=== PATIENT | female | born 1965 | race Caucasian/White ===

== ENCOUNTER 2020-04-28 13:28 | Emergency (ER) | payer OTHER, SELFPAY ==
--- NOTE | 2020-04-28 | CT_ITS ---
EXAMINATION: CT ANGIOGRAM HEAD CT ANGIOGRAM NECK CLINICAL INFORMATION: Left-sided weakness. COMPARISON: Brain MRI from 02/01/2020. CTA head and neck from 02/01/2020. TECHNIQUE: Initial noncontrast cable splicer apprentice imaging of the head and neck was performed. Noncontrast head CT was also performed. Test bolus sequences followed by intravenous administration 70 mL of Omnipaque 350. Helical imaging was performed in the axial plane from the aortic arch to the skull vertex. Delayed postcontrast imaging of the head was also performed. The data was processed at the creative technologist's workstation for generation of MIP sequences. Angled MIPs and volume rendered reformatted images were also generated at an offline 3D workstation. Stenoses are assessed in accordance with NASCET criteria unless otherwise indicated. DLP: 2434 mGy-cm This CT examination was performed using dose optimization techniques as appropriate, variously including the following: *Automated exposure control. *Adjustment of mA and/or kV according to patient size (this includes techniques or standardized protocols for targeted exams where dose is matched to indication/reason for exam; i.e. extremities or head). *Use of iterative reconstruction technique. FINDINGS: CT Head: There is no evidence of acute intracranial hemorrhage or edematous territorial infarction. Confluent hypoattenuation in the periventricular and deep white matter. Salvador-white matter differentiation is preserved. Proportional prominence of the ventricles and sulcal spaces. No evidence for obstructive hydrocephalus. No abnormal mass effect or midline shift. No extra-axial fluid collections. No pathologic intra-axial enhancement or regional oligemia. No acute soft tissue or osseous abnormalities. The patient is edentulous. Moderate mucosal thickening of the left maxillary sinus with small amount of layering fluid. The remaining paranasal sinuses are largely clear. The mastoid air cells and middle ear cavities are clear. CT Neck: The thyroid gland and remaining cervical soft tissues are within normal limits. Mild reversal the normal cervical lordosis centered on C5-C6. Moderate degenerative spondyloarthropathy of the cervical spine. There is advanced degenerative disc disease at C5-C6 with moderate disc-osteophyte complex. Mild to moderate multilevel degenerative facet and uncovertebral joint arthropathy, most notably causing moderate osseous encroachment on the C5-C6 neural foramina. CT Upper Chest: The visualized lung apices and upper mediastinum are within normal limits. Neck CTA: Exam is moderately motion degraded. Aortic Arch: Normal contour and caliber. Classic 3 vessel branching pattern of the aortic arch. Great Vessel Origins: No significant stenosis of the branch origins. Right Common Carotid Artery: Normal opacification without focal stenosis or occlusion. Cervical Right Internal Carotid Artery: Minimal calcific atherosclerotic disease of the carotid bulb. Otherwise, normal opacification without focal stenosis or occlusion. Left Common Carotid Artery: Normal opacification without focal stenosis or occlusion. Cervical Left Internal Carotid Artery: Normal opacification without focal stenosis or occlusion. Cervical Right Vertebral Artery: Co-dominant. Normal opacification without focal stenosis or occlusion. Cervical Left Vertebral Artery: Co-dominant. Normal opacification without focal stenosis or occlusion. Brain CTA: Exam is moderately motion degraded. Intracranial Internal Carotid Arteries: Calcific atherosclerotic disease of the intracranial internal carotid arteries without occlusion or flow-limiting stenosis. Normal contrast opacification of the petrous, cavernous, paraophthalmic, and supraclinoid segments of the internal carotid arteries without focal stenosis. Right Anterior Cerebral Artery: Normal A1 segment. Normal opacification of the distal segments of the ZEESHAN. Left Anterior Cerebral Artery: Normal A1 segment. Normal opacification of the distal segments of the ZEESHAN. Anterior Communicating Artery: Normal. Right Middle Cerebral Artery: Normal opacification of the M1 segment of the MCA without focal stenosis or occlusion. Normal arborization of the distal segments. Left Middle Cerebral Artery: Normal opacification of the M1 segment of the MCA without focal stenosis or occlusion. Normal arborization of the distal segments. Right Vertebral Artery: Normal opacification of the V4 segment. Normal opacification of the proximal segments of the posterior inferior cerebellar artery. Left Vertebral Artery: Normal opacification of the V4 segment. Normal opacification of the proximal segments of the posterior inferior cerebellar artery. Basilar Artery: Normal opacification without focal stenosis or occlusion. Normal appearance of the proximal superior cerebellar arteries. Right Posterior Cerebral Artery: Normal P1 segment. Normal opacification of the posterior communicating artery. Normal opacification of the distal segments of the AUTOMOBILE DEALER. Left Posterior Cerebral Artery: The P1 segment is diminutive. origin of the AUTOMOBILE DEALER with robust opacification of the posterior communicating artery. Normal opacification of the distal segments of the AUTOMOBILE DEALER. Normal opacification of the superior sagittal, straight, transverse, and sigmoid sinuses. IMPRESSION: Exam is limited by moderate motion degradation. Within this limitation, there is no evidence of proximal arterial occlusion or flow-limiting stenosis. No evidence of acute intracranial hemorrhage or edematous territorial infarction. Extensive underlying white matter changes, most commonly seen in the setting of microangiopathy. However, other inflammatory or demyelinating processes could have a similar appearance in the appropriate clinical setting. Mild generalized cerebral volume loss.
[2020-04-28 13:38] VITALS: BP 123/57; PULSE 80; RESP 16; TEMP 36.6; O2SAT 96; BMI 32.2
--- NOTE | 2020-04-28 13:52 | ED.NEUROSD ---
HPI - Neuro Symptoms/Deficit General Chief Complaint: Fall Stated Complaint: INCREASED WEAKNESS HX TIA Time Seen by Provider: 04/28/20 13:52 Source: patient and EMS Mode of arrival: EMS Limitations: other (vague historian) History of Present Illness HPI Narrative: 54 yo female with hx of CVA states residual L sided weakness, noted upon waking today at 4am her L side was much weaker but she had to go to methadone clinic, she felt her legs give out due to continued weakness x 7 days and she fell, no LOC reported, her story changed with interview among RN and myself, denies injury Onset (ago): day(s) (7) Location: left arm History of same: Yes Severity: moderate Quality: weak Relieving factors: none Exacerbating factors: none Context: gradual onset On Anticoagulants: No Associated symptoms: weakness (diffuse) Related Data Allergies Allergy/AdvReac Type Severity Reaction Status Date / Time trazodone [TRAZODONE] Allergy Intermediate VERY Unverified 04/09/20 16:16 ANXIOUS, RESTLESSNESS codeine [CODEINE] Allergy Unknown SWELLING Unverified 04/09/20 16:16 hornet venom [HORNETS] Allergy Unknown RASH Unverified 04/09/20 16:16 From SEROQUEL Allergy Intermediate ANXIETY Uncoded 04/09/20 16:16 AND RESTLESSNESS From BENADRYL Allergy Unknown RESTLESS Uncoded 04/09/20 16:16 Review of Systems Review of Systems: Constitutional : No Weight loss, No Fever, No Chills ENT/Mouth : No sore throat, No Rhinorrhea, abrasion to R Eyes: No Eye Pain, No Swelling Cardiovascular : no Chest Pain, no SOB, no Dyspnea on Exertion, No Orthopnea, No Edema, No Palpitations Respiratory : No Cough, No Sputum Gastrointestinal : no Nausea, No Vomiting, No Diarrhea, No abdominal Pain, No Hematochezia, No Melena Genitourinary : No Dysuria, No Urinary Frequency Musculoskeletal : No joint pain, No Myalgias, No Joint Swelling Skin : No Skin Lesions, No rash Neuro : +weakness, No Numbness, No Dizziness, No Headache Psych : No Anxiety/Panic, No Depression Heme/Lymph: No Bruising, No Lymphadenopathy Endocrine : No Polyuria, No Polydipsia All other systems reviewed and are negative [facility] Past Medical History Medical History (Updated 04/28/20 @ 16:33 by Enedina Seals DO) CVA (cerebral vascular accident) Diabetes Hyperlipidemia Seizure Social History Social History (Updated 04/28/20 @ 13:58 by Enedina Seals DO) Alcohol intake: current Smoking Status: Current every day smoker Substance Use Type Other:: on methadone Advance Directives: No Advance Directives Information Provided: Yes Physical Exam Vital Signs and I&O and Narrative: Vital Signs and I&O: Vital Signs Temp 97.8 F 04/28/20 13:38 Pulse 80 04/28/20 13:38 Resp 16 04/28/20 13:38 BP 123/57 L 04/28/20 13:38 Pulse Ox 96 04/28/20 13:38 Intake & Output 04/27/20 04/28/20 04/28/20 18:59 06:59 18:59 Intake Total 1000 / 1000 Balance 1000 / 1000 Weight 93.44 kg Intake: Intake, IV Amoun t 1000 / 1000 0.9 % Sodium C hloride 1,000 ml 1000 / 1000 @ 999 mls/hr I VCONT .Q1H1M [facility] Rx#:[id number] Body Mass Index 32.2 Appearance: Somnolent Oriented X3. No acute distress. Eyes: Pupils equal, round and reactive to light. ENT: Pharynx normal. Contusion small and abrasions R cheek Neck: Normal inspection. Neck supple. CVS: Normal heart rate and rhythm. Pulses normal. Respiratory: No respiratory distress. Breath sounds normal. Abdomen: Soft and nontender. Skin: Skin warm and dry. Normal skin color. Normal skin turgor. Extremities: No lower extremity edema. No trauma Neuro: Oriented X 3. L sided UE and LE 4/5 No sensory deficit. Course Course Course Narrative: reviewed notes from Neurology in past stating presents with slurred speech and L sided weakness with negative MRI and CTA ? conversion disorder or nonepileptic seizures signed out to Dr. Beckham pending workup MDM - Neuro Symptoms/Deficit MDM Narrative Medical decision making narrative: patient c/o weakness for 7 days, today states she felt like her legs gave out, she is a very vague historian and her story in inconsistent she now states that her L sided weakness is baseline but she noted it is much worse since 4am - states she didn't come in due to needing to go to methadone clinic, she has no infectious or GIB symptoms, will need infectious/metabolic/toxic workup including CT scan of brain and CTA, not a candidate for tPa given onset of LLE worsening at 4am so she would be out of tPa window, dispo per results and findings Lab Data Result diagrams: 04/28/20 15:13 04/28/20 15:13 Labs: Lab Results 04/28/20 04/28/20 04/28/20 Range/Units 14:45 14:45 14:45 WBC (4.8-10.8) X10*3/uL RBC (4.20-5.50) X10*6/uL Hgb (12.0-16.0) g/dl Hct (37-47) % MCV (80-98) fL MCH (27.0-33.0) pg MCHC (31.0-35.0) g/dl RDW (11.0-16.0) % Plt Count (160-400) X10*3/uL MPV (9.4-12.3) fL Immature Gran % (Auto) (0.0-0.4) % Neut % (Auto) (45-73) % Lymph % (Auto) (20-40) % Hardeman % (Auto) (2-11) % Eos % (Auto) (0-4) % Baso % (Auto) (0-2) % Neut # (Auto) (2.0-8.3) X10*3/uL Lymph # (Auto) (1.2-4.9) X10*3/uL Hardeman # (Auto) (0.1-1.2) X10*3/uL Eos # (Auto) (0.0-0.4) X10*3/uL Baso # (Auto) (0.0-0.2) X10*3/uL Abs Immat Gran (auto) (0.00-0.03) X10*3/uL Absolute Nucleated RBC (0.0-0.012) X10*3/uL Nucleated RBC % (auto) (0.0-0.2) /100WBC APTT 29.8 (24.1-38.0) SEC VBG pH (7.32-7.43) VBG pCO2 mmhg VBG Oxygen Liters/Min VBG pO2 mmhg VBG HCO3 mmol/L VBG O2 Saturation % VBG Base Excess mmol/L Sodium (135-145) mmol/L Potassium (3.3-5.1) mmol/l Chloride (96-108) mmol/L Carbon Dioxide (22-29) mmol/L Anion Gap (12-20) BUN (9-16) mg/dL Creatinine (0.5-1.4) mg/dL Estim Creat Clear Calc Estimated GFR Random Glucose (60-115) mg/dL Lactic Acid 1.7 (0.5-2.0) mmol/L Calcium (8.4-10.2) mg/dL Magnesium (1.6-2.6) mg/dL Total Bilirubin (0.0-1.0) mg/dL Direct Bilirubin (0.0-0.5) mg/dL AST (5-31) U/L ALT (0-31) U/L Alkaline Phosphatase (39-117) U/L Ammonia 48 (13-55) umol/L Total Creatine Kinase (26-140) U/L Total Protein (6.5-8.0) g/dL Albumin (3.5-5.0) g/dL Lipase (8-78) U/L Ethyl Alcohol mg/dL 04/28/20 04/28/20 04/28/20 Range/Units 14:45 14:45 15:13 WBC 13.5 H (4.8-10.8) X10*3/uL RBC 4.43 (4.20-5.50) X10*6/uL Hgb 11.3 L (12.0-16.0) g/dl Hct 37.3 (37-47) % MCV 84.2 (80-98) fL MCH 25.5 L (27.0-33.0) pg MCHC 30.3 L (31.0-35.0) g/dl RDW 16.4 H (11.0-16.0) % Plt Count 224 (160-400) X10*3/uL MPV 10.0 (9.4-12.3) fL Immature Gran % (Auto) 0.4 (0.0-0.4) % Neut % (Auto) 63.8 (45-73) % Lymph % (Auto) 26.0 (20-40) % Hardeman % (Auto) 7.0 (2-11) % Eos % (Auto) 2.5 (0-4) % Baso % (Auto) 0.3 (0-2) % Neut # (Auto) 8.6 H (2.0-8.3) X10*3/uL Lymph # (Auto) 3.5 (1.2-4.9) X10*3/uL Hardeman # (Auto) 0.9 (0.1-1.2) X10*3/uL Eos # (Auto) 0.3 (0.0-0.4) X10*3/uL Baso # (Auto) 0.0 (0.0-0.2) X10*3/uL Abs Immat Gran (auto) 0.05 H (0.00-0.03) X10*3/uL Absolute Nucleated RBC 0.000 (0.0-0.012) X10*3/uL Nucleated RBC % (auto) 0.0 (0.0-0.2) /100WBC APTT (24.1-38.0) SEC VBG pH 7.34 (7.32-7.43) VBG pCO2 55 mmhg VBG Oxygen Liters/Min TNP VBG pO2 55 mmhg VBG HCO3 29 mmol/L VBG O2 Saturation 87.6 % VBG Base Excess 1.7 mmol/L Sodium (135-145) mmol/L Potassium (3.3-5.1) mmol/l Chloride (96-108) mmol/L Carbon Dioxide (22-29) mmol/L Anion Gap (12-20) BUN (9-16) mg/dL Creatinine (0.5-1.4) mg/dL Estim Creat Clear Calc Estimated GFR Random Glucose (60-115) mg/dL Lactic Acid (0.5-2.0) mmol/L Calcium (8.4-10.2) mg/dL Magnesium (1.6-2.6) mg/dL Total Bilirubin (0.0-1.0) mg/dL Direct Bilirubin (0.0-0.5) mg/dL AST (5-31) U/L ALT (0-31) U/L Alkaline Phosphatase (39-117) U/L Ammonia (13-55) umol/L Total Creatine Kinase (26-140) U/L Total Protein (6.5-8.0) g/dL Albumin (3.5-5.0) g/dL Lipase (8-78) U/L Ethyl Alcohol < 10 mg/dL 04/28/20 Range/Units 15:13 WBC (4.8-10.8) X10*3/uL RBC (4.20-5.50) X10*6/uL Hgb (12.0-16.0) g/dl Hct (37-47) % MCV (80-98) fL MCH (27.0-33.0) pg MCHC (31.0-35.0) g/dl RDW (11.0-16.0) % Plt Count (160-400) X10*3/uL MPV (9.4-12.3) fL Immature Gran % (Auto) (0.0-0.4) % Neut % (Auto) (45-73) % Lymph % (Auto) (20-40) % Hardeman % (Auto) (2-11) % Eos % (Auto) (0-4) % Baso % (Auto) (0-2) % Neut # (Auto) (2.0-8.3) X10*3/uL Lymph # (Auto) (1.2-4.9) X10*3/uL Hardeman # (Auto) (0.1-1.2) X10*3/uL Eos # (Auto) (0.0-0.4) X10*3/uL Baso # (Auto) (0.0-0.2) X10*3/uL Abs Immat Gran (auto) (0.00-0.03) X10*3/uL Absolute Nucleated RBC (0.0-0.012) X10*3/uL Nucleated RBC % (auto) (0.0-0.2) /100WBC APTT (24.1-38.0) SEC VBG pH (7.32-7.43) VBG pCO2 mmhg VBG Oxygen Liters/Min VBG pO2 mmhg VBG HCO3 mmol/L VBG O2 Saturation % VBG Base Excess mmol/L Sodium 141 (135-145) mmol/L Potassium 4.0 (3.3-5.1) mmol/l Chloride 104 (96-108) mmol/L Carbon Dioxide 28 (22-29) mmol/L Anion Gap 13 (12-20) BUN 7 L (9-16) mg/dL Creatinine 0.81 (0.5-1.4) mg/dL Estim Creat Clear Calc 93.2 Estimated GFR > 60 Random Glucose 101 (60-115) mg/dL Lactic Acid (0.5-2.0) mmol/L Calcium 9.0 (8.4-10.2) mg/dL Magnesium 2.1 (1.6-2.6) mg/dL Total Bilirubin 0.2 (0.0-1.0) mg/dL Direct Bilirubin < 0.2 (0.0-0.5) mg/dL AST 19 (5-31) U/L ALT 44 H (0-31) U/L Alkaline Phosphatase 126 H (39-117) U/L Ammonia (13-55) umol/L Total Creatine Kinase 130 (26-140) U/L Total Protein 6.7 (6.5-8.0) g/dL Albumin 4.0 (3.5-5.0) g/dL Lipase 10 (8-78) U/L Ethyl Alcohol mg/dL ECG Data ECG interpretation date: 04/28/20 ECG interpretation time: 14:06 Interpretation: Rate: 73 Rhythm: normal sinus rhythm [place]: normal Normal P waves. Normal SHENG. Normal QRS complex. ST T wave : normal qTC: normal prior studies: no acute ischemia The study has been interpreted contemporaneously by me. . Discharge Plan Discharge Clinical Impression: Weakness
--- NOTE | 2020-04-28 13:53 | ECG_ITS ---
Test Reason : FALL Blood Pressure : / mmHG Vent. Rate : 073 BPM Atrial Rate : 073 BPM P-R Int : 160 ms QRS Dur : 082 ms QT Int : 410 ms P-R-T Axes : 028 060 037 degrees QTc Int : 451 ms Normal sinus rhythm Normal ECG When compared with ECG of 01-FEB-2020 10:58, No significant change was found Referred By: Enedina Seals Electronically Signed By:GORDON MARIE
--- NOTE | 2020-04-28 13:54 | XR_ITS ---
EXAMINATION: XR CHEST CLINICAL INFORMATION: Weakness COMPARISON: 02/02/2020 TECHNIQUE: Frontal view of the chest was obtained. FINDINGS: No significant abnormality is noted involving the heart, lungs, mediastinum, bony thorax or soft tissues. IMPRESSION: Unremarkable examination.
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
[2020-04-28] MEDS: 0.9 % Sodium Chloride 1,000 ML 999 ML IVCONT (15:14)
[2020-04-28 15:20] LABS: MANUAL DIFF FLAG NO
[2020-04-28 15:21] LABS: Basophils Percent Auto 0.3 % (0-2); Eosinophils Absolute Auto 0.3 X10*3/uL (0.0-0.4); Eosinophils Percent Auto 2.5 % (0-4); Hematocrit 37.3 % (37-47); Hemoglobin 11.3 g/dl (12.0-16.0); Imm Gran Abs Auto 0.05 X10*3/uL (0.00-0.03); Imm Gran Pct Auto 0.4 % (0.0-0.4); Lymphocytes Absolute Auto 3.5 X10*3/uL (1.2-4.9); Mean Corpuscular HGB Conc 30.3 g/dl (31.0-35.0); Mean Corpuscular Hemoglobin 25.5 pg (27.0-33.0); Mean Corpuscular Volume 84.2 fL (80-98); Monocytes Absolute Auto 0.9 X10*3/uL (0.1-1.2); Neutrophils Absolute Auto 8.6 X10*3/uL (2.0-8.3); Neutrophils Percent Auto 63.8 % (45-73); Platelet Count 224 X10*3/uL (160-400); Red Blood Count 4.43 X10*6/uL (4.20-5.50); Red Cell Distribution Width 16.4 % (11.0-16.0); White Blood Count 13.5 X10*3/uL (4.8-10.8)
[2020-04-28 15:21] LABS: PCO2 VBG 55 mmhg; PO2 VBG 55 mmhg; pH VBG 7.34 (7.32-7.43)
[2020-04-28 15:22] LABS: Base Excess VBG 1.7 mmol/L; HCO3 VBG 29 mmol/L
[2020-04-28 15:25] LABS: Oxygen Saturation VBG 87.6 %; Partial Thromboplastin Time 29.8 SEC (24.1-38.0)
[2020-04-28 15:30] LABS: Ammonia 48 umol/L (13-55)
[2020-04-28 15:33] LABS: Lactic Acid 1.7 mmol/L (0.5-2.0)
[2020-04-28 15:35] LABS: Ethanol < 10 mg/dL
[2020-04-28 15:51] LABS: Alanine Aminotransferase 44 U/L (0-31); Alkaline Phosphatase 126 U/L (39-117); Anion Gap 13 (12-20); Aspartate Amino Transferase 19 U/L (5-31); Bilirubin Direct < 0.2 mg/dL (0.0-0.5); Bilirubin Total 0.2 mg/dL (0.0-1.0); Blood Urea Nitrogen 7 mg/dL (9-16); Carbon Dioxide 28 mmol/L (22-29); Chloride 104 mmol/L (96-108); Creatinine Clr Calc Pharmacy 93.2; Estimated Glomerular Filt Rate > 60; Glucose Random 101 mg/dL (60-115); Lipase 10 U/L (8-78); Magnesium 2.1 mg/dL (1.6-2.6); Sodium 141 mmol/L (135-145); Total Protein 6.7 g/dL (6.5-8.0)
[2020-04-28] MEDS: iohexoL 350 MG/ML 100 ML INFUS..BTL IV (16:41)
[2020-04-28 17:00] VITALS: BP 114/56; PULSE 80; RESP 14; O2SAT 96
--- NOTE | 2020-04-28 17:01 | PC.NURSE ---
PT R SIDE LYING IN BED SLEEPING, RR EVEN UNLABORED, SKIN WPD, NAD.
--- NOTE | 2020-04-28 18:11 | PC.NURSE ---
PT SLEEPING IN BED, RR EVEN UNLABORED, SKIN WPD, NAD. PT EASILY AROUSABLE TO VOICE, OFFERS NO NEW COMPLAINTS, NEUROS REMAIN GROSSLY INTACT. PROVIDER AT BEDSIDE FOR RE-EVAL, PT AWARE/AGREEABLE TO PENDING D/C.
== END 2020-04-28 18:24 | disposition home or self-care (01) ==
PROVIDERS: Emergency Medicine; Emergency Provider Internal Medicine
DX: R53.1 Weakness (principal); M79.602 Pain in left arm; E11.9 Type 2 diabetes mellitus without complications; F17.200 Nicotine dependence, unspecified, uncomplicated; Z79.899 Other long term (current) drug therapy; Z86.73 Personal history of transient ischemic attack (TIA), and cerebral infarction without residual deficits; Z71.6 Tobacco abuse counseling
CPT/HCPCS: 36415; 70496; 70498; 71045; 80048; 80076; 80320; 82140; 82550; 82803; 83605; 83690; 83735; 85025; 85730; 87040; 87071; 87147; 93005; 93010; 96360; 99284

== ENCOUNTER 2020-05-03 09:35 | Emergency (ER) | payer OTHER, SELFPAY ==
--- NOTE | 2020-05-03 09:31 | ECG_ITS ---
Test Reason : CP Blood Pressure : / mmHG Vent. Rate : 074 BPM Atrial Rate : 074 BPM P-R Int : 146 ms QRS Dur : 082 ms QT Int : 408 ms P-R-T Axes : 042 064 035 degrees QTc Int : 452 ms Normal sinus rhythm with sinus arrhythmia Normal ECG When compared with ECG of 28-APR-2020 14:02, No significant change was found Referred By: Eduin Garvey Electronically Signed By:JUSTIN KNUTSON MD
[2020-05-03 09:42] VITALS: BP 125/82; BP 133/84; PULSE 74; PULSE 78; RESP 16; TEMP 36.9; O2SAT 95; O2SAT 99; BMI 28.1
--- NOTE | 2020-05-03 09:47 | XR_ITS ---
EXAMINATION: XR CHEST CLINICAL INFORMATION: Chest pain COMPARISON: 04/28/2020 TECHNIQUE: 2 views of the chest were obtained. FINDINGS: Lungs are well-inflated and clear. Trachea is midline in position. No interstitial disease, consolidation or mass. No pleural effusion or pneumothorax. Cardiac silhouette and pulmonary vessels are normal in size. The mediastinum and wolfgang have normal contour. The visualized bones, and upper abdomen, are unremarkable. IMPRESSION: No vascular congestion or pulmonary edema. No acute cardiopulmonary abnormality.
[2020-05-03 09:55] VITALS: PULSE 70
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
[2020-05-03 10:17] LABS: MANUAL DIFF FLAG NO
[2020-05-03 10:19] LABS: Basophils Percent Auto 0.3 % (0-2); Eosinophils Absolute Auto 0.2 X10*3/uL (0.0-0.4); Eosinophils Percent Auto 1.5 % (0-4); Hematocrit 39.2 % (37-47); Hemoglobin 12.1 g/dl (12.0-16.0); Imm Gran Abs Auto 0.04 X10*3/uL (0.00-0.03); Imm Gran Pct Auto 0.4 % (0.0-0.4); Lymphocytes Absolute Auto 2.4 X10*3/uL (1.2-4.9); Lymphocytes Percent Auto 22.6 % (20-40); Mean Corpuscular HGB Conc 30.9 g/dl (31.0-35.0); Mean Corpuscular Hemoglobin 25.5 pg (27.0-33.0); Mean Corpuscular Volume 82.7 fL (80-98); Mean Platelet Volume 9.8 fL (9.4-12.3); Monocytes Absolute Auto 0.5 X10*3/uL (0.1-1.2); Monocytes Percent Auto 5.1 % (2-11); Neutrophils Absolute Auto 7.5 X10*3/uL (2.0-8.3); Neutrophils Percent Auto 70.1 % (45-73); Platelet Count 248 X10*3/uL (160-400); Red Blood Count 4.74 X10*6/uL (4.20-5.50); Red Cell Distribution Width 16.4 % (11.0-16.0); White Blood Count 10.7 X10*3/uL (4.8-10.8)
[2020-05-03 10:27] LABS: INTERNATIONAL NORM RATIO 1.1 (0.9-1.1); Prothrombin Time 12.6 SEC (10.8-13.0)
[2020-05-03 10:29] LABS: Partial Thromboplastin Time 36.9 SEC (24.1-38.0)
--- NOTE | 2020-05-03 10:30 | PC.NURSE ---
PT ALERT AND ORIENTED X4. SKIN WPD. RESPIRATIONS EVEN AND NON LABORED. REPORTS ONLY A LITTLE BIT OF CHEST PAIN AT THIS TIME. SUBSTERNAL, NON-RADIATING, NON-REPRODUCIBLE. NSR ON MONITOR. VSS. IV ACCESS IN PLACE. IV ACCESS IN PLACE. LABS SENT.
[2020-05-03 10:44] LABS: Troponin-I High Sensitivity < 3.5 ng/L (<3.5-17.0)
[2020-05-03 10:53] LABS: Alanine Aminotransferase 33 U/L (0-31); Albumin Level 4.3 g/dL (3.5-5.0); Alkaline Phosphatase 122 U/L (39-117); Anion Gap 12 (12-20); Aspartate Amino Transferase 19 U/L (5-31); Bilirubin Total 0.3 mg/dL (0.0-1.0); Blood Urea Nitrogen 9 mg/dL (9-16); Calcium 9.1 mg/dL (8.4-10.2); Carbon Dioxide 29 mmol/L (22-29); Chloride 103 mmol/L (96-108); Creatinine Clr Calc Pharmacy 79.4; Estimated Glomerular Filt Rate > 60; Glucose Random 100 mg/dL (60-115); Potassium 4.6 mmol/l (3.3-5.1); Sodium 139 mmol/L (135-145); Total Protein 7.2 g/dL (6.5-8.0)
[2020-05-03] MEDS: ondansetron HCL 4 MG/2 ML VIAL IVPUSH (11:26)
[2020-05-03 11:27] VITALS: BP 125/78; PULSE 65; RESP 16; O2SAT 95
[2020-05-03 13:41] VITALS: BP 138/67; PULSE 81; RESP 14; TEMP 36.7; O2SAT 97
--- NOTE | 2020-05-03 14:13 | PC.NURSE ---
PT SLEEPING ON STRETCHER IN POSITION OF COMFORT. SKIN WPD. RESPIRATIONS EVEN AND NON LABORED. NSR ON MONITOR. VSS. AWAITING SECOND TROPONIN DRAW.
[2020-05-03 15:21] VITALS: BP 111/88; PULSE 68; RESP 16; TEMP 36.7; O2SAT 95
[2020-05-03 15:23] LABS: Troponin-I High Sensitivity < 3.5 ng/L (<3.5-17.0)
--- NOTE | 2020-05-03 15:41 | PC.NURSE ---
PATIENT'S 2ND TROPONIN BACK AND PATIENT WILL BE DISCHARGED HOME PER MONITORING ANALYST.
== END 2020-05-03 15:58 | disposition home or self-care (01) ==
PROVIDERS: Physician Assistant; Emergency Provider Emergency Medicine
DX: R07.89 Other chest pain (principal); F41.9 Anxiety disorder, unspecified; E11.9 Type 2 diabetes mellitus without complications; Z86.73 Personal history of transient ischemic attack (TIA), and cerebral infarction without residual deficits; F17.200 Nicotine dependence, unspecified, uncomplicated
CPT/HCPCS: 36415; 71046; 80053; 84484; 85025; 85610; 85730; 93005; 96374; 99284; 99285; J2405

== ENCOUNTER 2020-07-03 22:54 | Emergency (ER) | payer OTHER, SELFPAY ==
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
[2020-07-03 23:05] VITALS: BP 142/68; PULSE 88; RESP 16; TEMP 36.6; O2SAT 95; BMI 29.9
== END 2020-07-03 23:38 | disposition home or self-care (01) ==
LOC: HO.ED 23:16
PROVIDERS: Emergency Provider Internal Medicine
DX: G44.309 Post-traumatic headache, unspecified, not intractable (principal); S09.90XA Unspecified injury of head, initial encounter; Y04.8XXA Assault by other bodily force, initial encounter; Y93.9 Activity, unspecified; Y92.009 Unspecified place in unspecified non-institutional (private) residence as the place of occurrence of the external cause; Y99.9 Unspecified external cause status
CPT/HCPCS: 99283; 99284

== ENCOUNTER 2020-07-11 09:53 | Outpatient (REF) | payer OTHER, SELFPAY | END 2020-07-11 09:54 | disposition home or self-care (01) | LOC: HO.LAB 09:53 | PROVIDERS: Visit Provider Internal Medicine | DX: Z20.828 Contact with and (suspected) exposure to other viral communicable diseases (principal) | CPT/HCPCS: C9803; U0003 ==

== ENCOUNTER 2020-08-26 09:00 | Outpatient (REF) | payer OTHER, SELFPAY | END 2020-08-26 09:01 | disposition home or self-care (01) | LOC: HO.LAB 09:00 | PROVIDERS: Visit Provider Internal Medicine | DX: Z20.822 Contact with and (suspected) exposure to COVID-19 (principal) | CPT/HCPCS: 36415; C9803; U0003; U0005 ==

== ENCOUNTER 2020-09-15 12:53 | Emergency (ER) | payer OTHER, SELFPAY ==
--- NOTE | ~2020-09-15 | CT_ITS ---
EXAMINATION: CHEST X-RAY CLINICAL INFORMATION: CVA COMPARISON: Previous chest x-ray April 2020 TECHNIQUE: AP portable chest FINDINGS: The cardiac and mediastinal contours are stable. There is minimal linear scarring or subsegmental atelectasis in the left upper lobe. The lungs are otherwise clear. There is no pleural effusion or pneumothorax. There is curvature of the lower thoracic and upper lumbar spine to the right. CT/CT head for stroke IMPRESSION: No evidence for acute disease in the chest. EXAMINATION: Head CT without contrast CLINICAL INFORMATION: Left arm and leg weakness for 2 hours. Rule out stroke. COMPARISON: Previous head CT most recent January 2020 and brain MRI April 2020 TECHNIQUE: Axial images through the head without contrast. Sagittal and coronal reconstructions on the technologist workstation were performed. Patient dose 6 7 6 mg/cm. This CT examination was performed using dose optimization techniques as appropriate, variously including the following: *Automated exposure control *Adjustment of mA and/or kV according to patient size (this includes techniques or standardized protocols for targeted exams where dose is matched to indication/reason for exam; i.e. extremities or head) *Use of iterative reconstruction technique FINDINGS: There is no evidence of an extra-axial collection. There is no evidence of intra-axial or extra-axial hemorrhage. The ventricles and extra-axial CSF spaces are appropriate. There is extensive decreased attenuation in the periventricular white matter. This is similar to previous exam. No mass, mass effect or infarct is seen. Review at bone windows is normal. Visualized paranasal sinuses, mastoid air cells and middle ears are clear. IMPRESSION: No acute findings. Extensive periventricular white matter disease similar to previous exams. Findings were communicated to Dr. Seals by telephone on 09/15/2020 at 1:30 PM.
--- NOTE | ~2020-09-15 | CT_ITS ---
EXAMINATION: CTA OF THE HEAD AND NECK CLINICAL INFORMATION: Left arm and leg weakness for 2 hours. COMPARISON: CT angiogram dated 04/28/2020. TECHNIQUE: Test bolus sequences followed by intravenous administration 75 mL of Omnipaque 350. Helical imaging was performed in the axial plane from the mediastinum to the skull vertex. Delayed postcontrast imaging of the head was also performed. The data was processed at the echocardiography radiology technologist's workstation for generation of MIP sequences. Three-dimensional volume rendered reformatted images were also generated at an offline 3-D workstation. Stenoses are assessed in accordance with NASCET criteria unless otherwise indicated. This CT examination was performed using dose optimization techniques as appropriate, variously including the following: *Automated exposure control *Adjustment of mA and/or kV according to patient size (this includes techniques or standardized protocols for targeted exams where dose is matched to indication/reason for exam; i.e. extremities or head) *Use of iterative reconstruction technique DLP: 1452 mGy-cm. FINDINGS: CTA neck: The imaged aortic arch and origins of the great vessels are normal. The common carotid arteries are widely patent. The carotid bifurcations are normal. The cervical internal carotid arteries are normal. The vertebral arteries opacify normally and are of normal caliber. There is a small 0.7 cm nodule versus cyst in the right thyroid lobe. Moderate spondylosis again evident at the C5-C6 level. Multilevel disc-osteophyte complexes in the lower cervical spine with a central disc protrusion mildly impressing upon the ventral cord at the C4-C5 level. Mild subsegmental atelectatic changes in the imaged lungs. CTA head: The intradural vertebral arteries and basilar artery are normal. The posterior cerebral arteries are widely patent. The internal carotid arteries are of normal caliber. The ZEESHAN and MCA vascular complexes bilaterally are normal. The venous sinuses opacify normally. Extensive fairly symmetric low-density changes again visible in the frontoparietal white matter of both cerebral hemispheres. No abnormal parenchymal or leptomeningeal enhancement is evident. CT/CT angio head neck stroke IMPRESSION: Normal CT angiogram of the head and neck. Findings reported to Dr. Seals at 1:38 PM on 09/15/2020.
--- NOTE | 2020-09-15 13:00 | ECG_ITS ---
Test Reason : R/O STROKE Blood Pressure : / mmHG Vent. Rate : 073 BPM Atrial Rate : 073 BPM P-R Int : 158 ms QRS Dur : 082 ms QT Int : 424 ms P-R-T Axes : 044 060 027 degrees QTc Int : 467 ms Normal sinus rhythm Normal ECG When compared with ECG of 03-MAY-2020 09:31, No significant change was found Referred By: Leonor Barney Electronically Signed By:ANDERSON MAYORGA MD
[2020-09-15 13:02] VITALS: RESP 18; BMI 32.4
--- NOTE | 2020-09-15 13:02 | ED.WEAKNESS ---
HPI - Weakness General Chief complaint: Weakness Stated complaint: ?stroke Time Seen by Provider: 09/15/20 12:59 Source: patient Mode of arrival: wheelchair History of Present Illness HPI Narrative: 55-year-old female with a past medical history of anxiety, CVA w/L sided weakness, diabetes, hyperlipidemia, PDA, seizures, on ASA, presenting to the ED complaining of left arm and left leg weakness beginning about 2 hours [employer]. Admits to currently being treated for UTI. Denies recent fall/trauma or injury, fever, chills, chest pain/shortness of breath. Patient very vague historian, getting worked up/agitated with multiple questions MD Complaint: focal weakness Related Data Home Medications Medication Instructions Recorded Confirmed albuterol sulfate 2 puff PO QID PRN 09/15/20 09/15/20 aspirin 1 tab PO DAILY 09/15/20 09/15/20 atorvastatin 1 tab PO DAILY 09/15/20 09/15/20 clonazepam 1 tab PO BEDTIME PRN 09/15/20 09/15/20 clonidine HCl 1 tab PO BEDTIME PRN 09/15/20 09/15/20 hydroxyzine pamoate 1 - 2 cap PO BEDTIME PRN 09/15/20 09/15/20 lamotrigine 1 tab PO BEDTIME 09/15/20 09/15/20 lamotrigine 1 tab PO QAM 09/15/20 09/15/20 levetiracetam 1 tab PO BID 09/15/20 09/15/20 omeprazole 1 cap PO DAILY 09/15/20 09/15/20 sertraline 2 tab PO QAM 09/15/20 09/15/20 Allergies Allergy/AdvReac Type Severity Reaction Status Date / Time trazodone [TRAZODONE] Allergy Intermediate VERY Verified 05/03/20 09:40 ANXIOUS, RESTLESSNESS codeine [CODEINE] Allergy Unknown SWELLING Verified 05/03/20 09:39 hornet venom [HORNETS] Allergy Unknown RASH Verified 05/03/20 09:39 From SEROQUEL Allergy Intermediate ANXIETY Uncoded 05/03/20 09:41 AND RESTLESSNESS From BENADRYL AdvReac Intermediate RESTLESS Uncoded 05/03/20 09:41 Review of Systems Review of Systems: Constitutional: No No Fever, No Chills, No Night Sweats, No Fatigue, No Malaise Cardiovascular: No Chest Pain, No SOB Respiratory: No Cough, No Dyspnea Gastrointestinal: No Nausea, No Vomiting, No Diarrhea, No Constipation, No Abdominal pain Genitourinary: No Dysuria, No Urinary Frequency, No Hematuria Musculoskeletal: No joint pain, No Myalgias, No Joint Swelling Skin: No Skin Lesions, No rash Neuro: + Weakness, No Numbness, No Paresthesias, No Loss of Consciousness, No Dizziness, No Headache Yes all other systems are reviewed and are negative [facility] Past Medical History Attestation statement: The following information was validated with the patient. Medical History Anxiety CVA (cerebral vascular accident) Diabetes Hyperlipidemia Left knee injury Patent ductus arteriosus Seizure Surgical History H/O left knee surgery Hx of tonsillectomy Social History Social History Alcohol intake: former Smoking Status: Current every day smoker Substance Use Type: Heroin Advance Directives: No Advance Directives Information Provided: No Physical Exam Vital Signs: Vital Signs: Last Vital Signs Resp 18 09/15/20 13:02 Body Mass Index 32.4 Const: General: cooperative, healthy appearing and no acute distress Orientation/consciousness: patient oriented x3 Limitations: no limitations HENMT: Head: Yes normal to inspection Ears: hearing grossly normal bilaterally General nose exam: Normal external nose present Face and sinus: Yes normal facial exam Eyes: General: appearance normal, both eyes and all related structures Pupils: Equal, round and reactive pupils present EOM: EOMs intact bilaterally Neck: Neck: Yes normal visual inspection Resp: Effort & Inspection: normal respiratory effort and not labored Cardio: Rate: regular rate GI: Inspection: Yes normal to inspection Palpation (GI): Soft to palpation and nontender Skin: General skin exam: turgor normal Rashes: no rashes Wounds: no wounds Neuro: Other: LUE 5/5 strength, LLE 4/5 strength. No sensory deficits General: patient oriented x3, tone normal, moves all extremities and CN's II-XI intact bilaterally Cranial nerves: Yes Equal, round and reactive pupils present Gait exam (Neuro): Normal gait present Extrem: General: Yes normal to inspection NIH Stroke Scale Internal: Initial- Upon Arrival Level of Consciousness: Alert Level of Consciousness Questions: Answers both questions correctly Level of Consciousness Commands: Performs both tasks correctly Best Gaze: Normal Visual: No visual loss Facial Palsy: Normal Motor Arm (Right): No drift Motor Arm (Left): No drift Motor Leg (Right): No drift Motor Leg (Left): No drift Limb Ataxia: Absent Sensory: Normal Best Language: No aphasia Dysarthia: Normal Extinction and Inattention: No abnormality Score: 0 Course Course Course Narrative: -labs unremarkable XR chest 1V IMPRESSION: No evidence for acute disease in the chest. Head CT without contrast IMPRESSION: No acute findings. Extensive periventricular white matter disease similar to previous exams. CT angio head neck stroke IMPRESSION: Normal CT angiogram of the head and neck. -UA negative. Results discussed with patient including worrisome signs and symptoms and strict return precautions. She is to follow up with her primary care doctor. She verbalized understanding feel safe for discharge home MDM - Weakness MDM Narrative Medical decision making narrative: 55-year-old female with a past medical history of anxiety, CVA w/L sided weakness, diabetes, hyperlipidemia, PDA, seizures, on ASA, presenting to the ED complaining of left arm and left leg weakness beginning about 2 hours [employer]. On exam VSS, NAD, physical exam as above. Upon chart review patient with multiple similar presentations and negative workup, ultimately diagnosed with conversion disorder. Concern for CVA vs conversion disorder. R/o infectious/metabolic etiology Patient is not a tPA candidate due to low stroke scale, & suspicion for psychosomatic etiology Plan: EKG, labs, stat head CT/CTA head and neck, billing and insurance coordinator involved Differential Diagnosis Differential diagnosis: Likely UTI Medical Records Attestation: I reviewed the patient's medical records. Lab Data Attestation: I reviewed the patient's lab results. Result diagrams: 09/15/20 13:42 09/15/20 13:42 Labs: Lab Results 09/15/20 09/15/20 09/15/20 Range/Units 13:02 13:05 13:42 WBC 7.5 (4.8-10.8) X10*3/uL RBC 4.24 (4.20-5.50) X10*6/uL Hgb 11.2 L (12.0-16.0) g/dl Hct 35.8 L (37-47) % MCV 84.4 (80-98) fL MCH 26.4 L (27.0-33.0) pg MCHC 31.3 (31.0-35.0) g/dl RDW 15.4 (11.0-16.0) % Plt Count 232 (160-400) X10*3/uL MPV 9.6 (9.4-12.3) fL Immature Gran % (Auto) 0.3 (0.0-0.4) % Neut % (Auto) 63.9 (45-73) % Lymph % (Auto) 29.1 (20-40) % Stafford % (Auto) 5.2 (2-11) % Eos % (Auto) 1.2 (0-4) % Baso % (Auto) 0.3 (0-2) % Lymph # (Auto) 2.2 (1.2-4.9) X10*3/uL Stafford # (Auto) 0.4 (0.1-1.2) X10*3/uL Eos # (Auto) 0.1 (0.0-0.4) X10*3/uL Baso # (Auto) 0.0 (0.0-0.2) X10*3/uL Abs Immat Gran (auto) 0.02 (0.00-0.03) X10*3/uL Absolute Neuts (auto) 4.8 (2.0-8.3) X10*3/uL Absolute Nucleated RBC 0.000 (0.0-0.012) X10*3/uL Nucleated RBC % (auto) 0.0 (0.0-0.2) /100WBC PT (10.8-13.0) SEC Whole Blood PT 13.6 H (11.1-13.5) sec INR (0.9-1.1) Whole Blood INR 1.1 (0.9-1.1) APTT (24.1-38.0) SEC Sodium (135-145) mmol/L Potassium (3.3-5.1) mmol/L Chloride (96-108) mmol/L Carbon Dioxide (22-29) mmol/L Anion Gap (12-20) BUN (9-16) mg/dL Creatinine (0.5-1.4) mg/dL Estim Creat Clear Calc Estimated GFR POC Glucose 118 H (60-115) mg/dL Random Glucose (60-115) mg/dL Calcium (8.4-10.2) mg/dL Magnesium (1.6-2.6) mg/dL Total Bilirubin (0.0-1.0) mg/dL Direct Bilirubin (0.0-0.5) mg/dL AST (5-31) U/L ALT (0-31) U/L Alkaline Phosphatase (39-117) U/L Troponin I High Sens (<3.5-17.0) ng/L Total Protein (6.5-8.0) g/dL Albumin (3.5-5.0) g/dL Urine Color Urine Appearance Urine pH (5.0-8.0) Ur Specific [place] (1.005-1.025) Urine Protein (NEG-TRACE) MG/DL Urine Glucose (UA) (NEG) MG/DL Urine Ketones (NEG) MG/DL Urine Blood (NEG) Urine Nitrite (NEG) Ur Leukocyte Esterase (NEG) Urine Opiates Screen (Not Detect) Ur Barbiturates Screen (Not Detect) Ur Phencyclidine Scrn (Not Detect) Ur Amphetamines Screen (Not Detect) Urine Cocaine Screen (Not Detect) U Marijuana (THC) Screen (Not Detect) 09/15/20 09/15/20 09/15/20 Range/Units 13:42 13:42 13:42 WBC (4.8-10.8) X10*3/uL RBC (4.20-5.50) X10*6/uL Hgb (12.0-16.0) g/dl Hct (37-47) % MCV (80-98) fL MCH (27.0-33.0) pg MCHC (31.0-35.0) g/dl RDW (11.0-16.0) % Plt Count (160-400) X10*3/uL MPV (9.4-12.3) fL Immature Gran % (Auto) (0.0-0.4) % Neut % (Auto) (45-73) % Lymph % (Auto) (20-40) % Stafford % (Auto) (2-11) % Eos % (Auto) (0-4) % Baso % (Auto) (0-2) % Lymph # (Auto) (1.2-4.9) X10*3/uL Stafford # (Auto) (0.1-1.2) X10*3/uL Eos # (Auto) (0.0-0.4) X10*3/uL Baso # (Auto) (0.0-0.2) X10*3/uL Abs Immat Gran (auto) (0.00-0.03) X10*3/uL Absolute Neuts (auto) (2.0-8.3) X10*3/uL Absolute Nucleated RBC (0.0-0.012) X10*3/uL Nucleated RBC % (auto) (0.0-0.2) /100WBC PT 13.7 H (10.8-13.0) SEC Whole Blood PT (11.1-13.5) sec INR 1.2 H (0.9-1.1) Whole Blood INR (0.9-1.1) APTT 41.4 H (24.1-38.0) SEC Sodium 139 (135-145) mmol/L Potassium 3.8 (3.3-5.1) mmol/L Chloride 106 (96-108) mmol/L Carbon Dioxide 26 (22-29) mmol/L Anion Gap 11 L (12-20) BUN 11 (9-16) mg/dL Creatinine 0.85 (0.5-1.4) mg/dL Estim Creat Clear Calc 76.2 Estimated GFR > 60 POC Glucose (60-115) mg/dL Random Glucose 102 (60-115) mg/dL Calcium 8.6 (8.4-10.2) mg/dL Magnesium 2.0 (1.6-2.6) mg/dL Total Bilirubin 0.4 (0.0-1.0) mg/dL Direct Bilirubin 0.2 (0.0-0.5) mg/dL AST 20 (5-31) U/L ALT 26 (0-31) U/L Alkaline Phosphatase 96 D (39-117) U/L Troponin I High Sens < 3.5 (<3.5-17.0) ng/L Total Protein 6.4 L (6.5-8.0) g/dL Albumin 3.9 (3.5-5.0) g/dL Urine Color Urine Appearance Urine pH (5.0-8.0) Ur Specific [place] (1.005-1.025) Urine Protein (NEG-TRACE) MG/DL Urine Glucose (UA) (NEG) MG/DL Urine Ketones (NEG) MG/DL Urine Blood (NEG) Urine Nitrite (NEG) Ur Leukocyte Esterase (NEG) Urine Opiates Screen (Not Detect) Ur Barbiturates Screen (Not Detect) Ur Phencyclidine Scrn (Not Detect) Ur Amphetamines Screen (Not Detect) Urine Cocaine Screen (Not Detect) U Marijuana (THC) Screen (Not Detect) 09/15/20 09/15/20 Range/Units 15:30 15:30 WBC (4.8-10.8) X10*3/uL RBC (4.20-5.50) X10*6/uL Hgb (12.0-16.0) g/dl Hct (37-47) % MCV (80-98) fL MCH (27.0-33.0) pg MCHC (31.0-35.0) g/dl RDW (11.0-16.0) % Plt Count (160-400) X10*3/uL MPV (9.4-12.3) fL Immature Gran % (Auto) (0.0-0.4) % Neut % (Auto) (45-73) % Lymph % (Auto) (20-40) % Stafford % (Auto) (2-11) % Eos % (Auto) (0-4) % Baso % (Auto) (0-2) % Lymph # (Auto) (1.2-4.9) X10*3/uL Stafford # (Auto) (0.1-1.2) X10*3/uL Eos # (Auto) (0.0-0.4) X10*3/uL Baso # (Auto) (0.0-0.2) X10*3/uL Abs Immat Gran (auto) (0.00-0.03) X10*3/uL Absolute Neuts (auto) (2.0-8.3) X10*3/uL Absolute Nucleated RBC (0.0-0.012) X10*3/uL Nucleated RBC % (auto) (0.0-0.2) /100WBC PT (10.8-13.0) SEC Whole Blood PT (11.1-13.5) sec INR (0.9-1.1) Whole Blood INR (0.9-1.1) APTT (24.1-38.0) SEC Sodium (135-145) mmol/L Potassium (3.3-5.1) mmol/L Chloride (96-108) mmol/L Carbon Dioxide (22-29) mmol/L Anion Gap (12-20) BUN (9-16) mg/dL Creatinine (0.5-1.4) mg/dL Estim Creat Clear Calc Estimated GFR POC Glucose (60-115) mg/dL Random Glucose (60-115) mg/dL Calcium (8.4-10.2) mg/dL Magnesium (1.6-2.6) mg/dL Total Bilirubin (0.0-1.0) mg/dL Direct Bilirubin (0.0-0.5) mg/dL AST (5-31) U/L ALT (0-31) U/L Alkaline Phosphatase (39-117) U/L Troponin I High Sens (<3.5-17.0) ng/L Total Protein (6.5-8.0) g/dL Albumin (3.5-5.0) g/dL Urine Color YELLOW Urine Appearance CLEAR Urine pH 7.0 (5.0-8.0) Ur Specific [place] <= 1.005 (1.005-1.025) Urine Protein NEG (NEG-TRACE) MG/DL Urine Glucose (UA) NEG (NEG) MG/DL Urine Ketones NEG (NEG) MG/DL Urine Blood NEG (NEG) Urine Nitrite NEG (NEG) Ur Leukocyte Esterase NEG (NEG) Urine Opiates Screen Not Detected (Not Detect) Ur Barbiturates Screen Not Detected (Not Detect) Ur Phencyclidine Scrn Not Detected (Not Detect) Ur Amphetamines Screen Not Detected (Not Detect) Urine Cocaine Screen Not Detected (Not Detect) U Marijuana (THC) Screen Not Detected (Not Detect) Discharge Plan Discharge Clinical Impression: Weakness, Psycho organic syndrome Patient Disposition: Home, Self-Care Instructions: Weakness (ED) Additional Instructions: Your blood work and imaging studies were unremarkable today in the emergency department You need to have close follow-up with her primary care doctor as well as Neurology If her symptoms persist or worsen, you have fever, chills, pain, numbness, tingling, or worsening new weakness return to the ED Prescriptions: No Action atorvastatin 80 mg tablet 1 tab PO DAILY RF: 0 clonidine HCl 0.1 mg tablet 1 tab PO BEDTIME PRN (Reason: Anxiety) RF: 0 clonazepam 0.5 mg tablet 1 tab PO BEDTIME PRN (Reason: Anxiety) RF: 0 sertraline 100 mg tablet 2 tab PO QAM RF: 0 hydroxyzine pamoate 50 mg capsule 1 - 2 cap PO BEDTIME PRN (Reason: Sleep) RF: 0 omeprazole 40 mg capsule,delayed release(DR/EC) 1 cap PO DAILY RF: 0 aspirin 81 mg tablet,delayed release (DR/EC) 1 tab PO DAILY RF: 0 lamotrigine 25 mg tablet 1 tab PO BEDTIME RF: 0 levetiracetam 750 mg tablet 1 tab PO BID RF: 0 albuterol sulfate 90 mcg/actuation HFA aerosol inhaler 2 puff PO QID PRN (Reason: wheezing) RF: 0 lamotrigine 100 mg tablet 1 tab PO QAM RF: 0 Referrals: Physician,Unknown [Primary Care Provider] - 2 days Carson Ramirez MD [Physician] - 1 week
[2020-09-15 13:12] LABS: Glucose, Whole Blood 118 mg/dL (60-115)
[2020-09-15 13:12] LABS: Prothrombin Time Whole Bld POC 13.6 sec (11.1-13.5); ~PT, ~INR - Anti Coag Clinic 1.1 (0.9-1.1)
[2020-09-15] MEDS: iohexoL 350 MG/ML 75 ML INFUS..BTL IV (13:26)
[2020-09-15 13:52] LABS: MANUAL DIFF FLAG NO
[2020-09-15 13:54] LABS: Basophils Percent Auto 0.3 % (0-2); Eosinophils Absolute Auto 0.1 X10*3/uL (0.0-0.4); Eosinophils Percent Auto 1.2 % (0-4); Hematocrit 35.8 % (37-47); Hemoglobin 11.2 g/dl (12.0-16.0); Imm Gran Abs Auto 0.02 X10*3/uL (0.00-0.03); Imm Gran Pct Auto 0.3 % (0.0-0.4); Lymphocytes Absolute Auto 2.2 X10*3/uL (1.2-4.9); Lymphocytes Percent Auto 29.1 % (20-40); Mean Corpuscular HGB Conc 31.3 g/dl (31.0-35.0); Mean Corpuscular Hemoglobin 26.4 pg (27.0-33.0); Mean Corpuscular Volume 84.4 fL (80-98); Mean Platelet Volume 9.6 fL (9.4-12.3); Monocytes Absolute Auto 0.4 X10*3/uL (0.1-1.2); Monocytes Percent Auto 5.2 % (2-11); Neutrophils Absolute Auto 4.8 X10*3/uL (2.0-8.3); Neutrophils Percent Auto 63.9 % (45-73); Platelet Count 232 X10*3/uL (160-400); Red Blood Count 4.24 X10*6/uL (4.20-5.50); Red Cell Distribution Width 15.4 % (11.0-16.0); White Blood Count 7.5 X10*3/uL (4.8-10.8)
[2020-09-15 13:59] LABS: INTERNATIONAL NORM RATIO 1.2 (0.9-1.1); Prothrombin Time 13.7 SEC (10.8-13.0)
[2020-09-15 14:01] LABS: Partial Thromboplastin Time 41.4 SEC (24.1-38.0)
[2020-09-15 14:02] LABS: Stroke Lab Use COMPLETE
--- NOTE | 2020-09-15 14:09 | MHC.STROKE ---
Addendum entered by Pam Malloy RN 09/15/20 16:17: NIHSS = 0, EXCLUDED FROM TPA BASED ON THIS EXAM. SEE PA NOTE. 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 PATIENT HAD SIMILAR PRESENTATION IN THE PAST, SEE PRIOR SCANS AND NOTES. I WILL CONTINUE TO FOLLOW.
[2020-09-15 14:26] LABS: Alanine Aminotransferase 26 U/L (0-31); Albumin Level 3.9 g/dL (3.5-5.0); Alkaline Phosphatase 96 U/L (39-117); Anion Gap 11 (12-20); Aspartate Amino Transferase 20 U/L (5-31); Bilirubin Direct 0.2 mg/dL (0.0-0.5); Bilirubin Total 0.4 mg/dL (0.0-1.0); Blood Urea Nitrogen 11 mg/dL (9-16); Calcium 8.6 mg/dL (8.4-10.2); Carbon Dioxide 26 mmol/L (22-29); Chloride 106 mmol/L (96-108); Creatinine Clr Calc Pharmacy 76.2; Estimated Glomerular Filt Rate > 60; Glucose Random 102 mg/dL (60-115); Potassium 3.8 mmol/L (3.3-5.1); Sodium 139 mmol/L (135-145); Total Protein 6.4 g/dL (6.5-8.0)
[2020-09-15 14:29] LABS: Troponin-I High Sensitivity < 3.5 ng/L (<3.5-17.0)
[2020-09-15 15:42] LABS: Glucose Urine UA NEG (NEG); Leukocyte Esterase Urine NEG (NEG); Nitrite Urine NEG (NEG); Specific Gravity - Urine <= 1.005 (1.005-1.025); Urine Blood NEG (NEG); Urine Ketones NEG (NEG); Urine Protein NEG (NEG-TRACE)
[2020-09-15 15:50] LABS: Appearance Urine CLEAR; Color Urine YELLOW
[2020-09-15 16:24] LABS: Amphetamine Screen Urine Not Detected (Not Detect); Barbiturates, Urine Not Detected (Not Detect); Benzodiazepines Screen Urine Not Detected (Not Detect); Cannabinoid Screen Urine Not Detected (Not Detect); Cocaine Screen Urine Not Detected (Not Detect); Opiate Screen Urine Not Detected (Not Detect); Phencyclidine Screen Urine Not Detected (Not Detect)
== END 2020-09-15 16:40 | disposition home or self-care (01) ==
PROVIDERS: Physician Assistant; Emergency Provider Emergency Medicine
DX: R53.1 Weakness (principal); F06.8 Other specified mental disorders due to known physiological condition; E11.9 Type 2 diabetes mellitus without complications; F41.9 Anxiety disorder, unspecified; I69.354 Hemiplegia and hemiparesis following cerebral infarction affecting left non-dominant side; E78.5 Hyperlipidemia, unspecified; Z79.899 Other long term (current) drug therapy; Z79.82 Long term (current) use of aspirin; F17.200 Nicotine dependence, unspecified, uncomplicated; F11.90 Opioid use, unspecified, uncomplicated
CPT/HCPCS: 36415; 70450; 70496; 70498; 71045; 80048; 80076; 80307; 81003; 82947; 83735; 84484; 85025; 85610; 85730; 93005; 99283; 99284; 99285; Q9967

== ENCOUNTER 2020-10-26 15:54 | Emergency (ER) | payer OTHER, SELFPAY ==
[2020-10-26 15:56] VITALS: BP 122/55; PULSE 80; RESP 18; TEMP 36.3; O2SAT 94; BMI 25.8
--- NOTE | 2020-10-26 16:42 | ED_ITS ---
HPI - General Adult General Chief complaint: General Medical Stated complaint: crisis Time Seen by Provider: 10/26/20 16:35 Source: patient Mode of arrival: ambulatory Limitations: no limitations History of Present Illness HPI narrative: pt with history of bipolar disorder on Lamictal and Klonopin comes here as she feeling drowsy and weak all day today no recent seizures no history of use of alcohol or drugs , feels sleepy all the time. Patient denies any shortness of breath no fever no cough no urinary symptoms patient was seen here on 09/15/2020 for weakness and diagnosed as conversion disorder. CTA neck and head was negative for any significant lesion or CVA. Related Data Home Medications Medication Instructions Recorded Confirmed albuterol sulfate 2 puff PO QID PRN 09/15/20 09/15/20 aspirin 1 tab PO DAILY 09/15/20 09/15/20 atorvastatin 1 tab PO DAILY 09/15/20 09/15/20 clonazepam 1 tab PO BEDTIME PRN 09/15/20 09/15/20 clonidine HCl 1 tab PO BEDTIME PRN 09/15/20 09/15/20 hydroxyzine pamoate 1 - 2 cap PO BEDTIME PRN 09/15/20 09/15/20 lamotrigine 1 tab PO BEDTIME 09/15/20 09/15/20 lamotrigine 1 tab PO QAM 09/15/20 09/15/20 levetiracetam 1 tab PO BID 09/15/20 09/15/20 omeprazole 1 cap PO DAILY 09/15/20 09/15/20 sertraline 2 tab PO QAM 09/15/20 09/15/20 Allergies Allergy/AdvReac Type Severity Reaction Status Date / Time trazodone [TRAZODONE] Allergy Intermediate VERY Verified 10/26/20 15:56 ANXIOUS, RESTLESSNESS codeine [CODEINE] Allergy Unknown SWELLING Verified 10/26/20 15:56 hornet venom [HORNETS] Allergy Unknown RASH Verified 10/26/20 15:56 From SEROQUEL Allergy Intermediate ANXIETY Uncoded 10/26/20 15:56 AND RESTLESSNESS From BENADRYL AdvReac Intermediate RESTLESS Uncoded 10/26/20 15:56 Review of Systems Review of Systems: Constitutional : No Weight loss, No Fever, No Chills ENT/Mouth : No sore throat, No Rhinorrhea Eyes: No Eye Pain, No Swelling Cardiovascular : No Chest Pain, no palpitations Respiratory : No Cough, No Sputum, no shortness of breath Gastrointestinal : no Nausea, No Vomiting, No Diarrhea, No abdominal Pain, no black stools Genitourinary : No Dysuria, No Urinary Frequency Musculoskeletal : No joint pain, No Myalgias, No Joint Swelling Skin : No Skin Lesions, No rash Neuro : ++Weakness, No Numbness, No Dizziness, No Headache Psych : No Anxiety/Panic, No Depression Heme/Lymph: No Bruising, No Lymphadenopathy Endocrine : No Polyuria, No Polydipsia All other systems reviewed and are negative [facility] Past Medical History Medical History Anxiety CVA (cerebral vascular accident) Diabetes Hyperlipidemia Left knee injury Patent ductus arteriosus Seizure Surgical History H/O left knee surgery Hx of tonsillectomy Social History Social History Alcohol intake: former Smoking Status: Light tobacco smoker Use of substances other than those prescribed or required for medical reasons: No Substance Use Type: Heroin Advance Directives: No Advance Directives Information Provided: Yes Physical Exam Vital Signs: Vital Signs: Last Vital Signs Temp 97.3 F 10/26/20 15:56 Pulse 76 10/26/20 17:18 Resp 16 10/26/20 17:18 BP 100/59 L 10/26/20 17:18 Pulse Ox 96 10/26/20 17:18 Body Mass Index 25.8 Medical Decision Making [facility] Narrative Medical decision making narrative: Patient is stable as multiple ER visits recent CTA head and neck negative no finding of stroke no chemical abnormalities in the labs patient's symptoms likely from side effects from medication/psychogenic will discharge patient home Lab Data Lab results reviewed: Yes I reviewed the patient's lab results. Result diagrams: 10/26/20 17:53 10/26/20 17:53 Labs: Lab Results 10/26/20 10/26/20 10/26/20 Range/Units 17:53 17:53 17:53 WBC 10.9 H (4.8-10.8) X10*3/uL RBC 4.21 (4.20-5.50) X10*6/uL Hgb 11.0 L (12.0-16.0) g/dl Hct 35.7 L (37-47) % MCV 84.8 (80-98) fL MCH 26.1 L (27.0-33.0) pg MCHC 30.8 L (31.0-35.0) g/dl RDW 14.9 (11.0-16.0) % Plt Count 169 D (160-400) X10*3/uL MPV 10.4 (9.4-12.3) fL Immature Gran % (Auto) 0.3 (0.0-0.4) % Neut % (Auto) 65.4 (45-73) % Lymph % (Auto) 26.2 (20-40) % [place] % (Auto) 6.4 (2-11) % Eos % (Auto) 1.4 (0-4) % Baso % (Auto) 0.3 (0-2) % Lymph # (Auto) 2.9 (1.2-4.9) X10*3/uL [place] # (Auto) 0.7 (0.1-1.2) X10*3/uL Eos # (Auto) 0.2 (0.0-0.4) X10*3/uL Baso # (Auto) 0.0 (0.0-0.2) X10*3/uL Abs Immat Gran (auto) 0.03 (0.00-0.03) X10*3/uL Absolute Neuts (auto) 7.1 (2.0-8.3) X10*3/uL Absolute Nucleated RBC 0.000 (0.0-0.012) X10*3/uL Nucleated RBC % (auto) 0.0 (0.0-0.2) /100WBC PT (10.8-13.0) SEC INR (0.9-1.1) Sodium 142 (135-145) mmol/L Potassium 4.2 (3.3-5.1) mmol/L Chloride 108 (96-108) mmol/L Carbon Dioxide 25 (22-29) mmol/L Anion Gap 13 (12-20) BUN 11 (9-16) mg/dL Creatinine 0.78 (0.5-1.4) mg/dL Estim Creat Clear Calc 86.0 Estimated GFR > 60 Random Glucose 108 (60-115) mg/dL Calcium 8.8 (8.4-10.2) mg/dL Total Bilirubin 0.2 (0.0-1.0) mg/dL Direct Bilirubin < 0.2 (0.0-0.5) mg/dL AST 18 (5-31) U/L ALT 27 (0-31) U/L Alkaline Phosphatase 118 H D (39-117) U/L Ammonia 44 (13-55) umol/L Total Protein 6.7 (6.5-8.0) g/dL Albumin 4.0 (3.5-5.0) g/dL 10/26/20 Range/Units 17:53 WBC (4.8-10.8) X10*3/uL RBC (4.20-5.50) X10*6/uL Hgb (12.0-16.0) g/dl Hct (37-47) % MCV (80-98) fL MCH (27.0-33.0) pg MCHC (31.0-35.0) g/dl RDW (11.0-16.0) % Plt Count (160-400) X10*3/uL MPV (9.4-12.3) fL Immature Gran % (Auto) (0.0-0.4) % Neut % (Auto) (45-73) % Lymph % (Auto) (20-40) % [place] % (Auto) (2-11) % Eos % (Auto) (0-4) % Baso % (Auto) (0-2) % Lymph # (Auto) (1.2-4.9) X10*3/uL [place] # (Auto) (0.1-1.2) X10*3/uL Eos # (Auto) (0.0-0.4) X10*3/uL Baso # (Auto) (0.0-0.2) X10*3/uL Abs Immat Gran (auto) (0.00-0.03) X10*3/uL Absolute Neuts (auto) (2.0-8.3) X10*3/uL Absolute Nucleated RBC (0.0-0.012) X10*3/uL Nucleated RBC % (auto) (0.0-0.2) /100WBC PT 12.2 (10.8-13.0) SEC INR 1.0 (0.9-1.1) Sodium (135-145) mmol/L Potassium (3.3-5.1) mmol/L Chloride (96-108) mmol/L Carbon Dioxide (22-29) mmol/L Anion Gap (12-20) BUN (9-16) mg/dL Creatinine (0.5-1.4) mg/dL Estim Creat Clear Calc Estimated GFR Random Glucose (60-115) mg/dL Calcium (8.4-10.2) mg/dL Total Bilirubin (0.0-1.0) mg/dL Direct Bilirubin (0.0-0.5) mg/dL AST (5-31) U/L ALT (0-31) U/L Alkaline Phosphatase (39-117) U/L Ammonia (13-55) umol/L Total Protein (6.5-8.0) g/dL Albumin (3.5-5.0) g/dL Discharge Plan Discharge Clinical Impression: Weakness Patient Disposition: Home, Self-Care Instructions: Weakness (ED) Additional Instructions: Drink plenty of fluids and follow with PCP Prescriptions: No Action atorvastatin 80 mg tablet 1 tab PO DAILY RF: 0 clonidine HCl 0.1 mg tablet 1 tab PO BEDTIME PRN (Reason: Anxiety) RF: 0 clonazepam 0.5 mg tablet 1 tab PO BEDTIME PRN (Reason: Anxiety) RF: 0 sertraline 100 mg tablet 2 tab PO QAM RF: 0 hydroxyzine pamoate 50 mg capsule 1 - 2 cap PO BEDTIME PRN (Reason: Sleep) RF: 0 omeprazole 40 mg capsule,delayed release(DR/EC) 1 cap PO DAILY RF: 0 aspirin 81 mg tablet,delayed release (DR/EC) 1 tab PO DAILY RF: 0 lamotrigine 25 mg tablet 1 tab PO BEDTIME RF: 0 levetiracetam 750 mg tablet 1 tab PO BID RF: 0 albuterol sulfate 90 mcg/actuation HFA aerosol inhaler 2 puff PO QID PRN (Reason: wheezing) RF: 0 lamotrigine 100 mg tablet 1 tab PO QAM RF: 0
[2020-10-26 17:18] VITALS: BP 100/59; PULSE 76; RESP 16; O2SAT 96
--- NOTE | 2020-10-26 17:21 | PC.NURSE ---
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 Pt does report h/o seizure and CVA. Steady on feet. Smile symmetrical, speech is clear. No SI/HI
[2020-10-26 17:59] LABS: MANUAL DIFF FLAG NO
[2020-10-26 18:02] LABS: Basophils Percent Auto 0.3 % (0-2); Eosinophils Absolute Auto 0.2 X10*3/uL (0.0-0.4); Eosinophils Percent Auto 1.4 % (0-4); Hematocrit 35.7 % (37-47); Imm Gran Abs Auto 0.03 X10*3/uL (0.00-0.03); Imm Gran Pct Auto 0.3 % (0.0-0.4); Lymphocytes Absolute Auto 2.9 X10*3/uL (1.2-4.9); Lymphocytes Percent Auto 26.2 % (20-40); Mean Corpuscular HGB Conc 30.8 g/dl (31.0-35.0); Mean Corpuscular Hemoglobin 26.1 pg (27.0-33.0); Mean Corpuscular Volume 84.8 fL (80-98); Mean Platelet Volume 10.4 fL (9.4-12.3); Monocytes Absolute Auto 0.7 X10*3/uL (0.1-1.2); Monocytes Percent Auto 6.4 % (2-11); Neutrophils Absolute Auto 7.1 X10*3/uL (2.0-8.3); Neutrophils Percent Auto 65.4 % (45-73); Platelet Count 169 X10*3/uL (160-400); Red Blood Count 4.21 X10*6/uL (4.20-5.50); Red Cell Distribution Width 14.9 % (11.0-16.0); White Blood Count 10.9 X10*3/uL (4.8-10.8)
[2020-10-26 18:15] LABS: Prothrombin Time 12.2 SEC (10.8-13.0)
[2020-10-26 18:17] LABS: Ammonia 44 umol/L (13-55)
[2020-10-26 18:26] LABS: Alanine Aminotransferase 27 U/L (0-31); Alkaline Phosphatase 118 U/L (39-117); Anion Gap 13 (12-20); Aspartate Amino Transferase 18 U/L (5-31); Bilirubin Direct < 0.2 mg/dL (0.0-0.5); Bilirubin Total 0.2 mg/dL (0.0-1.0); Blood Urea Nitrogen 11 mg/dL (9-16); Calcium 8.8 mg/dL (8.4-10.2); Carbon Dioxide 25 mmol/L (22-29); Chloride 108 mmol/L (96-108); Estimated Glomerular Filt Rate > 60; Glucose Random 108 mg/dL (60-115); Potassium 4.2 mmol/L (3.3-5.1); Sodium 142 mmol/L (135-145); Total Protein 6.7 g/dL (6.5-8.0)
== END 2020-10-26 19:56 | disposition home or self-care (01) ==
PROVIDERS: Emergency Provider Internal Medicine
DX: R53.1 Weakness (principal); F17.200 Nicotine dependence, unspecified, uncomplicated; Z71.6 Tobacco abuse counseling; F11.90 Opioid use, unspecified, uncomplicated; Z79.899 Other long term (current) drug therapy
CPT/HCPCS: 36415; 80048; 80076; 82140; 85025; 85610; 99283; 99284

== ENCOUNTER 2020-11-05 13:28 | Outpatient (REF) | payer OTHER, SELFPAY ==
[2020-11-05 14:47] LABS: COVID-19 Test Negative (Negative)
== END 2020-11-05 13:29 | disposition home or self-care (01) ==
LOC: HO.LAB 13:28
PROVIDERS: Visit Provider Internal Medicine
DX: Z20.822 Contact with and (suspected) exposure to COVID-19 (principal)
CPT/HCPCS: 36415; 87635; C9803

== ENCOUNTER 2021-02-05 12:30 | Emergency (ER) | payer OTHER, SELFPAY ==
--- NOTE | ~2021-02-05 | CT_ITS ---
EXAMINATION: CT BRAIN AND CT CERVICAL SPINE WITHOUT CONTRAST. CLINICAL INFORMATION: Fall. COMPARISON: CT head 09/15/2020 TECHNIQUE: 5 mm thin axial and reformatted 2 mm thin sagittal and coronal images of brain were obtained without contrast. Subsequently axial 3 mm thin and reformatted 2 mm thin sagittal and coronal images of cervical spine were obtained without contrast. DLP 1753 FINDINGS: Brain: There is no acute intra-axial, extra-axial bleed, masses or midline shift. There is no acute infarction or lesion. There is diffuse periventricular hypodensity in both cerebral hemispheres without mass effect. The lateral ventricles are symmetrical but mildly enlarged. Bone windows reveal no calvarial abnormality. There is no scalp soft tissue abnormality. Bilateral paranasal sinuses and mastoid air cells are well-aerated. Cervical spine: There is mild straightening of cervical lordosis. The vertebral heights and alignment is normal. There is mild loss of C5-C6 disc height with moderate ventral and posterior spondylosis. As the disc heights are normal. The craniovertebral junction and the C1-C2 alignment is normal. There is no visible acute fracture, dislocation or fixation. No lytic or sclerotic process. The paravertebral and prevertebral soft tissues are normal. There is widely patent. No abnormal neck mass or lymphadenopathy seen. Visualized bilateral carotid and submandibular glands are normal. The lung apices are clear. CT/CT cervical spine wo con IMPRESSION: No acute intracranial process seen. Moderate periventricular hypodensity likely chronic small vessel microangiopathy. No major change from previous study. Degenerative disc changes with spondylosis C5-C6 disc level. Straightening of cervical lordosis likely spasm. No visible acute fracture, dislocation or subluxation seen.
--- NOTE | ~2021-02-05 | XR_ITS ---
EXAMINATION: RIGHT WRIST AND RIGHT FOREARM X-RAYS CLINICAL INFORMATION: Fall COMPARISON: None TECHNIQUE: 3 views of the right wrist and 2 views of the right forearm FINDINGS: Right wrist: Bone alignment is normal. No fracture or dislocation is seen. Joint spaces are normal. Soft tissues are normal. Right forearm: Bone alignment is normal. No fracture or dislocation is seen. Joint spaces are normal. Soft tissues are normal XR/XR wrist RT min 3V IMPRESSION: Unremarkable exam.
--- NOTE | ~2021-02-05 | XR_ITS ---
EXAMINATION: RIGHT WRIST AND RIGHT FOREARM X-RAYS CLINICAL INFORMATION: Fall COMPARISON: None TECHNIQUE: 3 views of the right wrist and 2 views of the right forearm FINDINGS: Right wrist: Bone alignment is normal. No fracture or dislocation is seen. Joint spaces are normal. Soft tissues are normal. Right forearm: Bone alignment is normal. No fracture or dislocation is seen. Joint spaces are normal. Soft tissues are normal XR/XR forearm RT 2V IMPRESSION: Unremarkable exam.
--- NOTE | ~2021-02-05 | CT_ITS ---
EXAMINATION: CT BRAIN AND CT CERVICAL SPINE WITHOUT CONTRAST. CLINICAL INFORMATION: Fall. COMPARISON: CT head 09/15/2020 TECHNIQUE: 5 mm thin axial and reformatted 2 mm thin sagittal and coronal images of brain were obtained without contrast. Subsequently axial 3 mm thin and reformatted 2 mm thin sagittal and coronal images of cervical spine were obtained without contrast. DLP 1753 FINDINGS: Brain: There is no acute intra-axial, extra-axial bleed, masses or midline shift. There is no acute infarction or lesion. There is diffuse periventricular hypodensity in both cerebral hemispheres without mass effect. The lateral ventricles are symmetrical but mildly enlarged. Bone windows reveal no calvarial abnormality. There is no scalp soft tissue abnormality. Bilateral paranasal sinuses and mastoid air cells are well-aerated. Cervical spine: There is mild straightening of cervical lordosis. The vertebral heights and alignment is normal. There is mild loss of C5-C6 disc height with moderate ventral and posterior spondylosis. As the disc heights are normal. The craniovertebral junction and the C1-C2 alignment is normal. There is no visible acute fracture, dislocation or fixation. No lytic or sclerotic process. The paravertebral and prevertebral soft tissues are normal. There is widely patent. No abnormal neck mass or lymphadenopathy seen. Visualized bilateral carotid and submandibular glands are normal. The lung apices are clear. CT/CT head/brain wo con IMPRESSION: No acute intracranial process seen. Moderate periventricular hypodensity likely chronic small vessel microangiopathy. No major change from previous study. Degenerative disc changes with spondylosis C5-C6 disc level. Straightening of cervical lordosis likely spasm. No visible acute fracture, dislocation or subluxation seen.
[2021-02-05 12:32] VITALS: BP 117/68; BP 128/66; PULSE 69; PULSE 72; RESP 18; O2SAT 94; BMI 31.5
--- NOTE | 2021-02-05 12:36 | ED.SEIZURE ---
HPI - Seizure General Chief Complaint: Seizure Stated Complaint: siezure/headstrike Time Seen by Provider: 02/05/21 12:36 Source: patient and EMS Mode of arrival: EMS Limitations: no limitations History of Present Illness MD complaint: seizure Onset (ago): minute(s) Description of Episode: loss of consciousness and tonic-clonic movement -: minutes(s) Witnessed: Yes - by Bystander Trauma: Yes Seizure History: Yes Place: Home Possible Precipitating Event: none Associated symptoms: other (head pain after hitting head and R wrist/forearm pain) Treatments prior to arrival: none Related Data Home Medications Medication Instructions Recorded Confirmed albuterol sulfate 2 puff PO QID PRN 09/15/20 09/15/20 aspirin 1 tab PO DAILY 09/15/20 09/15/20 atorvastatin 1 tab PO DAILY 09/15/20 09/15/20 clonazepam 1 tab PO BEDTIME PRN 09/15/20 09/15/20 clonidine HCl 1 tab PO BEDTIME PRN 09/15/20 09/15/20 hydroxyzine pamoate 1 - 2 cap PO BEDTIME PRN 09/15/20 09/15/20 lamotrigine 1 tab PO BEDTIME 09/15/20 09/15/20 lamotrigine 1 tab PO QAM 09/15/20 09/15/20 levetiracetam 1 tab PO BID 09/15/20 09/15/20 omeprazole 1 cap PO DAILY 09/15/20 09/15/20 sertraline 2 tab PO QAM 09/15/20 09/15/20 Allergies Allergy/AdvReac Type Severity Reaction Status Date / Time codeine [CODEINE] Allergy Unknown SWELLING Verified 02/05/21 12:32 hornet venom [HORNETS] Allergy Unknown RASH Verified 02/05/21 12:32 trazodone [TRAZODONE] AdvReac Intermediate VERY Verified 02/05/21 12:32 ANXIOUS, RESTLESSNESS From BENADRYL AdvReac Intermediate RESTLESS Uncoded 10/26/20 15:56 From SEROQUEL AdvReac Intermediate ANXIETY Uncoded 02/05/21 12:32 AND RESTLESSNESS Review of Systems Review of Systems: Constitutional : No Fever, No Chills ENT/Mouth : No sore throat, No Rhinorrhea Eyes: No Eye Pain, No Swelling, No Redness Cardiovascular : No Chest Pain, No SOB Respiratory : No Cough, No Sputum Gastrointestinal : No Nausea, No Vomiting, No Diarrhea, No abdominal Pain Genitourinary : No Dysuria, No Urinary Frequency Musculoskeletal : pos joint pain, No Myalgias, No Joint Swelling Skin : No Skin Lesions, No rash Neuro : No Weakness, No Numbness, No Dizziness, No Headache Psych : No Anxiety/Panic, No Depression All other systems reviewed and are negative [facility] Past Medical History Attestation statement: The following information was validated with the patient. Medical History Anxiety CVA (cerebral vascular accident) Diabetes Hyperlipidemia Left knee injury Patent ductus arteriosus Seizure Surgical History H/O left knee surgery Hx of tonsillectomy Social History Social History (Updated 02/05/21 @ 12:37 by Enedina Seals DO) Alcohol intake: former Patient Tobacco Use Status: Current someday Tobacco user Substance Use Type: Heroin Advance Directives: No Advance Directives Information Provided: Yes Patient : No Physical Exam Vital Signs: Vital Signs: Last Vital Signs Pulse 69 02/05/21 12:32 Resp 18 02/05/21 12:32 BP 128/66 02/05/21 12:32 Pulse Ox 94 02/05/21 12:32 Body Mass Index 31.5 Appearance: Somnolent. Oriented X3. No acute distress. Eyes: Pupils equal, round and reactive to light. ENT: Pharynx normal. Neck: Normal inspection. Neck supple. CVS: Normal heart rate and rhythm. Pulses normal. Respiratory: No respiratory distress. Breath sounds normal. Abdomen: Soft and nontender. Skin: Skin warm and dry. Normal skin color. Normal skin turgor. Extremities: No lower extremity edema. R forearm and wrist ttp contusion noted, distal NV intact Neuro: Oriented X 3. No motor deficit. No sensory deficit. Course Course Course Narrative: at baseline, can ambulate to the bathroom offered sling for her R wrist - no fracture seen CT head negative stable for DC at this time GCS 15 Procedures Orthopedic Splinting/Casting Injury #1: Side: right Upper Extremity Injury Location: shoulder Upper Extremity Immobilizer: sling/shoulder immobilizer MDM - Seizure MDM Narrative Medical decision making narrative: 55 yo female with hx of asthma, seizures, GERD comes in with c/o GTC seizure on keppra - no changes in medications, states she felt off today, has not had a seizure in 1 year - at this time no known precipitating events will need labs, CT head/cervical spine for trauma, basic labs, EKG, R UE xrays to r/o fracture, dispo per results and findings. Lab Data Result diagrams: 02/05/21 13:09 02/05/21 13:09 Labs: Lab Results 02/05/21 02/05/21 02/05/21 Range/Units 12:44 13:09 13:09 WBC 8.1 (4.8-10.8) X10*3/uL RBC 4.43 (4.20-5.50) X10*6/uL Hgb 11.1 L (12.0-16.0) g/dl Hct 35.8 L (37-47) % MCV 80.8 (80-98) fL MCH 25.1 L (27.0-33.0) pg MCHC 31.0 (31.0-35.0) g/dl RDW 15.2 (11.0-16.0) % Plt Count 210 (160-400) X10*3/uL MPV 9.9 (9.4-12.3) fL Immature Gran % (Auto) 0.2 (0.0-0.4) % Neut % (Auto) 61.8 (45-73) % Lymph % (Auto) 30.7 (20-40) % [place] % (Auto) 5.7 (2-11) % Eos % (Auto) 1.5 (0-4) % Baso % (Auto) 0.1 (0-2) % Lymph # (Auto) 2.5 (1.2-4.9) X10*3/uL [place] # (Auto) 0.5 (0.1-1.2) X10*3/uL Eos # (Auto) 0.1 (0.0-0.4) X10*3/uL Baso # (Auto) 0.0 (0.0-0.2) X10*3/uL Abs Immat Gran (auto) 0.02 (0.00-0.03) X10*3/uL Absolute Neuts (auto) 5.0 (2.0-8.3) X10*3/uL Absolute Nucleated RBC 0.000 (0.0-0.012) X10*3/uL Nucleated RBC % (auto) 0.0 (0.0-0.2) /100WBC Sodium 140 (135-145) mmol/L Potassium 4.5 (3.3-5.1) mmol/L Chloride 106 (96-108) mmol/L Carbon Dioxide 26 (22-29) mmol/L Anion Gap 13 (12-20) BUN 7 L (9-16) mg/dL Creatinine 0.87 (0.5-1.4) mg/dL Estim Creat Clear Calc 84.7 Estimated GFR > 60 POC Glucose 151 H (60-115) mg/dL Random Glucose 121 H (60-115) mg/dL Calcium 8.9 (8.4-10.2) mg/dL Magnesium (1.6-2.6) mg/dL Total Bilirubin (0.0-1.0) mg/dL Direct Bilirubin (0.0-0.5) mg/dL AST (5-31) U/L ALT (0-31) U/L Alkaline Phosphatase (39-117) U/L Total Protein (6.5-8.0) g/dL Albumin (3.5-5.0) g/dL Urine Color Urine Appearance Urine pH (5.0-8.0) Ur Specific [place] (1.005-1.025) Urine Protein (NEG-TRACE) MG/DL Urine Glucose (UA) (NEG) MG/DL Urine Ketones (NEG) MG/DL Urine Blood (NEG) Urine Nitrite (NEG) Ur Leukocyte Esterase (NEG) 02/05/21 02/05/21 Range/Units 13:09 13:09 WBC (4.8-10.8) X10*3/uL RBC (4.20-5.50) X10*6/uL Hgb (12.0-16.0) g/dl Hct (37-47) % MCV (80-98) fL MCH (27.0-33.0) pg MCHC (31.0-35.0) g/dl RDW (11.0-16.0) % Plt Count (160-400) X10*3/uL MPV (9.4-12.3) fL Immature Gran % (Auto) (0.0-0.4) % Neut % (Auto) (45-73) % Lymph % (Auto) (20-40) % [place] % (Auto) (2-11) % Eos % (Auto) (0-4) % Baso % (Auto) (0-2) % Lymph # (Auto) (1.2-4.9) X10*3/uL [place] # (Auto) (0.1-1.2) X10*3/uL Eos # (Auto) (0.0-0.4) X10*3/uL Baso # (Auto) (0.0-0.2) X10*3/uL Abs Immat Gran (auto) (0.00-0.03) X10*3/uL Absolute Neuts (auto) (2.0-8.3) X10*3/uL Absolute Nucleated RBC (0.0-0.012) X10*3/uL Nucleated RBC % (auto) (0.0-0.2) /100WBC Sodium (135-145) mmol/L Potassium (3.3-5.1) mmol/L Chloride (96-108) mmol/L Carbon Dioxide (22-29) mmol/L Anion Gap (12-20) BUN (9-16) mg/dL Creatinine (0.5-1.4) mg/dL Estim Creat Clear Calc Estimated GFR POC Glucose (60-115) mg/dL Random Glucose (60-115) mg/dL Calcium (8.4-10.2) mg/dL Magnesium 2.1 (1.6-2.6) mg/dL Total Bilirubin 0.3 (0.0-1.0) mg/dL Direct Bilirubin < 0.2 (0.0-0.5) mg/dL AST 33 H D (5-31) U/L ALT 32 H (0-31) U/L Alkaline Phosphatase 105 (39-117) U/L Total Protein 7.1 (6.5-8.0) g/dL Albumin 3.9 (3.5-5.0) g/dL Urine Color YELLOW Urine Appearance CLEAR Urine pH 6.5 (5.0-8.0) Ur Specific [place] 1.010 (1.005-1.025) Urine Protein NEG (NEG-TRACE) MG/DL Urine Glucose (UA) NEG (NEG) MG/DL Urine Ketones NEG (NEG) MG/DL Urine Blood NEG (NEG) Urine Nitrite NEG (NEG) Ur Leukocyte Esterase NEG (NEG) ECG Data Attestation: I personally reviewed and interpreted this ECG as follows: ECG interpretation date: 02/05/21 ECG interpretation time: 13:22 Interpretation: Rate: 63 Rhythm: NSR [place]: normal Normal P waves. Normal SHENG. Normal QRS complex. ST T wave : normal no DONNIE qTC: normal prior studies: no acute ischemia The study has been interpreted contemporaneously by me. . Discharge Plan Discharge Clinical Impression: Epileptic seizure Qualifiers: Epilepsy type: unspecified Intractability: not intractable Status epilepticus: without status epilepticus Qualified Code(s): G40.909 - Epilepsy, unspecified, not intractable, without status epilepticus Contusion Qualifiers: Encounter type: initial encounter Contusion area: forearm Laterality: right Qualified Code(s): S50.11XA - Contusion of right forearm, initial encounter Patient Disposition: Home, Self-Care Instructions: Epilepsy (ED), Contusion in Adults (ED) Additional Instructions: return to ED for any worsening symptoms or concerns CT head and cervical spine negative, labs stable, xray of R wrist and forearm are negative for fracture can wear sling for comfort up to 3 days Prescriptions: No Action atorvastatin 80 mg tablet 1 tab PO DAILY RF: 0 clonidine HCl 0.1 mg tablet 1 tab PO BEDTIME PRN (Reason: Anxiety) RF: 0 clonazepam 0.5 mg tablet 1 tab PO BEDTIME PRN (Reason: Anxiety) RF: 0 sertraline 100 mg tablet 2 tab PO QAM RF: 0 hydroxyzine pamoate 50 mg capsule 1 - 2 cap PO BEDTIME PRN (Reason: Sleep) RF: 0 omeprazole 40 mg capsule,delayed release(DR/EC) 1 cap PO DAILY RF: 0 aspirin 81 mg tablet,delayed release (DR/EC) 1 tab PO DAILY RF: 0 lamotrigine 25 mg tablet 1 tab PO BEDTIME RF: 0 levetiracetam 750 mg tablet 1 tab PO BID RF: 0 albuterol sulfate 90 mcg/actuation HFA aerosol inhaler 2 puff PO QID PRN (Reason: wheezing) RF: 0 lamotrigine 100 mg tablet 1 tab PO QAM RF: 0 Referrals: Physician,Unknown [Primary Care Provider] - 2 days (call Neurologist MAY WANT TO INCREASE KEPPRA 1000mg twice a day please call)
--- NOTE | 2021-02-05 12:38 | ECG_ITS ---
Test Reason : SEIZURE Blood Pressure : / mmHG Vent. Rate : 063 BPM Atrial Rate : 063 BPM P-R Int : 164 ms QRS Dur : 080 ms QT Int : 460 ms P-R-T Axes : 023 061 029 degrees QTc Int : 470 ms Normal sinus rhythm Normal ECG When compared with ECG of 15-SEP-2020 13:40, No significant change was found Referred By: Enedina Seals Electronically Signed By:Lonnie Harris
[2021-02-05 12:48] LABS: Glucose, Whole Blood 151 mg/dL (60-115)
[2021-02-05] MEDS: Acetaminophen 325 MG TABLET 650 MG PO (13:10)
--- NOTE | 2021-02-05 13:13 | PC.NURSE ---
iv inserted, labs drawn, pt ambulated with assist to bathroom for urine, seizure precautions in place, xray obtained, ekg to be performed by tech, will continue to monitor.
[2021-02-05 13:17] LABS: MANUAL DIFF FLAG NO
[2021-02-05 13:20] LABS: Appearance Urine CLEAR; Color Urine YELLOW; Glucose Urine UA NEG (NEG); Leukocyte Esterase Urine NEG (NEG); Nitrite Urine NEG (NEG); PH 6.5 (5.0-8.0); Urine Blood NEG (NEG); Urine Ketones NEG (NEG); Urine Protein NEG (NEG-TRACE)
[2021-02-05 13:21] LABS: Basophils Percent Auto 0.1 % (0-2); Eosinophils Absolute Auto 0.1 X10*3/uL (0.0-0.4); Eosinophils Percent Auto 1.5 % (0-4); Hematocrit 35.8 % (37-47); Hemoglobin 11.1 g/dl (12.0-16.0); Imm Gran Abs Auto 0.02 X10*3/uL (0.00-0.03); Imm Gran Pct Auto 0.2 % (0.0-0.4); Lymphocytes Absolute Auto 2.5 X10*3/uL (1.2-4.9); Lymphocytes Percent Auto 30.7 % (20-40); Mean Corpuscular Hemoglobin 25.1 pg (27.0-33.0); Mean Corpuscular Volume 80.8 fL (80-98); Mean Platelet Volume 9.9 fL (9.4-12.3); Monocytes Absolute Auto 0.5 X10*3/uL (0.1-1.2); Monocytes Percent Auto 5.7 % (2-11); Neutrophils Percent Auto 61.8 % (45-73); Platelet Count 210 X10*3/uL (160-400); Red Blood Count 4.43 X10*6/uL (4.20-5.50); Red Cell Distribution Width 15.2 % (11.0-16.0); White Blood Count 8.1 X10*3/uL (4.8-10.8)
[2021-02-05 13:45] LABS: Anion Gap 13 (12-20); Blood Urea Nitrogen 7 mg/dL (9-16); Calcium 8.9 mg/dL (8.4-10.2); Carbon Dioxide 26 mmol/L (22-29); Chloride 106 mmol/L (96-108); Creatinine Clr Calc Pharmacy 84.7; Estimated Glomerular Filt Rate > 60; Glucose Random 121 mg/dL (60-115); Potassium 4.5 mmol/L (3.3-5.1); Sodium 140 mmol/L (135-145)
[2021-02-05 13:59] LABS: Alanine Aminotransferase 32 U/L (0-31); Albumin Level 3.9 g/dL (3.5-5.0); Alkaline Phosphatase 105 U/L (39-117); Aspartate Amino Transferase 33 U/L (5-31); Bilirubin Direct < 0.2 mg/dL (0.0-0.5); Bilirubin Total 0.3 mg/dL (0.0-1.0); Magnesium 2.1 mg/dL (1.6-2.6); Total Protein 7.1 g/dL (6.5-8.0)
== END 2021-02-05 15:20 | disposition home or self-care (01) ==
PROVIDERS: Emergency Provider Emergency Medicine
DX: G40.909 Epilepsy, unspecified, not intractable, without status epilepticus (principal); S50.11XA Contusion of right forearm, initial encounter; E11.9 Type 2 diabetes mellitus without complications; Z86.73 Personal history of transient ischemic attack (TIA), and cerebral infarction without residual deficits; Z79.82 Long term (current) use of aspirin; Z79.899 Other long term (current) drug therapy; X58.XXXA Exposure to other specified factors, initial encounter; Y93.9 Activity, unspecified; Y92.9 Unspecified place or not applicable; Y99.9 Unspecified external cause status
CPT/HCPCS: 36415; 70450; 72125; 73090; 73110; 80048; 80076; 81003; 82947; 83735; 85025; 93005; 99284

== ENCOUNTER 2021-02-27 15:53 | Inpatient (IN) | payer OTHER, SELFPAY ==
--- NOTE | ~2021-02-27 | XR_ITS ---
EXAMINATION: XR CHEST CLINICAL INFORMATION: Followup. Question pneumonia. COMPARISON: 02/27/2021 and 09/15/2020 TECHNIQUE: AP portable view of the chest was obtained. FINDINGS: There are some scattered regions of disease present within the right lower lung, left upper lung, left midlung, and left lower lobe. The lower lobe disease is new since previous study. These regions may represent atelectasis or pneumonitis but have more of a discoid appearance to them and probably related to some degree of atelectasis. XR/XR chest 1V IMPRESSION: Persistence of left upper lobe density. New regions of discoid disease seen bilaterally.
--- NOTE | ~2021-02-27 | XR_ITS ---
EXAMINATION: XR CHEST CLINICAL INFORMATION: This is a 55-year-old female with chest pain. COMPARISON: Comparison is made to a previous study dated to. TECHNIQUE: Frontal view of the chest was obtained. FINDINGS: There is a new patchy ill-defined infiltrate in the left upper lobe. This likely represents a subsegmental pneumonitis. It The diaphragm is sharp and there are no pleural effusions. The cardiomediastinal silhouette appears unchanged. The pulmonary vascularity appears within normal limits. There is no pneumothorax. XR/XR chest 1V IMPRESSION: 1. New left upper lobe subsegmental pneumonitis. A follow-up study to demonstrate resolution is recommended.
[2021-02-27 16:06] VITALS: BP 100/58; PULSE 87; RESP 16; TEMP 37.3; O2SAT 87; BMI 30.8
--- NOTE | 2021-02-27 16:26 | PC.NURSE ---
Patient frequently falling asleep during assessment sating 85 on RA. Placed on 2L NC, now sating 95. Jennifer ritter RN aware.
--- NOTE | 2021-02-27 16:51 | ECG_ITS ---
Test Reason : WEAKNESS Blood Pressure : / mmHG Vent. Rate : 081 BPM Atrial Rate : 081 BPM P-R Int : 140 ms QRS Dur : 078 ms QT Int : 398 ms P-R-T Axes : 011 052 013 degrees QTc Int : 462 ms Normal sinus rhythm Normal ECG When compared with ECG of 05-FEB-2021 13:17, T wave amplitude has decreased in Anterior leads Referred By: Generic ED Physician Electronically Signed By:Lonnie Harris
[2021-02-27 17:20] LABS: MANUAL DIFF FLAG NO
[2021-02-27 17:22] LABS: Basophils Percent Auto 0.1 % (0-2); Eosinophils Absolute Auto 0.1 X10*3/uL (0.0-0.4); Eosinophils Percent Auto 0.8 % (0-4); Hemoglobin 11.2 g/dl (12.0-16.0); Imm Gran Abs Auto 0.04 X10*3/uL (0.00-0.03); Imm Gran Pct Auto 0.3 % (0.0-0.4); Lymphocytes Absolute Auto 2.8 X10*3/uL (1.2-4.9); Lymphocytes Percent Auto 20.8 % (20-40); Mean Corpuscular HGB Conc 31.1 g/dl (31.0-35.0); Mean Corpuscular Hemoglobin 25.1 pg (27.0-33.0); Mean Corpuscular Volume 80.7 fL (80-98); Monocytes Absolute Auto 0.8 X10*3/uL (0.1-1.2); Monocytes Percent Auto 5.8 % (2-11); Neutrophils Absolute Auto 9.8 X10*3/uL (2.0-8.3); Neutrophils Percent Auto 72.2 % (45-73); Platelet Count 203 X10*3/uL (160-400); Red Blood Count 4.46 X10*6/uL (4.20-5.50); Red Cell Distribution Width 15.5 % (11.0-16.0); White Blood Count 13.6 X10*3/uL (4.8-10.8)
[2021-02-27 17:58] LABS: Anion Gap 13 (12-20); Blood Urea Nitrogen 12 mg/dL (9-16); Calcium 8.9 mg/dL (8.4-10.2); Carbon Dioxide 27 mmol/L (22-29); Chloride 105 mmol/L (96-108); Creatinine Clr Calc Pharmacy 84.8; Estimated Glomerular Filt Rate > 60; Glucose Random 119 mg/dL (60-115); Potassium 3.7 mmol/L (3.3-5.1); Sodium 141 mmol/L (135-145)
--- NOTE | 2021-02-27 18:43 | ED_ITS ---
HPI - Back Pain/Injury General Chief Complaint: Back Pain/Injury Stated Complaint: back pain Time Seen by Provider: 02/27/21 18:18 Source: patient Mode of arrival: ambulatory Limitations: no limitations History of Present Illness HPI Narrative: 55-year-old female with past medical history of anxiety, CVA with left-sided tenderness, diabetes, hypertension, hyperlipidemia, seizure disorder, and chronic lower back pain presents with 1 year of back pain and right-sided leg numbness. States that she was seen by a neurologist, and has a scheduled outpatient MRI. She feels like her pain is worsening and that she should have MRI sooner than later. Patient states that she has not slept very well the past few days, and while in triage it was noted that her O2 sats dropped down to 85, and she was falling asleep mid sentence. She did not describe any other injuries or concerns at this time. MD elicited complaint: back pain Pertinent past history: prior back pain Onset (ago): year(s) Timing: constant Severity: moderate Similar Symptoms Previously: Yes Quality: aching Location: lumbar spine Radiation: right upper leg and right leg below the knee Exacerbating factors: movement, sitting upright and walking Relieving factors: none Associated symptoms: fatigue Work related injury: No Related Data Home Medications Medication Instructions Recorded Confirmed albuterol sulfate 90 mcg/actuation 2 puff PO QID PRN 09/15/20 09/15/20 aerosol inhaler aspirin 81 mg tablet,delayed 1 tab PO DAILY 09/15/20 09/15/20 release atorvastatin 80 mg tablet 1 tab PO DAILY 09/15/20 09/15/20 clonazepam 0.5 mg tablet 1 tab PO BEDTIME PRN 09/15/20 09/15/20 clonidine HCl 0.1 mg tablet 1 tab PO BEDTIME PRN 09/15/20 09/15/20 hydroxyzine pamoate 50 mg capsule 1 - 2 cap PO BEDTIME PRN 09/15/20 09/15/20 lamotrigine 100 mg tablet 1 tab PO QAM 09/15/20 09/15/20 lamotrigine 25 mg tablet 1 tab PO BEDTIME 09/15/20 09/15/20 levetiracetam 750 mg tablet 1 tab PO BID 09/15/20 09/15/20 omeprazole 40 mg capsule,delayed 1 cap PO DAILY 09/15/20 09/15/20 release sertraline 100 mg tablet 2 tab PO QAM 09/15/20 09/15/20 Allergies Allergy/AdvReac Type Severity Reaction Status Date / Time codeine [CODEINE] Allergy Unknown SWELLING Verified 02/05/21 12:32 hornet venom [HORNETS] Allergy Unknown RASH Verified 02/05/21 12:32 trazodone [TRAZODONE] AdvReac Intermediate VERY Verified 02/05/21 12:32 ANXIOUS, RESTLESSNESS From BENADRYL AdvReac Intermediate RESTLESS Uncoded 10/26/20 15:56 From SEROQUEL AdvReac Intermediate ANXIETY Uncoded 02/05/21 12:32 AND RESTLESSNESS Review of Systems Review of Systems: Constitutional: Positive fatigue, No Fever, No Chills ENT/Mouth: No Ear Pain, No Hoarseness, No sore throat Eyes: No Eye Pain, No Swelling, No Redness, No Foreign Body Cardiovascular: No Chest Pain, No SOB Respiratory: Positive Cough, No Dyspnea Gastrointestinal: No Nausea, No Vomiting, No Diarrhea, No abdominal Pain Genitourinary: No Dysuria, No Hematuria Musculoskeletal: positive back pain, No Myalgias, No Joint Swelling Skin: No Skin lacerations, No rash Neuro: No Weakness, No Numbness, No Paresthesias, No Loss of Consciousness, No Dizziness, No Headache Psych: No Anxiety/Panic, No Depression Heme/Lymph: no easy bruising, no Lymphadenopathy Endocrine: No Polyuria, No Polydipsia Yes all other systems are reviewed and are negative PMFSH Past Medical History Attestation statement: The following information was validated with the patient. Source: old records reviewed Medical History Anxiety CVA (cerebral vascular accident) Diabetes Hyperlipidemia Left knee injury Patent ductus arteriosus Seizure Surgical History H/O left knee surgery Hx of tonsillectomy Social History Social History Alcohol intake: current Alcohol intake frequency: does not drink Patient Tobacco Use Status: Current someday Tobacco user Use of substances other than those prescribed or required for medical reasons: Yes Substance Use Type: Opiates Substance Use Frequency: Chronic Longstanding Last Used Substance: Unknown Any prior treatment program specific to substance use: Yes Advance Directives: No Advance Directives Information Provided: No Physical Exam Vital Signs: Vital Signs: Last Vital Signs Temp 98.3 F 02/27/21 21:56 Pulse 83 02/27/21 21:56 Resp 16 02/27/21 21:56 BP 123/64 02/27/21 21:56 Pulse Ox 95 02/27/21 21:56 Body Mass Index 30.8 Appearance: Alert. Oriented X3. Mild distress. Appears fatigued. Head: Normal external exam. Normocephalic. Atraumatic. No [place] signs noted. No raccoon eyes noted Eyes: PERRLA. EOMI. Conjunctiva and sclera normal. Eyelids normal. ENT: TM's Normal. Pharynx normal. Uvula midline. Moist mucous membranes. No trismus noted. No drooling noted. No muffled voice noted. Neck: Normal inspection. Neck supple. No adenopathy. Thyroid Normal. No meningeal signs. No neck mass noted. CVS: Normal heart rate and rhythm. Heart sound normal. No murmurs noted. Pulses equal to all extremities. Respiratory: No respiratory distress. Painless inspiration. Expiratory wheezing throughout. Chest nontender. No accessory muscle usage noted or decreased air movement noted. Abdomen: Soft and nontender. Bowel sounds normal in all 4 quadrants. No distention noted. No organomegaly noted. No visible injury noted. Back: No CVA tenderness. Full range of motion noted. Skin: Skin warm and dry. Normal skin color. Normal skin turgor. No rashes/lesions/lacerations noted. Extremities: No lower extremity edema. Extremities exhibit normal range of motion. Extremities nontender. Neuro: cranial nerves 2-12 intact, no focal neural deficits, strength 5/5 to all extremities, No motor deficit. No sensory deficit. Course Course Course Narrative: 55-year-old female presents from a alf for lower back pain. Was noted to have hypoxia during triage, and was placed on O2. Patient's primary complaint is lower back pain and is requesting an MRI, she does have a neurologist to his scheduled an outpatient MRI for her. At this time I do not feel like her primary complaint is the most important. She does report vomiting a few days ago and with her current presentation of hypoxia plan is for CBC, Chem 7, lactic, cultures, and chest x-ray. She does appear very fatigued, falls asleep mid sentence. Will order toxicology screen. Chest x-ray indicates pneumonitis, no indication of sepsis, toxicology is negative, white count is 13.6, VBG is are within normal limits. Will give ceftriaxone, azithromycin and Flagyl for suspected aspiration pneumonia. Patient remains on O2. D-dimer is 255, age adjusted D-dimer indicates that this is unlikely PE or DVT. did discuss this case with hospitalist to his agreed to admit for hypoxia pneumonitis. MDM - Back Pain/Injury MDM Narrative Medical decision making narrative: Pneumonitis, hypoxia, pneumonia Differential Diagnosis Differential diagnosis: Likely lumbar radiculopathy Medical Records Attestation: I reviewed the patient's medical records. Lab Data Attestation: I reviewed the patient's lab results. Result diagrams: 02/27/21 17:13 02/27/21 17:13 Labs: Lab Results 02/27/21 02/27/21 02/27/21 Range/Units 17:13 17:13 17:13 WBC 13.6 H (4.8-10.8) X10*3/uL RBC 4.46 (4.20-5.50) X10*6/uL Hgb 11.2 L (12.0-16.0) g/dl Hct 36.0 L (37-47) % MCV 80.7 (80-98) fL MCH 25.1 L (27.0-33.0) pg MCHC 31.1 (31.0-35.0) g/dl RDW 15.5 (11.0-16.0) % Plt Count 203 (160-400) X10*3/uL MPV 10.0 (9.4-12.3) fL Immature Gran % (Auto) 0.3 (0.0-0.4) % Neut % (Auto) 72.2 (45-73) % Lymph % (Auto) 20.8 (20-40) % [place] % (Auto) 5.8 (2-11) % Eos % (Auto) 0.8 (0-4) % Baso % (Auto) 0.1 (0-2) % Lymph # (Auto) 2.8 (1.2-4.9) X10*3/uL [place] # (Auto) 0.8 (0.1-1.2) X10*3/uL Eos # (Auto) 0.1 (0.0-0.4) X10*3/uL Baso # (Auto) 0.0 (0.0-0.2) X10*3/uL Abs Immat Gran (auto) 0.04 H (0.00-0.03) X10*3/uL Absolute Neuts (auto) 9.8 H (2.0-8.3) X10*3/uL Absolute Nucleated RBC 0.000 (0.0-0.012) X10*3/uL Nucleated RBC % (auto) 0.0 (0.0-0.2) /100WBC Sodium 141 (135-145) mmol/L Potassium 3.7 (3.3-5.1) mmol/L Chloride 105 (96-108) mmol/L Carbon Dioxide 27 (22-29) mmol/L Anion Gap 13 (12-20) BUN 12 D (9-16) mg/dL Creatinine 0.86 (0.5-1.4) mg/dL Estim Creat Clear Calc 84.8 Estimated GFR > 60 Random Glucose 119 H (60-115) mg/dL Calcium 8.9 (8.4-10.2) mg/dL Urine Color Urine Appearance Urine pH (5.0-8.0) Ur Specific [place] (1.005-1.025) Urine Protein (NEG-TRACE) MG/DL Urine Glucose (UA) (NEG) MG/DL Urine Ketones (NEG) MG/DL Urine Blood (NEG) Urine Nitrite (NEG) Ur Leukocyte Esterase (NEG) Urine RBC (0) /HPF Urine WBC (0-4) /HPF Ur Squamous Epith Cells /LPF Calcium Oxalate Crystal /LPF Urine Bacteria /LPF Urine Mucus /LPF Urine Opiates Screen (Not Detect) Ur Barbiturates Screen (Not Detect) Ur Phencyclidine Scrn (Not Detect) Ur Amphetamines Screen (Not Detect) U Benzodiazepines Scrn (Not Detect) Urine Cocaine Screen (Not Detect) U Marijuana (THC) Screen (Not Detect) Ethyl Alcohol < 10 mg/dL 02/27/21 02/27/21 Range/Units 20:41 20:41 WBC (4.8-10.8) X10*3/uL RBC (4.20-5.50) X10*6/uL Hgb (12.0-16.0) g/dl Hct (37-47) % MCV (80-98) fL MCH (27.0-33.0) pg MCHC (31.0-35.0) g/dl RDW (11.0-16.0) % Plt Count (160-400) X10*3/uL MPV (9.4-12.3) fL Immature Gran % (Auto) (0.0-0.4) % Neut % (Auto) (45-73) % Lymph % (Auto) (20-40) % [place] % (Auto) (2-11) % Eos % (Auto) (0-4) % Baso % (Auto) (0-2) % Lymph # (Auto) (1.2-4.9) X10*3/uL [place] # (Auto) (0.1-1.2) X10*3/uL Eos # (Auto) (0.0-0.4) X10*3/uL Baso # (Auto) (0.0-0.2) X10*3/uL Abs Immat Gran (auto) (0.00-0.03) X10*3/uL Absolute Neuts (auto) (2.0-8.3) X10*3/uL Absolute Nucleated RBC (0.0-0.012) X10*3/uL Nucleated RBC % (auto) (0.0-0.2) /100WBC Sodium (135-145) mmol/L Potassium (3.3-5.1) mmol/L Chloride (96-108) mmol/L Carbon Dioxide (22-29) mmol/L Anion Gap (12-20) BUN (9-16) mg/dL Creatinine (0.5-1.4) mg/dL Estim Creat Clear Calc Estimated GFR Random Glucose (60-115) mg/dL Calcium (8.4-10.2) mg/dL Urine Color YELLOW Urine Appearance HAZY Urine pH 6.0 (5.0-8.0) Ur Specific [place] >= 1.030 H (1.005-1.025) Urine Protein TRACE (NEG-TRACE) MG/DL Urine Glucose (UA) NEG (NEG) MG/DL Urine Ketones NEG (NEG) MG/DL Urine Blood TRACE (NEG) Urine Nitrite NEG (NEG) Ur Leukocyte Esterase NEG (NEG) Urine RBC 1-4 (0) /HPF Urine WBC 0 (0-4) /HPF Ur Squamous Epith Cells 3+ /LPF Calcium Oxalate Crystal 4+ /LPF Urine Bacteria TRACE /LPF Urine Mucus 2+ /LPF Urine Opiates Screen Not Detected (Not Detect) Ur Barbiturates Screen Not Detected (Not Detect) Ur Phencyclidine Scrn Not Detected (Not Detect) Ur Amphetamines Screen Not Detected (Not Detect) U Benzodiazepines Scrn POSITIVE H (Not Detect) Urine Cocaine Screen Not Detected (Not Detect) U Marijuana (THC) Screen Not Detected (Not Detect) Ethyl Alcohol mg/dL Imaging Data Chest x-ray: Attestation: I personally reviewed and interpreted this imaging study as follows: Radiologist's impression: EXAMINATION: XR CHEST CLINICAL INFORMATION: This is a 55-year-old female with chest pain. COMPARISON: Comparison is made to a previous study dated . TECHNIQUE: Frontal view of the chest was obtained. FINDINGS: There is a new patchy ill-defined infiltrate in the left upper lobe. This likely represents a subsegmental pneumonitis. It The diaphragm is sharp and there are no pleural effusions. The cardiomediastinal silhouette appears unchanged. The pulmonary vascularity appears within normal limits. ?There is no pneumothorax. XR/XR chest 1V IMPRESSION: ? 1. New left upper lobe subsegmental pneumonitis. A follow-up study to demonstrate resolution is recommended. ECG Data Attestation: I personally reviewed and interpreted this ECG as follows: ECG interpretation date: 02/27/21 ECG interpretation time: 00:30 Prior ECG tracings: available for review Interpretation: Vent. rate 81 BPM LA interval 140 ms QRS duration 78 ms QT/QTc 398/462 ms P-R-T axes 11 52 13 Normal sinus rhythm Normal ECG When compared with ECG of 05-FEB-2021 13:17, T wave amplitude has decreased in Anterior leads Critical Care Time Critical Care Time Critical Care Time: Yes Total Critical Care Time: 45 Attestation: I have personally provided critical care time exclusive of time spent on separately billable procedures. Time includes review of laboratory data, radiology results, discussion with consultants, and monitoring for potential decompensation. Interventions were performed as documented. Discharge Plan Discharge Clinical Impression: Pneumonitis, Hypoxia Patient Disposition: Admitted As Inpatient
--- NOTE | 2021-02-27 18:52 | PC.NURSE ---
pt states she is currently living in a substance abuse [facility], states she has had severe back pain for several days. She denies any drug use. Pt states she has been unable to sleep for days, has been falling asleep during interviews. She denies any drug use. Pt ambuklatory with slow gait to bathroom to provide urine sample.
[2021-02-27 20:25] LABS: Ethanol < 10 mg/dL
[2021-02-27 20:47] LABS: Glucose Urine UA NEG (NEG); Leukocyte Esterase Urine NEG (NEG); Nitrite Urine NEG (NEG); Specific Gravity - Urine >= 1.030 (1.005-1.025); UACC Culture Trigger NO; Urine Blood TRACE (NEG); Urine Ketones NEG (NEG); Urine Protein TRACE MG/DL (NEG-TRACE)
[2021-02-27 20:49] LABS: Appearance Urine HAZY; Color Urine YELLOW
[2021-02-27 20:54] LABS: Bacteria Urine TRACE /LPF; Calcium Oxalate Crystals Urine 4+ /LPF; Mucus Urine 2+ /LPF; Squamous Epithelial Cell Urine 3+ /LPF; WBC Urine 0 /HPF (0-4)
[2021-02-27 21:44] LABS: Amphetamine Screen Urine Not Detected (Not Detect); Barbiturates, Urine Not Detected (Not Detect); Benzodiazepines Screen Urine POSITIVE (Not Detect); Cannabinoid Screen Urine Not Detected (Not Detect); Cocaine Screen Urine Not Detected (Not Detect); Opiate Screen Urine Not Detected (Not Detect); Phencyclidine Screen Urine Not Detected (Not Detect)
[2021-02-27 21:56] VITALS: BP 123/64; PULSE 83; RESP 16; TEMP 36.8; O2SAT 95
[2021-02-27 22:33] LABS: Venous Blood Gas Refer to POC result
[2021-02-27 22:37] LABS: VBG Base Excess 2.3 mmol/L; VBG HCO3 27 mmol/L (22-26); VBG pCO2 43 mmHg; VBG pO2 108 mmHg
[2021-02-27] MEDS: cefTRIAXone sodium 1 GM in 0.9 % Sodium Chloride 50 ML IV (22:47)
[2021-02-27] MEDS: 0.9 % Sodium Chloride 1,000 ML 999 ML IVCONT (22:48)
[2021-02-27] MEDS: Azithromycin 500 MG TABLET PO (22:48)
[2021-02-27 23:12] LABS: D Dimer 251 NG/ML
[2021-02-28] VITALS (7 sets, daily range): BP systolic 109–140; BP diastolic 59–79; PULSE 60–81; RESP 16–18; TEMP 36–36.4; O2SAT 93–98
[2021-02-28 01:00] LABS: Influenza A PCR NEGATIVE (Negative); Influenza B PCR NEGATIVE (Negative); Resp Syncy Virus RNA Qual PCR NEGATIVE (Negative); SARS COV2 PCR INHOUSE NEGATIVE (Negative)
--- NOTE | 2021-02-28 01:09 | P.HPHOSP_ITS ---
History of Present Illness Date of Service: 02/28/21 Chief Complaint: Back pain 55-year-old female with a past medical history of hypertension, hyperlipidemia, diabetes, history of CVA; history of seizure disorder, chronic low back pain presented to the hospital with a chief complaint of back pain. Patient is a poor historian. Patient mentions over past couple weeks he has been having worsening back pain and she has seen a neurologist on last Monday and he is being scheduled for outpatient MRI; mentions that she has a low back pain that radiates down the legs and wondering if she can have an MRI sooner; patient also mentions he had fall couple weeks ago. Denies any fever chills. Patient mentions she has intermittent episodes of vomiting and had an episode of vomiting yesterday; denies any chest pain palpitations lightheadedness or dizziness. Mentioned that she has been compliant with her home medications. Review of all other systems is negative except mentioned above ER course: Per ER team patient exam was grossly nonfocal; no spinal tenderness; no red flag signs for chronic white; patient was noted to be hypoxic to 87% on room air; chest x-ray showed possible pneumonia left lower lobe consult for aspiration. Patient was given antibiotics. Admitted to the hospital for further management. [facility] Medical History Anxiety CVA (cerebral vascular accident) Diabetes Hyperlipidemia Left knee injury Patent ductus arteriosus Seizure Surgical History H/O left knee surgery Hx of tonsillectomy Social History Household Members: Other Housing: Other Housing Other:: [address] Do you presently have visiting nurse or other home services: Yes Alcohol intake: current Alcohol intake frequency: does not drink Patient Tobacco Use Status: Current someday Tobacco user Tobacco use type: Cigarette Substance Use Type: Opiates Advance Directives: Yes Advance Directives Information Provided: No Advance Directives on File: No Patient : No service: No Current occupational status: unemployed Meds Allergies Allergy/AdvReac Type Severity Reaction Status Date / Time codeine [CODEINE] Allergy Unknown SWELLING Verified 02/05/21 12:32 hornet venom [HORNETS] Allergy Unknown RASH Verified 02/05/21 12:32 trazodone [TRAZODONE] AdvReac Intermediate VERY Verified 02/05/21 12:32 ANXIOUS, RESTLESSNESS From BENADRYL AdvReac Intermediate RESTLESS Uncoded 10/26/20 15:56 From SEROQUEL AdvReac Intermediate ANXIETY Uncoded 02/05/21 12:32 AND RESTLESSNESS Active Medications: Current Medications Generic Name Dose Route Start Last Admin Trade Name Freq PRN Reason Stop Dose Admin Acetaminophen 650 mg 02/27/21 21:50 Acetaminophen 325 Mg Tablet PO Q6H PRN Pain, Mild (Pain Scale 1-3) Albuterol/Ipratropium 3 ml 02/27/21 21:50 Albuterol/Iprat 2.5/0.5mg 3 Ml Ampul.Neb INHALE RQ4H WHILE AWAKE PRN Shortness of Breath/Wheezing Azithromycin 500 mg 02/28/21 22:00 Azithromycin 500 Mg Tablet PO Q24H [facility] Heparin Sodium (Porcine) 5,000 unit 02/27/21 22:00 02/27/21 23:13 Heparin Sodium,Porcine 5,000 Unit/Ml Vial SUBCUT Not Given Q8H [facility] Hydromorphone HCl 0.5 mg 02/27/21 22:09 Hydromorphone Hcl 1 Mg/Ml Syringe IVPUSH Q4H PRN Breakthrough Pain Sodium Chloride 1,000 mls @ 100 mls/hr 02/27/21 22:[address] [facility] Ceftriaxone Sodium 1 gm/ 100 mls @ 200 mls/hr 02/28/21 22:00 Sodium Chloride IV Q24H [facility] Metronidazole 500 mg in 100 mls @ 100 mls/hr 02/28/21 06:[address] [facility] Lidocaine 1 patch 02/28/21 09:00 Lidocaine 4 % Patch Adh..Patch TRANSDERMA DAILY [facility] Protocol Melatonin 6 mg 02/27/21 21:50 Melatonin 3 Mg Tablet PO BEDTIME PRN Insomnia Sodium Chloride 3 ml 02/28/21 00:00 0.9 % Sodium Chloride Flush 3 Ml Syringe IVFLUSH QSHIFT [facility] Home Medications Medication Instructions Recorded Confirmed Last Taken Type albuterol sulfate 90 mcg/actuation 2 puff PO QID PRN 09/15/20 02/28/21 Unknown History aerosol inhaler aspirin 81 mg tablet,delayed 1 tab PO DAILY 09/15/20 02/28/21 Unknown History release atorvastatin 80 mg tablet 1 tab PO DAILY 09/15/20 02/28/21 Unknown History clonazepam 0.5 mg tablet 1 tab PO BID PRN 09/15/20 02/28/21 Unknown History clonidine HCl 0.1 mg tablet 1 tab PO BEDTIME PRN 09/15/20 02/28/21 Unknown History hydroxyzine pamoate 50 mg capsule 1 - 2 cap PO BEDTIME PRN 09/15/20 02/28/21 Unknown History lamotrigine 100 mg tablet 1 tab PO QAM 09/15/20 02/28/21 Unknown History lamotrigine 25 mg tablet 1 tab PO BEDTIME 09/15/20 02/28/21 Unknown History omeprazole 40 mg capsule,delayed 1 cap PO DAILY 09/15/20 02/28/21 Unknown History release sertraline 100 mg tablet 2 tab PO QAM 09/15/20 02/28/21 Unknown History levetiracetam 1,000 mg tablet 1 tab PO BID 02/28/21 02/28/21 Unknown History methadone 60 mg PO DAILY 02/28/21 02/28/21 02/27/21 History 60 mg Physical Exam Vital Signs and Narrative: Vital Signs: Last Vital Signs Temp 98.3 F 02/27/21 21:56 Pulse 83 02/27/21 21:56 Resp 16 02/27/21 21:56 BP 123/64 02/27/21 21:56 Pulse Ox 95 02/27/21 21:56 Body Mass Index 30.8 Gen: Appears be in no acute distress HEENT: NCAT, Moist mucosa. Pulmonary: Course breath sounds, fair air entry CVS: Normal S1-S2 Abdomen: BS+, Soft, Nontender Extremities: Warm well perfused Neuro: Alert and awake. Moves all extremities equally; reports slightly decreased sensation on the right leg-but on repeat asking patient unable to quantify. No focal spinal tenderness noticed. Results Labs CBC and Chem 7: 03/01/21 05:42 03/01/21 05:42 Labs: Laboratory Results - last 24 hr 02/27/21 02/27/21 02/27/21 17:13 17:13 17:13 MCV 80.7 MCH 25.1 L MCHC 31.1 RDW 15.5 Plt Count 203 MPV 10.0 Immature Gran % (Auto) 0.3 Neut % (Auto) 72.2 Lymph % (Auto) 20.8 [place] % (Auto) 5.8 Eos % (Auto) 0.8 Baso % (Auto) 0.1 Lymph # (Auto) 2.8 [place] # (Auto) 0.8 Eos # (Auto) 0.1 Baso # (Auto) 0.0 Abs Immat Gran (auto) 0.04 H Absolute Neuts (auto) 9.8 H Absolute Nucleated RBC 0.000 Nucleated RBC % (auto) 0.0 D-Dimer VBG pH VBG pCO2 VBG pO2 VBG HCO3 VBG O2 Saturation VBG Base Excess Anion Gap 13 Estim Creat Clear Calc 84.8 Estimated GFR > 60 Random Glucose 119 H Calcium 8.9 Urine Color Urine Appearance Urine pH Ur Specific [place] Urine Protein Urine Glucose (UA) Urine Ketones Urine Blood Urine Nitrite Ur Leukocyte Esterase Urine RBC Urine WBC Ur Squamous Epith Cells Calcium Oxalate Crystal Urine Bacteria Urine Mucus Urine Opiates Screen Ur Barbiturates Screen Ur Phencyclidine Scrn Ur Amphetamines Screen U Benzodiazepines Scrn Urine Cocaine Screen U Marijuana (THC) Screen Ethyl Alcohol < 10 Coronavirus (PCR) Influenza Type A (PCR) Influenza Type B (PCR) RSV RNA Qual (PCR) 02/27/21 02/27/21 02/27/21 20:41 20:41 22:27 MCV MCH MCHC RDW Plt Count MPV Immature Gran % (Auto) Neut % (Auto) Lymph % (Auto) [place] % (Auto) Eos % (Auto) Baso % (Auto) Lymph # (Auto) [place] # (Auto) Eos # (Auto) Baso # (Auto) Abs Immat Gran (auto) Absolute Neuts (auto) Absolute Nucleated RBC Nucleated RBC % (auto) D-Dimer VBG pH 7.40 VBG pCO2 43 VBG pO2 108 VBG HCO3 27 H VBG O2 Saturation 99.0 VBG Base Excess 2.3 Anion Gap Estim Creat Clear Calc Estimated GFR Random Glucose Calcium Urine Color YELLOW Urine Appearance HAZY Urine pH 6.0 Ur Specific [place] >= 1.030 H Urine Protein TRACE Urine Glucose (UA) NEG Urine Ketones NEG Urine Blood TRACE Urine Nitrite NEG Ur Leukocyte Esterase NEG Urine RBC 1-4 Urine WBC 0 Ur Squamous Epith Cells 3+ Calcium Oxalate Crystal 4+ Urine Bacteria TRACE Urine Mucus 2+ Urine Opiates Screen Not Detected Ur Barbiturates Screen Not Detected Ur Phencyclidine Scrn Not Detected Ur Amphetamines Screen Not Detected U Benzodiazepines Scrn POSITIVE H Urine Cocaine Screen Not Detected U Marijuana (THC) Screen Not Detected Ethyl Alcohol Coronavirus (PCR) Influenza Type A (PCR) Influenza Type B (PCR) RSV RNA Qual (PCR) 02/27/21 02/28/21 22:28 00:17 MCV MCH MCHC RDW Plt Count MPV Immature Gran % (Auto) Neut % (Auto) Lymph % (Auto) [place] % (Auto) Eos % (Auto) Baso % (Auto) Lymph # (Auto) [place] # (Auto) Eos # (Auto) Baso # (Auto) Abs Immat Gran (auto) Absolute Neuts (auto) Absolute Nucleated RBC Nucleated RBC % (auto) D-Dimer 251 VBG pH VBG pCO2 VBG pO2 VBG HCO3 VBG O2 Saturation VBG Base Excess Anion Gap Estim Creat Clear Calc Estimated GFR Random Glucose Calcium Urine Color Urine Appearance Urine pH Ur Specific [place] Urine Protein Urine Glucose (UA) Urine Ketones Urine Blood Urine Nitrite Ur Leukocyte Esterase Urine RBC Urine WBC Ur Squamous Epith Cells Calcium Oxalate Crystal Urine Bacteria Urine Mucus Urine Opiates Screen Ur Barbiturates Screen Ur Phencyclidine Scrn Ur Amphetamines Screen U Benzodiazepines Scrn Urine Cocaine Screen U Marijuana (THC) Screen Ethyl Alcohol Coronavirus (PCR) NEGATIVE Influenza Type A (PCR) NEGATIVE Influenza Type B (PCR) NEGATIVE RSV RNA Qual (PCR) NEGATIVE Imaging Radiologist's Impressions: Impressions Chest X-Ray 02/27/21 18:21 IMPRESSION: 1. New left upper lobe subsegmental pneumonitis. A follow-up study to demonstrate resolution is recommended. Assessment and Plan (1) PNA (pneumonia): Status: Acute 55-year-old female with a past medical history of hypertension, hyperlipidemia, diabetes, history of CVA, chronic low back pain, seizure disorder, intellectual disability and lives in the skilled nursing presented to the hospital with a chief complaint of back pain. Noted to be hypoxic and on x-ray concern for pneumonia. Admitted for further management. Pneumonia: Suspected aspiration. Patient on episode of vomiting yesterday. Continue ceftriaxone, azithromycin, Flagyl. Follow up cultures. Supplemental oxygen p.r.n.. DuoNebs p.r.n.. Back pain: Patient reports increased back pain radiating down the legs; complains of right lower extremity decreased sensation but on repetetion patient mentions that she is not sure. Neurology consult MRI spine. but No MRI available on the weekend. Patient is aware of it. Hypertension/hyperlipidemia: Continue home medications Diabetes: Insulin sliding scale History of seizure disorder: Continue home Keppra. DVT prophylaxis: Subcu heparin Code status: Full code Quality Stroke Does the patient have a stroke diagnosis?: No VTE Prior VTE?: No VTE Risk Level:: Medical - moderate - high VTE Device Contraindication: N/A - Device Ordered VTE Drug Contraindication: N/A - Med Ordered
--- NOTE | 2021-02-28 03:24 | PC.NURSE ---
DELAY IN ADMIN OF FLAGYL D/T diff iv access & acuity of ED at time of admin
[2021-02-28] MEDS: 0.9 % Sodium Chloride 1,000 ML 100 ML IVCONT (04:29)
[2021-02-28] MEDS: Acetaminophen 325 MG TABLET 650 MG PO ×2 (04:55→21:52)
[2021-02-28] MEDS: metroNIDAZOLE/NS 500 MG/100 ML PIGGYBACK 100 MG IV ×3 (05:10→21:49)
[2021-02-28] MEDS: Heparin Sodium,Porcine 5,000 UNIT/ML VIAL 5000 UNIT SUBCUT (05:10)
[2021-02-28 06:30] LABS: MANUAL DIFF FLAG NO
[2021-02-28 06:49] LABS: Basophils Percent Auto 0.2 % (0-2); Eosinophils Absolute Auto 0.1 X10*3/uL (0.0-0.4); Eosinophils Percent Auto 0.8 % (0-4); Hematocrit 35.4 % (37-47); Hemoglobin 10.8 g/dl (12.0-16.0); Imm Gran Abs Auto 0.04 X10*3/uL (0.00-0.03); Imm Gran Pct Auto 0.4 % (0.0-0.4); Lymphocytes Absolute Auto 1.7 X10*3/uL (1.2-4.9); Lymphocytes Percent Auto 18.9 % (20-40); Mean Corpuscular HGB Conc 30.5 g/dl (31.0-35.0); Mean Corpuscular Volume 81.9 fL (80-98); Mean Platelet Volume 10.5 fL (9.4-12.3); Monocytes Absolute Auto 0.5 X10*3/uL (0.1-1.2); Monocytes Percent Auto 5.9 % (2-11); Neutrophils Absolute Auto 6.6 X10*3/uL (2.0-8.3); Neutrophils Percent Auto 73.8 % (45-73); Platelet Count 166 X10*3/uL (160-400); Red Blood Count 4.32 X10*6/uL (4.20-5.50); Red Cell Distribution Width 15.6 % (11.0-16.0)
[2021-02-28 07:12] LABS: Alanine Aminotransferase 35 U/L (0-31); Albumin Level 3.9 g/dL (3.5-5.0); Alkaline Phosphatase 92 U/L (39-117); Anion Gap 13 (12-20); Aspartate Amino Transferase 36 U/L (5-31); Bilirubin Total 0.3 mg/dL (0.0-1.0); Blood Urea Nitrogen 11 mg/dL (9-16); Calcium 8.6 mg/dL (8.4-10.2); Carbon Dioxide 27 mmol/L (22-29); Chloride 107 mmol/L (96-108); Creatinine Clr Calc Pharmacy 88.9; Estimated Glomerular Filt Rate > 60; Glucose Random 125 mg/dL (60-115); Potassium 4.5 mmol/L (3.3-5.1); Sodium 142 mmol/L (135-145)
[2021-02-28] MEDS: Lidocaine 4 % Patch ADH..PATCH 1 PATCH TRANSDERMA (07:56)
[2021-02-28] MEDS: Rivaroxaban 10 MG TABLET PO (07:56)
[2021-02-28 07:57] LABS: Glucose, Whole Blood 123 mg/dL (60-115)
[2021-02-28] MEDS: 0.9 % Sodium Chloride Flush 3 ML SYRINGE IVFLUSH ×3 (07:57→22:57)
--- NOTE | 2021-02-28 09:09 | HO.PM.IMPN ---
Subjective Subjective Date of Service: 02/28/21 Physical Exam Vital Signs: Vital Signs: Last Vital Signs Temp 96.8 F 02/28/21 07:36 Pulse 68 02/28/21 07:36 Resp 18 02/28/21 07:36 BP 133/79 02/28/21 07:36 Pulse Ox 96 02/28/21 07:36 Body Mass Index 30.8 General: AO X 3, no acute distress Resp: diminished CVS: S1,S2,RRR GI: soft, non tender, non distended Neuro: motor grossly intact Psych: appropriate affect Objective Data Current Medications Generic Name Dose Route Start Last Admin Trade Name Freq PRN Reason Stop Dose Admin Acetaminophen 650 mg 02/27/21 21:50 02/28/21 04:55 Acetaminophen 325 Mg Tablet PO 650 mg Q6H PRN Administration Pain, Mild (Pain Scale 1-3) Albuterol Sulfate 2 puff 02/28/21 07:55 Albuterol Sulfate 90 Mcg 8 Gm Inhaler INHALE QID PRN wheezing Albuterol/Ipratropium 3 ml 02/27/21 21:50 Albuterol/Iprat 2.5/0.5mg 3 Ml Ampul.Neb INHALE RQ4H WHILE AWAKE PRN Shortness of Breath/Wheezing Aspirin 81 mg 02/28/21 09:00 Aspirin Enteric Coated 81 Mg Tablet. PO DAILY [facility] Atorvastatin Calcium 80 mg 02/28/21 09:00 Atorvastatin Calcium 80 Mg Tablet PO DAILY [facility] Azithromycin 500 mg 02/28/21 22:00 Azithromycin 500 Mg Tablet PO Q24H [facility] Clonazepam 0.5 mg 02/28/21 07:55 Clonazepam 0.5 Mg Tablet PO BID PRN Anxiety Clonidine HCl 0.1 mg 02/28/21 07:55 Clonidine Hcl 0.1 Mg Tablet PO BEDTIME PRN Anxiety Protocol Dextrose 25 gm 02/28/21 01:18 Dextrose 50 % 25 Gm/50 Ml Vial IVPUSH Q15M PRN per Hypoglycemia Standing Ord. Protocol Glucose 15 gm 02/28/21 01:18 Glucose Gel 15 Gm Gel..Gram. PO Q15M PRN per Hypoglycemia Standing Ord. Protocol Hydromorphone HCl 0.5 mg 02/27/21 22:09 Hydromorphone Hcl 1 Mg/Ml Syringe IVPUSH Q4H PRN Breakthrough Pain Hydroxyzine HCl 50 - 100 mg 02/28/21 07:55 Hydroxyzine Hcl 50 Mg Tablet PO BEDTIME PRN Sleep Ceftriaxone Sodium 1 gm/ 100 mls @ 200 mls/hr 02/28/21 22:00 Sodium Chloride IV Q24H [facility] Metronidazole 500 mg in 100 mls @ 100 mls/hr 02/28/21 06:00 02/28/21 06:10 Flagyl IV Infused Q8H [facility] Infusion Insulin Human Lispro 0 unit 02/28/21 07:30 02/28/21 07:56 Insulin Lispro 100 Unit/Ml 3 Ml Vial SUBCUT Not Given QIDACHS [facility] Protocol Lamotrigine 25 mg 02/28/21 21:00 Lamotrigine 25 Mg Tablet PO BEDTIME [facility] Lamotrigine 100 mg 02/28/21 09:00 Lamotrigine 100 Mg Tablet PO DAILY [facility] Levetiracetam 1,000 mg 02/28/21 09:00 Levetiracetam 1,000 Mg Tablet PO BID [facility] Lidocaine 1 patch 02/28/21 09:00 02/28/21 07:56 Lidocaine 4 % Patch Adh..Patch TRANSDERMA 1 patch DAILY [facility] Administration Protocol Melatonin 6 mg 02/27/21 21:50 Melatonin 3 Mg Tablet PO BEDTIME PRN Insomnia Omeprazole 40 mg 02/28/21 09:00 Omeprazole 40 Mg Capsule.Dr PO DAILY [facility] Rivaroxaban 10 mg 02/28/21 09:00 02/28/21 07:56 Rivaroxaban 10 Mg Tablet PO 10 mg DAILY [facility] Administration Sertraline HCl 200 mg 02/28/21 09:00 Sertraline Hcl 100 Mg Tablet PO DAILY [facility] Sodium Chloride 3 ml 02/28/21 00:00 02/28/21 07:57 0.9 % Sodium Chloride Flush 3 Ml Syringe IVFLUSH 3 ml QSHIFT [facility] Administration Labs CBC & Chem 7: 02/28/21 06:23 02/28/21 06:23 Labs: Laboratory Results - last 24 hr 02/27/21 02/27/21 02/27/21 17:13 17:13 17:13 MCV 80.7 MCH 25.1 L MCHC 31.1 RDW 15.5 Plt Count 203 MPV 10.0 Immature Gran % (Auto) 0.3 Neut % (Auto) 72.2 Lymph % (Auto) 20.8 [place] % (Auto) 5.8 Eos % (Auto) 0.8 Baso % (Auto) 0.1 Lymph # (Auto) 2.8 [place] # (Auto) 0.8 Eos # (Auto) 0.1 Baso # (Auto) 0.0 Abs Immat Gran (auto) 0.04 H Absolute Neuts (auto) 9.8 H Absolute Nucleated RBC 0.000 Nucleated RBC % (auto) 0.0 D-Dimer VBG pH VBG pCO2 VBG pO2 VBG HCO3 VBG O2 Saturation VBG Base Excess Anion Gap 13 Estim Creat Clear Calc 84.8 Estimated GFR > 60 POC Glucose Random Glucose 119 H Calcium 8.9 Total Bilirubin AST ALT Alkaline Phosphatase Total Protein Albumin Urine Color Urine Appearance Urine pH Ur Specific [place] Urine Protein Urine Glucose (UA) Urine Ketones Urine Blood Urine Nitrite Ur Leukocyte Esterase Urine RBC Urine WBC Ur Squamous Epith Cells Calcium Oxalate Crystal Urine Bacteria Urine Mucus Urine Opiates Screen Ur Barbiturates Screen Ur Phencyclidine Scrn Ur Amphetamines Screen U Benzodiazepines Scrn Urine Cocaine Screen U Marijuana (THC) Screen Ethyl Alcohol < 10 Coronavirus (PCR) Influenza Type A (PCR) Influenza Type B (PCR) RSV RNA Qual (PCR) 02/27/21 02/27/21 02/27/21 20:41 20:41 22:27 MCV MCH MCHC RDW Plt Count MPV Immature Gran % (Auto) Neut % (Auto) Lymph % (Auto) [place] % (Auto) Eos % (Auto) Baso % (Auto) Lymph # (Auto) [place] # (Auto) Eos # (Auto) Baso # (Auto) Abs Immat Gran (auto) Absolute Neuts (auto) Absolute Nucleated RBC Nucleated RBC % (auto) D-Dimer VBG pH 7.40 VBG pCO2 43 VBG pO2 108 VBG HCO3 27 H VBG O2 Saturation 99.0 VBG Base Excess 2.3 Anion Gap Estim Creat Clear Calc Estimated GFR POC Glucose Random Glucose Calcium Total Bilirubin AST ALT Alkaline Phosphatase Total Protein Albumin Urine Color YELLOW Urine Appearance HAZY Urine pH 6.0 Ur Specific [place] >= 1.030 H Urine Protein TRACE Urine Glucose (UA) NEG Urine Ketones NEG Urine Blood TRACE Urine Nitrite NEG Ur Leukocyte Esterase NEG Urine RBC 1-4 Urine WBC 0 Ur Squamous Epith Cells 3+ Calcium Oxalate Crystal 4+ Urine Bacteria TRACE Urine Mucus 2+ Urine Opiates Screen Not Detected Ur Barbiturates Screen Not Detected Ur Phencyclidine Scrn Not Detected Ur Amphetamines Screen Not Detected U Benzodiazepines Scrn POSITIVE H Urine Cocaine Screen Not Detected U Marijuana (THC) Screen Not Detected Ethyl Alcohol Coronavirus (PCR) Influenza Type A (PCR) Influenza Type B (PCR) RSV RNA Qual (PCR) 02/27/21 02/28/21 02/28/21 22:28 00:17 06:23 MCV 81.9 MCH 25.0 L MCHC 30.5 L RDW 15.6 Plt Count 166 MPV 10.5 Immature Gran % (Auto) 0.4 Neut % (Auto) 73.8 H Lymph % (Auto) 18.9 L [place] % (Auto) 5.9 Eos % (Auto) 0.8 Baso % (Auto) 0.2 Lymph # (Auto) 1.7 [place] # (Auto) 0.5 Eos # (Auto) 0.1 Baso # (Auto) 0.0 Abs Immat Gran (auto) 0.04 H Absolute Neuts (auto) 6.6 Absolute Nucleated RBC 0.000 Nucleated RBC % (auto) 0.0 D-Dimer 251 VBG pH VBG pCO2 VBG pO2 VBG HCO3 VBG O2 Saturation VBG Base Excess Anion Gap Estim Creat Clear Calc Estimated GFR POC Glucose Random Glucose Calcium Total Bilirubin AST ALT Alkaline Phosphatase Total Protein Albumin Urine Color Urine Appearance Urine pH Ur Specific [place] Urine Protein Urine Glucose (UA) Urine Ketones Urine Blood Urine Nitrite Ur Leukocyte Esterase Urine RBC Urine WBC Ur Squamous Epith Cells Calcium Oxalate Crystal Urine Bacteria Urine Mucus Urine Opiates Screen Ur Barbiturates Screen Ur Phencyclidine Scrn Ur Amphetamines Screen U Benzodiazepines Scrn Urine Cocaine Screen U Marijuana (THC) Screen Ethyl Alcohol Coronavirus (PCR) NEGATIVE Influenza Type A (PCR) NEGATIVE Influenza Type B (PCR) NEGATIVE RSV RNA Qual (PCR) NEGATIVE 02/28/21 02/28/21 06:23 07:35 MCV MCH MCHC RDW Plt Count MPV Immature Gran % (Auto) Neut % (Auto) Lymph % (Auto) [place] % (Auto) Eos % (Auto) Baso % (Auto) Lymph # (Auto) [place] # (Auto) Eos # (Auto) Baso # (Auto) Abs Immat Gran (auto) Absolute Neuts (auto) Absolute Nucleated RBC Nucleated RBC % (auto) D-Dimer VBG pH VBG pCO2 VBG pO2 VBG HCO3 VBG O2 Saturation VBG Base Excess Anion Gap 13 Estim Creat Clear Calc 88.9 Estimated GFR > 60 POC Glucose 123 H Random Glucose 125 H Calcium 8.6 Total Bilirubin 0.3 AST 36 H ALT 35 H Alkaline Phosphatase 92 Total Protein 7.0 Albumin 3.9 Urine Color Urine Appearance Urine pH Ur Specific [place] Urine Protein Urine Glucose (UA) Urine Ketones Urine Blood Urine Nitrite Ur Leukocyte Esterase Urine RBC Urine WBC Ur Squamous Epith Cells Calcium Oxalate Crystal Urine Bacteria Urine Mucus Urine Opiates Screen Ur Barbiturates Screen Ur Phencyclidine Scrn Ur Amphetamines Screen U Benzodiazepines Scrn Urine Cocaine Screen U Marijuana (THC) Screen Ethyl Alcohol Coronavirus (PCR) Influenza Type A (PCR) Influenza Type B (PCR) RSV RNA Qual (PCR) Assessment and Plan Assessment and Plan: 55F presented with back pain, found to have hypoxia and oopacity on cxr acute hypoxic respiratory failure due to pneumonia jose slaughter follow up cultures seizure disorder lamotrigine, keppra DM insulin Quality Stroke Does the patient have a stroke diagnosis?: No VTE Prior VTE?: No VTE Risk Level:: Medical - moderate - high VTE Device Contraindication: N/A - Device Ordered VTE Drug Contraindication: N/A - Med Ordered
[2021-02-28] MEDS: levETIRAcetam 1,000 MG TABLET 1000 MG PO ×2 (09:28→21:10)
[2021-02-28] MEDS: lamoTRIgine 100 MG TABLET PO (09:28)
[2021-02-28] MEDS: Omeprazole 40 MG CAPSULE.DR PO (09:28)
[2021-02-28] MEDS: Sertraline HCL 100 MG TABLET 200 MG PO (09:28)
[2021-02-28] MEDS: Atorvastatin Calcium 80 MG TABLET PO (09:28)
[2021-02-28] MEDS: Aspirin Enteric Coated 81 MG TABLET.DR PO (09:28)
[2021-02-28] MEDS: clonazePAM 0.5 MG TABLET PO ×2 (09:30→21:21)
[2021-02-28 12:00] LABS: Glucose, Whole Blood 99 mg/dL (60-115)
--- NOTE | 2021-02-28 12:22 | MHC.CM.PN ---
CM MET WITH PT WHO REPORTS SHE NOW LIVES IN A [place]F WAY HOUSE SHE REPORTS SHE IS IN THE [facility] [address] IN [place]. PT REPORTS SHE HAS NO SERVICES THAT COME INTO THE HOUSE AND DOES NOT USE DME. PT DOES HAVE A HCP ON FILE HOWEVER IT IS NOT VALID ONLY ONE PERSON WITNESSED IT. PT WILL COMPLETE A NEW ONE ONCE FEELING BETTER, PT REPORTS SHE HAS NOT GOTTEN HER METHADONE YET AND IS NOT FEELING WELL. PT REPORTS SHE IS SURE IT IS BECAUSE THE NURSES HAVE BEEN UNABLE TO VERIFY THE DOSE IT IS VERY DIFFICULT TO GET IN TOUCH WITH [facility]ONE [facility] FOR TREATMENT. 02/28 IMM CURRENT DC PLAN IS RETURN TO [facility] PROGRAM PROGRAM STAFF WILL PROVIDE TRANSPORTATION
[2021-02-28 16:14] LABS: Glucose, Whole Blood 111 mg/dL (60-115)
[2021-02-28 20:42] LABS: Glucose, Whole Blood 126 mg/dL (60-115)
[2021-02-28] MEDS: Azithromycin 500 MG TABLET PO (21:10)
[2021-02-28] MEDS: lamoTRIgine 25 MG TABLET PO (21:10)
[2021-02-28] MEDS: cefTRIAXone sodium 1 GM in 0.9 % Sodium Chloride 100 ML IV (21:13)
[2021-02-28] MEDS: cloNIDine HCL 0.1 MG TABLET PO (21:20)
[2021-03-01 04:00] VITALS: BP 137/69; PULSE 73; RESP 16; TEMP 36; O2SAT 93
[2021-03-01] MEDS: metroNIDAZOLE/NS 500 MG/100 ML PIGGYBACK 100 MG IV (05:24)
[2021-03-01 06:09] LABS: Hematocrit 35.8 % (37-47); Hemoglobin 11.1 g/dl (12.0-16.0); Mean Corpuscular Hemoglobin 25.1 pg (27.0-33.0); Mean Corpuscular Volume 80.8 fL (80-98); Mean Platelet Volume 10.2 fL (9.4-12.3); Platelet Count 195 X10*3/uL (160-400); Red Blood Count 4.43 X10*6/uL (4.20-5.50); Red Cell Distribution Width 15.5 % (11.0-16.0)
[2021-03-01 06:31] LABS: Anion Gap 13 (12-20); Blood Urea Nitrogen 11 mg/dL (9-16); Calcium 8.7 mg/dL (8.4-10.2); Carbon Dioxide 28 mmol/L (22-29); Chloride 106 mmol/L (96-108); Creatinine Clr Calc Pharmacy 97.2; Estimated Glomerular Filt Rate > 60; Glucose Fasting 97 mg/dL (60-99); Potassium 3.7 mmol/L (3.3-5.1); Sodium 143 mmol/L (135-145)
[2021-03-01 07:55] LABS: Glucose, Whole Blood 114 mg/dL (60-115)
[2021-03-01 08:00] VITALS: BP 139/80; PULSE 73; RESP 18; TEMP 35.7; O2SAT 97
[2021-03-01] MEDS: 0.9 % Sodium Chloride Flush 3 ML SYRINGE IVFLUSH (08:23)
[2021-03-01] MEDS: Lidocaine 4 % Patch ADH..PATCH 1 PATCH TRANSDERMA (08:23)
[2021-03-01] MEDS: lamoTRIgine 100 MG TABLET PO (08:59)
[2021-03-01] MEDS: Sertraline HCL 100 MG TABLET 200 MG PO (08:59)
[2021-03-01] MEDS: Aspirin Enteric Coated 81 MG TABLET.DR PO (08:59)
[2021-03-01] MEDS: Omeprazole 40 MG CAPSULE.DR PO (08:59)
[2021-03-01] MEDS: clonazePAM 0.5 MG TABLET PO (08:59)
[2021-03-01] MEDS: Atorvastatin Calcium 80 MG TABLET PO (08:59)
[2021-03-01] MEDS: Rivaroxaban 10 MG TABLET PO (08:59)
[2021-03-01] MEDS: levETIRAcetam 1,000 MG TABLET 1000 MG PO (08:59)
--- NOTE | 2021-03-01 09:54 | MHC.CLN ---
NUTRITION/DIET DIET CHANGED TO DIABETIC 2000 KCAL. DIET PROVIDES 29.2 KCAL/KG CMW. HAS ORDER FOR INSULIN. POC REVIEWED, USUALLY GOOD, [phone].
--- NOTE | 2021-03-01 10:58 | P.DS_ITS ---
DS: Providers Provider Date of Service: 03/01/21 Date of admission: 02/27/21 21:50 Primary care physician: Unknown Physician DS: Medications Discharge Medications Home Medications: Home Medications Medication Instructions Recorded Confirmed albuterol sulfate 90 mcg/actuation 2 puff PO QID PRN 09/15/20 02/28/21 aerosol inhaler aspirin 81 mg tablet,delayed 1 tab PO DAILY 09/15/20 02/28/21 release atorvastatin 80 mg tablet 1 tab PO DAILY 09/15/20 02/28/21 clonazepam 0.5 mg tablet 1 tab PO BID PRN 09/15/20 02/28/21 clonidine HCl 0.1 mg tablet 1 tab PO BEDTIME PRN 09/15/20 02/28/21 hydroxyzine pamoate 50 mg capsule 1 - 2 cap PO BEDTIME PRN 09/15/20 02/28/21 lamotrigine 100 mg tablet 1 tab PO QAM 09/15/20 02/28/21 lamotrigine 25 mg tablet 1 tab PO BEDTIME 09/15/20 02/28/21 omeprazole 40 mg capsule,delayed 1 cap PO DAILY 09/15/20 02/28/21 release sertraline 100 mg tablet 2 tab PO QAM 09/15/20 02/28/21 levetiracetam 1,000 mg tablet 1 tab PO BID 02/28/21 02/28/21 methadone 60 mg PO DAILY 02/28/21 02/28/21 Previous Rx's Medication Instructions Recorded cefuroxime axetil 500 mg tablet 500 mg PO BID #10 tab 03/01/21 DS: Summary Hospital Course Hospital Course: patient was admitted for acute hypoxic respiratory failure due to pneumonia. she was treated with rocephin, azithro, flagyl. symptoms resolved. now on room air, feeling well, will be discharged back to SNF on 5 more days of ceftin. Time Spent with Patient Time attestation: Total time spent providing and/or coordinating discharge services: Discharge coordination time: Greater than 30 minutes Quality: Stroke Does the patient have a stroke diagnosis?: No Physical Exam Vital Signs: Vital Signs: Last Vital Signs Temp 96.3 F L 03/01/21 08:00 Pulse 73 03/01/21 08:00 Resp 18 03/01/21 08:00 BP 139/80 03/01/21 08:00 Pulse Ox 97 03/01/21 08:00 Body Mass Index 30.8 General: AO X 3, no acute distress Resp: CTA bilateral CVS: S1,S2,RRR GI: soft, non tender, non distended Neuro: motor grossly intact Psych: appropriate affect DS: Data Data Completed and Pending Labs on day of discharge: Laboratory Results - last 24 hr 02/28/21 02/28/21 02/28/21 11:39 16:07 20:34 WBC RBC Hgb Hct MCV MCH MCHC RDW Plt Count MPV Absolute Nucleated RBC Nucleated RBC % (auto) Sodium Potassium Chloride Carbon Dioxide Anion Gap BUN Creatinine Estim Creat Clear Calc Estimated GFR POC Glucose 99 111 126 H Fasting Glucose Calcium 03/01/21 03/01/21 03/01/21 05:42 05:42 07:40 WBC 8.0 RBC 4.43 Hgb 11.1 L Hct 35.8 L MCV 80.8 MCH 25.1 L MCHC 31.0 RDW 15.5 Plt Count 195 MPV 10.2 Absolute Nucleated RBC 0.000 Nucleated RBC % (auto) 0.0 Sodium 143 Potassium 3.7 Chloride 106 Carbon Dioxide 28 Anion Gap 13 BUN 11 Creatinine 0.75 Estim Creat Clear Calc 97.2 Estimated GFR > 60 POC Glucose 114 Fasting Glucose 97 Calcium 8.7 Discharge Plan Discharge Patient Disposition: [facility] Discharge Diagnosis: pneumonia Referrals: Physician,Unknown [Primary Care Provider] - 1 Week Discharge Medications: New cefuroxime axetil 500 mg tablet 500 mg PO BID Qty: 10 RF: 0 Continued atorvastatin 80 mg tablet 1 tab PO DAILY RF: 0 clonidine HCl 0.1 mg tablet 1 tab PO BEDTIME PRN (Reason: Anxiety) RF: 0 clonazepam 0.5 mg tablet 1 tab PO BID PRN (Reason: Anxiety) RF: 0 sertraline 100 mg tablet 2 tab PO QAM RF: 0 hydroxyzine pamoate 50 mg capsule 1 - 2 cap PO BEDTIME PRN (Reason: Sleep) RF: 0 omeprazole 40 mg capsule,delayed release(DR/EC) 1 cap PO DAILY RF: 0 aspirin 81 mg tablet,delayed release (DR/EC) 1 tab PO DAILY RF: 0 lamotrigine 25 mg tablet 1 tab PO BEDTIME RF: 0 albuterol sulfate 90 mcg/actuation HFA aerosol inhaler 2 puff PO QID PRN (Reason: wheezing) RF: 0 lamotrigine 100 mg tablet 1 tab PO QAM RF: 0 levetiracetam 1,000 mg tablet 1 tab PO BID RF: 0 methadone 60 mg PO DAILY RF: 0 Discharge Orders: Discharge Order (Routine); Ordered 03/01/21 Ordered By: Peterson Weber Diet: advance to usual diet Activity on Discharge: As tolerated Stand Alone Forms: Patient Portal Discharge page Care Plan Goals: recovery Health Concerns: pneumonia Plan of Treatment: 5 more days ceftin Assessment: see above
--- NOTE | 2021-03-01 11:10 | PC.NURSE ---
Skin assessment completed today. Patient has no skin issues at this time. Patient repositions herself throughout the day.
[2021-03-01 11:13] LABS: Glucose, Whole Blood 114 mg/dL (60-115)
--- NOTE | 2021-03-01 11:25 | MHC.CM.PN ---
PATIENT IS DISCHARGED BACK TO HER [facility]. SHE IS ARRANGING HER OWN TRANSPORT. RN AWARE.
--- NOTE | 2021-03-01 15:32 | MHC.CM.PN ---
POST DC NOTE PATIENT IS ACTIVE WITH [facility]. CALL FROM RN WHO ASKS THAT DC SUMMARY BE FAXED TO [phone] SUMMARY FAXED. REQUEST FROM AGENCY TO FAX RX TO [facility]. HOSPITALIST MADE AWARE.
== END 2021-03-01 12:00 | disposition home or self-care (01) | DRG 193 ==
LOC: HO.ED 21:51 → HO.EDOVER 22:08 → HO.S3 02-28 01:42
PROVIDERS: Nurse Practitioner Family; Admitting Provider Hospitalist; Emergency Provider Emergency Medicine; Visit Provider Internal Medicine
DX: J18.9 Pneumonia, unspecified organism (principal); J96.01 Acute respiratory failure with hypoxia; F17.210 Nicotine dependence, cigarettes, uncomplicated; Z71.6 Tobacco abuse counseling; E78.5 Hyperlipidemia, unspecified; I10 Essential (primary) hypertension; G40.909 Epilepsy, unspecified, not intractable, without status epilepticus; F41.9 Anxiety disorder, unspecified; Z20.822 Contact with and (suspected) exposure to COVID-19; Z88.5 Allergy status to narcotic agent; Z79.82 Long term (current) use of aspirin; Z79.899 Other long term (current) drug therapy
CPT/HCPCS: 0241U; 36415; 71045; 80048; 80053; 80307; 81001; 82077; 82803; 82947; 85025; 85027; 85379; 93005; 99285; J0696; J2405

== ENCOUNTER 2021-03-23 13:53 | Emergency (ER) | payer OTHER, SELFPAY ==
--- NOTE | ~2021-03-23 | CT_ITS ---
EXAMINATION: CT HEAD WITHOUT CONTRAST CLINICAL INFORMATION: Fall. Rule out bleed or fracture. COMPARISON: Previous head CT most recent 02/05/2021 TECHNIQUE: Contiguous axial imaging was performed from the skull base to vertex without intravenous administration of contrast. This CT examination was performed using dose optimization techniques as appropriate, variously including the following: *Automated exposure control *Adjustment of mA and/or kV according to patient size (this includes techniques or standardized protocols for targeted exams where dose is matched to indication/reason for exam; i.e. extremities or head) *Use of iterative reconstruction technique DLP: 812 mGy-cm FINDINGS: There is no evidence of an extra-axial collection. There is no evidence of intra-axial or extra-axial hemorrhage. The ventricles and extra-axial CSF spaces are appropriate. There is nonspecific periventricular white matter disease. No mass, mass effect or infarct is seen. Review of bone windows is normal. Visualized paranasal sinuses, mastoid air cells and middle ears are clear. CT/CT head/brain wo con IMPRESSION: No acute findings. Periventricular white matter disease similar to previous exams.
[2021-03-23 14:12] VITALS: BP 115/55; PULSE 64; RESP 18; TEMP 36.8; O2SAT 93; BMI 31.1
--- NOTE | 2021-03-23 16:38 | ED_ITS ---
HPI - Fall General Chief Complaint: Fall Stated Complaint: fall Time Seen by Provider: 03/23/21 14:07 History of Present Illness HPI Narrative: Patient complains of trip and fall going up stairs where she hit her forehead, as well as falling and hurting the left side of her gluteal area, no other injury no other complaint no loss of consciousness although she did feel dizzy, no neck pain no numbness weakness or tingling Patient lives in a retirement, she is recovering from pneumonia and her oxygen saturation of 93 today is an improvement, she has no shortness of breath, she does have a mild headache after her fall Related Data Home Medications Medication Instructions Recorded Confirmed albuterol sulfate 90 mcg/actuation 2 puff PO QID PRN 09/15/20 02/28/21 aerosol inhaler aspirin 81 mg tablet,delayed 1 tab PO DAILY 09/15/20 02/28/21 release atorvastatin 80 mg tablet 1 tab PO DAILY 09/15/20 02/28/21 clonazepam 0.5 mg tablet 1 tab PO BID PRN 09/15/20 02/28/21 clonidine HCl 0.1 mg tablet 1 tab PO BEDTIME PRN 09/15/20 02/28/21 hydroxyzine pamoate 50 mg capsule 1 - 2 cap PO BEDTIME PRN 09/15/20 02/28/21 lamotrigine 100 mg tablet 1 tab PO QAM 09/15/20 02/28/21 lamotrigine 25 mg tablet 1 tab PO BEDTIME 09/15/20 02/28/21 omeprazole 40 mg capsule,delayed 1 cap PO DAILY 09/15/20 02/28/21 release sertraline 100 mg tablet 2 tab PO QAM 09/15/20 02/28/21 levetiracetam 1,000 mg tablet 1 tab PO BID 02/28/21 02/28/21 methadone 60 mg PO DAILY 02/28/21 02/28/21 Previous Rx's Medication Instructions Recorded cefuroxime axetil 500 mg tablet 500 mg PO BID #10 tab 03/01/21 Allergies Allergy/AdvReac Type Severity Reaction Status Date / Time codeine [CODEINE] Allergy Unknown SWELLING Verified 02/05/21 12:32 hornet venom [HORNETS] Allergy Unknown RASH Verified 02/05/21 12:32 trazodone [TRAZODONE] AdvReac Intermediate VERY Verified 02/05/21 12:32 ANXIOUS, RESTLESSNESS From BENADRYL AdvReac Intermediate RESTLESS Uncoded 10/26/20 15:56 From SEROQUEL AdvReac Intermediate ANXIETY Uncoded 02/05/21 12:32 AND RESTLESSNESS Review of Systems Review of Systems: Positive for low back pain, gluteal pain and mild headache Negatives are no fainting no dizziness no loss of consciousness no confusion no vomiting no vision changes no neck pain no numbness weakness or tingling no chest pain no shortness of breath no palpitations no abdominal pain no nausea vomiting, no extremity injuries Yes all other systems are reviewed and are negative PMFSH Past Medical History Source: nursing notes reviewed Medical History Anxiety CVA (cerebral vascular accident) Diabetes Hyperlipidemia Left knee injury Patent ductus arteriosus Seizure Surgical History H/O left knee surgery Hx of tonsillectomy Social History Social History Household Members: Other Housing: Other Housing Other:: [facility] Do you presently have visiting nurse or other home services: Yes Alcohol intake: current Alcohol intake frequency: does not drink Patient Tobacco Use Status: Current someday Tobacco user Tobacco use type: Cigarette Substance Use Type: Opiates Advance Directives: Yes Advance Directives Information Provided: No Advance Directives on File: No Patient : No service: No Current occupational status: unemployed Physical Exam Vital Signs: Vital Signs: Last Vital Signs Temp 98.3 F 03/23/21 14:12 Pulse 64 03/23/21 14:12 Resp 18 03/23/21 14:12 BP 115/55 L 03/23/21 14:12 Pulse Ox 93 03/23/21 14:12 Body Mass Index 31.1 General appearance is no acute distress, comfortable calm and cooperative There is some tenderness to the forehead and the scalp but no hematoma no abrasion or laceration no swelling no deformity, no raccoon eyes no montero sign no hemotympanum Neck is supple and nontender Chest is clear to auscultation bilateral with no chest wall tenderness The abdomen is soft and nontender Extremities full range of motion x4 The back there is no bony tenderness there is some mild left-sided gluteal tenderness but no bruising Neuro the patient is gait and balance are normal she ambulates easily, she is conversing normally with good understanding and expression, cranial nerves 2-12 intact as tested, motor is 5/5 x4 Course Course Course Narrative: ct Imaging of head was negative for any bleed or fracture Patient remains comfortable, communicating and ambulating easily with no progression of any symptoms The facility she lives in was contacted to take her home and they said they were concerned that because the stairs she may no longer be safe there, this was discussed with case management and they felt it was safe for her to go back and if she needs to be in a different placement that can be worked out over coming days but there is no emergent need for patient to remain in the ER so patient was discharged She agreed with this plan and was comfortable and cheerful on discharge Discharge Plan Discharge Clinical Impression: Contusion of forehead, Back strain Patient Disposition: Home, Self-Care Additional Instructions: No sign of any dangerous or serious injury now, no sign of any broken bones CT of the head was negative for any bleed or fracture You can use Tylenol as needed Return to the ER any time any worse condition or any concerns Prescriptions: No Action atorvastatin 80 mg tablet 1 tab PO DAILY RF: 0 clonidine HCl 0.1 mg tablet 1 tab PO BEDTIME PRN (Reason: Anxiety) RF: 0 clonazepam 0.5 mg tablet 1 tab PO BID PRN (Reason: Anxiety) RF: 0 sertraline 100 mg tablet 2 tab PO QAM RF: 0 hydroxyzine pamoate 50 mg capsule 1 - 2 cap PO BEDTIME PRN (Reason: Sleep) RF: 0 omeprazole 40 mg capsule,delayed release(DR/EC) 1 cap PO DAILY RF: 0 aspirin 81 mg tablet,delayed release (DR/EC) 1 tab PO DAILY RF: 0 lamotrigine 25 mg tablet 1 tab PO BEDTIME RF: 0 albuterol sulfate 90 mcg/actuation HFA aerosol inhaler 2 puff PO QID PRN (Reason: wheezing) RF: 0 lamotrigine 100 mg tablet 1 tab PO QAM RF: 0 levetiracetam 1,000 mg tablet 1 tab PO BID RF: 0 methadone 60 mg PO DAILY RF: 0 cefuroxime axetil 500 mg tablet 500 mg PO BID Qty: 10 RF: 0
--- NOTE | 2021-03-23 17:38 | PC.NURSE ---
TERRY FROM CARE TEAM HERE TO TALK WITH PATIENT. TERRY TO CALL KAVITHA AT [facility] ABOUT RETURNING TO FACILITY. PT GIVEN ALISON ERAZO AND UZIEL.
--- NOTE | 2021-03-23 17:58 | PC.NURSE ---
JENS FROM CASE MANAGEMENT HERE TO TALK WITH PATIENT.
--- NOTE | 2021-03-23 18:12 | MHC.CM.ED ---
Received a call from [facility] nurse regarding this patient. Pt had trip and fall. Medically cleared. RN calling [facility] to inform them that pt is ready for d/c. Per Nora at [facility] ([phone]) patient needs higher level of care and she doesn't feel the patient should go back to them. This CM called Nora, who tells me that this patient has medical issues and has been to the ED many times and she feels it is not safe for her to return. States that [facility] is supposed to transition clients home. CM questioned that sometimes in recovery, patients need to be transitioned to a different recovery house, and that not all clients are transitioned home. This CM told Nora that this patient has been medically cleared and that my role is to transition patients to STR of LTC, not recovery services, as this is not my level of expertise. Nora will speak with her traffic sign supervisor and call me back. Pt has a hx of opiate misuse, anxiety, DM, PDA, seizures and bipolar. Pt is on Lamictal and Klonopin. ED visits for a fall 09/15and d/c home, 10/26 for crisis, d/c home with medication side effects,. 02/05 for a seizure and d/c home, 02/27-03/01 for pneumonia and 03/23 for a fall, and ready for d/c. CM met with patient. Pt is alert and orientated x3. Pt ambulates with a steady gait. Pt is very upset about this situation. CM assured her that we would help her. Call into [facility] for guidance. Return call from Nora at [facility]. Tells CM that they will take patient home and will send the van to get her, probably about 6:45. She will call me when van is on the way. Nora tells CM they will have to meet with pt. CM reviewed with her previous admissions and appropriateness of those visits. Explained that CM has no expertise in transitioning pt to recovery programs. CM met with patient and she is very happy to be going home to [facility], but still upset that this happened tonight. Encouraged pt to meet with Nora to review future living options. CM to follow for d/c needs. [facility] RN aware.
== END 2021-03-23 18:58 | disposition home or self-care (01) ==
PROVIDERS: Emergency Provider Emergency Medicine
DX: S00.83XA Contusion of other part of head, initial encounter (principal); S39.012A Strain of muscle, fascia and tendon of lower back, initial encounter; W17.89XA Other fall from one level to another, initial encounter; Y93.89 Activity, other specified; Y92.048 Other place in boarding-house as the place of occurrence of the external cause; Y99.9 Unspecified external cause status; E11.9 Type 2 diabetes mellitus without complications; Z86.73 Personal history of transient ischemic attack (TIA), and cerebral infarction without residual deficits; F11.20 Opioid dependence, uncomplicated; Z79.899 Other long term (current) drug therapy
CPT/HCPCS: 70450; 99283; 99284

== ENCOUNTER 2021-05-01 15:01 | Emergency (ER) | payer OTHER, SELFPAY ==
[2021-05-01 15:54] VITALS: BP 120/70; PULSE 70; RESP 16; TEMP 37.2; O2SAT 95; BMI 30.5
[2021-05-01 17:44] LABS: Amphetamine Screen Urine Not Detected (Not Detect); Barbiturates, Urine Not Detected (Not Detect); Benzodiazepines Screen Urine POSITIVE (Not Detect); Cannabinoid Screen Urine Not Detected (Not Detect); Cocaine Screen Urine Not Detected (Not Detect); Fentanyl, urine POSITIVE (Not Detect); Opiate Screen Urine Not Detected (Not Detect); Phencyclidine Screen Urine Not Detected (Not Detect)
--- NOTE | 2021-05-01 18:22 | ED.MEDCLEAR ---
HPI - Medical Clearance General Chief complaint: Medical Clearance Stated complaint: not oriented Time Seen by Provider: 05/01/21 16:18 Source: patient Mode of arrival: ambulatory Limitations: no limitations History of Present Illness HPI Narrative: 55-year-old female with a past medical history of opiate use disorder currently on methadone 60 mg daily here for medical screening. Patient tells me she is currently at [facility] and they felt that she was more lethargic from baseline and so wanted her to come in for drug screening. She tells me she is not currently using any substances with exception of her daily methadone. No physical complaints Related Information Home Medications Medication Instructions Recorded Confirmed albuterol sulfate 90 mcg/actuation 2 puff PO QID PRN 09/15/20 02/28/21 aerosol inhaler aspirin 81 mg tablet,delayed 1 tab PO DAILY 09/15/20 02/28/21 release atorvastatin 80 mg tablet 1 tab PO DAILY 09/15/20 02/28/21 clonazepam 0.5 mg tablet 1 tab PO BID PRN 09/15/20 02/28/21 clonidine HCl 0.1 mg tablet 1 tab PO BEDTIME PRN 09/15/20 02/28/21 hydroxyzine pamoate 50 mg capsule 1 - 2 cap PO BEDTIME PRN 09/15/20 02/28/21 lamotrigine 100 mg tablet 1 tab PO QAM 09/15/20 02/28/21 lamotrigine 25 mg tablet 1 tab PO BEDTIME 09/15/20 02/28/21 omeprazole 40 mg capsule,delayed 1 cap PO DAILY 09/15/20 02/28/21 release sertraline 100 mg tablet 2 tab PO QAM 09/15/20 02/28/21 levetiracetam 1,000 mg tablet 1 tab PO BID 02/28/21 02/28/21 methadone 60 mg PO DAILY 02/28/21 02/28/21 Previous Rx's Medication Instructions Recorded cefuroxime axetil 500 mg tablet 500 mg PO BID #10 tab 03/01/21 Allergies Allergy/AdvReac Type Severity Reaction Status Date / Time codeine [CODEINE] Allergy Unknown SWELLING Verified 02/05/21 12:32 hornet venom [HORNETS] Allergy Unknown RASH Verified 02/05/21 12:32 trazodone [TRAZODONE] AdvReac Intermediate VERY Verified 02/05/21 12:32 ANXIOUS, RESTLESSNESS From BENADRYL AdvReac Intermediate RESTLESS Uncoded 10/26/20 15:56 From SEROQUEL AdvReac Intermediate ANXIETY Uncoded 02/05/21 12:32 AND RESTLESSNESS Review of Systems Review of Systems: Yes all other systems are reviewed and are negative Constitutional: Constitutional: Reports no additional constitutional complaints, Denies body ache(s), Denies chills, Denies fever(s), Denies headache(s) and Denies weakness Eyes: Eyes: Reports no additional eye complaints and Denies change in vision ENT: Reports system reviewed and no additional complaints, except as documented, Denies dizziness, Denies headache(s), Denies nasal congestion, Denies nasal discharge and Denies neck pain Cardiovascular: Cardiovascular: Reports no additional cardiovascular complaints, Denies chest pain, Denies leg edema and Denies dyspnea Respiratory: Respiratory: Reports no additional respiratory complaints, Denies cough and Denies dyspnea Gastrointestinal: Gastrointestinal: Reports no additional gastrointestinal complaints, Denies abdominal pain, Denies diarrhea, Denies nausea and Denies vomiting Genitourinary: Genitourinary: Reports no additional female genitourinary complaints and Denies urinary incontinence Musculoskeletal: Musculoskeletal: Reports no additional musculoskeletal complaints, Denies back pain, Denies arthralgias, Denies joint swelling, Denies neck pain, Denies numbness and Denies tingling Integumentary/Breasts: Skin/Breast: Reports system reviewed and no additional complaints, except as docu and Denies rash Neurologic: Reports system reviewed and no additional complaints, except as documented, Denies Abnormal speech present, Denies dizziness, Denies headache(s), Denies numbness, Denies tingling and Denies weakness [facility] Past Medical History Attestation statement: The following information was validated with the patient. Source: old records reviewed and nursing notes reviewed Medical History Anxiety CVA (cerebral vascular accident) Diabetes Hyperlipidemia Left knee injury Patent ductus arteriosus Seizure Surgical History H/O left knee surgery Hx of tonsillectomy Social History Social History Household Members: Other Housing: Other Housing Other:: [facility] Do you presently have visiting nurse or other home services: Yes Alcohol intake: current Alcohol intake frequency: does not drink Patient Tobacco Use Status: Current someday Tobacco user Tobacco use type: Cigarette Substance Use Type: Opiates Advance Directives: No Advance Directives Information Provided: Yes service: No Current occupational status: unemployed Physical Exam Vital Signs: Vital Signs: Last Vital Signs Temp 98.9 F 05/01/21 15:54 Pulse 70 05/01/21 15:54 Resp 16 05/01/21 15:54 BP 120/70 05/01/21 15:54 Pulse Ox 95 05/01/21 15:54 Body Mass Index 30.5 Const: General: cooperative, healthy appearing, comfortable and no acute distress Orientation/consciousness: patient oriented x3 Limitations: no limitations HENMT: Head: Yes normal to inspection Ears: hearing grossly normal bilaterally General nose exam: Normal external nose present Face and sinus: Yes normal facial exam Mouth: Normal oral and palatal mucosa present Throat: Yes posterior oropharynx normal Eyes: General: appearance normal, both eyes and all related structures Pupils: Equal, round and reactive pupils present Neck: Neck: Yes normal visual inspection Chest: Chest palpation & inspection: normal inspection of the chest Resp: Effort & Inspection: normal respiratory effort Auscultation: clear to auscultation bilaterally Cardio: Rate: regular rate Rhythm: regular rhythm Peripheral pulses: Peripheral pulses 2+ throughout GI: Inspection: Yes normal to inspection Palpation (GI): Soft to palpation and nontender Auscultation: normal bowel sounds Back/Spine/Pelvis: Thoracic/Lumbar Spine: thoracic and lumbar spine normal to inspection Skin: General skin exam: no rashes or lesions noted Neuro: General: patient oriented x3, no focal motor deficits and normal sensation to monofilament Cranial nerves: Yes CN's II-XII intact bilaterally, Yes Equal, round and reactive pupils present, Yes Bilaterally intact EOM present, Yes Nystagmus not present and Yes Normal facial strength present Cognition (Neuro): normal cognition Speech: No Abnormal speech present Gait exam (Neuro): Normal gait present Motor exam (neuro): 5/5 motor strength present throughout Extrem: General: Yes normal to inspection Course Course Course Narrative: 55-year-old female here for medical screening. Patient tells me she is currently at [facility] and was sent in as a felt she was more lethargic from her baseline. She tells me she was sent in for a drug screen. She has no physical complaints. She tells me she has been taking her methadone daily and not using any other additional drugs. Will send drug screen. 1829-drug screen positive for fentanyl and benzodiazepines. Patient informed. Alert and oriented. Walks with a steady gait. Reviewed worrisome signs and symptoms of when to return to the emergency department. Comfortable discharge home. MDM - Medical Clearance Medical Records Attestation: I reviewed the patient's medical records. Lab Data Attestation: I reviewed the patient's lab results. Labs: Lab Results 05/01/21 Range/Units 17:13 Urine Opiates Screen Not Detected (Not Detect) Urine Fentanyl Screen POSITIVE H (Not Detect) Ur Barbiturates Screen Not Detected (Not Detect) Ur Phencyclidine Scrn Not Detected (Not Detect) Ur Amphetamines Screen Not Detected (Not Detect) U Benzodiazepines Scrn POSITIVE H (Not Detect) Urine Cocaine Screen Not Detected (Not Detect) U Marijuana (THC) Screen Not Detected (Not Detect) Discharge Plan Discharge Clinical Impression: Encounter for medical screening examination, Opiate use Patient Disposition: Home, Self-Care Instructions: Opioid Use Disorder (ED) Additional Instructions: Urine drug screen was positive for fentanyl and benzodiazepines Prescriptions: No Action atorvastatin 80 mg tablet 1 tab PO DAILY RF: 0 clonidine HCl 0.1 mg tablet 1 tab PO BEDTIME PRN (Reason: Anxiety) RF: 0 clonazepam 0.5 mg tablet 1 tab PO BID PRN (Reason: Anxiety) RF: 0 sertraline 100 mg tablet 2 tab PO QAM RF: 0 hydroxyzine pamoate 50 mg capsule 1 - 2 cap PO BEDTIME PRN (Reason: Sleep) RF: 0 omeprazole 40 mg capsule,delayed release(DR/EC) 1 cap PO DAILY RF: 0 aspirin 81 mg tablet,delayed release (DR/EC) 1 tab PO DAILY RF: 0 lamotrigine 25 mg tablet 1 tab PO BEDTIME RF: 0 albuterol sulfate 90 mcg/actuation HFA aerosol inhaler 2 puff PO QID PRN (Reason: wheezing) RF: 0 lamotrigine 100 mg tablet 1 tab PO QAM RF: 0 levetiracetam 1,000 mg tablet 1 tab PO BID RF: 0 methadone 60 mg PO DAILY RF: 0 cefuroxime axetil 500 mg tablet 500 mg PO BID Qty: 10 RF: 0 Referrals: Physician,Unknown J [Primary Care Provider] - 2 days
== END 2021-05-01 18:03 | disposition home or self-care (01) ==
PROVIDERS: Emergency Provider Emergency Medicine
DX: F11.10 Opioid abuse, uncomplicated (principal); F17.210 Nicotine dependence, cigarettes, uncomplicated; Z71.6 Tobacco abuse counseling; Z79.899 Other long term (current) drug therapy; Z79.82 Long term (current) use of aspirin
CPT/HCPCS: 80307; 99284

== ENCOUNTER 2021-06-23 14:06 | Emergency (ER) | payer OTHER, SELFPAY ==
--- NOTE | ~2021-06-23 | CT_ITS ---
EXAMINATION: CT HEAD WITHOUT CONTRAST CLINICAL INFORMATION: Lethargy COMPARISON: CT head 02/05/2021 MRI of the brain 04/23/2012. 02/01/2020. TECHNIQUE: Contiguous axial imaging was performed from the skull base to vertex without intravenous administration of contrast. Coronal and sagittal reformatted images are performed at CT scanner This CT examination was performed using dose optimization techniques as appropriate, variously including the following: *Automated exposure control *Adjustment of mA and/or kV according to patient size (this includes techniques or standardized protocols for targeted exams where dose is matched to indication/reason for exam; i.e. extremities or head) *Use of iterative reconstruction technique DLP: 1022 mGy-cm FINDINGS: There is no evidence of acute intracranial hemorrhage or territorial infarction. No abnormal mass effect or midline shift is seen. [place] to white matter differentiation is well preserved. No extra-axial fluid collections are identified. There is moderate to marked hypodensity the periventricular white matter which is chronic seen on multiple prior studies. . The osseous structures and soft tissues are normal. The mastoid air cells and visualized portions of the paranasal sinuses are well aerated. CT/CT head/brain wo con IMPRESSION: 1. No acute intracranial pathology. 2. Moderate to marked hypodensity the periventricular white matter which is chronic unchanged since multiple prior studies.
[2021-06-23 14:16] VITALS: BP 123/71; PULSE 74; RESP 16; TEMP 36.9; O2SAT 95; BMI 32.9
[2021-06-23 14:16] LABS: Glucose, Whole Blood 137 mg/dL (60-115)
[2021-06-23 15:08] LABS: MANUAL DIFF FLAG NO
[2021-06-23 15:11] LABS: Basophils Percent Auto 0.2 % (0-2); Eosinophils Absolute Auto 0.1 X10*3/uL (0.0-0.4); Eosinophils Percent Auto 1.7 % (0-4); Hematocrit 37.4 % (37.0-47.0); Hemoglobin 11.5 g/dl (12.0-16.0); Imm Gran Abs Auto 0.02 X10*3/uL (0.00-0.03); Imm Gran Pct Auto 0.2 % (0.0-0.4); Lymphocytes Absolute Auto 2.7 X10*3/uL (1.2-4.9); Lymphocytes Percent Auto 31.4 % (20-40); Mean Corpuscular HGB Conc 30.7 g/dl (31.0-35.0); Mean Corpuscular Hemoglobin 25.2 pg (27.0-33.0); Mean Platelet Volume 10.1 fL (9.4-12.3); Monocytes Absolute Auto 0.5 X10*3/uL (0.1-1.2); Monocytes Percent Auto 5.3 % (2-11); Neutrophils Absolute Auto 5.2 x10*3/uL (2.0-8.3); Neutrophils Percent Auto 61.2 % (45-73); Platelet Count 195 X10*3/uL (160-400); Red Blood Count 4.56 X10*6/uL (4.20-5.50); Red Cell Distribution Width 15.3 % (11.0-16.0); White Blood Count 8.5 X10*3/uL (4.8-10.8)
[2021-06-23 15:26] LABS: Anion Gap 15 (12-20); Blood Urea Nitrogen 10 mg/dL (9-16); Calcium 9.4 mg/dL (8.4-10.2); Carbon Dioxide 25 mmol/L (22-29); Chloride 106 mmol/L (96-108); Creatinine Clr Calc Pharmacy 71.5; Estimated Glomerular Filt Rate > 60; Glucose Random 111 mg/dL (60-115); Potassium 3.9 mmol/L (3.3-5.1); Sodium 142 mmol/L (135-145)
[2021-06-23 15:28] VITALS: BP 128/62; PULSE 74; RESP 18; TEMP 36.6; O2SAT 97
--- NOTE | 2021-06-23 15:28 | ED_ITS ---
HPI - General Adult General Chief complaint: General Medical <Agustín Brown MD - Last Filed: 06/23/21 15:37> Stated complaint: ABNORMAL BS <Agustín Brown MD - Last Filed: 06/23/21 15:37> Time Seen by Provider: 06/23/21 15:28 <Agustín Brown MD - Last Filed: 06/23/21 15:37> Source: patient <Agustín Brown MD - Last Filed: 06/23/21 15:37> Mode of arrival: ambulatory <Agustín Brown MD - Last Filed: 06/23/21 15:37> Limitations: no limitations <Agustín Brown MD - Last Filed: 06/23/21 15:37> History of Present Illness HPI narrative: patient sent in for lethargy, FS at her snf was 46, patient denies using drugs in a year <Agustín Brown MD - Last Filed: 06/23/21 15:37> Onset (ago): week(s) <Agustín Brown MD - Last Filed: 06/23/21 15:37> Severity: moderate <Agustín Brown MD - Last Filed: 06/23/21 15:37> Associated symptoms: denies other symptoms <Agustín Brown MD - Last Filed: 06/23/21 15:37> Related Data Home medications: Home Medications Medication Instructions Recorded Confirmed albuterol sulfate 90 mcg/actuation 2 puff PO QID PRN 09/15/20 02/28/21 aerosol inhaler aspirin 81 mg tablet,delayed 1 tab PO DAILY 09/15/20 02/28/21 release atorvastatin 80 mg tablet 1 tab PO DAILY 09/15/20 02/28/21 clonazepam 0.5 mg tablet 1 tab PO BID PRN 09/15/20 02/28/21 clonidine HCl 0.1 mg tablet 1 tab PO BEDTIME PRN 09/15/20 02/28/21 hydroxyzine pamoate 50 mg capsule 1 - 2 cap PO BEDTIME PRN 09/15/20 02/28/21 lamotrigine 100 mg tablet 1 tab PO QAM 09/15/20 02/28/21 lamotrigine 25 mg tablet 1 tab PO BEDTIME 09/15/20 02/28/21 omeprazole 40 mg capsule,delayed 1 cap PO DAILY 09/15/20 02/28/21 release sertraline 100 mg tablet 2 tab PO QAM 09/15/20 02/28/21 levetiracetam 1,000 mg tablet 1 tab PO BID 02/28/21 02/28/21 methadone 60 mg PO DAILY 02/28/21 02/28/21 Previous Rx's Medication Instructions Recorded cefuroxime axetil 500 mg tablet 500 mg PO BID #10 tab 03/01/21 <Agustín Brown MD - Last Filed: 06/23/21 15:37> Allergies/adverse reactions: Allergies Allergy/AdvReac Type Severity Reaction Status Date / Time codeine [CODEINE] Allergy Unknown SWELLING Verified 02/05/21 12:32 hornet venom [HORNETS] Allergy Unknown RASH Verified 02/05/21 12:32 trazodone [TRAZODONE] AdvReac Intermediate VERY Verified 02/05/21 12:32 ANXIOUS, RESTLESSNESS From BENADRYL AdvReac Intermediate RESTLESS Uncoded 10/26/20 15:56 From SEROQUEL AdvReac Intermediate ANXIETY Uncoded 02/05/21 12:32 AND RESTLESSNESS <Agustín Brown MD - Last Filed: 06/23/21 15:37> Review of Systems Constitutional: Constitutional: Reports no additional constitutional complaints <Agustín Brown MD - Last Filed: 06/23/21 15:37> Eyes: Eyes: Reports no additional eye complaints <Agustín Brown MD - Last Filed: 06/23/21 15:37> ENT: Denies dizziness <Agustín Brown MD - Last Filed: 06/23/21 15:37> Cardiovascular: Cardiovascular: Reports no additional cardiovascular complaints <Agustín Brown MD - Last Filed: 06/23/21 15:37> Respiratory: Respiratory: Reports as per HPI <Agustín Brown MD - Last [place] ed: 06/23/21 15:37> Gastrointestinal: Gastrointestinal: Reports no additional gastrointestinal complaints <Agustín Brown MD - Last Filed: 06/23/21 15:37> Genitourinary: Genitourinary: Reports no additional female genitourinary complaints <Agustín Brown MD - Last Filed: 06/23/21 15:37> Musculoskeletal: Musculoskeletal: Reports no additional musculoskeletal complaints <Agustín Brown MD - Last Filed: 06/23/21 15:37> Integumentary/Breasts: Skin/Breast: Denies rash <Agustín Brown MD - Last Filed: 06/23/21 15:37> Neurologic: Reports system reviewed and no additional complaints, except as documented, Denies dizziness and Denies Sensory deficit (Neuro) <Agustín Brown MD - Last Filed: 06/23/21 15:37> Psychiatric: Psychiatric: Denies anxiety <Agustín Brown MD - Last Filed: 06/23/21 15:37> PMFSH Past Medical History Medical History: Medical History Anxiety CVA (cerebral vascular accident) Diabetes Hyperlipidemia Left knee injury Patent ductus arteriosus Seizure <Agustín Brown MD - Last Filed: 06/23/21 15:37> Surgical History: Surgical History H/O left knee surgery Hx of tonsillectomy <Agustín Brown MD - Last Filed: 06/23/21 15:37> Social History Social History: Social History Household Members: Other Housing: Other Housing Other:: [address] Do you presently have visiting nurse or other home services: Yes Alcohol intake: current Alcohol intake frequency: does not drink Patient Tobacco Use Status: Current someday Tobacco user Tobacco use type: Cigarette Substance Use Type: Opiates Advance Directives: No Advance Directives Information Provided: No service: No Current occupational status: unemployed <Agustín Brown MD - Last Filed: 06/23/21 15:37> Physical Exam Vital Signs: Vital Signs: Last Vital Signs Temp 97.8 F 06/23/21 15:28 Pulse 74 06/23/21 15:28 Resp 18 06/23/21 15:28 BP 128/62 06/23/21 15:28 Pulse Ox 97 06/23/21 15:28 BMI result Body Mass Index 32.9 <Agustín Brown MD - Last Filed: 06/23/21 15:37> Vital Signs: Last Vital Signs Temp 97.8 F 06/23/21 15:28 Pulse 74 06/23/21 15:28 Resp 18 06/23/21 15:28 BP 128/62 06/23/21 15:28 Pulse Ox 97 06/23/21 15:28 BMI result Body Mass Index 32.9 <Shereen Luna MD - Last Filed: 06/23/21 17:46> Const: Other: patient with flat affect, question of MR and chronic mental illness, falling asleep while being interviewed <Agustín Brown MD - Last Filed: 06/23/21 15:37> Nutritional Appearance: average body habitus <Agustín Brown MD - Last Filed: 06/23/21 15:37> Orientation/consciousness: oriented to person and patient oriented x3 <Agustín Brown MD - Last Filed: 06/23/21 15:37> Limitations: no limitations <Agustín Brown MD - Last Filed: 06/23/21 15:37> HENMT: Head: Yes normal to inspection <Agustín Brown MD - Last Filed: 06/23/21 15:37> Ears: external ears normal <Agustín Brown MD - Last Filed: 06/23/21 15:37> General nose exam: Normal external nose present <Agustín Brown MD - Last Filed: 06/23/21 15:37> Mouth: Normal oral and palatal mucosa present and oropharynx normal <Agustín Brown MD - Last Filed: 06/23/21 15:37> Throat: Yes posterior oropharynx normal <Agustín Brown MD - Last Filed: 06/23/21 15:37> Eyes: General: appearance normal, both eyes and all related structures <Agustín Brown MD - Last Filed: 06/23/21 15:37> Neck: Other: supple <Agustín Brown MD - Last Filed: 06/23/21 15:37> Neck: Yes normal visual inspection <Agustín Brown MD - Last Filed: 06/23/21 15:37> Chest: Chest palpation & inspection: normal inspection of the chest <Agustín Brown MD - Last Filed: 06/23/21 15:37> Resp: Auscultation: clear to auscultation bilaterally <Agustín Brown MD - Last Filed: 06/23/21 15:37> Cardio: Jugular venous distension: no JVD <Agustín Brown MD - Last Filed: 06/23/21 15:37> Rate: regular rate <Agustín Brown MD - Last Filed: 06/23/21 15:37> Rhythm: regular rhythm <Agustín Brown MD - Last Filed: 06/23/21 15:37> Heart sounds: S1 normal heart sound present and S2 normal heart sound present <Agustín Brown MD - Last Filed: 06/23/21 15:37> GI: Inspection: Yes normal to inspection <Agustín Brown MD - Last Filed: 06/23/21 15:37> Palpation (GI): Soft to palpation, nontender and No hepatosplenomegaly present <Agustín Brown MD - Last Filed: 06/23/21 15:37> Auscultation: normal bowel sounds <Agustín Brown MD - Last Filed: 06/23/21 15:37> : General: Yes no CVA tenderness <Agustín Brown MD - Last Filed: 06/23/21 15:37> Back/Spine/Pelvis: Back: no CVA tenderness <Agustín Brown MD - Last Filed : 06/23/21 15:37> Skin: General skin exam: no rashes or lesions noted <Agustín Brown MD - Last Filed: 06/23/21 15:37> Neuro: General: oriented to person and patient oriented x3 <Agustín Brown MD - Last Filed: 06/23/21 15:37> Cranial nerves: Yes CN's II-XII intact bilaterally <Agustín Brown MD - Last Filed: 06/23/21 15:37> Motor exam (neuro): 5/5 motor strength present throughout <Agustín Brown MD - Last Filed: 06/23/21 15:37> Sensory Exam: No Sensory deficit (Neuro) <Agustín Brown MD - Last Filed: 06/23/21 15:37> Extrem: General: Yes normal to inspection <Agustín Brown MD - Last Filed: 06/23/21 15:37> Psych: Other: flat affect, lethargic but arousable <Agustín Brown MD - Last Filed: 06/23/21 15:37> Course Course Course Narrative: I received sign-out from Dr. Brown, patient's head CT does not show any acute abnormality. Urine tox is positive for benzos, however according to our records patient takes prescribed clonazepam b.i.d./p.r.n. Patient's blood sugar prior to discharge 149. Patient is awake, alert, ambulatory with steady gait no assistance. Patient states that she feels well. . <Shereen Luna MD - Last Filed: 06/23/21 17:46> Medical Decision Making Lab Data Result diagrams: : 06/23/21 14:59 06/23/21 14:59 <Agustín Brown MD - Last Filed: 06/23/21 15:37> Labs: Lab Results 06/23/21 06/23/21 06/23/21 Range/Units 14:12 14:30 14:30 WBC (4.8-10.8) X10*3/uL RBC (4.20-5.50) X10*6/uL Hgb (12.0-16.0) g/dl Hct (37.0-47.0) % MCV (80.0-98.0) fL MCH (27.0-33.0) pg MCHC (31.0-35.0) g/dl RDW (11.0-16.0) % Plt Count (160-400) X10*3/uL MPV (9.4-12.3) fL Immature Gran % (Auto) (0.0-0.4) % Neut % (Auto) (45-73) % Lymph % (Auto) (20-40) % [place] % (Auto) (2-11) % Eos % (Auto) (0-4) % Baso % (Auto) (0-2) % Lymph # (Auto) (1.2-4.9) X10*3/uL [place] # (Auto) (0.1-1.2) X10*3/uL Eos # (Auto) (0.0-0.4) X10*3/uL Baso # (Auto) (0.0-0.2) X10*3/uL Abs Immat Gran (auto) (0.00-0.03) X10*3/uL Absolute Neuts (auto) (2.0-8.3) x10*3/uL Absolute Nucleated RBC (0.0-0.012) X10*3/uL Nucleated RBC % (auto) (0.0-0.2) /100WBC Sodium (135-145) mmol/L Potassium (3.3-5.1) mmol/L Chloride (96-108) mmol/L Carbon Dioxide (22-29) mmol/L Anion Gap (12-20) BUN (9-16) mg/dL Creatinine (0.5-1.4) mg/dL Estim Creat Clear Calc Estimated GFR POC Glucose 137 H (60-115) mg/dL Random Glucose (60-115) mg/dL Calcium (8.4-10.2) mg/dL Urine Color YELLOW Urine Appearance CLOUDY Urine pH 6.0 (5.0-8.0) Ur Specific [place] 1.025 (1.005-1.025) Urine Protein NEG (NEG-TRACE) MG/DL Urine Glucose (UA) NEG (NEG) MG/DL Urine Ketones NEG (NEG) MG/DL Urine Blood NEG (NEG) Urine Nitrite NEG (NEG) Ur Leukocyte Esterase NEG (NEG) Urine Opiates Screen Not Detected (Not Detect) Urine Fentanyl Screen Not Detected (Not Detect) Ur Barbiturates Screen Not Detected (Not Detect) Ur Phencyclidine Scrn Not Detected (Not Detect) Ur Amphetamines Screen Not Detected (Not Detect) U Benzodiazepines Scrn POSITIVE H (Not Detect) Urine Cocaine Screen Not Detected (Not Detect) U Marijuana (THC) Screen Not Detected (Not Detect) 06/23/21 06/23/21 06/23/21 Range/Units 14:59 14:59 17:30 WBC 8.5 (4.8-10.8) X10*3/uL RBC 4.56 (4.20-5.50) X10*6/uL Hgb 11.5 L (12.0-16.0) g/dl Hct 37.4 (37.0-47.0) % MCV 82.0 (80.0-98.0) fL MCH 25.2 L (27.0-33.0) pg MCHC 30.7 L (31.0-35.0) g/dl RDW 15.3 (11.0-16.0) % Plt Count 195 (160-400) X10*3/uL MPV 10.1 (9.4-12.3) fL Immature Gran % (Auto) 0.2 (0.0-0.4) % Neut % (Auto) 61.2 (45-73) % Lymph % (Auto) 31.4 (20-40) % [place] % (Auto) 5.3 (2-11) % Eos % (Auto) 1.7 (0-4) % Baso % (Auto) 0.2 (0-2) % Lymph # (Auto) 2.7 (1.2-4.9) X10*3/uL [place] # (Auto) 0.5 (0.1-1.2) X10*3/uL Eos # (Auto) 0.1 (0.0-0.4) X10*3/uL Baso # (Auto) 0.0 (0.0-0.2) X10*3/uL Abs Immat Gran (auto) 0.02 (0.00-0.03) X10*3/uL Absolute Neuts (auto) 5.2 (2.0-8.3) x10*3/uL Absolute Nucleated RBC 0.000 (0.0-0.012) X10*3/uL Nucleated RBC % (auto) 0.0 (0.0-0.2) /100WBC Sodium 142 (135-145) mmol/L Potassium 3.9 (3.3-5.1) mmol/L Chloride 106 (96-108) mmol/L Carbon Dioxide 25 (22-29) mmol/L Anion Gap 15 (12-20) BUN 10 (9-16) mg/dL Creatinine 0.87 (0.5-1.4) mg/dL Estim Creat Clear Calc 71.5 Estimated GFR > 60 POC Glucose 149 H (60-115) mg/dL Random Glucose 111 (60-115) mg/dL Calcium 9.4 D (8.4-10.2) mg/dL Urine Color Urine Appearance Urine pH (5.0-8.0) Ur Specific [place] (1.005-1.025) Urine Protein (NEG-TRACE) MG/DL Urine Glucose (UA) (NEG) MG/DL Urine Ketones (NEG) MG/DL Urine Blood (NEG) Urine Nitrite (NEG) Ur Leukocyte Esterase (NEG) Urine Opiates Screen (Not Detect) Urine Fentanyl Screen (Not Detect) Ur Barbiturates Screen (Not Detect) Ur Phencyclidine Scrn (Not Detect) Ur Amphetamines Screen (Not Detect) U Benzodiazepines Scrn (Not Detect) Urine Cocaine Screen (Not Detect) U Marijuana (THC) Screen (Not Detect) <Agustín Brown MD - Last Filed: 06/23/21 15:37> Lab Results 06/23/21 06/23/21 06/23/21 Range/Units 14:12 14:30 14:30 WBC (4.8-10.8) X10*3/uL RBC (4.20-5.50) X10*6/uL Hgb (12.0-16.0) g/dl Hct (37.0-47.0) % MCV (80.0-98.0) fL MCH (27.0-33.0) pg MCHC (31.0-35.0) g/dl RDW (11.0-16.0) % Plt Count (160-400) X10*3/uL MPV (9.4-12.3) fL Immature Gran % (Auto) (0.0-0.4) % Neut % (Auto) (45-73) % Lymph % (Auto) (20-40) % [place] % (Auto) (2-11) % Eos % (Auto) (0-4) % Baso % (Auto) (0-2) % Lymph # (Auto) (1.2-4.9) X10*3/uL [place] # (Auto) (0.1-1.2) X10*3/uL Eos # (Auto) (0.0-0.4) X10*3/uL Baso # (Auto) (0.0-0.2) X10*3/uL Abs Immat Gran (auto) (0.00-0.03) X10*3/uL Absolute Neuts (auto) (2.0-8.3) x10*3/uL Absolute Nucleated RBC (0.0-0.012) X10*3/uL Nucleated RBC % (auto) (0.0-0.2) /100WBC Sodium (135-145) mmol/L Potassium (3.3-5.1) mmol/L Chloride (96-108) mmol/L Carbon Dioxide (22-29) mmol/L Anion Gap (12-20) BUN (9-16) mg/dL Creatinine (0.5-1.4) mg/dL Estim Creat Clear Calc Estimated GFR POC Glucose 137 H (60-115) mg/dL Random Glucose (60-115) mg/dL Calcium (8.4-10.2) mg/dL Urine Color YELLOW Urine Appearance CLOUDY Urine pH 6.0 (5.0-8.0) Ur Specific [place] 1.025 (1.005-1.025) Urine Protein NEG (NEG-TRACE) MG/DL Urine Glucose (UA) NEG (NEG) MG/DL Urine Ketones NEG (NEG) MG/DL Urine Blood NEG (NEG) Urine Nitrite NEG (NEG) Ur Leukocyte Esterase NEG (NEG) Urine Opiates Screen Not Detected (Not Detect) Urine Fentanyl Screen Not Detected (Not Detect) Ur Barbiturates Screen Not Detected (Not Detect) Ur Phencyclidine Scrn Not Detected (Not Detect) Ur Amphetamines Screen Not Detected (Not Detect) U Benzodiazepines Scrn POSITIVE H (Not Detect) Urine Cocaine Screen Not Detected (Not Detect) U Marijuana (THC) Screen Not Detected (Not Detect) 06/23/21 06/23/21 06/23/21 Range/Units 14:59 14:59 17:30 WBC 8.5 (4.8-10.8) X10*3/uL RBC 4.56 (4.20-5.50) X10*6/uL Hgb 11.5 L (12.0-16.0) g/dl Hct 37.4 (37.0-47.0) % MCV 82.0 (80.0-98.0) fL MCH 25.2 L (27.0-33.0) pg MCHC 30.7 L (31.0-35.0) g/dl RDW 15.3 (11.0-16.0) % Plt Count 195 (160-400) X10*3/uL MPV 10.1 (9.4-12.3) fL Immature Gran % (Auto) 0.2 (0.0-0.4) % Neut % (Auto) 61.2 (45-73) % Lymph % (Auto) 31.4 (20-40) % [place] % (Auto) 5.3 (2-11) % Eos % (Auto) 1.7 (0-4) % Baso % (Auto) 0.2 (0-2) % Lymph # (Auto) 2.7 (1.2-4.9) X10*3/uL [place] # (Auto) 0.5 (0.1-1.2) X10*3/uL Eos # (Auto) 0.1 (0.0-0.4) X10*3/uL Baso # (Auto) 0.0 (0.0-0.2) X10*3/uL Abs Immat Gran (auto) 0.02 (0.00-0.03) X10*3/uL Absolute Neuts (auto) 5.2 (2.0-8.3) x10*3/uL Absolute Nucleated RBC 0.000 (0.0-0.012) X10*3/uL Nucleated RBC % (auto) 0.0 (0.0-0.2) /100WBC Sodium 142 (135-145) mmol/L Potassium 3.9 (3.3-5.1) mmol/L Chloride 106 (96-108) mmol/L Carbon Dioxide 25 (22-29) mmol/L Anion Gap 15 (12-20) BUN 10 (9-16) mg/dL Creatinine 0.87 (0.5-1.4) mg/dL Estim Creat Clear Calc 71.5 Estimated GFR > 60 POC Glucose 149 H (60-115) mg/dL Random Glucose 111 (60-115) mg/dL Calcium 9.4 D (8.4-10.2) mg/dL Urine Color Urine Appearance Urine pH (5.0-8.0) Ur Specific [place] (1.005-1.025) Urine Protein (NEG-TRACE) MG/DL Urine Glucose (UA) (NEG) MG/DL Urine Ketones (NEG) MG/DL Urine Blood (NEG) Urine Nitrite (NEG) Ur Leukocyte Esterase (NEG) Urine Opiates Screen (Not Detect) Urine Fentanyl Screen (Not Detect) Ur Barbiturates Screen (Not Detect) Ur Phencyclidine Scrn (Not Detect) Ur Amphetamines Screen (Not Detect) U Benzodiazepines Scrn (Not Detect) Urine Cocaine Screen (Not Detect) U Marijuana (THC) Screen (Not Detect) <Shereen Luna MD - Last Filed: 06/23/21 17:46> Imaging Data CT scan - head: Radiologist's impression: FINDINGS: There is no evidence of acute intracranial hemorrhage or territorial infarction. No abnormal mass effect or midline shift is seen. [place] to white matter differentiation is well preserved. No extra-axial fluid collections are identified. There is moderate to marked hypodensity the periventricular white matter which is chronic seen on multiple prior studies. . The osseous structures and soft tissues are normal. The mastoid air cells and visualized portions of the paranasal sinuses are well aerated. ? CT/CT head/brain wo con IMPRESSION: 1. No acute intracranial pathology. 2. Moderate to marked hypodensity the periventricular white matter which is chronic unchanged since multiple prior studies <Shereen Luna MD - Last Filed: 06/23/21 17:46> Discharge Plan Discharge Clinical Impression: Hypoglycemia, Somnolence <Agustín Brown MD - Last Filed: 06/23/21 15:37> Patient Disposition: Home, Self-Care <Agustín Brown MD - Last Filed: 06/23/21 15:37> Instructions: Non-diabetic Hypoglycemia (ED) <Agustín Brown MD - Last Filed: 06/23/21 15:37> Additional Instructions: Please follow-up with your primary care physician tomorrow. If you have any worsening or new symptoms, please return to the emergency room or call 911 <Agustín Brown MD - Last Filed: 06/23/21 15:37> Prescriptions: No Action atorvastatin 80 mg tablet 1 tab PO DAILY RF: 0 clonidine HCl 0.1 mg tablet 1 tab PO BEDTIME PRN (Reason: Anxiety) RF: 0 clonazepam 0.5 mg tablet 1 tab PO BID PRN (Reason: Anxiety) RF: 0 sertraline 100 mg tablet 2 tab PO QAM RF: 0 hydroxyzine pamoate 50 mg capsule 1 - 2 cap PO BEDTIME PRN (Reason: Sleep) RF: 0 omeprazole 40 mg capsule,delayed release(DR/EC) 1 cap PO DAILY RF: 0 aspirin 81 mg tablet,delayed release (DR/EC) 1 tab PO DAILY RF: 0 lamotrigine 25 mg tablet 1 tab PO BEDTIME RF: 0 albuterol sulfate 90 mcg/actuation HFA aerosol inhaler 2 puff PO QID PRN (Reason: wheezing) RF: 0 lamotrigine 100 mg tablet 1 tab PO QAM RF: 0 levetiracetam 1,000 mg tablet 1 tab PO BID RF: 0 methadone 60 mg PO DAILY RF: 0 cefuroxime axetil 500 mg tablet 500 mg PO BID Qty: 10 RF: 0 <Agustín Brown MD - Last Filed: 06/23/21 15:37>
[2021-06-23 16:39] LABS: Appearance Urine CLOUDY; Color Urine YELLOW; Glucose Urine UA NEG (NEG); Leukocyte Esterase Urine NEG (NEG); Nitrite Urine NEG (NEG); Specific Gravity - Urine 1.025 (1.005-1.025); Urine Blood NEG (NEG); Urine Ketones NEG (NEG); Urine Protein NEG (NEG-TRACE)
[2021-06-23 16:55] LABS: Amphetamine Screen Urine Not Detected (Not Detect); Barbiturates, Urine Not Detected (Not Detect); Benzodiazepines Screen Urine POSITIVE (Not Detect); Cannabinoid Screen Urine Not Detected (Not Detect); Cocaine Screen Urine Not Detected (Not Detect); Fentanyl, urine Not Detected (Not Detect); Opiate Screen Urine Not Detected (Not Detect); Phencyclidine Screen Urine Not Detected (Not Detect)
[2021-06-23 17:34] LABS: Glucose, Whole Blood 149 mg/dL (60-115)
== END 2021-06-23 18:02 | disposition home or self-care (01) ==
PROVIDERS: Emergency Medicine; Emergency Provider Emergency Medicine
DX: E11.649 Type 2 diabetes mellitus with hypoglycemia without coma (principal); F17.210 Nicotine dependence, cigarettes, uncomplicated; R51.9 Headache, unspecified; Z71.6 Tobacco abuse counseling; F11.90 Opioid use, unspecified, uncomplicated; Z79.899 Other long term (current) drug therapy; Z79.82 Long term (current) use of aspirin
CPT/HCPCS: 36415; 70450; 80048; 80307; 81003; 82947; 85025; 99283; 99284

== ENCOUNTER 2021-12-11 09:47 | Emergency (ER) | payer OTHER, SELFPAY ==
[2021-12-11 10:39] VITALS: BP 151/83; PULSE 77; RESP 18; TEMP 36.8; O2SAT 94; BMI 31.1
--- NOTE | 2021-12-11 10:48 | ED.LOWEXIN ---
HPI - Extremity Injury (Lower) General Chief Complaint: Extremity Injury, Lower Stated Complaint: pain in leg/groin pain Time Seen by Provider: 12/11/21 10:47 Source: patient Mode of arrival: ambulatory Limitations: no limitations History of Present Illness HPI Narrative: 56-year-old female with history of anxiety, stroke, diabetes, hyperlipidemia, seizures, back pain who presents to the ER with right-sided buttock pain that radiates to her hip and down the back of her leg, worsening over the last 1.5 weeks. She reports that started a few days ago with no known injury or trauma. She has been unable to sit or walk well because of the pain. She reports the pain did start her lower back but is not present there any longer. She denies any urinary symptoms are numbness, weakness, tingling. She reports the pain is shooting in nature and is worse with movement and palpation. MD complaint: hip injury and thigh injury Onset (ago): day(s) (10) Injury: Right: hip, pelvis and knee Type of Injury: unknown Place: home Severity: severe Relieving factors: immobilization and rest Exacerbating factors: weight bearing, movement and palpation Context: walking Associated symptoms: ambulatory Other symptoms: none Treatments prior to arrival: NSAIDS Related Data Home Medications Medication Instructions Recorded Confirmed albuterol sulfate 90 mcg/actuation 2 puff PO QID PRN 09/15/20 02/28/21 aerosol inhaler aspirin 81 mg tablet,delayed 1 tab PO DAILY 09/15/20 02/28/21 release atorvastatin 80 mg tablet 1 tab PO DAILY 09/15/20 02/28/21 clonazepam 0.5 mg tablet 1 tab PO BID PRN 09/15/20 02/28/21 clonidine HCl 0.1 mg tablet 1 tab PO BEDTIME PRN 09/15/20 02/28/21 hydroxyzine pamoate 50 mg capsule 1 - 2 cap PO BEDTIME PRN 09/15/20 02/28/21 lamotrigine 100 mg tablet 1 tab PO QAM 09/15/20 02/28/21 lamotrigine 25 mg tablet 1 tab PO BEDTIME 09/15/20 02/28/21 omeprazole 40 mg capsule,delayed 1 cap PO DAILY 09/15/20 02/28/21 release sertraline 100 mg tablet 2 tab PO QAM 09/15/20 02/28/21 levetiracetam 1,000 mg tablet 1 tab PO BID 02/28/21 02/28/21 methadone 60 mg PO DAILY 02/28/21 02/28/21 Previous Rx's Medication Instructions Recorded cefuroxime axetil 500 mg tablet 500 mg PO BID #10 tab 03/01/21 cyclobenzaprine 10 mg tablet 10 mg PO TID PRN #14 tab 12/11/21 oxycodone 5 mg tablet 5 mg PO Q8H PRN #8 tab 12/11/21 prednisone 20 mg tablet 40 mg PO DAILY #10 tab 12/11/21 Allergies Allergy/AdvReac Type Severity Reaction Status Date / Time codeine [CODEINE] Allergy Unknown SWELLING Verified 02/05/21 12:32 hornet venom [HORNETS] Allergy Unknown RASH Verified 02/05/21 12:32 trazodone [TRAZODONE] AdvReac Intermediate VERY Verified 02/05/21 12:32 ANXIOUS, RESTLESSNESS From BENADRYL AdvReac Intermediate RESTLESS Uncoded 10/26/20 15:56 From SEROQUEL AdvReac Intermediate ANXIETY Uncoded 02/05/21 12:32 AND RESTLESSNESS Review of Systems Review of Systems: Constitutional: No Fever, No Chills Cardiovascular: No Chest Pain, No SOB Respiratory: No Cough, No Sputum Gastrointestinal: No Nausea, No Vomiting, No Diarrhea, No abdominal Pain Genitourinary: No Dysuria, No Urinary Frequency, No Hematuria Musculoskeletal: + joint pain, No Myalgias Skin: No Skin Lesions, No rash Neuro: No Weakness, No Numbness, No Dizziness, No Headache Heme/Lymph: No Bruising, No Lymphadenopathy PMFSH Past Medical History Medical History Anxiety CVA (cerebral vascular accident) Diabetes Hyperlipidemia Left knee injury Patent ductus arteriosus Seizure Surgical History H/O left knee surgery Hx of tonsillectomy Social History Social History Household Members: Other Housing: Other Housing Other:: [address] [address] Do you presently have visiting nurse or other home services: Yes Alcohol intake: current Alcohol intake frequency: does not drink Patient Tobacco Use Status: Current someday Tobacco user Tobacco use type: Cigarette Substance Use Type: Opiates Advance Directives: No Advance Directives Information Provided: No service: No Current occupational status: unemployed Physical Exam Vital Signs: Vital Signs: Last Vital Signs Temp 98.2 F 12/11/21 10:39 Pulse 77 12/11/21 10:39 Resp 18 12/11/21 10:39 BP 151/83 H 12/11/21 10:39 Pulse Ox 94 12/11/21 10:39 BMI result Body Mass Index 31.1 Appearance: Alert. Oriented X3. No acute distress. HEENT: normal inspection CVS: Normal heart rate and rhythm. Pulses normal. Respiratory: No respiratory distress. Skin: Skin warm and dry. Normal skin color. Normal skin turgor. No rashes. Extremities: Normal inspection of the bilateral lower extremities. Pelvis is stable. No tenderness of the hip. There is positive SI joint tenderness on the right side. Pain with flexion of the right hip. No skin changes. NV intact distally. Neuro: Oriented X 3. No motor deficit. No sensory deficit. ambulates with a slight limp Course Course Course Narrative: 56-year-old female presents to the ER with right buttock, hip, and low back pain that radiates down the back of the right leg. No red flag symptoms of low back pain. No history of IVDA. Clinical exam and presentation are consistent with acute sciatica flare. Will treat with short course of oral his pain medication, muscle relaxer and short course of steroids for inflammation in her sciatic nerve. She was encourage follow-up with her primary care doctor for further evaluation and treatment. Stable for discharge home. Discharge Plan Discharge Clinical Impression: Sciatica Patient Disposition: Home, Self-Care Instructions: Sciatica (ED), Lower Back Exercises (ED) Additional Instructions: No bending, lifting or twisting. Use ice several times per day for 20 minutes at a time for the next 48 hours and then change to heat. Take medications as prescribed to help with pain and discomfort. Follow up with your Primary Care Doctor this week. If your pain worsens, if you develop new numbness, tingling, weakness, loss of function or incontinence call 911 or come back to the ER right away for evaluation. Prescriptions: New oxycodone 5 mg tablet 5 mg PO Q8H PRN (Reason: severe pain (scale score 7-10)) Qty: 8 0RF cyclobenzaprine 10 mg tablet 10 mg PO TID PRN (Reason: muscle spasm) Qty: 14 0RF prednisone 20 mg tablet 40 mg PO DAILY Qty: 10 0RF No Action atorvastatin 80 mg tablet 1 tab PO DAILY 0RF clonidine HCl 0.1 mg tablet 1 tab PO BEDTIME PRN (Reason: Anxiety) 0RF clonazepam 0.5 mg tablet 1 tab PO BID PRN (Reason: Anxiety) 0RF sertraline 100 mg tablet 2 tab PO QAM 0RF hydroxyzine pamoate 50 mg capsule 1 - 2 cap PO BEDTIME PRN (Reason: Sleep) 0RF omeprazole 40 mg capsule,delayed release(DR/EC) 1 cap PO DAILY 0RF aspirin 81 mg tablet,delayed release (DR/EC) 1 tab PO DAILY 0RF lamotrigine 25 mg tablet 1 tab PO BEDTIME 0RF albuterol sulfate 90 mcg/actuation HFA aerosol inhaler 2 puff PO QID PRN (Reason: wheezing) 0RF lamotrigine 100 mg tablet 1 tab PO QAM 0RF levetiracetam 1,000 mg tablet 1 tab PO BID 0RF methadone 60 mg PO DAILY 0RF cefuroxime axetil 500 mg tablet 500 mg PO BID Qty: 10 0RF Interventions: ED Discharge Assessment Last Done: 12/11/21 11:53 Discharge Date/Time: 12/11/21 11:54
[2021-12-11] MEDS: oxyCODONE HCl Immed Release 5 MG TABLET PO (11:07)
== END 2021-12-11 11:54 | disposition home or self-care (01) ==
PROVIDERS: Emergency Provider Emergency Medicine Emergency Medical Services
DX: M54.41 Lumbago with sciatica, right side (principal); M25.551 Pain in right hip; F17.210 Nicotine dependence, cigarettes, uncomplicated; Z71.6 Tobacco abuse counseling; Z79.899 Other long term (current) drug therapy
CPT/HCPCS: 99283

== ENCOUNTER 2022-04-19 04:53 | Emergency (ER) | payer OTHER, SELFPAY ==
[2022-04-19] VITALS (9 sets, daily range): BP systolic 142–183; BP diastolic 66–93; PULSE 62–92; RESP 14–19; TEMP 36.5–37.4; O2SAT 94–97; BMI 30.9
--- NOTE | ~2022-04-19 | CT_ITS ---
EXAMINATION: CT ABDOMEN AND PELVIS WITHOUT CONTRAST CLINICAL INFORMATION: Bilious vomiting with question of small bowel obstruction COMPARISON: CT abdomen pelvis 08/21/2019 TECHNIQUE: Multidetector volumetric imaging was performed from the superior aspect of the liver through the pubic symphysis. Sagittal and coronal reformatted images were obtained on the technologist's workstation. This CT examination was performed using dose optimization techniques as appropriate, variously including the following: *Automated exposure control *Adjustment of mA and/or kV according to patient size (this includes techniques or standardized protocols for targeted exams where dose is matched to indication/reason for exam; i.e. extremities or head) *Use of iterative reconstruction technique DLP: 650 mGy-cm FINDINGS: LUNG BASES: The visualized lung bases are unremarkable. Minimal scarring/atelectasis present at the lung bases. LIVER, GALLBLADDER, AND BILIARY TREE: The liver is normal in size and shape but demonstrates significantly decreased attenuation consistent with hepatic steatosis. Focal fatty sparing is present adjacent to the gallbladder. A benign cyst is noted in the central right lobe of the liver . No worrisome focal hepatic lesion or biliary ductal dilatation is present. The gallbladder is unremarkable with no evidence of radiopaque gallstones, gallbladder wall thickening, or obvious pericholecystic inflammatory changes. PANCREAS: Fatty infiltration of the pancreas SPLEEN: Unremarkable. ADRENAL GLANDS: There is a 1.5 cm nodule present in the right adrenal gland, unchanged from 08/12/2021. KIDNEYS AND URETERS: The kidneys are normal in size, shape, and attenuation. No hydronephrosis, hydroureter, or calculi seen. No perinephric stranding. BLADDER: Unremarkable. GASTROINTESTINAL TRACT: The small and large bowel are unremarkable. The appendix is unremarkable. ABDOMINAL WALL: No significant hernia is appreciated. LYMPH NODES: No retroperitoneal lymphadenopathy. VASCULAR: Unremarkable. PELVIC VISCERA: Unremarkable. OSSEOUS STRUCTURES: Unremarkable. CT/CT abdomen pelvis wo IV con IMPRESSION: A cause for the patient's ileus vomiting has not been found. There is no evidence of bowel obstruction. Benign hepatic cyst and stable 1.5 cm adrenal nodule. Fleischner guidelines were followed.
[2022-04-19 05:25] LABS: MANUAL DIFF FLAG NO
[2022-04-19 05:26] LABS: Basophils Absolute Auto 0.1 X10*3/uL (0.0-0.2); Basophils Percent Auto 0.4 % (0-2); Eosinophils Absolute Auto 0.2 X10*3/uL (0.0-0.4); Eosinophils Percent Auto 1.2 % (0-4); Hemoglobin 13.9 g/dl (12.0-16.0); Imm Gran Abs Auto 0.06 X10*3/uL (0.00-0.03); Imm Gran Pct Auto 0.5 % (0.0-0.4); Lymphocytes Absolute Auto 4.1 X10*3/uL (1.2-4.9); Lymphocytes Percent Auto 33.7 % (20-40); Mean Corpuscular HGB Conc 32.3 g/dl (31.0-35.0); Mean Corpuscular Hemoglobin 26.5 pg (27.0-33.0); Mean Corpuscular Volume 81.9 fL (80.0-98.0); Mean Platelet Volume 9.9 fL (9.4-12.3); Monocytes Absolute Auto 0.7 X10*3/uL (0.1-1.2); Monocytes Percent Auto 5.8 % (2-11); Neutrophils Absolute Auto 7.2 x10*3/uL (2.0-8.3); Neutrophils Percent Auto 58.4 % (45-73); Platelet Count 261 X10*3/uL (160-400); Red Blood Count 5.25 X10*6/uL (4.20-5.50); Red Cell Distribution Width 15.3 % (11.0-16.0); White Blood Count 12.3 X10*3/uL (4.8-10.8)
--- NOTE | 2022-04-19 06:00 | ED.NAVMDI ---
HPI - Nausea/Vomiting/Diarrhea General Chief complaint: Nausea/Vomiting/Diarrhea Stated complaint: n/v Time Seen by Provider: 04/19/22 06:00 Source: patient Mode of arrival: EMS Limitations: no limitations History of Present Illness HPI Narrative: Patient 56 year with history of hypertension hyperlipidemia diabetes seizure disorder chronic back pain with frequent episode of vomiting of unknown etiology comes here for increased vomiting since yesterday no significant abdominal pain or distension no diarrhea no fever or chills Related Data Home Medications Medication Instructions Recorded Confirmed albuterol sulfate 90 mcg/actuation 2 puff PO QID PRN wheezing 09/15/20 02/28/21 aerosol inhaler aspirin 81 mg tablet,delayed 1 tab PO DAILY 09/15/20 02/28/21 release atorvastatin 80 mg tablet 1 tab PO DAILY 09/15/20 02/28/21 clonazepam 0.5 mg tablet 1 tab PO BID PRN Anxiety 09/15/20 02/28/21 clonidine HCl 0.1 mg tablet 1 tab PO BEDTIME PRN Anxiety 09/15/20 02/28/21 hydroxyzine pamoate 50 mg capsule 1 - 2 cap PO BEDTIME PRN Sleep 09/15/20 02/28/21 lamotrigine 100 mg tablet 1 tab PO QAM 09/15/20 02/28/21 lamotrigine 25 mg tablet 1 tab PO BEDTIME 09/15/20 02/28/21 omeprazole 40 mg capsule,delayed 1 cap PO DAILY 09/15/20 02/28/21 release sertraline 100 mg tablet 2 tab PO QAM 09/15/20 02/28/21 levetiracetam 1,000 mg tablet 1 tab PO BID 02/28/21 02/28/21 methadone 60 mg PO DAILY 02/28/21 02/28/21 Previous Rx's Medication Instructions Recorded cefuroxime axetil 500 mg tablet 500 mg PO BID #10 tabs 03/01/21 cyclobenzaprine 10 mg tablet 10 mg PO TID PRN muscle spasm #14 12/11/21 tabs oxycodone 5 mg tablet 5 mg PO Q8H PRN severe pain (scale 12/11/21 score 7-10) #8 tabs prednisone 20 mg tablet 40 mg PO DAILY #10 tabs 12/11/21 Allergies Allergy/AdvReac Type Severity Reaction Status Date / Time codeine [CODEINE] Allergy Unknown SWELLING Verified 02/05/21 12:32 hornet venom [HORNETS] Allergy Unknown RASH Verified 02/05/21 12:32 trazodone [TRAZODONE] AdvReac Intermediate VERY Verified 02/05/21 12:32 ANXIOUS, RESTLESSNESS From BENADRYL AdvReac Intermediate RESTLESS Uncoded 10/26/20 15:56 From SEROQUEL AdvReac Intermediate ANXIETY Uncoded 02/05/21 12:32 AND RESTLESSNESS Review of Systems Review of Systems: Yes all other systems are reviewed and are negative [facility] Past Medical History Medical History Anxiety CVA (cerebral vascular accident) Diabetes Hyperlipidemia Left knee injury Patent ductus arteriosus Seizure Surgical History H/O left knee surgery Hx of tonsillectomy Social History Social History Household Members: Other Housing: Other Housing Other:: [employer] [address] Do you presently have visiting nurse or other home services: Yes Alcohol intake: current Alcohol intake frequency: does not drink Patient Tobacco Use Status: Current someday Tobacco user Tobacco use type: Cigarette Substance Use Type: Opiates Advance Directives: No service: No Current occupational status: unemployed Physical Exam Vital Signs: Vital Signs: Last Vital Signs Pulse 63 04/19/22 05:05 Resp 17 04/19/22 05:05 BP 160/93 H 04/19/22 05:05 Pulse Ox 95 04/19/22 05:05 O2 Del Method 04/19/22 05:05 BMI result Body Mass Index 30.9 Appearance: Alert. Oriented X3. Moderate distress actively vomiting Eyes: PERRLA, No Nystagmus ENT: Pharynx normal. Oral Mucosa moist Neck: Normal inspection. Neck supple. CVS: Normal heart rate and rhythm. Pulses normal. Respiratory: No respiratory distress. Equal air entry bilateral, no wheezing/rales/rhonchi Abdomen: Soft mild epigastric tenderness no distension. Bowel sounds are present, no mass palpable, no CVA tenderness Skin: Skin warm and dry. Normal skin color. Normal skin turgor. Extremities: No lower extremity edema. No calf tenderness Neuro: Oriented X 3. No motor deficit. MDM - Nausea/Vomiting/Diarrhea MDM Narrative Medical decision making narrative: Patient with acute vomiting labs pending including CT scan of the abdomen to rule out SBP of IV fluids were given patient signed out to pending labs and disposition Medical Records Attestation: I reviewed the patient's medical records. Lab Data Attestation: I reviewed the patient's lab results. Result diagrams: 04/19/22 05:20 04/19/22 05:45 Labs: Lab Results 04/19/22 Range/Units 05:20 WBC 12.3 H (4.8-10.8) X10*3/uL RBC 5.25 (4.20-5.50) X10*6/uL Hgb 13.9 D (12.0-16.0) g/dl Hct 43.0 (37.0-47.0) % MCV 81.9 (80.0-98.0) fL MCH 26.5 L (27.0-33.0) pg MCHC 32.3 (31.0-35.0) g/dl RDW 15.3 (11.0-16.0) % Plt Count 261 D (160-400) X10*3/uL MPV 9.9 (9.4-12.3) fL Immature Gran % (Auto) 0.5 H (0.0-0.4) % Neut % (Auto) 58.4 (45-73) % Lymph % (Auto) 33.7 (20-40) % [place] % (Auto) 5.8 (2-11) % Eos % (Auto) 1.2 (0-4) % Baso % (Auto) 0.4 (0-2) % Lymph # (Auto) 4.1 (1.2-4.9) X10*3/uL [place] # (Auto) 0.7 (0.1-1.2) X10*3/uL Eos # (Auto) 0.2 (0.0-0.4) X10*3/uL Baso # (Auto) 0.1 (0.0-0.2) X10*3/uL Abs Immat Gran (auto) 0.06 H (0.00-0.03) X10*3/uL Absolute Neuts (auto) 7.2 (2.0-8.3) x10*3/uL Absolute Nucleated RBC 0.000 (0.0-0.012) X10*3/uL Nucleated RBC % (auto) 0.0 (0.0-0.2) /100WBC Discharge Plan Discharge Clinical Impression: Acute vomiting Patient Disposition: Still a Patient Prescriptions: No Action atorvastatin 80 mg tablet 1 tab PO DAILY clonidine HCl 0.1 mg tablet 1 tab PO BEDTIME PRN (Reason: Anxiety) clonazepam 0.5 mg tablet 1 tab PO BID PRN (Reason: Anxiety) sertraline 100 mg tablet 2 tab PO QAM hydroxyzine pamoate 50 mg capsule 1 - 2 cap PO BEDTIME PRN (Reason: Sleep) omeprazole 40 mg capsule,delayed release(DR/EC) 1 cap PO DAILY aspirin 81 mg tablet,delayed release (DR/EC) 1 tab PO DAILY lamotrigine 25 mg tablet 1 tab PO BEDTIME albuterol sulfate 90 mcg/actuation HFA aerosol inhaler 2 puff PO QID PRN (Reason: wheezing) lamotrigine 100 mg tablet 1 tab PO QAM levetiracetam 1,000 mg tablet 1 tab PO BID methadone 60 mg PO DAILY cefuroxime axetil 500 mg tablet 500 mg PO BID Qty: 10 0RF oxycodone 5 mg tablet 5 mg PO Q8H PRN (Reason: severe pain (scale score 7-10)) Qty: 8 0RF cyclobenzaprine 10 mg tablet 10 mg PO TID PRN (Reason: muscle spasm) Qty: 14 0RF prednisone 20 mg tablet 40 mg PO DAILY Qty: 10 0RF
[2022-04-19] MEDS: 0.9 % Sodium Chloride 1,000 ML 999 ML IV (06:17)
[2022-04-19] MEDS: Prochlorperazine Edisylate 10 MG/2 ML VIAL IVPUSH (06:19)
[2022-04-19] MEDS: Famotidine/PF 20 MG/2 ML VIAL IVPUSH (06:21)
[2022-04-19] MEDS: Midazolam HCl/PF 2 MG/2 ML VIAL 1 MG IVPUSH (08:21)
--- NOTE | 2022-04-19 08:28 | PC.NURSE ---
patient a/ox4 . patient c/o nausea vomited two times moderate amount yellow emesis . skin clammy , moist . reports no abdominal pain . obtained order for 1mg midazolam and 25mg of promthoazime from DR. Brown for patient . Labs obtain and sent . patient aware of plan of care .
[2022-04-19 08:38] LABS: Alanine Aminotransferase 57 U/L (0-31); Alkaline Phosphatase 84 U/L (39-117); Anion Gap 21 (12-20); Aspartate Amino Transferase 43 U/L (5-31); Bilirubin Direct < 0.2 mg/dL (0.0-0.5); Bilirubin Total 0.4 mg/dL (0.0-1.0); Blood Urea Nitrogen 10 mg/dL (9-16); Calcium 10.1 mg/dL (8.4-10.2); Carbon Dioxide 21 mmol/L (22-29); Chloride 103 mmol/L (96-108); Creatinine Clr Calc Pharmacy 68.8; Estimated Glomerular Filt Rate 54; Glucose Random 184 mg/dL (60-115); Lipase 5 U/L (8-78); Potassium 3.6 mmol/L (3.3-5.1); Sodium 141 mmol/L (135-145); Total Protein 8.6 g/dL (6.5-8.0)
[2022-04-19 11:16] LABS: Appearance Urine Clear; Color Urine Yellow; Glucose Urine UA Negative (Negative); Leukocyte Esterase Urine Trace (Negative); Nitrite Urine Negative (Negative); PH 8.5 (5.0-9.0); Specific Gravity - Urine 1.015 (1.005-1.025); UMIC TRIGGER UACC YES; Urine Blood Negative (Negative); Urine Ketones Negative (Negative); Urine Protein Trace mg/dL (Neg-Trace)
[2022-04-19 11:18] LABS: Bacteria Urine None Seen (None Seen); Hyaline Casts Urine 0-2 /LPF (0-2); RBC Urine 0-2 /HPF (0-2); WBC Urine 0-5 /HPF (0-5)
--- NOTE | 2022-04-19 11:39 | PC.NURSE ---
paperwork faxed to methadone clinic, [facility] in [facility].
--- NOTE | 2022-04-19 12:10 | HE.PHANOTE ---
Methadone Methadone verification received from [facility] in [place], last dose was 75mg on 04/18/22 @0640, verified with Leonila Christie LPN.
[2022-04-19] MEDS: Haloperidol Lactate 5 MG/ML VIAL IVPUSH (12:39)
--- NOTE | 2022-04-19 12:49 | PC.NURSE ---
Attempted to give patient methadone dose refused at time r/t [place] and episode of vomiting . patient medicate with Haldol as ordered with provider . fluids still running r/t position of patients are . patient aware of plan of care .
[2022-04-19] MEDS: methADONE HCl 20 MG/2 ML ORAL.CONC 75 MG PO (14:04)
== END 2022-04-19 17:11 | disposition home or self-care (01) ==
PROVIDERS: Emergency Provider Internal Medicine
DX: R11.2 Nausea with vomiting, unspecified (principal); I10 Essential (primary) hypertension; E11.9 Type 2 diabetes mellitus without complications; R10.9 Unspecified abdominal pain; F17.210 Nicotine dependence, cigarettes, uncomplicated; Z71.6 Tobacco abuse counseling; Z79.899 Other long term (current) drug therapy
CPT/HCPCS: 36415; 74176; 80048; 80076; 81001; 83690; 85025; 96365; 96366; 96375; 99285; J2250; J2550

== ENCOUNTER 2022-04-25 11:52 | Outpatient (REF) | payer OTHER, SELFPAY ==
[2022-04-25 12:33] LABS: COVID-19 Test Negative (Negative); IDNOW Serial# 16C4AD1C
== END 2022-04-25 11:53 | disposition home or self-care (01) ==
LOC: HO.LAB 11:52
PROVIDERS: Visit Provider Internal Medicine
DX: Z20.822 Contact with and (suspected) exposure to COVID-19 (principal)
CPT/HCPCS: 87635; C9803

== ENCOUNTER 2022-07-25 12:04 | Emergency (ER) | payer OTHER, SELFPAY ==
[2022-07-25 13:09] VITALS: BP 163/80; PULSE 82; RESP 18; TEMP 36.6; O2SAT 97; BMI 28.1
--- NOTE | 2022-07-25 13:12 | ED.GENADULT ---
HPI - General Adult General Chief complaint: Nausea/Vomiting/Diarrhea Stated complaint: vomiting Source: patient Mode of arrival: ambulatory Limitations: no limitations History of Present Illness HPI narrative: 57yoF with a past medical history of anxiety, CVA, diabetes, hyperlipidemia, seizure disorder who is presenting to the ED with complaints of 2 days of subjective fevers, chills, fatigue, malaise, nasal congestion/rhinorrhea with nausea/vomiting. Denies any measured fever, chest pain or shortness of breath, abdominal pain or any other symptoms complaints or concerns at this time. Denies recent travel or sick contacts. MD complaint: URI complaints with nausea and vomiting Onset (ago): day(s) (2) Related Data Home Medications Medication Instructions Recorded Confirmed albuterol sulfate 90 mcg/actuation 2 puff PO QID PRN wheezing 09/15/20 02/28/21 aerosol inhaler aspirin 81 mg tablet,delayed 1 tab PO DAILY 09/15/20 02/28/21 release atorvastatin 80 mg tablet 1 tab PO DAILY 09/15/20 02/28/21 clonazepam 0.5 mg tablet 1 tab PO BID PRN Anxiety 09/15/20 02/28/21 clonidine HCl 0.1 mg tablet 1 tab PO BEDTIME PRN Anxiety 09/15/20 02/28/21 hydroxyzine pamoate 50 mg capsule 1 - 2 cap PO BEDTIME PRN Sleep 09/15/20 02/28/21 lamotrigine 100 mg tablet 1 tab PO QAM 09/15/20 02/28/21 lamotrigine 25 mg tablet 1 tab PO BEDTIME 09/15/20 02/28/21 omeprazole 40 mg capsule,delayed 1 cap PO DAILY 09/15/20 02/28/21 release sertraline 100 mg tablet 2 tab PO QAM 09/15/20 02/28/21 levetiracetam 1,000 mg tablet 1 tab PO BID 02/28/21 02/28/21 methadone 60 mg PO DAILY 02/28/21 02/28/21 Previous Rx's Medication Instructions Recorded cefuroxime axetil 500 mg tablet 500 mg PO BID #10 tabs 03/01/21 cyclobenzaprine 10 mg tablet 10 mg PO TID PRN muscle spasm #14 12/11/21 tabs oxycodone 5 mg tablet 5 mg PO Q8H PRN severe pain (scale 12/11/21 score 7-10) #8 tabs prednisone 20 mg tablet 40 mg PO DAILY #10 tabs 12/11/21 Allergies Allergy/AdvReac Type Severity Reaction Status Date / Time codeine [CODEINE] Allergy Unknown SWELLING Verified 02/05/21 12:32 hornet venom [HORNETS] Allergy Unknown RASH Verified 02/05/21 12:32 trazodone [TRAZODONE] AdvReac Intermediate VERY Verified 02/05/21 12:32 ANXIOUS, RESTLESSNESS From BENADRYL AdvReac Intermediate RESTLESS Uncoded 10/26/20 15:56 From SEROQUEL AdvReac Intermediate ANXIETY Uncoded 02/05/21 12:32 AND RESTLESSNESS Review of Systems Review of Systems: Constitutional : + fever/chills/fatigue/malaise, No Weight loss, No Night Sweats ENT/Mouth : + nasal congestion/rhinorrhea, No Hearing loss, No Ear Pain, No Sinus Pain, No Hoarseness, No sore throat, No Swallowing Difficulty Eyes: No Eye Pain, No Swelling, No Redness, No Foreign Body, No Discharge, No Vision Changes Cardiovascular : No Chest Pain, No SOB, No Dyspnea on Exertion, No Orthopnea, No Edema, No Palpitations Respiratory : No Cough, No Sputum, No Wheezing, No Smoke Exposure, No Dyspnea Gastrointestinal : + Nausea, + Vomiting, No Diarrhea, No Constipation, No abdominal Pain, No Hematochezia, No Melena Genitourinary : no irregular bleeding, No Dysuria, No Urinary Frequency, No Hematuria, No Urinary Incontinence, No Urgency, No Flank Pain, No Urinary Flow Changes, No Hesitancy Musculoskeletal : No joint pain, No Myalgias, No Joint Swelling Skin : No Skin Lesions, No rash Neuro : No Weakness, No Numbness, No Paresthesias, No Loss of Consciousness, No Dizziness, No Headache Psych : No Anxiety/Panic, No Depression, No SI/HI/AH/VH, No Social Issues, Heme/Lymph: No Bruising, No Bleeding,No Lymphadenopathy Endocrine : No Polyuria, No Polydipsia, No Temperature Intolerance Yes all other systems are reviewed and are negative PMFSH Past Medical History Attestation statement: The following information was validated with the patient. Source: old records reviewed and nursing notes reviewed Medical History Anxiety CVA (cerebral vascular accident) Diabetes Hyperlipidemia Left knee injury Patent ductus arteriosus Seizure Surgical History H/O left knee surgery Hx of tonsillectomy Social History Social History Household Members: Other Housing: Other Housing Other:: [facility] [address] Do you presently have visiting nurse or other home services: Yes Alcohol intake: current Alcohol intake frequency: holidays/special occasions only Patient Tobacco Use Status: Current everyday Tobacco user Tobacco use type: Cigarette Substance Use Type: Opiates Advance Directives: Yes Advance Directives Information Provided: Yes Advance Directives on File: No service: No Current occupational status: unemployed Physical Exam ED Vital Signs: Vital Signs - 24 hr 07/25/22 13:09 Temperature 97.9 F Pulse Rate 82 Respiratory Rate 18 Blood Pressure 163/80 H Pulse Oximetry 97 Oxygen Delivery Method Room Air BMI result Body Mass Index 28.1 Vital signs have been reviewed and all within normal limits Appearance: Alert. Oriented X3. No acute distress. Head: Normal external exam. Normocephalic. Eyes: PERRLA. EOMI. Conjunctiva and sclera normal. Eyelids normal. ENT: Pharynx normal. Uvula midline. Moist mucous membranes. No trismus noted. No drooling noted. No muffled voice noted. Neck: Normal inspection. Neck supple. FROM. No adenopathy. No meningeal signs. CVS: Normal heart rate and rhythm. Heart sound normal. No murmurs noted. Pulses normal throughout. Respiratory: No respiratory distress. Painless inspiration. Breath sounds normal. No wheezes/rales/rhonchi noted. Chest nontender. No accessory muscle usage noted or decreased air movement noted. Abdomen: Soft and nontender. Nondistended. No guarding. No rigidity. Bowel sounds normal in all 4 quadrants. No distention noted. No organomegaly noted. No visible injury noted. No rebound tenderness. Negative Rovsing sign. Negative obturator's sign. Negative psoas sign. Negative Lawson sign. Back: No CVA tenderness. Full range of motion noted. Skin: Skin warm and dry. Normal skin color. Normal skin turgor. No rashes/lesions/lacerations noted. Extremities: Extremities exhibit normal range of motion. Extremities nontender. Neuro: Oriented X 3. No motor deficit. No sensory deficit. Reflexes normal. Normal steady gait. CN's II-XII intact bilaterally? Course Course Course Narrative: OLIVIA-13:13PM - 57yoF presenting to the ED with complaints of 2 days of subjective fevers, chills, fatigue, malaise, nasal congestion/rhinorrhea with nausea/vomiting. Denies any measured fever, chest pain or shortness of breath, abdominal pain or any other symptoms complaints or concerns at this time. Denies recent travel or sick contacts. Plan: Patient is stable to go back to the waiting room. LABS AND COVID/RSV/flu swab ordered at this time. Patient is sent back to the waiting room to be evaluated in the ED. Reevaluation(s) Reevaluation #1: Patient eloped. Time: 13:51 Discharge Plan Discharge Clinical Impression: Nausea & vomiting, URI (upper respiratory infection) Patient Disposition: Elopement Prescriptions: No Action atorvastatin 80 mg tablet 1 tab PO DAILY clonidine HCl 0.1 mg tablet 1 tab PO BEDTIME PRN (Reason: Anxiety) clonazepam 0.5 mg tablet 1 tab PO BID PRN (Reason: Anxiety) sertraline 100 mg tablet 2 tab PO QAM hydroxyzine pamoate 50 mg capsule 1 - 2 cap PO BEDTIME PRN (Reason: Sleep) omeprazole 40 mg capsule,delayed release(DR/EC) 1 cap PO DAILY aspirin 81 mg tablet,delayed release (DR/EC) 1 tab PO DAILY lamotrigine 25 mg tablet 1 tab PO BEDTIME albuterol sulfate 90 mcg/actuation HFA aerosol inhaler 2 puff PO QID PRN (Reason: wheezing) lamotrigine 100 mg tablet 1 tab PO QAM levetiracetam 1,000 mg tablet 1 tab PO BID methadone 60 mg PO DAILY cefuroxime axetil 500 mg tablet 500 mg PO BID Qty: 10 0RF oxycodone 5 mg tablet 5 mg PO Q8H PRN (Reason: severe pain (scale score 7-10)) Qty: 8 0RF cyclobenzaprine 10 mg tablet 10 mg PO TID PRN (Reason: muscle spasm) Qty: 14 0RF prednisone 20 mg tablet 40 mg PO DAILY Qty: 10 0RF
== END 2022-07-25 16:58 | disposition left against medical advice (07) ==
PROVIDERS: Emergency Provider Student in an Organized Health Care Education/Training Program
DX: R11.2 Nausea with vomiting, unspecified (principal); J06.9 Acute upper respiratory infection, unspecified; E11.9 Type 2 diabetes mellitus without complications; E78.5 Hyperlipidemia, unspecified; F17.210 Nicotine dependence, cigarettes, uncomplicated; Z86.73 Personal history of transient ischemic attack (TIA), and cerebral infarction without residual deficits; Z79.82 Long term (current) use of aspirin; Z79.02 Long term (current) use of antithrombotics/antiplatelets; Z79.899 Other long term (current) drug therapy
CPT/HCPCS: 99281

== ENCOUNTER 2022-08-12 08:47 | Emergency (ER) | payer OTHER, SELFPAY ==
--- NOTE | 2022-08-12 | ECG_ITS ---
Test Reason : stroke Blood Pressure : / mmHG Vent. Rate : 074 BPM Atrial Rate : 074 BPM P-R Int : 156 ms QRS Dur : 074 ms QT Int : 430 ms P-R-T Axes : 055 055 052 degrees QTc Int : 477 ms Normal sinus rhythm Normal ECG When compared with ECG of 27-FEB-2021 17:08, Nonspecific T wave abnormality no longer evident in Anterior leads Referred By: Generic ED Physician Electronically Signed By:ANDERSON MAYORGA MD
--- NOTE | ~2022-08-12 | CT_ITS ---
EXAMINATION: CT HEAD WITHOUT CONTRAST CLINICAL INFORMATION: Acute on chronic left-sided weakness. History of CVA. COMPARISON: Head CT from 06/23/2021 TECHNIQUE: Contiguous axial imaging was performed from the skull base to vertex without intravenous administration of contrast. This CT examination was performed using dose optimization techniques as appropriate, variously including the following: *Automated exposure control *Adjustment of mA and/or kV according to patient size (this includes techniques or standardized protocols for targeted exams where dose is matched to indication/reason for exam; i.e. extremities or head) *Use of iterative reconstruction technique DLP: 680 mGy-cm FINDINGS: No acute findings compared to prior head CT of 06/23/2021. No intracranial hemorrhage, extra-axial fluid collection, focal mass effect or midline shift. Again noted is extensive hypoattenuation within the supratentorial white matter. Chronic mild parenchymal volume loss with commensurate prominence of ventricles and sulci; no hydrocephalus. The brainstem and cerebellum are unremarkable. A few of the left mastoid air cells are opacified. The visualized paranasal sinuses are well aerated. The orbits, globes and temporomandibular joints are unremarkable. CT/CT head/brain wo IV con IMPRESSION: * No intracranial hemorrhage or other acute intracranial pathology compared to 06/23/2021. * Again noted is extensive hypoattenuation within the supratentorial white matter. As previously described, the findings could be sequela of chronic microvascular ischemic change, vasculitis or demyelination.
--- NOTE | ~2022-08-12 | XR_ITS ---
EXAMINATION: XR CHEST CLINICAL INFORMATION: Shortness of breath, lightheadedness and weakness COMPARISON: 03/01/2021 TECHNIQUE: Frontal view of the chest was obtained. FINDINGS: Lung volumes remain low. Chronic coarse interstitial opacity again seen. Right base atelectasis seen previously has improved. No new focal consolidation or mass. Cardiac mediastinal silhouette unchanged. No acute osseous abnormality. XR/XR chest 1V IMPRESSION: Chronic coarse interstitial opacities similar to prior films. This could be seen from chronic bronchitis or reactive airways disease. No acute pulmonary disease.
[2022-08-12 08:56] VITALS: BP 111/74; PULSE 75; PULSE 86; RESP 18; TEMP 36.8; O2SAT 95; O2SAT 96; BMI 28.1
[2022-08-12 09:15] LABS: MANUAL DIFF FLAG NO
--- NOTE | 2022-08-12 09:17 | PC.NURSE ---
aware of stroke alert last known well time 08/11/22 at approx 2100 IV access obtained labs collected and sent will CTM
[2022-08-12 09:19] LABS: Basophils Percent Auto 0.3 % (0-2); Eosinophils Absolute Auto 0.3 X10*3/uL (0.0-0.4); Eosinophils Percent Auto 2.7 % (0-4); Hematocrit 36.1 % (37.0-47.0); Hemoglobin 11.6 g/dl (12.0-16.0); Imm Gran Abs Auto 0.02 X10*3/uL (0.00-0.03); Imm Gran Pct Auto 0.2 % (0.0-0.4); Lymphocytes Absolute Auto 2.9 X10*3/uL (1.2-4.9); Lymphocytes Percent Auto 30.4 % (20-40); Mean Corpuscular HGB Conc 32.1 g/dl (31.0-35.0); Mean Corpuscular Volume 80.8 fL (80.0-98.0); Mean Platelet Volume 9.7 fL (9.4-12.3); Monocytes Absolute Auto 0.6 X10*3/uL (0.1-1.2); Monocytes Percent Auto 5.9 % (2-11); Neutrophils Absolute Auto 5.9 x10*3/uL (2.0-8.3); Neutrophils Percent Auto 60.5 % (45-73); Platelet Count 242 X10*3/uL (160-400); Red Blood Count 4.47 X10*6/uL (4.20-5.50); White Blood Count 9.7 X10*3/uL (4.8-10.8)
[2022-08-12 09:25] LABS: Prothrombin Time 11.9 SEC (10.0-13.1)
[2022-08-12 09:31] LABS: Alanine Aminotransferase 30 U/L (0-31); Albumin Level 4.1 g/dL (3.5-5.0); Alkaline Phosphatase 90 U/L (39-117); Anion Gap 13 (12-20); Aspartate Amino Transferase 19 U/L (5-31); Bilirubin Total 0.3 mg/dL (0.0-1.0); Blood Urea Nitrogen 9 mg/dL (9-16); Calcium 9.1 mg/dL (8.4-10.2); Carbon Dioxide 25 mmol/L (22-29); Chloride 104 mmol/L (96-108); Creatinine Clr Calc Pharmacy 80.2; Estimated Glomerular Filt Rate > 60; Glucose Random 110 mg/dL (60-115); Potassium 3.9 mmol/L (3.3-5.1); Sodium 138 mmol/L (135-145)
[2022-08-12 09:40] LABS: Troponin-I High Sensitivity < 3.5 ng/L (<3.5-17.0)
--- NOTE | 2022-08-12 09:41 | ED.NEUROSD ---
HPI - Neuro Symptoms/Deficit General Chief Complaint: Stroke Stated Complaint: stroke symptoms Time Seen by Provider: 08/12/22 09:30 Source: patient and EMS Mode of arrival: EMS Limitations: no limitations History of Present Illness HPI Narrative: 57-year-old female with history of CVA with residual left-sided deficits. She presents now with generalized weakness and acute exacerbation of chronic left-sided weakness. She feels generally unwell. She denies any fevers or chills. She does have a slight cough congestion. She describes chronic constipation but no diarrhea no nausea no vomiting. She has been eating and drinking well. However, she avoid water as she does not prefer that beverage. She denies any urinary frequency, urgency or dysuria. She denies having COVID. Describes her symptoms as moderate to severe in nature. There is no clear relieving or exacerbating features. She denies any chest pain, chest pain with exertion or shortness of breath. Symptoms seem to have started over the last 12 hours. Related Data Home Medications Medication Instructions Recorded Confirmed albuterol sulfate 90 mcg/actuation 2 puff PO QID PRN wheezing 09/15/20 02/28/21 aerosol inhaler aspirin 81 mg tablet,delayed 1 tab PO DAILY 09/15/20 02/28/21 release atorvastatin 80 mg tablet 1 tab PO DAILY 09/15/20 02/28/21 clonazepam 0.5 mg tablet 1 tab PO BID PRN Anxiety 09/15/20 02/28/21 clonidine HCl 0.1 mg tablet 1 tab PO BEDTIME PRN Anxiety 09/15/20 02/28/21 hydroxyzine pamoate 50 mg capsule 1 - 2 cap PO BEDTIME PRN Sleep 09/15/20 02/28/21 lamotrigine 100 mg tablet 1 tab PO QAM 09/15/20 02/28/21 lamotrigine 25 mg tablet 1 tab PO BEDTIME 09/15/20 02/28/21 omeprazole 40 mg capsule,delayed 1 cap PO DAILY 09/15/20 02/28/21 release sertraline 100 mg tablet 2 tab PO QAM 09/15/20 02/28/21 levetiracetam 1,000 mg tablet 1 tab PO BID 02/28/21 02/28/21 methadone 60 mg PO DAILY 02/28/21 02/28/21 Previous Rx's Medication Instructions Recorded cefuroxime axetil 500 mg tablet 500 mg PO BID #10 tabs 03/01/21 cyclobenzaprine 10 mg tablet 10 mg PO TID PRN muscle spasm #14 12/11/21 tabs oxycodone 5 mg tablet 5 mg PO Q8H PRN severe pain (scale 12/11/21 score 7-10) #8 tabs prednisone 20 mg tablet 40 mg PO DAILY #10 tabs 12/11/21 Allergies Allergy/AdvReac Type Severity Reaction Status Date / Time codeine [CODEINE] Allergy Unknown SWELLING Verified 02/05/21 12:32 hornet venom [HORNETS] Allergy Unknown RASH Verified 02/05/21 12:32 trazodone [TRAZODONE] AdvReac Intermediate VERY Verified 02/05/21 12:32 ANXIOUS, RESTLESSNESS From BENADRYL AdvReac Intermediate RESTLESS Uncoded 10/26/20 15:56 From SEROQUEL AdvReac Intermediate ANXIETY Uncoded 02/05/21 12:32 AND RESTLESSNESS Review of Systems Review of Systems: Yes all other systems are reviewed and are negative Constitutional: Constitutional: Reports fatigue and Reports lethargy Eyes: Eyes: Reports no additional eye complaints ENT: Reports system reviewed and no additional complaints, except as documented Cardiovascular: Cardiovascular: Reports no additional cardiovascular complaints Gastrointestinal: Gastrointestinal: Reports no additional gastrointestinal complaints and Reports constipation Genitourinary: Genitourinary: Reports no additional female genitourinary complaints Musculoskeletal: Musculoskeletal: Reports no additional musculoskeletal complaints Integumentary/Breasts: Skin/Breast: Reports system reviewed and no additional complaints, except as docu Neurologic: Reports focal weakness Psychiatric: Psychiatric: Reports no additional psychiatric complaints Endocrine: Endocrine: Reports no additional endocrine complaints and Reports fatigue Comments: Patient reports history of diabetes blood sugar in the field was 116 Hematologic/Lymphatic: Hematologic/Lymphatic: Reports no additional hematologic/lymphatic complaints Allergic/Immunologic: Allergic/Immunologic: Reports no additional allergic/immunologic complaints PMFSH Past Medical History Attestation statement: The following information was validated with the patient. Source: old records reviewed and nursing notes reviewed Medical History Anxiety CVA (cerebral vascular accident) Diabetes Hyperlipidemia Left knee injury Patent ductus arteriosus Seizure Surgical History H/O left knee surgery Hx of tonsillectomy Social History Social History Household Members: Other Housing: Other Housing Other:: [employer] [address] Do you presently have visiting nurse or other home services: Yes Alcohol intake: unknown Patient Tobacco Use Status: Current everyday Tobacco user Tobacco use type: Cigarette Smoked in Last 30 Days: Yes Use of substances other than those prescribed or required for medical reasons: Unknown Substance Use Type: Opiates Any prior treatment program specific to substance use: Yes Advance Directives: No service: No Current occupational status: unemployed Physical Exam Vital Signs: Vital Signs: Last Vital Signs Temp 97.5 F 08/12/22 14:48 Pulse 66 08/12/22 14:48 Resp 13 08/12/22 14:48 BP 103/79 08/12/22 14:48 Pulse Ox 92 08/12/22 14:48 O2 Del Method 08/12/22 14:48 BMI result Body Mass Index 28.1 Const: General: cooperative, no acute distress and well developed Orientation/consciousness: oriented to person, oriented to place and oriented to time HEENT: Head: Yes normal to inspection Ears: hearing grossly normal bilaterally Eyes: Pupils: Equal, round and reactive pupils present Neck: Neck: Yes normal visual inspection Cardio: Rate: regular rate Rhythm: regular rhythm Heart sounds: no gallops, no murmurs and no rubs Bruits: no abdominal aortic bruits GI: Inspection: Yes distended (Mild) Palpation (GI): No Abdominal aortic bruit present, nontender and no guarding Skin: General skin exam: no rashes or lesions noted Neuro: General: oriented to person, oriented to place, oriented to time, moves all extremities and other (Mild right facial droop) Cranial nerves: Yes Equal, round and reactive pupils present and Yes Bilaterally intact EOM present Cognition (Neuro): normal cognition Motor exam (neuro): Abnormal motor strength present (4+) left upper extremity , Pronator motor function present pronator drift of right upper extremity and no tremors Extrem: General: Yes normal to inspection Psych: Appearance: grossly normal Course Course Course Narrative: 57-year-old female presents with what appears to be generalized weakness associated with increasing left upper extremity weakness. She was last known normal at 9:00 a.m. last night. She reports a slight cough and generalized unwellness. She does report that she has increased left upper extremity weakness compared to baseline. She denies a right facial droop history. Examination revealed mild right facial droop, 4+ left upper extremity strength otherwise 5/5 throughout. She has a generalized fatigued. The rest of her examination was unremarkable with the exception of mild abdominal distention which he reports is normal. Patient falls outside the acute stroke and her NIH score would be very mild at best at this time, I suspected infection or electrolyte abnormality causing an exacerbation of her chronic condition. I doubt acute CVA. Will obtain a CT of the head any event. Will continue observe and re-evaluate patient will check for COVID, flu, urinary tract infection. Will obtain a chest x-ray. Reevaluation(s) Reevaluation #1: Her common nurse, discussed care with patient's family. Apparently, patient has been using street drugs inclusive of opioids and benzodiazepines. This likely is the etiology of her current behavior as well as receiving her methadone today. Will continue observe her for clearing her current mental status. Time: 12:35 Reevaluation #2: Patient was placed in the physician observation due to persistent somnolence. She is responsive to verbal stimuli however. Her current vital signs are blood pressure 103/79, pulse 66, respiratory rate 13, temperature 97.5? and oxygen saturation 92% on room air urine toxicology is current being pending.. Time: 14:58 Reevaluation #3: Patient is more alert. She will need assistance with ambulation. Either her boyfriend or at care provider can take her home. We are awaiting for such% of comp for disposition. In the meantime, Dr. Luna will assume care pending the ability to discharge home safely Time: 16:35 Medications Administered Discontinued Medications Generic Name Dose Route Start Last Admin Trade Name Freq PRN Reason Stop Dose Admin Sodium Chloride 1,000 mls @ 999 mls/hr 08/12/22 09:45 08/12/22 11:04 Ns IV 08/12/22 10:45 Infused .Q1H1M BRADLEY Infusion Medical Decision Making Medical Decision Making MDM Narrative: 57-year-old female with history of CVA with residual left-sided deficits presents with generalized weakness, acute on chronic left-sided weakness symptoms. Patient appeared fatigued and somewhat somnolent. She she had mild left upper extremity weakness and mild right facial droop which is likely old in nature. She had no other focal neurologic deficits. Will obtain routine laboratory analysis to rule out a variety of diagnoses. Will also obtain a CT scan of the head to rule out any acute intracranial abnormalities. Will provide patient with IV fluids. Differential Diagnosis Differential Diagnoses: The differential diagnosis associated with the presentation includes (CVA, generalized weakness, electrolyte abnormality, anemia, UTI, flu, COVID) Admission/Observation Consideration of admission/observation: Escalation of care including admission/observation considered (Pending re-evaluation and possible progression or resolution of symptoms.) Lab Data MDM Lab Attestation statement: I reviewed the patient's lab results. 08/12/22 09:07 08/12/22 09:07 Labs: Lab Results 08/12/22 08/12/22 08/12/22 Range/Units 09:07 09:07 09:07 WBC 9.7 (4.8-10.8) X10*3/uL RBC 4.47 (4.20-5.50) X10*6/uL Hgb 11.6 L (12.0-16.0) g/dl Hct 36.1 L (37.0-47.0) % MCV 80.8 (80.0-98.0) fL MCH 26.0 L (27.0-33.0) pg MCHC 32.1 (31.0-35.0) g/dl RDW 15.0 (11.0-16.0) % Plt Count 242 (160-400) X10*3/uL MPV 9.7 (9.4-12.3) fL Immature Gran % (Auto) 0.2 (0.0-0.4) % Neut % (Auto) 60.5 (45-73) % Lymph % (Auto) 30.4 (20-40) % Mcmullen % (Auto) 5.9 (2-11) % Eos % (Auto) 2.7 (0-4) % Baso % (Auto) 0.3 (0-2) % Lymph # (Auto) 2.9 (1.2-4.9) X10*3/uL Mcmullen # (Auto) 0.6 (0.1-1.2) X10*3/uL Eos # (Auto) 0.3 (0.0-0.4) X10*3/uL Baso # (Auto) 0.0 (0.0-0.2) X10*3/uL Abs Immat Gran (auto) 0.02 (0.00-0.03) X10*3/uL Absolute Neuts (auto) 5.9 (2.0-8.3) x10*3/uL Absolute Nucleated RBC 0.000 (0.0-0.012) X10*3/uL Nucleated RBC % (auto) 0.0 (0.0-0.2) /100WBC PT 11.9 (10.0-13.1) SEC INR 1.0 (0.9-1.1) Sodium 138 (135-145) mmol/L Potassium 3.9 (3.3-5.1) mmol/L Chloride 104 (96-108) mmol/L Carbon Dioxide 25 (22-29) mmol/L Anion Gap 13 (12-20) BUN 9 (9-16) mg/dL Creatinine 0.85 (0.5-1.4) mg/dL Estim Creat Clear Calc 80.2 Estimated GFR > 60 Random Glucose 110 (60-115) mg/dL Calcium 9.1 D (8.4-10.2) mg/dL Total Bilirubin 0.3 (0.0-1.0) mg/dL AST 19 (5-31) U/L ALT 30 (0-31) U/L Alkaline Phosphatase 90 (39-117) U/L Troponin I High Sens (<3.5-17.0) ng/L Total Protein 7.0 (6.5-8.0) g/dL Albumin 4.1 (3.5-5.0) g/dL Urine Color Urine Appearance Urine pH (5.0-9.0) Ur Specific [place] (1.005-1.025) Urine Protein (Neg-Trace) mg/dL Urine Glucose (UA) (Negative) mg/dL Urine Ketones (Negative) mg/dL Urine Blood (Negative) Urine Nitrite (Negative) Ur Leukocyte Esterase (Negative) Ethyl Alcohol < 10 mg/dL COVID-19 (QUITA) (Negative) COVID-19 Clin Com Influenza Type A (EDWIN) (Negative) Influenza Type B (EDWIN) (Negative) Influenza A & B Note 01/20/23 01/20/23 01/20/23 Range/Units 09:07 09:51 09:51 WBC (4.8-10.8) X10*3/uL RBC (4.20-5.50) X10*6/uL Hgb (12.0-16.0) g/dl Hct (37.0-47.0) % MCV (80.0-98.0) fL MCH (27.0-33.0) pg MCHC (31.0-35.0) g/dl RDW (11.0-16.0) % Plt Count (160-400) X10*3/uL MPV (9.4-12.3) fL Immature Gran % (Auto) (0.0-0.4) % Neut % (Auto) (45-73) % Lymph % (Auto) (20-40) % Mcmullen % (Auto) (2-11) % Eos % (Auto) (0-4) % Baso % (Auto) (0-2) % Lymph # (Auto) (1.2-4.9) X10*3/uL [place]ullen # (Auto) (0.1-1.2) X10*3/uL Eos # (Auto) (0.0-0.4) X10*3/uL Baso # (Auto) (0.0-0.2) X10*3/uL Abs Immat Gran (auto) (0.00-0.03) X10*3/uL Absolute Neuts (auto) (2.0-8.3) x10*3/uL Absolute Nucleated RBC (0.0-0.012) X10*3/uL Nucleated RBC % (auto) (0.0-0.2) /100WBC PT (10.0-13.1) SEC INR (0.9-1.1) Sodium (135-145) mmol/L Potassium (3.3-5.1) mmol/L Chloride (96-108) mmol/L Carbon Dioxide (22-29) mmol/L Anion Gap (12-20) BUN (9-16) mg/dL Creatinine (0.5-1.4) mg/dL Estim Creat Clear Calc Estimated GFR Random Glucose (60-115) mg/dL Calcium (8.4-10.2) mg/dL Total Bilirubin (0.0-1.0) mg/dL AST (5-31) U/L ALT (0-31) U/L Alkaline Phosphatase (39-117) U/L Troponin I High Sens < 3.5 (<3.5-17.0) ng/L Total Protein (6.5-8.0) g/dL Albumin (3.5-5.0) g/dL Urine Color Urine Appearance Urine pH (5.0-9.0) Ur Specific [place] (1.005-1.025) Urine Protein (Neg-Trace) mg/dL Urine Glucose (UA) (Negative) mg/dL Urine Ketones (Negative) mg/dL Urine Blood (Negative) Urine Nitrite (Negative) Ur Leukocyte Esterase (Negative) Ethyl Alcohol mg/dL COVID-19 (QUITA) Negative (Negative) COVID-19 Clin Com See Note Influenza Type A (EDWIN) Negative (Negative) Influenza Type B (EDWIN) Negative (Negative) Influenza A & B Note See Note 08/12/22 Range/Units 15:15 WBC (4.8-10.8) X10*3/uL RBC (4.20-5.50) X10*6/uL Hgb (12.0-16.0) g/dl Hct (37.0-47.0) % MCV (80.0-98.0) fL MCH (27.0-33.0) pg MCHC (31.0-35.0) g/dl RDW (11.0-16.0) % Plt Count (160-400) X10*3/uL MPV (9.4-12.3) fL Immature Gran % (Auto) (0.0-0.4) % Neut % (Auto) (45-73) % Lymph % (Auto) (20-40) % Mcmullen % (Auto) (2-11) % Eos % (Auto) (0-4) % Baso % (Auto) (0-2) % Lymph # (Auto) (1.2-4.9) X10*3/uL [place] # (Auto) (0.1-1.2) X10*3/uL Eos # (Auto) (0.0-0.4) X10*3/uL Baso # (Auto) (0.0-0.2) X10*3/uL Abs Immat Gran (auto) (0.00-0.03) X10*3/uL Absolute Neuts (auto) (2.0-8.3) x10*3/uL Absolute Nucleated RBC (0.0-0.012) X10*3/uL Nucleated RBC % (auto) (0.0-0.2) /100WBC PT (10.0-13.1) SEC INR (0.9-1.1) Sodium (135-145) mmol/L Potassium (3.3-5.1) mmol/L Chloride (96-108) mmol/L Carbon Dioxide (22-29) mmol/L Anion Gap (12-20) BUN (9-16) mg/dL Creatinine (0.5-1.4) mg/dL Estim Creat Clear Calc Estimated GFR Random Glucose (60-115) mg/dL Calcium (8.4-10.2) mg/dL Total Bilirubin (0.0-1.0) mg/dL AST (5-31) U/L ALT (0-31) U/L Alkaline Phosphatase (39-117) U/L Troponin I High Sens (<3.5-17.0) ng/L Total Protein (6.5-8.0) g/dL Albumin (3.5-5.0) g/dL Urine Color Yellow Urine Appearance Clear Urine pH 6.5 (5.0-9.0) Ur Specific [place] 1.010 (1.005-1.025) Urine Protein Negative (Neg-Trace) mg/dL Urine Glucose (UA) Negative (Negative) mg/dL Urine Ketones Negative (Negative) mg/dL Urine Blood Negative (Negative) Urine Nitrite Negative (Negative) Ur Leukocyte Esterase Negative (Negative) Ethyl Alcohol mg/dL COVID-19 (QUITA) (Negative) COVID-19 Clin Com Influenza Type A (EDWIN) (Negative) Influenza Type B (EDWIN) (Negative) Influenza A & B Note Independent Interpretation I performed an independent interpretation of an: EKG (Normal sinus rhythm heart rate 74, normal intervals, no acute ST elevations or depressions, otherwise normal EKG), Plain X-Ray (Chest x-ray, no acute cardiopulmonary disease) and CT Scan (head CT - agree with radiology) Radiology Impression Discussion of test interpretation with radiology: I have reviewed the radiologist's reading. ( CT/CT head/brain wo IV con IMPRESSION: * No intracranial hemorrhage or other acute intracranial pathology compared to 06/23/2021. * Again noted is extensive hypoattenuation within the supratentorial white matter. As previously described, the findings could be sequela of chronic ) Independent Historian Clinical information obtained from an independent historian. History obtained from or confirmed by: EMS External Record Review External record reviewed: Inpatient record Prescription Management I considered prescription management with: Other (IV fluids) Chronic Conditions Patient?s care impacted by: Diabetes Core Measures Measure exclusions: not indicated Discharge Plan Discharge Clinical Impression: Generalized weakness, History of stroke, Chronic constipation, Chronic anemia Prescriptions: No Action atorvastatin 80 mg tablet 1 tab PO DAILY clonidine HCl 0.1 mg tablet 1 tab PO BEDTIME PRN (Reason: Anxiety) clonazepam 0.5 mg tablet 1 tab PO BID PRN (Reason: Anxiety) sertraline 100 mg tablet 2 tab PO QAM hydroxyzine pamoate 50 mg capsule 1 - 2 cap PO BEDTIME PRN (Reason: Sleep) omeprazole 40 mg capsule,delayed release(DR/EC) 1 cap PO DAILY aspirin 81 mg tablet,delayed release (DR/EC) 1 tab PO DAILY lamotrigine 25 mg tablet 1 tab PO BEDTIME albuterol sulfate 90 mcg/actuation HFA aerosol inhaler 2 puff PO QID PRN (Reason: wheezing) lamotrigine 100 mg tablet 1 tab PO QAM levetiracetam 1,000 mg tablet 1 tab PO BID methadone 60 mg PO DAILY cefuroxime axetil 500 mg tablet 500 mg PO BID Qty: 10 0RF oxycodone 5 mg tablet 5 mg PO Q8H PRN (Reason: severe pain (scale score 7-10)) Qty: 8 0RF cyclobenzaprine 10 mg tablet 10 mg PO TID PRN (Reason: muscle spasm) Qty: 14 0RF prednisone 20 mg tablet 40 mg PO DAILY Qty: 10 0RF
[2022-08-12] MEDS: 0.9 % Sodium Chloride 1,000 ML 999 ML IV (09:48)
[2022-08-12 10:16] LABS: COVID-19 Test Negative (Negative); IDNOW Serial# 9DB6401D
[2022-08-12 10:18] LABS: IDNOW Serial# 55D5AD1C; Influenza A Negative (Negative); Influenza B2 Negative (Negative)
--- NOTE | 2022-08-12 10:26 | PC.NURSE ---
Patient sleeping is easily aroused neuros and mentation remain at baseline will CTM
[2022-08-12 11:16] VITALS: BP 93/41; PULSE 63; RESP 18; O2SAT 96
--- NOTE | 2022-08-12 11:37 | PC.NURSE ---
Patient sleeping is easily aroused asked if she took any other medications along with methadone this am and says she took her klonopin.
--- NOTE | 2022-08-12 12:20 | PC.NURSE ---
Daughter called with info on patient who still uses heroin and has history of Benzo abuse MD made aware will CTM
[2022-08-12 13:13] VITALS: BP 134/82; PULSE 65; RESP 16; O2SAT 95
[2022-08-12 13:48] LABS: Ethanol < 10 mg/dL
--- NOTE | 2022-08-12 14:05 | PC.NURSE ---
Patient continues to be somnelent is easily aroeused continues to deny eleicit drug use or over usage of prescribed medications will CTM
[2022-08-12 14:48] VITALS: BP 103/79; PULSE 66; RESP 13; TEMP 36.4; O2SAT 92
[2022-08-12 15:29] LABS: Appearance Urine Clear; Color Urine Yellow; Glucose Urine UA Negative (Negative); Leukocyte Esterase Urine Negative (Negative); Nitrite Urine Negative (Negative); PH 6.5 (5.0-9.0); Urine Blood Negative (Negative); Urine Ketones Negative (Negative); Urine Protein Negative (Neg-Trace)
--- NOTE | 2022-08-12 16:22 | PC.NURSE ---
Patient more awake and agitated made her aware she cant walk home boyfriend called to say he can pick her up at 1830, patient called SOFTWARE ADMINISTRATOR who will pick her up earlier MD aware awaiting arrival of ride for DC.
--- NOTE | 2022-08-12 17:52 | PC.NURSE ---
Patient sleeping easily aroused awaiting ride home will CTM
[2022-08-12 17:58] VITALS: BP 109/79; PULSE 70; RESP 14; O2SAT 98
--- NOTE | 2022-08-12 18:04 | PC.NURSE ---
TELEGRAPHIC INSTRUMENT SUPERVISOR for patient at bedside MD advised saqib pettit is here awaiting discharge dispo to send patient home IV removed catheter tip intact .
--- NOTE | 2022-08-12 18:08 | PC.NURSE ---
Verified with MD cerrato is being discharged provided with DC paperwork
== END 2022-08-12 18:20 | disposition home or self-care (01) ==
PROVIDERS: Emergency Provider Emergency Medicine
DX: I69.834 Monoplegia of upper limb following other cerebrovascular disease affecting left non-dominant side (principal); I69.392 Facial weakness following cerebral infarction; F11.988 Opioid use, unspecified with other opioid-induced disorder; R40.0 Somnolence; K59.09 Other constipation; D64.89 Other specified anemias; Z20.822 Contact with and (suspected) exposure to COVID-19; Z79.899 Other long term (current) drug therapy; Z72.0 Tobacco use
CPT/HCPCS: 36415; 70450; 71045; 80053; 81003; 82077; 84484; 85025; 85610; 87502; 87635; 93005; 96360; 99284; 99285

== ENCOUNTER 2022-08-15 11:03 | Emergency (ER) | payer OTHER, SELFPAY ==
--- NOTE | ~2022-08-15 | XR_ITS ---
EXAMINATION: XR FEMUR, RIGHT CLINICAL INFORMATION: Pain status post fall COMPARISON: None TECHNIQUE: AP and lateral views of the right femur were obtained, reviewed in conjunction with concurrently obtained radiographs of the right hip. FINDINGS: The bones and soft tissues are normal. No fracture. No osseous lesions. XR/XR femur RT 2V IMPRESSION: Normal right femur.
--- NOTE | ~2022-08-15 | XR_ITS ---
EXAMINATION: XR HIP, RIGHT CLINICAL INFORMATION: Right hip pain COMPARISON: None TECHNIQUE: Three views of the right hip. FINDINGS: Bones and soft tissues are normal. No fracture. Alignment is anatomic. Hip joint space is maintained. XR/XR hip RT w PEL1V IMPRESSION: No acute abnormality of the right hip.
[2022-08-15 11:08] VITALS: BP 136/77; PULSE 83; RESP 16; TEMP 36.4; O2SAT 97; BMI 28.1
--- NOTE | 2022-08-15 11:10 | ED_ITS ---
HPI - Fall General Chief Complaint: Fall <ABBIE Muniz Last Filed: 08/15/22 11:13> Stated Complaint: Fall T-1/R hip pain <ABBIE Muniz - Last Filed: 08/15/22 11:13> Time Seen by Provider: 08/15/22 11:16 <ABBIE Muniz - Last Filed: 08/15/22 11:13> Source: patient <ABBIE Balbuena Last Filed: 08/15/22 15:34> Mode of arrival: ambulatory <ABBIE Balbuena Last Filed: 08/15/22 15:34> Limitations: no limitations <ABBIE Balbuena Last Filed: 08/15/22 15:34> History of Present Illness HPI Narrative: Patient is a 57 year old assigned female at with a past medical history of CVA on aspirin, DM, sciatica, narcolepsy, and seizures presenting to the emergency department today with right hip and leg pain. Patient states that last night while walking with a laundry basket up some stairs, she tripped and fell, hitting her right upper leg and right hip. Patient denies hitting her head or any loss of consciousness. Patient denies any dizziness, lightheadedness, abdominal pain, nausea, vomiting, fever, chills, blurry vision, double vision, loss of vision, chest pain, difficulty breathing, shortness of breath, back pain, night sweats, pain with urination, increased urinary frequency, increased urinary urgency, blood in her urine or stool, syncope or a near syncopal episode, bowel incontinence, bladder incontinence, bowel retention, bladder retention, or any other complaints at this time. <ABBIE Balbuena - Last Filed: 08/15/22 15:34> MD complaint: fall <ABBIE Balbuena Last Filed: 08/15/22 15:34> Onset (ago): day(s) (1) <ABBIE Balbuena Last Filed: 08/15/22 15:34> Place fall occurred: home <ABBIE Balbuena Last Filed: 08/15/22 15:34> Loss of consciousness: none <ABBIE Balbuena Last Filed: 08/15/22 15:34> Prolonged down time: no <ABBIE Balbuena - Last Filed: 08/15/22 15:34> Symptoms prior to fall: none <ABBIE Balbuena - Last Filed: 08/15/22 15:34> Context: tripped/slipped <ABBIE Balbuena - Last Filed: 08/15/22 15:34> Severity scale (1-10): 2 <ABBIE Balbuena - Last Filed: 08/15/22 15:34> Associated symptoms (after fall): denies <ABBIE Balbuena - Last Filed: 08/15/22 15:34> Related Data Home Medications: Home Medications Medication Instructions Recorded Confirmed albuterol sulfate 90 mcg/actuation 2 puff PO QID PRN wheezing 09/15/20 02/28/21 aerosol inhaler aspirin 81 mg tablet,delayed 1 tab PO DAILY 09/15/20 02/28/21 release atorvastatin 80 mg tablet 1 tab PO DAILY 09/15/20 02/28/21 clonazepam 0.5 mg tablet 1 tab PO BID PRN Anxiety 09/15/20 02/28/21 clonidine HCl 0.1 mg tablet 1 tab PO BEDTIME PRN Anxiety 09/15/20 02/28/21 hydroxyzine pamoate 50 mg capsule 1 - 2 cap PO BEDTIME PRN Sleep 09/15/20 02/28/21 lamotrigine 100 mg tablet 1 tab PO QAM 09/15/20 02/28/21 lamotrigine 25 mg tablet 1 tab PO BEDTIME 09/15/20 02/28/21 omeprazole 40 mg capsule,delayed 1 cap PO DAILY 09/15/20 02/28/21 release sertraline 100 mg tablet 2 tab PO QAM 09/15/20 02/28/21 levetiracetam 1,000 mg tablet 1 tab PO BID 02/28/21 02/28/21 methadone 60 mg PO DAILY 02/28/21 02/28/21 Previous Rx's Medication Instructions Recorded cefuroxime axetil 500 mg tablet 500 mg PO BID #10 tabs 03/01/21 cyclobenzaprine 10 mg tablet 10 mg PO TID PRN muscle spasm #14 12/11/21 tabs oxycodone 5 mg tablet 5 mg PO Q8H PRN severe pain (scale 12/11/21 score 7-10) #8 tabs prednisone 20 mg tablet 40 mg PO DAILY #10 tabs 12/11/21 <ABBIE Muniz Last Filed: 08/15/22 11:13> Allergies/Adverse Reactions: Allergies Allergy/AdvReac Type Severity Reaction Status Date / Time codeine [CODEINE] Allergy Unknown SWELLING Verified 08/15/22 11:11 hornet venom [HORNETS] Allergy Unknown RASH Verified 08/15/22 11:11 trazodone [TRAZODONE] AdvReac Intermediate VERY Verified 08/15/22 11:11 ANXIOUS, RESTLESSNESS From BENADRYL AdvReac Intermediate RESTLESS Uncoded 10/26/20 15:56 From SEROQUEL AdvReac Intermediate ANXIETY Uncoded 02/05/21 12:32 AND RESTLESSNESS <ABBIE Muniz Last Filed: 08/15/22 11:13> Review of Systems Constitutional: Constitutional: Reports no additional constitutional complaints, Denies chills, Denies fever(s) and Denies night sweats <ABBIE Balbuena Last Filed: 08/15/22 15:34> Eyes: Eyes: Reports no additional eye complaints, Denies blurry vision, Denies change in vision, Denies diplopia, Denies eye discharge, Denies loss of vision and Denies eye pain <ABBIE Balbuena Last Filed: 08/15/22 15:34> ENT: Denies dizziness <ABBIE Balbuena Last Filed: 08/15/22 15:34> Cardiovascular: Cardiovascular: Reports no additional cardiovascular complaints, Denies chest pain, Denies lightheadedness, Denies Loss of Consciousness and Denies dyspnea <ABBIE Balbuena Last Filed: 08/15/22 15:34> Respiratory: Respiratory: Reports no additional respiratory complaints and Denies dyspnea <ABBIE Balbuena Last Filed: 08/15/22 15:34> Gastrointestinal: Gastrointestinal: Reports no additional gastrointestinal complaints, Denies abdominal pain, Denies melena, Denies hematochezia, Denies change in bowel habits and Denies change in stool character <ABBIE Balbuena Last Filed: 08/15/22 15:34> Genitourinary: Genitourinary: Denies hematuria, Denies urinary frequency, Denies dysuria, Denies urinary incontinence, Denies urinary hesitancy and Denies urinary urgency <ABBIE Balbuena - Last Filed: 08/15/22 15:34> Musculoskeletal: Musculoskeletal: Reports no additional musculoskeletal complaints, Denies numbness and Denies tingling <ABBIE Balbuena - Last Filed: 08/15/22 15:34> Comments: right hip and right upper leg pain <ABBIE aBlbuena - Last Filed: 08/15/22 15:34> Neurologic: Denies dizziness, Denies loss of vision, Denies numbness and Denies tingling <ABBIE Balbuena - Last Filed: 08/15/22 15:34> Psychiatric: Psychiatric: Reports no additional psychiatric complaints <ABBIE Balbuena - Last Filed: 08/15/22 15:34> Endocrine: Endocrine: Reports no additional endocrine complaints <ABBIE Balbuena - Last Filed: 08/15/22 15:34> Hematologic/Lymphatic: Hematologic/Lymphatic: Reports no additional hematologic/lymphatic complaints <ABBIE Balbuena - Last Filed: 08/15/22 15:34> Allergic/Immunologic: Allergic/Immunologic: Reports no additional allergic/immunologic complaints <ABBIE Balbuena - Last Filed: 08/15/22 15:34> [facility] Past Medical History Attestation statement: The following information was validated with the patient. <ABBIE Balbuena - Last Filed: 08/15/22 15:34> Source: old records reviewed and nursing notes reviewed <ABBIE Balbuena - Last Filed: 08/15/22 15:34> Medical History: Medical History Anxiety CVA (cerebral vascular accident) Diabetes Hyperlipidemia Left knee injury Patent ductus arteriosus Seizure <ABBIE Muniz - Last Filed: 08/15/22 11:13> Surgical History: Surgical History H/O left knee surgery Hx of tonsillectomy <ABBIE Muniz - Last Filed: 08/15/22 11:13> Social History Social History: Social History Household Members: Other Housing: Other Housing Other:: [address] Do you presently have visiting nurse or other home services: Yes Alcohol intake: unknown Patient Tobacco Use Status: Current everyday Tobacco user Tobacco use type: Cigarette Substance Use Type: Opiates Advance Directives: No Advance Directives Information Provided: Yes service: No Current occupational status: unemployed <ABBIE Muniz - Last Filed: 08/15/22 11:13> Physical Exam Vital Signs: Vital Signs: Last Vital Signs Temp 97.5 F 08/15/22 11:08 Pulse 83 08/15/22 11:08 Resp 16 08/15/22 11:08 BP 136/77 08/15/22 11:08 Pulse Ox 97 08/15/22 11:08 O2 Del Method 08/15/22 11:08 BMI result Body Mass Index 28.1 <ABBIE Muniz - Last Filed: 08/15/22 11:13> Vital Signs: Last Vital Signs Temp 97.5 F 08/15/22 11:08 Pulse 83 08/15/22 11:08 Resp 16 08/15/22 11:08 BP 136/77 08/15/22 11:08 Pulse Ox 97 08/15/22 11:08 O2 Del Method 08/15/22 11:08 BMI result Body Mass Index 28.1 <ABBIE Balbuena - Last Filed: 08/15/22 15:34> Const: General: cooperative, no acute distress, alert and awake <ABBIE Balbuena - Last Filed: 08/15/22 15:34> Nutritional Appearance: well nourished <ABBIE Balbuena - Last Filed: 08/15/22 15:34> Orientation/consciousness: patient oriented x3 <ABBIE Balbuena - Last Filed: 08/15/22 15:34> Limitations: no limitations <ABBIE Balbuena - Last Filed: 08/15/22 15:34> HEENT: Head: Yes normal to inspection and Yes atraumatic <ABBIE Balbuena Last Filed: 08/15/22 15:34> Ears: hearing grossly normal bilaterally and external ears normal <ABBIE Balbuena - Last Filed: 08/15/22 15:34> General nose exam: Normal external nose present, no nasal discharge noted and no epistaxis <Raina Scott PA - Last Filed: 08/15/22 15:34> Face and sinus: Yes normal facial exam, No abrasion and No laceration <Raina Scott PA - Last Filed: 08/15/22 15:34> Mouth: Normal oral and palatal mucosa present, no drooling and no muffled voice <Raina Scott PA - Last Filed: 08/15/22 15:34> Eyes: General: appearance normal, both eyes and all related structures <Raina Scott PA - Last Filed: 08/15/22 15:34> Periorbital: periorbital findings normal <Raina Scott PA - Last Filed: 08/15/22 15:34> Eyelids: Yes eyelids normal <Raina Scott PA - Last Filed: 08/15/22 15:34> Conjunctivae: conjunctivae normal <Raina Yeeeyal PA - Last Filed: 08/15/22 15:34> Pupils: Equal, round and reactive pupils present <Raina Scott PA - Last Filed: 08/15/22 15:34> EOM: EOMs intact bilaterally <Raina Yeeyeal PA - Last Filed: 08/15/22 15:34> Neck: Neck: Yes normal visual inspection, Yes full ROM and Yes no lymphadenopathy <Raina Yeeeyal PA - Last Filed: 08/15/22 15:34> Chest: Chest palpation & inspection: normal inspection of the chest <Raina Yeeeyal PA - Last Filed: 08/15/22 15:34> Resp: Effort & Inspection: normal respiratory effort and able to speak in complete sentences <Raina Yeeeyal PA - Last Filed: 08/15/22 15:34> Auscultation: clear to auscultation bilaterally <Raina Yeeeyal PA - Last Filed: 08/15/22 15:34> Cardio: Rate: regular rate <Raina Yeeeyal PA - Last Filed: 08/15/22 15:34> Rhythm: regular rhythm <Raina Tyler PA - Last Filed: 08/15/22 15:34> GI: Inspection: Yes normal to inspection <ABBIE Balbuena - Last Filed: 08/15/22 15:34> Palpation (GI): Soft to palpation, not firm, nontender, no guarding and not rigid <Raina Scott PA - Last Filed: 08/15/22 15:34> Neuro: General: patient oriented x3 and moves all extremities <Raina Scott PA - Last Filed: 08/15/22 15:34> Cranial nerves: Yes Equal, round and reactive pupils present <Raina Scott PA - Last Filed: 08/15/22 15:34> Cognition (Neuro): normal cognition <Raina Scott PA - Last Filed: 08/15/22 15:34> Motor exam (neuro): 5/5 motor strength present throughout <Raina Scott PA - Last Filed: 08/15/22 15:34> Sensory Exam: Normal double simultaneous stimulation for sensation <Raina Scott PA - Last Filed: 08/15/22 15:34> Coordination: [id number] test normal <Raina Scott PA - Last Filed: 08/15/22 15:34> Extrem: Other: bruising present to the right superiorlateral thigh <Raina Scott PA - Last Filed: 08/15/22 15:34> General: Yes full ROM and Yes capillary refill normal <Raina Scott PA - Last Filed: 08/15/22 15:34> Psych: Appearance: grossly normal <Raina Scott PA - Last Filed: 08/15/22 15:34> Mental Status: mental status grossly normal <Raina Scott PA - Last Filed: 08/15/22 15:34> Affect: normal affect <Raina Scott PA - Last Filed: 08/15/22 15:34> Attitude: cooperative <Raina Scott PA - Last Filed: 08/15/22 15:34> Thought process: Normal thought process present <Raina Scott PA - Last Filed: 08/15/22 15:34> Thought content: Normal thought content present <Raina Scott PA - Last Filed: 08/15/22 15:34> Insight: Good insight present (Psych) <Raina Scott PA - Last Filed: 08/15/22 15:34> Course Course Course Narrative: Rapid medial examination - 57 y/o female with history of CVA on aspirin, PNA, DM, sciatica, narcolepsy, seizures who present w/ right hip and right thigh pain s/p trip and fall up the stairs while carrying a laundry basket last night. Reports large ecchymotic area on the right thigh. Can barely walk. Brief exam with taught firm skin proximal thigh with ecchymosis. Will start with XRs but may need labs and further imaging to r/o bleeding hematoma. Plan per provider in the main ER. <ABBIE Muniz - Last Filed: 08/15/22 11:13> Medical Decision Making Medical Decision Making MDM Narrative: Patient is a 57 year old assigned female at with a history of CVA on aspirin, DM, sciatica, narcolepsy, and seizures, presenting to the emergency department today with right sided hip and upper leg pain. Patient's physical exam showed bruising to the right superiorlateral thigh but was otherwise unremarkable. Patient's right hip and femur x-rays showed no acute process. I explained my physical exam findings as well as all test results to the patient. I answered all questions asked by the patient. I stressed the importance of the patient taking her medication as prescribed. I stressed the importance of the patient following up with her primary care provider. I stressed the importance of the patient returning to the emergency department immediately if her symptoms were to worsen or if she were to develop any dizziness, shortness of breath, difficulty breathing, chest pain, blurry vision, loss of vision, nausea, vomiting, abdominal pain, fever, chills, back pain, or any other complaints. Patient verbalized agreement and understanding with this treatment plan and discharge. <ABBIE Balbuena - Last Filed: 08/15/22 15:34> Differential Diagnosis Differential Diagnoses: The differential diagnosis associated with the presentation includes <ABBIE Balbuena - Last Filed: 08/15/22 15:34> hematoma, contusion <ABBIE Balbuena - Last Filed: 08/15/22 15:34> Radiology Impression Radiologist Impression: My interpretation is in agreement with the radiologist's impression of these imaging studies. EXAMINATION: XR FEMUR, RIGHT CLINICAL INFORMATION: Pain status post fall? COMPARISON: None? TECHNIQUE: AP and lateral views of the right femur were obtained, reviewed in conjunction with concurrently obtained radiographs of the right hip. FINDINGS: The bones and soft tissues are normal. No fracture. No osseous lesions. ? XR/XR femur RT 2V IMPRESSION: Normal right femur. Dictated By: Jose Alexander MD Signed By: Electronically signed by Jose Alexander MD 08/15/22 1301 EXAMINATION: XR HIP, RIGHT CLINICAL INFORMATION: Right hip pain COMPARISON: None TECHNIQUE: Three views of the right hip. FINDINGS: Bones and soft tissues are normal. No fracture. Alignment is anatomic. Hip joint space is maintained.? XR/XR hip RT w PEL1V IMPRESSION: No acute abnormality of the right hip. Dictated By: Jose Alexander MD Signed By: Electronically signed by Jose Alexander MD 08/15/22 1301 <ABBIE Balbuena - Last Filed: 08/15/22 15:34> Discharge Plan Discharge Clinical Impression: Fall <ABBIE Muniz - Last Filed: 08/15/22 11:13> Patient Disposition: Home, Self-Care <ABBIE Muniz - Last Filed: 08/15/22 11:13> Instructions: Fall Prevention (ED) <ABBIE Muniz - Last Filed: 08/15/22 11:13> Additional Instructions: Follow up with your primary care provider. Return to the emergency department immediately if your symptoms worsen or if you develop any dizziness, shortness of breath, difficulty breathing, chest pain, blurry vision, loss of vision, nausea, vomiting, abdominal pain, fever, chills, back pain, or any other complaints. <ABBIE Muniz - Last Filed: 08/15/22 11:13> Prescriptions: No Action atorvastatin 80 mg tablet 1 tab PO DAILY clonidine HCl 0.1 mg tablet 1 tab PO BEDTIME PRN (Reason: Anxiety) clonazepam 0.5 mg tablet 1 tab PO BID PRN (Reason: Anxiety) sertraline 100 mg tablet 2 tab PO QAM hydroxyzine pamoate 50 mg capsule 1 - 2 cap PO BEDTIME PRN (Reason: Sleep) omeprazole 40 mg capsule,delayed release(DR/EC) 1 cap PO DAILY aspirin 81 mg tablet,delayed release (DR/EC) 1 tab PO DAILY lamotrigine 25 mg tablet 1 tab PO BEDTIME albuterol sulfate 90 mcg/actuation HFA aerosol inhaler 2 puff PO QID PRN (Reason: wheezing) lamotrigine 100 mg tablet 1 tab PO QAM levetiracetam 1,000 mg tablet 1 tab PO BID methadone 60 mg PO DAILY cefuroxime axetil 500 mg tablet 500 mg PO BID Qty: 10 0RF oxycodone 5 mg tablet 5 mg PO Q8H PRN (Reason: severe pain (scale score 7-10)) Qty: 8 0RF cyclobenzaprine 10 mg tablet 10 mg PO TID PRN (Reason: muscle spasm) Qty: 14 0RF prednisone 20 mg tablet 40 mg PO DAILY Qty: 10 0RF <ABBIE Muniz - Last Filed: 08/15/22 11:13> Referrals: [facility] Family [facility] [Provider Group] (Call to establish and follow up with a primary care provider. If you already have a primary care provider, please follow up with them. ) [facility] [Provider Group] (Call to establish and follow up with a primary care provider. If you already have a primary care provider, please follow up with them. ) [facility] [Provider Group] (Call to establish and follow up with a primary care provider. If you already have a primary care provider, please follow up with them. ) <ABBIE Muniz - Last Filed: 08/15/22 11:13> Interventions: ED Discharge Assessment Last Done: 08/15/22 13:10 <ABBIE Muniz - Last Filed: 08/15/22 11:13> Discharge Date/Time: 08/15/22 13:12 <ABBIE Muniz - Last Filed: 08/15/22 11:13> Print Language: Malay <ABBIE Muniz - Last Filed: 08/15/22 11:13>
== END 2022-08-15 13:12 | disposition home or self-care (01) ==
PROVIDERS: Emergency Provider Emergency Medicine
DX: S70.11XA Contusion of right thigh, initial encounter (principal); W17.89XA Other fall from one level to another, initial encounter; E11.9 Type 2 diabetes mellitus without complications; E78.5 Hyperlipidemia, unspecified; Z86.73 Personal history of transient ischemic attack (TIA), and cerebral infarction without residual deficits; Z79.82 Long term (current) use of aspirin; Z79.02 Long term (current) use of antithrombotics/antiplatelets; Z79.899 Other long term (current) drug therapy; F17.210 Nicotine dependence, cigarettes, uncomplicated; Y93.E2 Activity, laundry; Y92.048 Other place in boarding-house as the place of occurrence of the external cause; Y99.9 Unspecified external cause status
CPT/HCPCS: 73502; 73552; 99282; 99283

== ENCOUNTER 2022-10-19 08:08 | Emergency (ER) | payer OTHER, SELFPAY ==
--- NOTE | ~2022-10-19 | XR_ITS ---
EXAMINATION: XR ANKLE, RIGHT CLINICAL INFORMATION: Right ankle pain COMPARISON: None available. TECHNIQUE: AP, lateral, and mortise views of the right ankle. FINDINGS: The mortise is intact. There is no fracture or destructive process or alignment abnormality. Base of the fifth metatarsal is intact. XR/XR ankle RT 2V IMPRESSION: No acute abnormalities.
[2022-10-19 08:29] VITALS: BP 140/84; PULSE 68; RESP 18; TEMP 36.1; O2SAT 97; BMI 26.6
--- NOTE | 2022-10-19 08:54 | ED_ITS ---
HPI - General Adult General Chief complaint: General Medical Stated complaint: R ankle pain Time Seen by Provider: 10/19/22 08:53 Source: patient Mode of arrival: ambulatory Limitations: no limitations History of Present Illness HPI narrative: Patient is a 57 year old assigned female at with no reported medical history presenting to the emergency department today with right ankle pain. Patient states that weeks ago she twisted her right ankle and it is still bothering her. Patient states that she told the triage nurse other stuff but is just concerned about her right ankle at this time. Patient denies any dizziness, lightheadedness, abdominal pain, nausea, vomiting, fever, chills, blurry vision, double vision, loss of vision, chest pain, difficulty breathing, shortness of breath, back pain, night sweats, pain with urination, increased urinary frequency, increased urinary urgency, blood in her urine or stool, syncope or a near syncopal episode, bowel incontinence, bladder incontinence, bowel retention, bladder retention, or any other complaints at this time. Onset (ago): week(s) Location: right and lower extremity Radiation: non-radiation Severity: mild Severity scale (1-10): 4 Quality: aching and dull Pain Consistency: constant Relieving factors: none Exacerbating factors: movement Associated symptoms: denies other symptoms Treatments prior to arrival: none Related Data Home Medications Medication Instructions Recorded Confirmed albuterol sulfate 90 mcg/actuation 2 puff PO QID PRN wheezing 09/15/20 02/28/21 aerosol inhaler aspirin 81 mg tablet,delayed 1 tab PO DAILY 09/15/20 02/28/21 release atorvastatin 80 mg tablet 1 tab PO DAILY 09/15/20 02/28/21 clonazepam 0.5 mg tablet 1 tab PO BID PRN Anxiety 09/15/20 02/28/21 clonidine HCl 0.1 mg tablet 1 tab PO BEDTIME PRN Anxiety 09/15/20 02/28/21 hydroxyzine pamoate 50 mg capsule 1 - 2 cap PO BEDTIME PRN Sleep 09/15/20 02/28/21 lamotrigine 100 mg tablet 1 tab PO QAM 09/15/20 02/28/21 lamotrigine 25 mg tablet 1 tab PO BEDTIME 09/15/20 02/28/21 omeprazole 40 mg capsule,delayed 1 cap PO DAILY 09/15/20 02/28/21 release sertraline 100 mg tablet 2 tab PO QAM 09/15/20 02/28/21 levetiracetam 1,000 mg tablet 1 tab PO BID 02/28/21 02/28/21 methadone 60 mg PO DAILY 02/28/21 02/28/21 Previous Rx's Medication Instructions Recorded cefuroxime axetil 500 mg tablet 500 mg PO BID #10 tabs 03/01/21 cyclobenzaprine 10 mg tablet 10 mg PO TID PRN muscle spasm #14 12/11/21 tabs oxycodone 5 mg tablet 5 mg PO Q8H PRN severe pain (scale 12/11/21 score 7-10) #8 tabs prednisone 20 mg tablet 40 mg PO DAILY #10 tabs 12/11/21 Allergies Allergy/AdvReac Type Severity Reaction Status Date / Time codeine [CODEINE] Allergy Unknown SWELLING Verified 08/15/22 11:11 hornet venom [HORNETS] Allergy Unknown RASH Verified 08/15/22 11:11 trazodone [TRAZODONE] AdvReac Intermediate VERY Verified 08/15/22 11:11 ANXIOUS, RESTLESSNESS From BENADRYL AdvReac Intermediate RESTLESS Uncoded 10/26/20 15:56 From SEROQUEL AdvReac Intermediate ANXIETY Uncoded 02/05/21 12:32 AND RESTLESSNESS Review of Systems Constitutional: Constitutional: Reports no additional constitutional complaints, Denies chills, Denies fever(s) and Denies night sweats Eyes: Eyes: Reports no additional eye complaints, Denies blurry vision, Denies change in vision, Denies diplopia, Denies eye discharge, Denies loss of vision and Denies eye pain ENT: Denies dizziness Cardiovascular: Cardiovascular: Reports no additional cardiovascular complaints, Denies chest pain, Denies lightheadedness, Denies Loss of Consciousness and Denies dyspnea Respiratory: Respiratory: Reports no additional respiratory complaints and Denies dyspnea Gastrointestinal: Gastrointestinal: Reports no additional gastrointestinal complaints, Denies abdominal pain, Denies melena, Denies hematochezia, Denies change in bowel habits and Denies change in stool character Genitourinary: Genitourinary: Denies hematuria, Denies urinary frequency, Denies dysuria, Denies urinary incontinence, Denies urinary hesitancy and Denies urinary urgency Musculoskeletal: Musculoskeletal: Reports no additional musculoskeletal complaints, Denies numbness and Denies tingling Comments: right ankle pain Neurologic: Denies dizziness, Denies loss of vision, Denies numbness and Denies tingling Psychiatric: Psychiatric: Reports no additional psychiatric complaints Endocrine: Endocrine: Reports no additional endocrine complaints Hematologic/Lymphatic: Hematologic/Lymphatic: Reports no additional hematologic/lymphatic complaints Allergic/Immunologic: Allergic/Immunologic: Reports no additional allergi c/immunologic complaints PMFSH Past Medical History Attestation statement: The following information was validated with the patient. Source: old records reviewed and nursing notes reviewed Medical History Anxiety CVA (cerebral vascular accident) Diabetes Hyperlipidemia Left knee injury Patent ductus arteriosus Seizure Surgical History H/O left knee surgery Hx of tonsillectomy Social History Social History Household Members: Other Housing: Other Housing Other:: [facility] [facility] Do you presently have visiting nurse or other home services: Yes Alcohol intake: unknown Patient Tobacco Use Status: Current everyday Tobacco user Tobacco use type: Cigarette Substance Use Type: Opiates Advance Directives: No Advance Directives Information Provided: No service: No Current occupational status: unemployed Physical Exam ED Vital Signs: Vital Signs - 24 hr 10/19/22 08:29 Temperature 97.0 F Pulse Rate 68 Respiratory Rate 18 Blood Pressure 140/84 H Pulse Oximetry 97 Oxygen Delivery Method Room Air BMI result Body Mass Index 26.6 Const General: cooperative, no acute distress, alert and awake Nutritional Appearance: well nourished Orientation/consciousness: patient oriented x3 Limitations: no limitations [facility]: Yes normal to inspection and Yes atraumatic Ears: hearing grossly normal bilaterally and external ears normal General nose exam: Normal external nose present, no nasal discharge noted and no epistaxis Face and sinus: Yes normal facial exam, No abrasion and No laceration Mouth: Normal oral and palatal mucosa present, no drooling and no muffled voice Eyes General: appearance normal, both eyes and all related structures Periorbital: periorbital findings normal Eyelids: Yes eyelids normal Conjunctivae: conjunctivae normal Pupils: Equal, round and reactive pupils present EOM: EOMs intact bilaterally Neck Neck: Yes normal visual inspection, Yes full ROM and Yes no lymphadenopathy Chest Chest palpation & inspection: normal inspection of the chest Resp Effort & Inspection: normal respiratory effort and able to speak in complete sentences Auscultation: clear to auscultation bilaterally Cardio Rate: regular rate Rhythm: regular rhythm GI Inspection: Yes normal to inspection Palpation (GI): Soft to palpation, not firm, nontender and no guarding Neuro General: patient oriented x3 and moves all extremities Cranial nerves: Yes Equal, round and reactive pupils present Cognition (Neuro): normal cognition Motor exam (neuro): 5/5 motor strength present throughout Sensory Exam: Normal double simultaneous stimulation for sensation Coordination: [id number] test normal Extrem General: Yes normal to inspection, Yes full ROM and Yes capillary refill normal Psych Appearance: grossly normal Mental Status: mental status grossly normal Affect: normal affect Attitude: cooperative Thought process: Normal thought process present Thought content: Normal thought content present Insight: Good insight present (Psych) Procedures Orthopedic Splinting/Casting Injury #1: Side: right Lower Extremity Injury Location: ankle Lower Extremity Immobilizer: Jay Jay wrap Other Orthopedic Equipment: crutches Medical Decision Making Medical Decision Making [facility] Narrative: Patient is a 57 year old assigned female at with no reported medical history presenting to the emergency department today with right ankle pain. Patient's physical exam was unremarkable. Patient's blood work was unremarkable. Patient's right ankle x-ray showed no acute process. I explained my physical exam findings as well as all test results to the patient. I answered all questions asked by the patient. Patient's right ankle was wrapped and she was given crutches with crutch instructions. Patient's PMS was in tact prior to and after wrapping. I stressed the importance of the patient taking her medication as prescribed. I stressed the importance of the patient following up with her primary care provider and an orthopedic provider. I stressed the importance of the patient returning to the emergency department immediately if her symptoms were to worsen or if she were to develop any dizziness, shortness of breath, difficulty breathing, chest pain, blurry vision, loss of vision, nausea, vomiting, abdominal pain, fever, chills, back pain, or any other complaints. Patient verbalized agreement and understanding with this treatment plan and discharge. Differential Diagnosis Differential Diagnoses: The differential diagnosis associated with the presentation includes sprained ankle Lab Data [facility] Lab Attestation statement: I reviewed the patient's lab results. 03/29/23 08:52 10/19/22 08:52 Labs: Lab Results 10/19/22 10/19/22 10/19/22 Range/Units 08:52 08:52 09:07 WBC 9.4 (4.8-10.8) X10*3/uL RBC 4.73 (4.20-5.50) X10*6/uL Hgb 12.2 (12.0-16.0) g/dl Hct 39.1 (37.0-47.0) % MCV 82.7 (80.0-98.0) fL MCH 25.8 L (27.0-33.0) pg MCHC 31.2 (31.0-35.0) g/dl RDW 14.5 (11.0-16.0) % Plt Count 289 (160-400) X10*3/uL MPV 9.9 (9.4-12.3) fL Immature Gran % (Auto) 0.3 (0.0-0.4) % Neut % (Auto) 57.5 (45-73) % Lymph % (Auto) 32.9 (20-40) % [place] % (Auto) 5.4 (2-11) % Eos % (Auto) 3.4 (0-4) % Baso % (Auto) 0.5 (0-2) % Lymph # (Auto) 3.1 (1.2-4.9) X10*3/uL [place] # (Auto) 0.5 (0.1-1.2) X10*3/uL Eos # (Auto) 0.3 (0.0-0.4) X10*3/uL Baso # (Auto) 0.1 (0.0-0.2) X10*3/uL Abs Immat Gran (auto) 0.03 (0.00-0.03) X10*3/uL Absolute Neuts (auto) 5.4 (2.0-8.3) x10*3/uL Absolute Nucleated RBC 0.000 (0.0-0.012) X10*3/uL Nucleated RBC % (auto) 0.0 (0.0-0.2) /100WBC Sodium 143 (135-145) mmol/L Potassium 4.3 (3.3-5.1) mmol/L Chloride 106 (96-108) mmol/L Carbon Dioxide 28 (22-29) mmol/L Anion Gap 13 (12-20) BUN 10 (9-16) mg/dL Creatinine 0.94 (0.5-1.4) mg/dL Estim Creat Clear Calc 70.6 Estimated GFR > 60 Random Glucose 75 (60-115) mg/dL Calcium 9.3 (8.4-10.2) mg/dL Total Bilirubin 0.3 (0.0-1.0) mg/dL AST 22 (5-31) U/L ALT 34 H (0-31) U/L Alkaline Phosphatase 96 (39-117) U/L Total Protein 7.1 (6.5-8.0) g/dL Albumin 4.1 (3.5-5.0) g/dL Urine Color Yellow Urine Appearance Cloudy Urine pH 5.5 (5.0-9.0) Ur Specific [place] 1.015 (1.005-1.025) Urine Protein Negative (Neg-Trace) mg/dL Urine Glucose (UA) Negative (Negative) mg/dL Urine Ketones Negative (Negative) mg/dL Urine Blood Negative (Negative) Urine Nitrite Negative (Negative) Ur Leukocyte Esterase Trace H (Negative) Urine RBC 0-2 (0-2) /HPF Urine WBC 6-10 H (0-5) /HPF Ur Squamous Epith Cells >20 (0-2) /HPF Urine Bacteria 2+ (None Seen) Hyaline Casts 0-2 (0-2) /LPF Independent Interpretation I performed an independent interpretation of an: Plain X-Ray Interpretation: My interpretation is in agreement with the radiologist's impression of this im aging study. EXAMINATION: XR ANKLE, RIGHT CLINICAL INFORMATION: Right ankle pain? COMPARISON: None available.? TECHNIQUE: AP, lateral, and mortise views of the right ankle. FINDINGS: The mortise is intact. There is no fracture or destructive process or alignment abnormality. Base of the fifth metatarsal is intact.? XR/XR ankle RT 2V IMPRESSION: No acute abnormalities. Dictated By: Eldon Kwan MD Signed By: Electronically signed by Eldon Kwan MD 10/19/22 0931 Discharge Plan Discharge Clinical Impression: Ankle sprain Patient Disposition: Home, Self-Care Instructions: Ankle Sprain (DC) Additional Instructions: Follow up with your primary care provider and an orthopedic provider. Return to the emergency department immediately if your symptoms worsen or if you develop any dizziness, shortness of breath, difficulty breathing, chest pain, blurry vision, loss of vision, nausea, vomiting, abdominal pain, fever, chills, back pain, or any other complaints. Prescriptions: No Action atorvastatin 80 mg tablet 1 tab PO DAILY clonidine HCl 0.1 mg tablet 1 tab PO BEDTIME PRN (Reason: Anxiety) clonazepam 0.5 mg tablet 1 tab PO BID PRN (Reason: Anxiety) sertraline 100 mg tablet 2 tab PO QAM hydroxyzine pamoate 50 mg capsule 1 - 2 cap PO BEDTIME PRN (Reason: Sleep) omeprazole 40 mg capsule,delayed release(DR/EC) 1 cap PO DAILY aspirin 81 mg tablet,delayed release (DR/EC) 1 tab PO DAILY lamotrigine 25 mg tablet 1 tab PO BEDTIME albuterol sulfate 90 mcg/actuation HFA aerosol inhaler 2 puff PO QID PRN (Reason: wheezing) lamotrigine 100 mg tablet 1 tab PO QAM levetiracetam 1,000 mg tablet 1 tab PO BID methadone 60 mg PO DAILY cefuroxime axetil 500 mg tablet 500 mg PO BID Qty: 10 0RF oxycodone 5 mg tablet 5 mg PO Q8H PRN (Reason: severe pain (scale score 7-10)) Qty: 8 0RF cyclobenzaprine 10 mg tablet 10 mg PO TID PRN (Reason: muscle spasm) Qty: 14 0RF prednisone 20 mg tablet 40 mg PO DAILY Qty: 10 0RF Referrals: [facility] [Provider Group] (Call to establish and follow up with a primary care provider. If you already have a primary care provider, please follow up with them.) [facility] [Provider Group] (Call to establish and follow up with a primary care provider. If you already have a primary care provider, please follow up with them.) [facility] [Provider Group] (Call to establish and follow up with a primary care provider. If you already have a primary care provider, please follow up with them.) [facility] [place] Group] (Call to establish and follow up with an orthopedic provider. ) Stand Alone Forms: Work/School Release Interventions: ED Discharge Assessment Last Done: 10/19/22 10:35 Discharge Date/Time: 10/19/22 10:35 Print Language: Slovenian
[2022-10-19 08:56] LABS: MANUAL DIFF FLAG NO
[2022-10-19 08:58] LABS: Basophils Absolute Auto 0.1 X10*3/uL (0.0-0.2); Basophils Percent Auto 0.5 % (0-2); Eosinophils Absolute Auto 0.3 X10*3/uL (0.0-0.4); Eosinophils Percent Auto 3.4 % (0-4); Hematocrit 39.1 % (37.0-47.0); Hemoglobin 12.2 g/dl (12.0-16.0); Imm Gran Abs Auto 0.03 X10*3/uL (0.00-0.03); Imm Gran Pct Auto 0.3 % (0.0-0.4); Lymphocytes Absolute Auto 3.1 X10*3/uL (1.2-4.9); Lymphocytes Percent Auto 32.9 % (20-40); Mean Corpuscular HGB Conc 31.2 g/dl (31.0-35.0); Mean Corpuscular Hemoglobin 25.8 pg (27.0-33.0); Mean Corpuscular Volume 82.7 fL (80.0-98.0); Mean Platelet Volume 9.9 fL (9.4-12.3); Monocytes Absolute Auto 0.5 X10*3/uL (0.1-1.2); Monocytes Percent Auto 5.4 % (2-11); Neutrophils Absolute Auto 5.4 x10*3/uL (2.0-8.3); Neutrophils Percent Auto 57.5 % (45-73); Platelet Count 289 X10*3/uL (160-400); Red Blood Count 4.73 X10*6/uL (4.20-5.50); Red Cell Distribution Width 14.5 % (11.0-16.0); White Blood Count 9.4 X10*3/uL (4.8-10.8)
[2022-10-19 09:14] LABS: Alanine Aminotransferase 34 U/L (0-31); Albumin Level 4.1 g/dL (3.5-5.0); Alkaline Phosphatase 96 U/L (39-117); Anion Gap 13 (12-20); Aspartate Amino Transferase 22 U/L (5-31); Bilirubin Total 0.3 mg/dL (0.0-1.0); Blood Urea Nitrogen 10 mg/dL (9-16); Calcium 9.3 mg/dL (8.4-10.2); Carbon Dioxide 28 mmol/L (22-29); Chloride 106 mmol/L (96-108); Creatinine Clr Calc Pharmacy 70.6; Estimated Glomerular Filt Rate > 60; Glucose Random 75 mg/dL (60-115); Potassium 4.3 mmol/L (3.3-5.1); Sodium 143 mmol/L (135-145); Total Protein 7.1 g/dL (6.5-8.0)
[2022-10-19 09:18] LABS: Appearance Urine Cloudy; Color Urine Yellow; Glucose Urine UA Negative (Negative); Leukocyte Esterase Urine Trace (Negative); Nitrite Urine Negative (Negative); PH 5.5 (5.0-9.0); Specific Gravity - Urine 1.015 (1.005-1.025); UMIC TRIGGER UACC YES; Urine Blood Negative (Negative); Urine Ketones Negative (Negative); Urine Protein Negative (Neg-Trace)
[2022-10-19 09:20] LABS: Bacteria Urine 2+ (None Seen); Hyaline Casts Urine 0-2 /LPF (0-2); RBC Urine 0-2 /HPF (0-2); Squamous Epithelial Cell Urine >20 /HPF (0-2); UACC Culture Trigger YES
== END 2022-10-19 10:35 | disposition home or self-care (01) ==
PROVIDERS: Emergency Provider Emergency Medicine
DX: S93.401A Sprain of unspecified ligament of right ankle, initial encounter (principal); M25.571 Pain in right ankle and joints of right foot; X58.XXXA Exposure to other specified factors, initial encounter; Y93.9 Activity, unspecified; Y92.9 Unspecified place or not applicable; Y99.9 Unspecified external cause status; Z79.899 Other long term (current) drug therapy
CPT/HCPCS: 36415; 73600; 80053; 81001; 85025; 87086; 99282; 99283

== ENCOUNTER 2023-01-18 14:06 | Emergency (ER) | payer OTHER, SELFPAY ==
--- NOTE | ~2023-01-18 | XR_ITS ---
EXAMINATION: XR LUMBOSACRAL SPINE CLINICAL INFORMATION: Lower back pain. COMPARISON: 12/26/2006 TECHNIQUE: Three views of the lumbosacral spine. FINDINGS: There are 5 nonrib-bearing lumbar vertebral bodies. There is rightward curvature of the lumbar spine centered at L2-L3. Normal sagittal alignment. Vertebral body heights are maintained. Mild intervertebral disc space narrowing at L2-L3. Facet hypertrophy at L5-S1. Multilevel ventral marginal osteophytes L2-L4. 1.2 cm rounded calcification projecting over the right upper quadrant may represent a gallstone. XR/XR lumbar spine 2-3V IMPRESSION: Dextroscoliosis. Mild degenerative disc disease L2-L3. Possible 1.2 cm gallstone.
--- NOTE | ~2023-01-18 | US_ITS ---
EXAMINATION: US ABDOMEN LIMITED CLINICAL INFORMATION: Right upper quadrant pain. COMPARISON: Prior ultrasound 2013 TECHNIQUE: Real-time imaging of the right upper quadrant abdominal viscera. FINDINGS: PANCREAS: The visualized portion of the pancreas head and body are normal, portion of the pancreatic body and tail, not visualized are obscured by bowel gas. LIVER: There is a cyst in the right lobe of the liver 3.2 x 2.5 cm x 3.1. The liver is normal in size. The liver contour is normal. Parenchymal echogenicity is normal. No focal hepatic lesion. There is no intrahepatic biliary duct dilatation seen. GALLBLADDER: Normal. The gallbladder is physiologically distended without evidence of stones, sludge, polyps, wall thickening or pericholecystic fluid. COMMON BILE DUCT: Normal in caliber measuring 0.3 and 0.5 cm in diameter. RIGHT KIDNEY: Normal. No hydronephrosis. No renal calculi or focal parenchymal lesions. The kidney measures 10.5 cm in maximum dimension. FREE FLUID: None. US/US abdomen limited IMPRESSION: * No ultrasound evidence of gallbladder disease or gallstones. * There is a cyst in the right lobe of the liver 3.2 cm. Exam otherwise normal. * No ultrasound explanation for patient's pain symptoms, if patient remain symptomatic consider correlation with follow-up cross-sectional imaging CT scan or MRI with contrast.
[2023-01-18 14:13] VITALS: BP 118/72; BP 120/69; PULSE 84; PULSE 97; RESP 16; TEMP 36.3; O2SAT 96; O2SAT 97; BMI 27.4
--- NOTE | 2023-01-18 14:15 | ED.BACK ---
HPI - Back Pain/Injury General Chief Complaint: Back Pain/Injury Stated Complaint: BACK PAIN Time Seen by Provider: 01/18/23 14:49 Source: patient Mode of arrival: ambulatory Limitations: no limitations History of Present Illness HPI Narrative: 57-year-old female history of pneumonia, hypoxia presenting to the emergency department for evaluation of bilateral lumbar back pain that started yesterday, atraumatic in nature, worsening. Patient reports pain is worse with movement, ambulation and better at rest rates it severe 10/10 with walking, patient denies fevers, chills, numbness, tingling, saddle paresthesias, weakness, chest pain, shortness of breath, blunt trauma, nausea, vomiting, abdominal pain, changes in bowel habits. Patient reports she has had back pain in the past however this feels slightly different because it is on both sides. Patient was ambulatory into the room without difficulty Related Data Home Medications Medication Instructions Recorded Confirmed albuterol sulfate 90 mcg/actuation 2 puff PO QID PRN wheezing 09/15/20 02/28/21 aerosol inhaler aspirin 81 mg tablet,delayed 1 tab PO DAILY 09/15/20 02/28/21 release atorvastatin 80 mg tablet 1 tab PO DAILY 09/15/20 02/28/21 clonazepam 0.5 mg tablet 1 tab PO BID PRN Anxiety 09/15/20 02/28/21 clonidine HCl 0.1 mg tablet 1 tab PO BEDTIME PRN Anxiety 09/15/20 02/28/21 hydroxyzine pamoate 50 mg capsule 1 - 2 cap PO BEDTIME PRN Sleep 09/15/20 02/28/21 lamotrigine 100 mg tablet 1 tab PO QAM 09/15/20 02/28/21 lamotrigine 25 mg tablet 1 tab PO BEDTIME 09/15/20 02/28/21 omeprazole 40 mg capsule,delayed 1 cap PO DAILY 09/15/20 02/28/21 release sertraline 100 mg tablet 2 tab PO QAM 09/15/20 02/28/21 levetiracetam 1,000 mg tablet 1 tab PO BID 02/28/21 02/28/21 methadone 60 mg PO DAILY 02/28/21 02/28/21 Previous Rx's Medication Instructions Recorded cefuroxime axetil 500 mg tablet 500 mg PO BID #10 tabs 08/09/21 cyclobenzaprine 10 mg tablet 10 mg PO TID PRN muscle spasm #14 12/11/21 tabs oxycodone 5 mg tablet 5 mg PO Q8H PRN severe pain (scale 12/11/21 score 7-10) #8 tabs prednisone 20 mg tablet 40 mg PO DAILY #10 tabs 12/11/21 cefuroxime axetil 250 mg tablet 250 mg PO BID 7 days #14 tabs 01/18/23 cyclobenzaprine 10 mg tablet 10 mg PO BEDTIME PRN muscle spasm 01/18/23 #7 tabs lidocaine 5 % topical patch 1 patch topical DAILY PRN pain #15 01/18/23 ea Allergies Allergy/AdvReac Type Severity Reaction Status Date / Time codeine [CODEINE] Allergy Unknown SWELLING Verified 01/18/23 14:19 hornet venom [HORNETS] Allergy Unknown RASH Verified 01/18/23 14:19 trazodone [TRAZODONE] AdvReac Intermediate VERY Verified 01/18/23 14:19 ANXIOUS, RESTLESSNESS From BENADRYL AdvReac Intermediate RESTLESS Uncoded 01/18/23 14:19 From SEROQUEL AdvReac Intermediate ANXIETY Uncoded 01/18/23 14:19 AND RESTLESSNESS Review of Systems Review of Systems: Constitutional : No Weight loss, No Fever, No Chills, ENT/Mouth : No Hearing loss, No Ear Pain, No Nasal Congestion, No Sinus Pain, No Hoarseness, No sore throat, No Rhinorrhea, No Swallowing Difficulty Cardiovascular : No Chest Pain, No SOB Respiratory : No Cough, No Dyspnea Gastrointestinal : No Nausea, No Vomiting, No Diarrhea, No abdominal Pain, No Hematochezia, No Melena Genitourinary : No Dysuria, No Urinary Frequency, No Hematuria, No Urinary Incontinence, Musculoskeletal : positive back pain Skin : No Skin Lesions, No rash Neuro : No Weakness, No Numbness, No Paresthesias, no loss of bowel or bladder incontinence, no saddle anesthesia Yes all other systems are reviewed and are negative [facility] Past Medical History Attestation statement: The following information was validated with the patient. Source: old records reviewed and nursing notes reviewed Medical History Anxiety CVA (cerebral vascular accident) Diabetes Hyperlipidemia Left knee injury Patent ductus arteriosus Seizure Surgical History H/O left knee surgery Hx of tonsillectomy Social History Social History Household Members: Other Housing: Other Housing Other:: [address] [address] Do you presently have visiting nurse or other home services: Yes Alcohol intake: unknown Patient Tobacco Use Status: Current everyday Tobacco user Tobacco use type: Cigarette Substance Use Type: Opiates Advance Directives: Yes Advance Directives Information Provided: No Advance Directives on File: No service: No Current occupational status: unemployed Physical Exam Vital Signs: Vital Signs: Last Vital Signs Temp 95.9 F L 01/18/23 17:53 Pulse 66 01/18/23 17:53 Resp 18 01/18/23 17:53 BP 128/59 L 01/18/23 17:53 Pulse Ox 100 01/18/23 17:53 O2 Del Method Room Air 01/18/23 17:53 BMI result Body Mass Index 27.4 vss Appearance: Alert.? Oriented X3.? No acute distress.? Head: Normocephalic, atraumatic, no step-offs or deformities Eyes: Pupils equal, round and reactive to light.? ENT: Pharynx normal.? Neck: Normal inspection.? Neck supple.? CVS: Normal heart rate and rhythm.? Pulses normal.? Respiratory: No respiratory distress.? Breath sounds normal.? Abdomen: Soft and + RUQ pain.?- [place] Skin: Skin warm and dry.? Normal skin color.? Normal skin turgor.? Extremities: No lower extremity edema.? No calf ttp. 5/5 strength to bilateral upper and lower extremities Back: No midline tenderness, no C-spine tenderness, full range of motion, no CVA tenderness bilaterally + b/l lumbar paraspinous ttp L1-L4. No midline pain. Neuro: Oriented X 3.? No motor deficit.? No sensory deficit. CN 2-12 intact . Ambulating w/ steady gait normal coordination. No saddle paresthesias. Brisk patellar reflexes equal and b/l. Course Course Course Narrative: RME: 57yo F w/PMHx DDD, sciatica, pneumonitis presenting to the ED via EMS c/o low back pain since yesterday worse w/movement. Has been taking Ibuprofen w/o relief. denies incontinence/retention, hematuria. Last took Motrin 1hr [employer]. states this feels different than her sciatica Patient in wheelchair in triage Flexeril, Lidjoesph patch ordered Full HPI, ROS and PE to be performed by primary ED provider. Reevaluation(s) Reevaluation #1: X-ray with dextroscoliosis, possible 1.2 cm gallstone, mild degenerative disc disease L2-L4. Patient now states that she does have abdominal pain intermittent, it has been elisa on for a while she says it goes from her abdomen and radiates to her right flank region, she tells me that this has been going on for a while however she did not think it contributed to her back pain. Will order right upper quadrant ultrasound as well as basic labs. She does have a negative Lawson sign on exam but RUQ tenderness present Time: 16:24 Reevaluation #2: Pending US sign out given to Sergei. Time: 18:37 Reevaluation #3: Patient denied allergy to morphhine and has tollerated it in past tollerated it well here. Will DC home with cyclobenzaprine. No signs of acute sarah on imaging. Labs unremarkable. Likley musculoskeletal. . UA w/ ? UTI will tx with atbx. Time: 18:47 Medications Administered Discontinued Medications Generic Name Dose Route Start Last Admin Trade Name Evaristo PRN Reason Stop Dose Admin Acetaminophen 650 mg 01/18/23 15:04 01/18/23 15:20 Acetaminophen 325 Mg Tablet PO 01/18/23 15:05 650 mg ONCE ONE Administration Cyclobenzaprine HCl 10 mg 01/18/23 14:18 01/18/23 14:48 Cyclobenzaprine Hcl 10 Mg Tablet PO 01/18/23 14:19 10 mg ONCE ONE Administration Lidocaine 1 patch 01/18/23 14:18 01/18/23 14:47 Lidocaine 4 % Patch Adh..Patch TRANSDERMA 01/18/23 14:19 1 patch ONCE ONE Administration Protocol Morphine Sulfate 15 mg 01/18/23 15:08 01/18/23 15:20 Morphine Sulfate Immed Release 15 Mg Tablet PO 01/18/23 15:09 15 mg ONCE ONE Administration Morphine Sulfate 4 mg 01/18/23 17:02 01/18/23 17:55 Morphine Sulfate 4 Mg/Ml Cartridge IVPUSH 01/18/23 17:03 4 mg ONCE ONE Administration Protocol Medical Decision Making Medical Decision Making [facility] Narrative: 1512 57-year-old female presents with atraumatic back pain for the past 2 days to bilateral lumbar region, sparing midline. No red flag symptoms . Complaining of intermittent abdominal pain for a while it is making her feel like she is in lot of pain. + b/l lumbar paraspinous ttp L1-L4. No midline pain. Neuro nonfocal. Ambulatory . Patient does have right upper quadrant pain and negative Lawson sign. concerns for possible herniated disc, lumbar paraspinous spasms. Unlikely fractures, dislocation, traumatic subluxation. I do not suspect cauda equina, epidural abscess or cord compression. Will rule out cholecystitis, choledocolithiasis, cholangitis although unlikely Plan- imaging labs Differential Diagnosis Differential Diagnoses: The differential diagnosis associated with the presentation includes concerns for possible herniated disc, lumbar paraspinous spasms. Unlikely fractures, dislocation, traumatic subluxation. I do not suspect cauda equina, epidural abscess or cord compression. Admission/Observation Consideration of admission/observation: Escalation of care including admission/observation considered unlikely Lab Data 01/18/23 16:31 01/18/23 16:31 Labs: Lab Results 01/18/23 01/18/23 01/18/23 Range/Units 15:12 16:31 16:31 WBC 8.7 (4.8-10.8) X10*3/uL RBC 4.95 (4.20-5.50) X10*6/uL Hgb 12.7 (12.0-16.0) g/dl Hct 41.3 (37.0-47.0) % MCV 83.4 (80.0-98.0) fL MCH 25.7 L (27.0-33.0) pg MCHC 30.8 L (31.0-35.0) g/dl RDW 16.2 H (11.0-16.0) % Plt Count 232 (160-400) X10*3/uL MPV 10.3 (9.4-12.3) fL Immature Gran % (Auto) 0.3 (0.0-0.4) % Neut % (Auto) 46.4 (45-73) % Lymph % (Auto) 44.6 H (20-40) % [place] % (Auto) 6.3 (2-11) % Eos % (Auto) 2.1 (0-4) % Baso % (Auto) 0.3 (0-2) % Lymph # (Auto) 3.9 (1.2-4.9) X10*3/uL [place] # (Auto) 0.6 (0.1-1.2) X10*3/uL Eos # (Auto) 0.2 (0.0-0.4) X10*3/uL Baso # (Auto) 0.0 (0.0-0.2) X10*3/uL Abs Immat Gran (auto) 0.03 (0.00-0.03) X10*3/uL Absolute Neuts (auto) 4.0 (2.0-8.3) x10*3/uL Absolute Nucleated RBC 0.000 (0.0-0.012) X10*3/uL Nucleated RBC % (auto) 0.0 (0.0-0.2) /100WBC Sodium 140 (135-145) mmol/L Potassium 4.4 (3.3-5.1) mmol/L Chloride 104 (96-108) mmol/L Carbon Dioxide 25 (22-29) mmol/L Anion Gap 15 (12-20) BUN 12 (9-16) mg/dL Creatinine 0.79 (0.5-1.4) mg/dL Estim Creat Clear Calc 85.2 Estimated GFR > 60 Random Glucose 75 (60-115) mg/dL Calcium 9.8 (8.4-10.2) mg/dL Total Bilirubin 0.3 (0.0-1.0) mg/dL AST 24 (5-31) U/L ALT 32 H (0-31) U/L Alkaline Phosphatase 88 (39-117) U/L Total Protein 7.9 (6.5-8.0) g/dL Albumin 4.1 (3.5-5.0) g/dL Lipase 9 (8-78) U/L Urine Color Yellow Urine Appearance Clear Urine pH 6.0 (5.0-9.0) Ur Specific [place] 1.020 (1.005-1.025) Urine Protein Negative (Neg-Trace) mg/dL Urine Glucose (UA) Negative (Negative) mg/dL Urine Ketones Negative (Negative) mg/dL Urine Blood Negative (Negative) Urine Nitrite Negative (Negative) Ur Leukocyte Esterase Trace H (Negative) Urine RBC 0-2 (0-2) /HPF Urine WBC 0-5 (0-5) /HPF Ur Squamous Epith Cells 6-10 (0-2) /HPF Urine Bacteria 1+ (None Seen) Hyaline Casts 0-2 (0-2) /LPF Independent Interpretation I performed an independent interpretation of an: Plain X-Ray Radiology Impression Discussion of test interpretation with radiology: I have reviewed the radiologist's reading. Prescription Management I considered prescription management with: Pain Medication Core Measures AMI core measures followed: Yes Measure exclusions: not indicated Critical Care Time Critical Care Time Critical Care Time: No Discharge Plan Discharge Clinical Impression: Lumbar paraspinal muscle spasm, UTI (urinary tract infection) Patient Disposition: Home, Self-Care Instructions: Urinary Tract Infection in Women (ED), Muscle Spasm (ED), Back Pain (ED), Heat Pack Application (ED) Additional Instructions: Take your medications as prescribed. If you were prescribed antibiotics today, it is important that you take your medication to their entirety, do not skip any doses, do not finish them early. Follow-up with your primary care provider this week. Return to the emergency department with new or worsening symptoms. Such as fevers, chills, chest pain, shortness of breath, nausea, vomiting, dizziness, headache, vision changes, lethargy In case of emergency call 911 You can take ibuprofen every 6 hours tylenol every 4 hours. Do not take more than suggested on package. XR/XR lumbar spine 2-3V IMPRESSION: Dextroscoliosis. Mild degenerative disc disease L2-L3. Possible 1.2 cm gallstone. US/US abdomen limited IMPRESSION: ? *? No ultrasound evidence of gallbladder disease or gallstones. ? *? There is a cyst in the right lobe of the liver 3.2 cm. Exam otherwise normal. ? *? No ultrasound explanation for patient's pain symptoms, if patient remain symptomatic consider correlation with follow-up cross-sectional imaging CT scan or MRI with contrast. ? Prescriptions: New cyclobenzaprine 10 mg tablet 10 mg PO BEDTIME PRN (Reason: muscle spasm) Qty: 7 0RF lidocaine 5 % adhesive patch,medicated 1 patch topical DAILY PRN (Reason: pain) Qty: 15 0RF Rx Instructions: leave on most painful area for up to 12 hrs cefuroxime axetil 250 mg tablet 250 mg PO BID 7 Days Qty: 14 0RF No Action atorvastatin 80 mg tablet 1 tab PO DAILY clonidine HCl 0.1 mg tablet 1 tab PO BEDTIME PRN (Reason: Anxiety) clonazepam 0.5 mg tablet 1 tab PO BID PRN (Reason: Anxiety) sertraline 100 mg tablet 2 tab PO QAM hydroxyzine pamoate 50 mg capsule 1 - 2 cap PO BEDTIME PRN (Reason: Sleep) omeprazole 40 mg capsule,delayed release(DR/EC) 1 cap PO DAILY aspirin 81 mg tablet,delayed release (DR/EC) 1 tab PO DAILY lamotrigine 25 mg tablet 1 tab PO BEDTIME albuterol sulfate 90 mcg/actuation HFA aerosol inhaler 2 puff PO QID PRN (Reason: wheezing) lamotrigine 100 mg tablet 1 tab PO QAM levetiracetam 1,000 mg tablet 1 tab PO BID methadone 60 mg PO DAILY cefuroxime axetil 500 mg tablet 500 mg PO BID Qty: 10 0RF oxycodone 5 mg tablet 5 mg PO Q8H PRN (Reason: severe pain (scale score 7-10)) Qty: 8 0RF cyclobenzaprine 10 mg tablet 10 mg PO TID PRN (Reason: muscle spasm) Qty: 14 0RF prednisone 20 mg tablet 40 mg PO DAILY Qty: 10 0RF Referrals: [facility] [Provider Group] - 2 days Physician,Unknown J [Primary Care Provider] - 2 days Stand Alone Forms: Work/School Release
[2023-01-18] MEDS: Lidocaine 4 % Patch ADH..PATCH 1 PATCH TRANSDERMA (14:47)
[2023-01-18] MEDS: Cyclobenzaprine HCl 10 MG TABLET PO (14:48)
[2023-01-18] MEDS: Acetaminophen 325 MG TABLET 650 MG PO (15:20)
[2023-01-18] MEDS: Morphine Sulfate Immed Release 15 MG TABLET PO (15:20)
[2023-01-18 15:21] LABS: Appearance Urine Clear; Color Urine Yellow; Glucose Urine UA Negative (Negative); Leukocyte Esterase Urine Trace (Negative); Nitrite Urine Negative (Negative); UMIC TRIGGER UACC YES; Urine Blood Negative (Negative); Urine Ketones Negative (Negative); Urine Protein Negative (Neg-Trace)
[2023-01-18 15:34] LABS: Bacteria Urine 1+ (None Seen); Hyaline Casts Urine 0-2 /LPF (0-2); RBC Urine 0-2 /HPF (0-2); WBC Urine 0-5 /HPF (0-5)
[2023-01-18 16:47] LABS: MANUAL DIFF FLAG NO
[2023-01-18 17:01] LABS: Basophils Percent Auto 0.3 % (0-2); Eosinophils Absolute Auto 0.2 X10*3/uL (0.0-0.4); Eosinophils Percent Auto 2.1 % (0-4); Hematocrit 41.3 % (37.0-47.0); Hemoglobin 12.7 g/dl (12.0-16.0); Imm Gran Abs Auto 0.03 X10*3/uL (0.00-0.03); Imm Gran Pct Auto 0.3 % (0.0-0.4); Lymphocytes Absolute Auto 3.9 X10*3/uL (1.2-4.9); Lymphocytes Percent Auto 44.6 % (20-40); Mean Corpuscular HGB Conc 30.8 g/dl (31.0-35.0); Mean Corpuscular Hemoglobin 25.7 pg (27.0-33.0); Mean Corpuscular Volume 83.4 fL (80.0-98.0); Mean Platelet Volume 10.3 fL (9.4-12.3); Monocytes Absolute Auto 0.6 X10*3/uL (0.1-1.2); Monocytes Percent Auto 6.3 % (2-11); Neutrophils Percent Auto 46.4 % (45-73); Platelet Count 232 X10*3/uL (160-400); Red Blood Count 4.95 X10*6/uL (4.20-5.50); Red Cell Distribution Width 16.2 % (11.0-16.0); White Blood Count 8.7 X10*3/uL (4.8-10.8)
[2023-01-18 17:02] LABS: Alanine Aminotransferase 32 U/L (0-31); Albumin Level 4.1 g/dL (3.5-5.0); Alkaline Phosphatase 88 U/L (39-117); Anion Gap 15 (12-20); Aspartate Amino Transferase 24 U/L (5-31); Bilirubin Total 0.3 mg/dL (0.0-1.0); Blood Urea Nitrogen 12 mg/dL (9-16); Calcium 9.8 mg/dL (8.4-10.2); Carbon Dioxide 25 mmol/L (22-29); Chloride 104 mmol/L (96-108); Creatinine Clr Calc Pharmacy 85.2; Estimated Glomerular Filt Rate > 60; Glucose Random 75 mg/dL (60-115); Lipase 9 U/L (8-78); Potassium 4.4 mmol/L (3.3-5.1); Sodium 140 mmol/L (135-145); Total Protein 7.9 g/dL (6.5-8.0)
[2023-01-18 17:53] VITALS: BP 128/59; PULSE 66; RESP 18; TEMP 35.5; O2SAT 100
[2023-01-18] MEDS: Morphine Sulfate 4 MG/ML CARTRIDGE IVPUSH (17:55)
== END 2023-01-18 19:16 | disposition home or self-care (01) ==
PROVIDERS: Physician Assistant; Emergency Provider Emergency Medicine
DX: M62.830 Muscle spasm of back (principal); N39.0 Urinary tract infection, site not specified; M54.50 Low back pain, unspecified; E11.8 Type 2 diabetes mellitus with unspecified complications; F17.210 Nicotine dependence, cigarettes, uncomplicated; Z79.899 Other long term (current) drug therapy
CPT/HCPCS: 36415; 72100; 76705; 80053; 81001; 83690; 85025; 96374; 99284; J2270

== ENCOUNTER 2023-03-22 07:58 | Emergency (ER) | payer OTHER, SELFPAY ==
--- NOTE | ~2023-03-22 | XR_ITS ---
EXAMINATION: XR CHEST CLINICAL INFORMATION: Chest pain. COMPARISON: 08/12/2022 chest radiograph. TECHNIQUE: Frontal view of the chest was obtained. FINDINGS: No significant abnormality is noted involving the heart, lungs, mediastinum, bony thorax or soft tissues. XR/XR chest 1V IMPRESSION: No acute cardiopulmonary process.
--- NOTE | ~2023-03-22 | US_ITS ---
EXAMINATION: US ABDOMEN LIMITED CLINICAL INFORMATION: Right upper quadrant pain. COMPARISON: Abdominal ultrasound 01/18/2023 TECHNIQUE: Real-time imaging of the gallbladder was performed FINDINGS: GALLBLADDER: The gallbladder is physiologically distended without evidence of stones, sludge, polyps, wall thickening or pericholecystic fluid. There is a 2.4 x 1.5 x 1.4 cm cyst adjacent to the gallbladder fundus which may represent an exophytic hepatic cyst. COMMON BILE DUCT: Normal in caliber measuring 0.7 cm in diameter. US/US abdomen limited IMPRESSION: No sonographic evidence for acute cholecystitis.
--- NOTE | 2023-03-22 08:01 | ECG_ITS ---
Test Reason : CHEST PAIN Blood Pressure : / mmHG Vent. Rate : 058 BPM Atrial Rate : 058 BPM P-R Int : 144 ms QRS Dur : 076 ms QT Int : 470 ms P-R-T Axes : 062 058 040 degrees QTc Int : 461 ms Sinus bradycardia Otherwise normal ECG When compared with ECG of 12-AUG-2022 08:59, No significant change was found Referred By: Generic ED Physician Electronically Signed By:
[2023-03-22 08:05] VITALS: BP 138/71; BP 158/72; PULSE 62; PULSE 64; RESP 18; TEMP 36.5; O2SAT 98; BMI 27.4
--- NOTE | 2023-03-22 08:05 | PC.NURSE ---
pt a&ox3. respirations even and unlabored. bilateral expiratory wheezing noted bilaterally. pt coming from home by EMS reporting chest pressure and nausea. pt reports taking a baby aspirin prior to ems arrival. pt reports chest squeezing in the midsternal area that comes and goes. pt denies nausea, vomiting and diarrhea at this time. pt normal sinus on tele.
--- NOTE | 2023-03-22 08:11 | ED.CHESTPAIN ---
HPI - Chest Pain General Chief Complaint: Chest Pain Stated Complaint: CP PER EMS Time Seen by Provider: 03/22/23 08:11 Source: patient Mode of arrival: EMS History of Present Illness HPI narrative: 57-year-old female who states that she began experiencing squeezing chest pain approximately 1 hour prior to arrival, she has taken 81 mg of aspirin this morning, has a history of diabetes and states that the pain is still present and that it began to scare her because she developed nausea associated with the pain. She denies any dizziness/headache/shortness of breath or diaphoresis. She denies that pain radiates. Related Data Home Medications Medication Instructions Recorded Confirmed albuterol sulfate 90 mcg/actuation 2 puff PO QID PRN wheezing 09/15/20 02/28/21 aerosol inhaler aspirin 81 mg tablet,delayed 1 tab PO DAILY 09/15/20 02/28/21 release atorvastatin 80 mg tablet 1 tab PO DAILY 09/15/20 02/28/21 clonazepam 0.5 mg tablet 1 tab PO BID PRN Anxiety 09/15/20 02/28/21 clonidine HCl 0.1 mg tablet 1 tab PO BEDTIME PRN Anxiety 09/15/20 02/28/21 hydroxyzine pamoate 50 mg capsule 1 - 2 cap PO BEDTIME PRN Sleep 09/15/20 02/28/21 lamotrigine 100 mg tablet 1 tab PO QAM 09/15/20 02/28/21 lamotrigine 25 mg tablet 1 tab PO BEDTIME 09/15/20 02/28/21 omeprazole 40 mg capsule,delayed 1 cap PO DAILY 09/15/20 02/28/21 release sertraline 100 mg tablet 2 tab PO QAM 09/15/20 02/28/21 levetiracetam 1,000 mg tablet 1 tab PO BID 02/28/21 02/28/21 methadone 60 mg PO DAILY 02/28/21 02/28/21 Previous Rx's Medication Instructions Recorded cefuroxime axetil 500 mg tablet 500 mg PO BID #10 tabs 03/01/21 cyclobenzaprine 10 mg tablet 10 mg PO TID PRN muscle spasm #14 12/11/21 tabs oxycodone 5 mg tablet 5 mg PO Q8H PRN severe pain (scale 12/11/21 score 7-10) #8 tabs prednisone 20 mg tablet 40 mg PO DAILY #10 tabs 12/11/21 cefuroxime axetil 250 mg tablet 250 mg PO BID 7 days #14 tabs 01/18/23 cyclobenzaprine 10 mg tablet 10 mg PO BEDTIME PRN muscle spasm 01/18/23 #7 tabs lidocaine 5 % topical patch 1 patch topical DAILY PRN pain #15 01/18/23 ea Allergies Allergy/AdvReac Type Severity Reaction Status Date / Time codeine [CODEINE] Allergy Unknown SWELLING Verified 03/22/23 08:11 hornet venom [HORNETS] Allergy Unknown RASH Verified 03/22/23 08:11 trazodone [TRAZODONE] AdvReac Intermediate VERY Verified 03/22/23 08:11 ANXIOUS, RESTLESSNESS From BENADRYL AdvReac Intermediate RESTLESS Uncoded 01/18/23 14:19 From SEROQUEL AdvReac Intermediate ANXIETY Uncoded 01/18/23 14:19 AND RESTLESSNESS Review of Systems Review of Systems: Pertinent positives and negatives as stated in [facility] Past Medical History Source: nursing notes reviewed Medical History Anxiety CVA (cerebral vascular accident) Diabetes Hyperlipidemia Left knee injury Patent ductus arteriosus Seizure Surgical History H/O left knee surgery Hx of tonsillectomy Social History Social History Household Members: Other Housing: Other Housing Other:: [employer] [address] Do you presently have visiting nurse or other home services: Yes Alcohol intake: never Patient Tobacco Use Status: Current everyday Tobacco user Tobacco use type: Cigarette Smoked in Last 30 Days: Yes Use of substances other than those prescribed or required for medical reasons: No Substance Use Type: Opiates Advance Directives: No service: No Current occupational status: unemployed Physical Exam Vital Signs: Vital Signs: Last Vital Signs Temp 97.7 F 03/22/23 08:05 Pulse 61 03/22/23 13:14 Resp 13 03/22/23 13:14 BP 149/80 H 03/22/23 13:14 Pulse Ox 98 03/22/23 13:14 O2 Del Method Room Air 03/22/23 13:14 BMI result Body Mass Index 27.4 VITAL SIGNS: Reviewed. GENERAL: Well developed, well nourished, in no acute distress. HEAD: Normocephalic/atraumatic EYES: PERRLA, EOMI EARS: Ext canals without abnormality NOSE: Nares patent bilateral OROPHARYNX: no oral lesions noted, posterior pharynx clear NECK: Supple, no adenopathy LUNGS: Normal breath sounds. No adventitious sounds or accessory muscle use. SpO2<98> CARDIOVASCULAR: Regular rate and rhythm without noted murmurs, no JVD or lower extremity edema. ABDOMEN: Soft, non-tender, non-distended with bowel sounds. MUSCULOSKELETAL: No tenderness, deformities, or effusions noted on gross inspection. EXTREMITIES: No cyanosis, clubbing or edema. SKIN: Inspection of the skin reveals no rashes NEUROLOGIC: Alert and oriented x 4. Strength and sensation to light touch were grossly intact x 4. Medications Administered Discontinued Medications Generic Name Dose Route Start Last Admin Trade Name Freq PRN Reason Stop Dose Admin Aspirin 162 mg 03/22/23 08:11 03/22/23 08:25 Aspirin Enteric Coated 81 Mg Tablet.Dr PO 03/22/23 08:12 162 mg ONCE ONE Administration Lidocaine/Diphenhydr/Alum/Mg/Simeth 10 ml 03/22/23 08:36 03/22/23 09:06 Mag&Al/Sim/Diphenhyd/Lidocaine 10 Ml Oral.Susp PO 03/22/23 08:37 10 ml ONCE ONE Administration Protocol Medical Decision Making Medical Decision Making [facility] Narrative: 0810: 57-year-old female with history and clinical presentation,, DDX: STEMI, NSTEMI, acid reflux, gastritis 0827: There is no STEMI on EKG I reviewed all investigations and re-evaluated the patient, no hematologic indices suggestion leukocytosis or anemia or thrombocytopenia. Coagulation studies are grossly within normal limits. Chemistry and sees negative for any derangements there are no electrolyte or liver enzyme abnormalities, there is no JAZIEL there was a mild transaminemia but after ultrasound findings negative of acute cholecystitis suspect this is secondary to fatty liver. Serial troponins are negative and once again there were no acute ischemic changes noted on EKG. Patient is discharged and will be empirically treated as a gastritis. Urinalysis negative for UTI or hematuria. Differential Diagnosis Differential Diagnoses: The differential diagnosis associated with the presentation includes Please see the discussion above Admission/Observation Consideration of admission/observation: Escalation of care including admission/observation considered Please see the discussion above Lab Data MDM Lab Attestation statement: I reviewed the patient's lab results. Please see the discussion above 03/22/23 08:23 03/22/23 08:23 Labs: Lab Results 03/22/23 03/22/23 03/22/23 Range/Units 08:23 08:23 08:23 WBC 7.3 (4.8-10.8) X10*3/uL RBC 4.93 (4.20-5.50) X10*6/uL Hgb 12.9 (12.0-16.0) g/dl Hct 40.1 (37.0-47.0) % MCV 81.3 (80.0-98.0) fL MCH 26.2 L (27.0-33.0) pg MCHC 32.2 (31.0-35.0) g/dl RDW 14.8 (11.0-16.0) % Plt Count 227 (160-400) X10*3/uL MPV 9.9 (9.4-12.3) fL Immature Gran % (Auto) 0.3 (0.0-0.4) % Neut % (Auto) 48.4 (45-73) % Lymph % (Auto) 40.0 (20-40) % Carter % (Auto) 6.1 (2-11) % Eos % (Auto) 4.8 H (0-4) % Baso % (Auto) 0.4 (0-2) % Lymph # (Auto) 2.9 (1.2-4.9) X10*3/uL Carter # (Auto) 0.4 (0.1-1.2) X10*3/uL Eos # (Auto) 0.4 (0.0-0.4) X10*3/uL Baso # (Auto) 0.0 (0.0-0.2) X10*3/uL Abs Immat Gran (auto) 0.02 (0.00-0.03) X10*3/uL Absolute Neuts (auto) 3.5 (2.0-8.3) x10*3/uL Absolute Nucleated RBC 0.000 (0.0-0.012) X10*3/uL Nucleated RBC % (auto) 0.0 (0.0-0.2) /100WBC PT 12.1 (11.1-13.3) SEC INR 1.0 (0.9-1.1) Sodium 140 (135-145) mmol/L Potassium 4.0 (3.3-5.1) mmol/L Chloride 105 (96-108) mmol/L Carbon Dioxide 27 (22-29) mmol/L Anion Gap 12 (12-20) BUN 9 (9-16) mg/dL Creatinine 0.98 (0.5-1.4) mg/dL Estim Creat Clear Calc 68.7 Estimated GFR 58 Random Glucose 96 (60-115) mg/dL Calcium 10.2 (8.4-10.2) mg/dL Total Bilirubin 0.4 (0.0-1.0) mg/dL AST 32 H (5-31) U/L ALT 36 H (0-31) U/L Alkaline Phosphatase 83 (39-117) U/L Troponin I High Sens (<3.5-17.0) ng/L Total Protein 7.9 (6.5-8.0) g/dL Albumin 4.3 (3.5-5.0) g/dL Urine Color Urine Appearance Urine pH (5.0-9.0) Ur Specific [place] (1.005-1.025) Urine Protein (Neg-Trace) mg/dL Urine Glucose (UA) (Negative) mg/dL Urine Ketones (Negative) mg/dL Urine Blood (Negative) Urine Nitrite (Negative) Ur Leukocyte Esterase (Negative) Urine RBC (0-2) /HPF Urine WBC (0-5) /HPF Ur Squamous Epith Cells (0-2) /HPF Urine Bacteria (None Seen) Hyaline Casts (0-2) /LPF 03/22/23 03/22/23 03/22/23 Range/Units 08:23 09:04 13:12 WBC (4.8-10.8) X10*3/uL RBC (4.20-5.50) X10*6/uL Hgb (12.0-16.0) g/dl Hct (37.0-47.0) % MCV (80.0-98.0) fL MCH (27.0-33.0) pg MCHC (31.0-35.0) g/dl RDW (11.0-16.0) % Plt Count (160-400) X10*3/uL MPV (9.4-12.3) fL Immature Gran % (Auto) (0.0-0.4) % Neut % (Auto) (45-73) % Lymph % (Auto) (20-40) % Carter % (Auto) (2-11) % Eos % (Auto) (0-4) % Baso % (Auto) (0-2) % Lymph # (Auto) (1.2-4.9) X10*3/uL Carter # (Auto) (0.1-1.2) X10*3/uL Eos # (Auto) (0.0-0.4) X10*3/uL Baso # (Auto) (0.0-0.2) X10*3/uL Abs Immat Gran (auto) (0.00-0.03) X10*3/uL Absolute Neuts (auto) (2.0-8.3) x10*3/uL Absolute Nucleated RBC (0.0-0.012) X10*3/uL Nucleated RBC % (auto) (0.0-0.2) /100WBC PT (11.1-13.3) SEC INR (0.9-1.1) Sodium (135-145) mmol/L Potassium (3.3-5.1) mmol/L Chloride (96-108) mmol/L Carbon Dioxide (22-29) mmol/L Anion Gap (12-20) BUN (9-16) mg/dL Creatinine (0.5-1.4) mg/dL Estim Creat Clear Calc Estimated GFR Random Glucose (60-115) mg/dL Calcium (8.4-10.2) mg/dL Total Bilirubin (0.0-1.0) mg/dL AST (5-31) U/L ALT (0-31) U/L Alkaline Phosphatase (39-117) U/L Troponin I High Sens < 2.7 < 2.7 (<3.5-17.0) ng/L Total Protein (6.5-8.0) g/dL Albumin (3.5-5.0) g/dL Urine Color Yellow Urine Appearance Clear Urine pH 5.5 (5.0-9.0) Ur Specific [place] <= 1.005 (1.005-1.025) Urine Protein Negative (Neg-Trace) mg/dL Urine Glucose (UA) Negative (Negative) mg/dL Urine Ketones Negative (Negative) mg/dL Urine Blood Negative (Negative) Urine Nitrite Negative (Negative) Ur Leukocyte Esterase Trace H (Negative) Urine RBC 0-2 (0-2) /HPF Urine WBC 0-5 (0-5) /HPF Ur Squamous Epith Cells 3-5 (0-2) /HPF Urine Bacteria Trace (None Seen) Hyaline Casts 0-2 (0-2) /LPF Independent Interpretation I performed an independent interpretation of an: EKG Interpretation: Sinus bradycardia, HR -58, no STEMI, ND/QRS/QTC is within normal limits. Radiology Impression Radiologist Impression: Please see the discussion above External Record Review External record reviewed: Outpatient record, Prior outpatient labs and Prior outpatient radiology Chronic Conditions Patient?s care impacted by: Hypertension Critical Care Time Critical Care Time Critical Care Time: Yes Total Critical Care Time: 30 Attestation: I personally attest to this time spent taking care of the patient. Discharge Plan Discharge Clinical Impression: Atypical chest pain, Gastritis Patient Disposition: Home, Self-Care Instructions: Diet for Stomach Ulcers and Gastritis (ED), Gastritis (ED) Additional Instructions: 1. Resume all home medications as prescribed. You likely have gastritis and should continue to take any acid control medication that you have. 2. Please follow-up with your primary care provider in the next 1-2 days. Return to the ER for any worsening symptoms. Prescriptions: No Action atorvastatin 80 mg tablet 1 tab PO DAILY clonidine HCl 0.1 mg tablet 1 tab PO BEDTIME PRN (Reason: Anxiety) clonazepam 0.5 mg tablet 1 tab PO BID PRN (Reason: Anxiety) sertraline 100 mg tablet 2 tab PO QAM hydroxyzine pamoate 50 mg capsule 1 - 2 cap PO BEDTIME PRN (Reason: Sleep) omeprazole 40 mg capsule,delayed release(DR/EC) 1 cap PO DAILY aspirin 81 mg tablet,delayed release (DR/EC) 1 tab PO DAILY lamotrigine 25 mg tablet 1 tab PO BEDTIME albuterol sulfate 90 mcg/actuation HFA aerosol inhaler 2 puff PO QID PRN (Reason: wheezing) lamotrigine 100 mg tablet 1 tab PO QAM levetiracetam 1,000 mg tablet 1 tab PO BID methadone 60 mg PO DAILY cefuroxime axetil 500 mg tablet 500 mg PO BID Qty: 10 0RF oxycodone 5 mg tablet 5 mg PO Q8H PRN (Reason: severe pain (scale score 7-10)) Qty: 8 0RF cyclobenzaprine 10 mg tablet 10 mg PO TID PRN (Reason: muscle spasm) Qty: 14 0RF prednisone 20 mg tablet 40 mg PO DAILY Qty: 10 0RF cyclobenzaprine 10 mg tablet 10 mg PO BEDTIME PRN (Reason: muscle spasm) Qty: 7 0RF lidocaine 5 % adhesive patch,medicated 1 patch topical DAILY PRN (Reason: pain) Qty: 15 0RF Rx Instructions: leave on most painful area for up to 12 hrs cefuroxime axetil 250 mg tablet 250 mg PO BID 7 Days Qty: 14 0RF
[2023-03-22 08:13] VITALS: PULSE 58
[2023-03-22] MEDS: Aspirin Enteric Coated 81 MG TABLET.DR 162 MG PO (08:25)
[2023-03-22 08:26] LABS: MANUAL DIFF FLAG NO
[2023-03-22 08:27] LABS: Basophils Percent Auto 0.4 % (0-2); Eosinophils Absolute Auto 0.4 X10*3/uL (0.0-0.4); Eosinophils Percent Auto 4.8 % (0-4); Hematocrit 40.1 % (37.0-47.0); Hemoglobin 12.9 g/dl (12.0-16.0); Imm Gran Abs Auto 0.02 X10*3/uL (0.00-0.03); Imm Gran Pct Auto 0.3 % (0.0-0.4); Lymphocytes Absolute Auto 2.9 X10*3/uL (1.2-4.9); Mean Corpuscular HGB Conc 32.2 g/dl (31.0-35.0); Mean Corpuscular Hemoglobin 26.2 pg (27.0-33.0); Mean Corpuscular Volume 81.3 fL (80.0-98.0); Mean Platelet Volume 9.9 fL (9.4-12.3); Monocytes Absolute Auto 0.4 X10*3/uL (0.1-1.2); Monocytes Percent Auto 6.1 % (2-11); Neutrophils Absolute Auto 3.5 x10*3/uL (2.0-8.3); Neutrophils Percent Auto 48.4 % (45-73); Platelet Count 227 X10*3/uL (160-400); Red Blood Count 4.93 X10*6/uL (4.20-5.50); Red Cell Distribution Width 14.8 % (11.0-16.0); White Blood Count 7.3 X10*3/uL (4.8-10.8)
[2023-03-22 08:34] LABS: Prothrombin Time 12.1 SEC (11.1-13.3)
[2023-03-22 08:43] LABS: Alanine Aminotransferase 36 U/L (0-31); Albumin Level 4.3 g/dL (3.5-5.0); Alkaline Phosphatase 83 U/L (39-117); Anion Gap 12 (12-20); Aspartate Amino Transferase 32 U/L (5-31); Bilirubin Total 0.4 mg/dL (0.0-1.0); Blood Urea Nitrogen 9 mg/dL (9-16); Calcium 10.2 mg/dL (8.4-10.2); Carbon Dioxide 27 mmol/L (22-29); Chloride 105 mmol/L (96-108); Creatinine Clr Calc Pharmacy 68.7; Estimated Glomerular Filt Rate 58; Glucose Random 96 mg/dL (60-115); Sodium 140 mmol/L (135-145); Total Protein 7.9 g/dL (6.5-8.0)
[2023-03-22 08:51] LABS: Troponin-I High Sensitivity < 2.7 ng/L (<3.5-17.0)
[2023-03-22] MEDS: Mag&Al/Sim/Diphenhyd/Lidocaine 10 ML ORAL.SUSP PO (09:06)
[2023-03-22 09:15] LABS: Appearance Urine Clear; Color Urine Yellow; Glucose Urine UA Negative (Negative); Leukocyte Esterase Urine Trace (Negative); Nitrite Urine Negative (Negative); PH 5.5 (5.0-9.0); Specific Gravity - Urine <= 1.005 (1.005-1.025); UMIC TRIGGER UACC YES; Urine Blood Negative (Negative); Urine Ketones Negative (Negative); Urine Protein Negative (Neg-Trace)
[2023-03-22 09:17] LABS: Bacteria Urine Trace (None Seen); Hyaline Casts Urine 0-2 /LPF (0-2); RBC Urine 0-2 /HPF (0-2); WBC Urine 0-5 /HPF (0-5)
--- NOTE | 2023-03-22 11:14 | PC.NURSE ---
pt a&ox3. respirations even and unlabored. pt reports chest pain has subsided. ultrasound at bedside. normal sinus on tele.
[2023-03-22 13:14] VITALS: BP 149/80; PULSE 61; RESP 13; O2SAT 98
[2023-03-22 13:36] LABS: Troponin-I High Sensitivity < 2.7 ng/L (<3.5-17.0)
== END 2023-03-22 14:18 | disposition home or self-care (01) ==
PROVIDERS: Emergency Provider Student in an Organized Health Care Education/Training Program
DX: R07.89 Other chest pain (principal); K29.70 Gastritis, unspecified, without bleeding; E11.9 Type 2 diabetes mellitus without complications; E78.5 Hyperlipidemia, unspecified; F11.20 Opioid dependence, uncomplicated; F17.210 Nicotine dependence, cigarettes, uncomplicated; Z79.82 Long term (current) use of aspirin; Z79.899 Other long term (current) drug therapy
CPT/HCPCS: 36415; 71045; 76705; 80053; 81001; 84484; 85025; 85610; 93005; 99284; 99285

== ENCOUNTER 2023-08-21 21:56 | Emergency (ER) | payer OTHER, SELFPAY ==
--- NOTE | ~2023-08-21 | XR_ITS ---
EXAMINATION: XR WRIST, RIGHT CLINICAL INFORMATION: Bruising and swelling from injury COMPARISON: 02/05/2021 TECHNIQUE: PA, lateral, and oblique views of the right wrist. FINDINGS: Osseous alignment is anatomic. There is a faint small calcification adjacent to the distal ulna which appears slightly more prominent than on 02/05/2021, more suggestive of chronic chondrocalcinosis rather than acute fracture. Soft tissue swelling is present most prominently along the distal ulna. XR/XR wrist RT min 3V IMPRESSION: Faint small calcification adjacent to the distal ulna also appears to have been present on 02/05/2021, though now is more prominent suggesting progressive chondrocalcinosis. No convincing evidence for acute fracture. Soft tissue swelling.
[2023-08-21 22:13] VITALS: BP 140/83; PULSE 71; RESP 16; TEMP 35.8; O2SAT 98; BMI 29.9
[2023-08-22] VITALS: BP 124/70; PULSE 62; RESP 16; TEMP 36.4; O2SAT 94
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
== END 2023-08-22 00:59 | disposition home or self-care (01) ==
PROVIDERS: Emergency Provider Internal Medicine
DX: S63.501A Unspecified sprain of right wrist, initial encounter (principal); M25.531 Pain in right wrist; W01.10XA Fall on same level from slipping, tripping and stumbling with subsequent striking against unspecified object, initial encounter; Y93.9 Activity, unspecified; Y92.000 Kitchen of unspecified non-institutional (private) residence as the place of occurrence of the external cause; Y99.9 Unspecified external cause status
CPT/HCPCS: 29125; 73110; 99283; 99284

== ENCOUNTER 2023-09-22 15:36 | Emergency (ER) | payer OTHER, SELFPAY ==
[2023-09-22 15:43] VITALS: BP 112/68; PULSE 59; O2SAT 96
[2023-09-22 15:47] VITALS: BP 111/44; PULSE 68; RESP 16; TEMP 36; O2SAT 96; BMI 28.8
--- NOTE | 2023-09-22 15:52 | ED.GENADULT ---
HPI - General Adult General Chief complaint: Back Pain/Injury Stated complaint: from gas station, sciatica 05/02 since yesterday Time Seen by Provider: 09/22/23 15:49 Source: patient, EMS, RN notes reviewed and old records reviewed Mode of arrival: EMS Limitations: no limitations History of Present Illness HPI narrative: 58-year-old female presents for evaluation of right lower back pain that radiates into her buttocks. The pain is worse with ambulation. She states that when resting her pain is 2/10 but with walking in his an 8/10 She denies any specific injury, fall, heavy lifting. She reports a history of sciatica and this feels similar Denies any numbness, tingling Denies any difficulty urinating, blood in the urine frequent urination Related Data Home Medications Medication Instructions Recorded Confirmed albuterol sulfate 90 mcg/actuation 2 puff PO QID PRN wheezing 09/15/20 02/28/21 aerosol inhaler aspirin 81 mg tablet,delayed 1 tab PO DAILY 09/15/20 02/28/21 release atorvastatin 80 mg tablet 1 tab PO DAILY 09/15/20 02/28/21 clonazepam 0.5 mg tablet 1 tab PO BID PRN Anxiety 09/15/20 02/28/21 clonidine HCl 0.1 mg tablet 1 tab PO BEDTIME PRN Anxiety 09/15/20 02/28/21 hydroxyzine pamoate 50 mg capsule 1 - 2 cap PO BEDTIME PRN Sleep 09/15/20 02/28/21 lamotrigine 100 mg tablet 1 tab PO QAM 09/15/20 02/28/21 lamotrigine 25 mg tablet 1 tab PO BEDTIME 09/15/20 02/28/21 omeprazole 40 mg capsule,delayed 1 cap PO DAILY 09/15/20 02/28/21 release sertraline 100 mg tablet 2 tab PO QAM 09/15/20 02/28/21 levetiracetam 1,000 mg tablet 1 tab PO BID 02/28/21 02/28/21 methadone 60 mg PO DAILY 02/28/21 02/28/21 Previous Rx's Medication Instructions Recorded cefuroxime axetil 500 mg tablet 500 mg PO BID #10 tabs 03/01/21 cyclobenzaprine 10 mg tablet 10 mg PO TID PRN muscle spasm #14 05/21/22 tabs oxycodone 5 mg tablet 5 mg PO Q8H PRN severe pain (scale 12/11/21 score 7-10) #8 tabs prednisone 20 mg tablet 40 mg (2 x 20 mg) PO DAILY #10 tabs 12/11/21 cefuroxime axetil 250 mg tablet 250 mg PO BID 7 days #14 tabs 01/18/23 cyclobenzaprine 10 mg tablet 10 mg PO BEDTIME PRN muscle spasm 01/18/23 #7 tabs lidocaine 5 % topical patch 1 patch topical DAILY PRN pain #15 01/18/23 ea cyclobenzaprine 10 mg tablet 10 mg PO TID PRN muscle spasm #15 09/22/23 tabs dexamethasone 4 mg tablet 4 mg PO BID #6 tabs 09/22/23 Allergies Allergy/AdvReac Type Severity Reaction Status Date / Time codeine [CODEINE] Allergy Unknown SWELLING Verified 08/21/23 22:16 hornet venom [HORNETS] Allergy Unknown RASH Verified 08/21/23 22:16 trazodone [TRAZODONE] AdvReac Intermediate VERY Verified 08/21/23 22:16 ANXIOUS, RESTLESSNESS From BENADRYL AdvReac Intermediate RESTLESS Uncoded 08/21/23 22:16 From SEROQUEL AdvReac Intermediate ANXIETY Uncoded 08/21/23 22:16 AND RESTLESSNESS Review of Systems Constitutional: Constitutional: Denies fever(s) ENT: Denies sore throat Cardiovascular: Cardiovascular: Denies chest pain and Denies dyspnea Respiratory: Respiratory: Denies cough and Denies dyspnea Gastrointestinal: Gastrointestinal: Denies abdominal pain, Denies nausea and Denies vomiting Musculoskeletal: Musculoskeletal: Reports back pain and Reports radiating pain into limb Integumentary/Breasts: Skin/Breast: Denies rash PMFSH Past Medical History Medical History Left knee injury Patent ductus arteriosus Anxiety Hyperlipidemia Seizure Diabetes CVA (cerebral vascular accident) Surgical History Hx of tonsillectomy H/O left knee surgery Social History Social History Household Members: Other Housing: Other Housing Other:: [employer] Do you presently have visiting nurse or other home services: Yes Alcohol intake: never Patient Tobacco Use Status: Current everyday Tobacco user Tobacco use type: Cigarette Substance Use Type: Opiates service: No Current occupational status: unemployed Physical Exam ED Vital Signs: Vital Signs - 24 hr 09/22/23 15:47 Temperature 96.8 F Pulse Rate 68 Respiratory Rate 16 Blood Pressure 111/44 L Pulse Oximetry 96 Oxygen Delivery Method Room Air BMI result Body Mass Index 28.8 Const General: healthy appearing, comfortable, no acute distress, alert and awake Nutritional Appearance: well nourished Orientation/consciousness: patient oriented x3 HENMT Head: Yes normocephalic and Yes atraumatic Eyes Eyelids: Yes eyelids normal Conjunctivae: conjunctivae normal Sclerae: sclerae normal Corneas: corneas normal Pupils: Equal, round and reactive pupils present EOM: EOMs intact bilaterally Neck Neck: Yes full ROM Resp Effort & Inspection: normal respiratory effort, able to speak in complete sentences and not labored GI Inspection: No distended Palpation (GI): Soft to palpation, not firm, nontender, no guarding and not rigid Back/Spine/Pelvis Other: Tenderness in the right lumbar paraspinous region. No vertebral tenderness. Straight leg raise positive on right Skin General skin exam: elasticity normal Neuro General: patient oriented x3 Cranial nerves: Yes Equal, round and reactive pupils present and Yes Bilaterally intact EOM present Cognition (Neuro): normal cognition Medical Decision Making Medical Decision Making MDM Narrative: 58-year-old female presents for evaluation of right lower back pain. Her pain radiates to her right leg in his consistent with her history of sciatica. Will treat with dexamethasone cyclobenzaprine. No warning signs for cauda equina syndrome Differential Diagnosis Differential Diagnoses: The differential diagnosis associated with the presentation includes Acute low back pain Sciatica Low back pain Muscle strain Discharge Plan Discharge Clinical Impression: Acute right-sided back pain with sciatica Patient Disposition: Home, Self-Care Instructions: Sciatica (ED) Additional Instructions: Take ibuprofen/Tylenol as needed for the pain Take dexamethasone twice daily for the next 3 days You may use cyclobenzaprine as needed for muscle spasms This may make you sleepy, did not drink alcohol or drive after taking it Follow-up with your primary doctor Prescriptions: New dexamethasone 4 mg tablet 4 mg PO BID Qty: 6 0RF cyclobenzaprine 10 mg tablet 10 mg PO TID PRN (Reason: muscle spasm) Qty: 15 0RF No Action atorvastatin 80 mg tablet 1 tab PO DAILY clonidine HCl 0.1 mg tablet 1 tab PO BEDTIME PRN (Reason: Anxiety) clonazepam 0.5 mg tablet 1 tab PO BID PRN (Reason: Anxiety) sertraline 100 mg tablet 2 tab PO QAM hydroxyzine pamoate 50 mg capsule 1 - 2 cap PO BEDTIME PRN (Reason: Sleep) omeprazole 40 mg capsule,delayed release(DR/EC) 1 cap PO DAILY aspirin 81 mg tablet,delayed release (DR/EC) 1 tab PO DAILY lamotrigine 25 mg tablet 1 tab PO BEDTIME albuterol sulfate 90 mcg/actuation HFA aerosol inhaler 2 puff PO QID PRN (Reason: wheezing) lamotrigine 100 mg tablet 1 tab PO QAM levetiracetam 1,000 mg tablet 1 tab PO BID methadone 60 mg PO DAILY cefuroxime axetil 500 mg tablet 500 mg PO BID Qty: 10 0RF oxycodone 5 mg tablet 5 mg PO Q8H PRN (Reason: severe pain (scale score 7-10)) Qty: 8 0RF cyclobenzaprine 10 mg tablet 10 mg PO TID PRN (Reason: muscle spasm) Qty: 14 0RF prednisone 20 mg tablet 40 mg PO DAILY Qty: 10 0RF cyclobenzaprine 10 mg tablet 10 mg PO BEDTIME PRN (Reason: muscle spasm) Qty: 7 0RF lidocaine 5 % adhesive patch,medicated 1 patch topical DAILY PRN (Reason: pain) Qty: 15 0RF Rx Instructions: leave on most painful area for up to 12 hrs cefuroxime axetil 250 mg tablet 250 mg PO BID 7 Days Qty: 14 0RF
== END 2023-09-22 16:08 | disposition home or self-care (01) ==
PROVIDERS: Emergency Provider Emergency Medicine
DX: M54.41 Lumbago with sciatica, right side (principal); E11.9 Type 2 diabetes mellitus without complications; Z86.73 Personal history of transient ischemic attack (TIA), and cerebral infarction without residual deficits
CPT/HCPCS: 99282; 99283

== ENCOUNTER 2023-10-07 17:57 | Emergency (ER) | payer OTHER, SELFPAY ==
[2023-10-07 18:42] VITALS: BP 125/66; PULSE 74; RESP 18; TEMP 36.4; O2SAT 97; BMI 29.8
[2023-10-07 22:06] VITALS: BP 143/90; PULSE 80; RESP 19; TEMP 36.6; O2SAT 97
--- NOTE | 2023-10-07 22:52 | ED_ITS ---
HPI - Back Pain/Injury General Chief Complaint: Back Pain/Injury Stated Complaint: lower back pain radiating down rt leg Time Seen by Provider: 10/07/23 22:42 Source: patient Mode of arrival: ambulatory Limitations: no limitations History of Present Illness HPI Narrative: 58-year-old female with a history of chronic back pain, CVA, diabetes, narcolepsy, seizures presents the ER with 2 weeks of lower back pain which radiates down the right leg with intermittent numbness and tingling. Patient denies any associated weakness. No numbness in the groin. No bowel or bladder incontinence. No fevers or chills. Patient reports that she is tried ibuprofen, cyclobenzaprine and prednisone with continued symptoms. She did follow-up with her primary care doctor was prescribed tizanidine but patient reports continued pain. She denies any injuries or falls Related Data Home Medications Medication Instructions Recorded Confirmed albuterol sulfate 90 mcg/actuation 2 puff PO QID PRN wheezing 09/15/20 02/28/21 aerosol inhaler aspirin 81 mg tablet,delayed 1 tab PO DAILY 09/15/20 02/28/21 release atorvastatin 80 mg tablet 1 tab PO DAILY 09/15/20 02/28/21 clonazepam 0.5 mg tablet 1 tab PO BID PRN Anxiety 09/15/20 02/28/21 clonidine HCl 0.1 mg tablet 1 tab PO BEDTIME PRN Anxiety 09/15/20 02/28/21 hydroxyzine pamoate 50 mg capsule 1 - 2 cap PO BEDTIME PRN Sleep 09/15/20 02/28/21 lamotrigine 100 mg tablet 1 tab PO QAM 09/15/20 02/28/21 lamotrigine 25 mg tablet 1 tab PO BEDTIME 09/15/20 02/28/21 omeprazole 40 mg capsule,delayed 1 cap PO DAILY 09/15/20 02/28/21 release sertraline 100 mg tablet 2 tab PO QAM 09/15/20 02/28/21 levetiracetam 1,000 mg tablet 1 tab PO BID 02/28/21 02/28/21 methadone 60 mg PO DAILY 02/28/21 02/28/21 Previous Rx's Medication Instructions Recorded cefuroxime axetil 500 mg tablet 500 mg PO BID #10 tabs 03/01/21 cyclobenzaprine 10 mg tablet 10 mg PO TID PRN muscle spasm #14 12/11/21 tabs oxycodone 5 mg tablet 5 mg PO Q8H PRN severe pain (scale 12/11/21 score 7-10) #8 tabs prednisone 20 mg tablet 40 mg (2 x 20 mg) PO DAILY #10 tabs 12/11/21 cefuroxime axetil 250 mg tablet 250 mg PO BID 7 days #14 tabs 01/18/23 cyclobenzaprine 10 mg tablet 10 mg PO BEDTIME PRN muscle spasm 01/18/23 #7 tabs lidocaine 5 % topical patch 1 patch topical DAILY PRN pain #15 01/18/23 ea cyclobenzaprine 10 mg tablet 10 mg PO TID PRN muscle spasm #15 09/22/23 tabs dexamethasone 4 mg tablet 4 mg PO BID #6 tabs 09/22/23 lidocaine 5 % topical patch 1 patch topical DAILY #15 ea 10/07/23 (Lidoderm) methocarbamol 750 mg tablet 750 mg PO Q8H PRN muscle spasm #15 10/07/23 tabs naproxen 500 mg tablet 500 mg PO BID PRN pain #30 tabs 10/07/23 Allergies Allergy/AdvReac Type Severity Reaction Status Date / Time codeine [CODEINE] Allergy Unknown SWELLING Verified 10/07/23 18:46 hornet venom [HORNETS] Allergy Unknown RASH Verified 10/07/23 18:46 trazodone [TRAZODONE] AdvReac Intermediate VERY Verified 10/07/23 18:46 ANXIOUS, RESTLESSNESS From BENADRYL AdvReac Intermediate RESTLESS Uncoded 10/07/23 18:46 From SEROQUEL AdvReac Intermediate ANXIETY Uncoded 10/07/23 18:46 AND RESTLESSNESS Review of Systems Review of Systems: Yes all other systems are reviewed and are negative Constitutional: Constitutional: Reports no additional constitutional complaints, Denies body ache(s), Denies chills, Denies fever(s), Denies headache(s) and Denies weakness Eyes: Eyes: Reports no additional eye complaints and Denies change in vision ENT: Reports system reviewed and no additional complaints, except as documented, Denies dizziness, Denies headache(s), Denies nasal congestion, Denies nasal discharge and Denies neck pain Cardiovascular: Cardiovascular: Reports no additional cardiovascular compl aints, Denies chest pain, Denies leg edema and Denies dyspnea Respiratory: Respiratory: Reports no additional respiratory complaints, Denies cough and Denies dyspnea Gastrointestinal: Gastrointestinal: Reports no additional gastrointestinal complaints, Denies abdominal pain, Denies diarrhea, Denies nausea and Denies vomiting Genitourinary: Genitourinary: Reports no additional female genitourinary complaints and Denies urinary incontinence Musculoskeletal: Musculoskeletal: Reports no additional musculoskeletal complaints, Reports back pain, Denies arthralgias, Denies joint swelling, Denies neck pain, Reports numbness, Reports radiating pain into limb and Reports tingling Integumentary/Breasts: Skin/Breast: Reports system reviewed and no additional complaints, except as docu and Denies rash Neurologic: Reports system reviewed and no additional complaints, except as documented, Denies Abnormal speech present, Denies dizziness, Denies headache(s), Reports numbness, Reports tingling and Denies weakness PMFSH Past Medical History Attestation statement: The following information was validated with the patient. Source: old records reviewed and nursing notes reviewed Medical History Left knee injury Patent ductus arteriosus Anxiety Hyperlipidemia Seizure Diabetes CVA (cerebral vascular accident) Surgical History Hx of tonsillectomy H/O left knee surgery Social History Social History Household Members: Other Housing: Other Housing Other:: [employer] Do you presently have visiting nurse or other home services: Yes Alcohol intake: never Patient Tobacco Use Status: Current everyday Tobacco user Tobacco use type: Cigarette Substance Use Type: Opiates Advance Directives: No Advance Directives Information Provided: Yes service: No Current occupational status: unemployed Physical Exam Vital Signs: Vital Signs: Last Vital Signs Temp 0 F L 10/07/23 23:22 Pulse 0 L 10/07/23 23:22 Resp 0 L 10/07/23 23:22 BP 000/000 H 10/07/23 23:22 Pulse Ox 97 10/07/23 22:06 O2 Del Method Room Air 10/07/23 22:06 BMI result Body Mass Index 29.8 Const: General: cooperative, healthy appearing, comfortable and no acute distress Orientation/consciousness: patient oriented x3 Limitations: no limitations HEENT: Head: Yes normal to inspection Ears: hearing grossly normal bilaterally General nose exam: Normal external nose present Face and s inus: Yes normal facial exam Mouth: Normal oral and palatal mucosa present Throat: Yes posterior oropharynx normal Eyes: General: appearance normal, both eyes and all related structures Pupils: Equal, round and reactive pupils present Neck: Neck: Yes normal visual inspection Chest: Chest palpation & inspection: normal inspection of the chest Resp: Effort & Inspection: normal respiratory effort Auscultation: clear to auscultation bilaterally Cardio: Rate: regular rate Rhythm: regular rhythm Peripheral pulses: Peripheral pulses 2+ throughout GI: Inspection: Yes normal to inspection Palpation (GI): Soft to palpation and nontender Auscultation: normal bowel sounds Back/Spine/Pelvis: Other: Tenderness to the right lumbar soft tissue and SI joint on compression. No midline lumbar tenderness, step-offs or deformities. Pain is worsened with flexion and extension of the spine. Pain is worsened right straight leg raise Thoracic/Lumbar Spine: thoracic and lumbar spine normal to inspection Skin: General skin exam: no rashes or lesions noted Neuro: General: patient oriented x3, moves all extremities, no focal motor deficits and normal sensation to monofilament Cranial nerves: Yes Equal, round and reactive pupils present Cognition (Neuro): normal cognition Speech: No Abnormal speech present Gait exam (Neuro): Normal gait present Motor exam (neuro): 5/5 motor strength present throughout Sensory Exam: Normal double simultaneous stimulation for sensation Deep tendon reflexes (DTR's): Right patellar reflex intensity grade: 2+ and Left patellar reflex intensity grade: 2+ Extrem: General: Yes normal to inspection Medical Decision Making Medical Decision Making [facility] Narrative: 58-year-old female with a history of chronic back pain, CVA, diabetes, narcolepsy, seizures presents the ER with 2 weeks of lower back pain which radiates down the right leg with intermittent numbness and tingling. Patient denies any associated weakness. No numbness in the groin. No bowel or bladder incontinence. No fevers or chills. Patient reports that she is tried ibuprofen, cyclobenzaprine and prednisone with continued symptoms. She did follow-up with her primary care doctor was prescribed tizanidine but patient reports continued pain. She denies any injuries or falls Tenderness to the right lumbar soft tissue and SI joint on compression. No midline lumbar tenderness, step-offs or deformities. Pain is worsened with flexion and extension of the spine. Pain is worsened right straight leg raise Exam is consistent with sciatica. No neurological deficits or red flag symptoms to warrant urgent MRI imaging. Patient will be discharged home with oral medications recommendations to follow-up with her primary care doctor Differential Diagnosis Differential Diagnoses: The differential diagnosis associated with the presentation includes Sciatica, lumbar radiculopathy Low suspicion for cord compression, cauda equina, epidural abscess, malignancy with normal neuro exam no focal neurological deficits Admission/Observation Consideration of admission/observation: Escalation of care including admission/observation considered Low suspicion for cord compression, cauda equina, epidural abscess, malignancy with normal neuro exam no focal neurological deficits-warranting urgent MRI and neurosurgery consultation External Record Review External record reviewed: Primary care record and Outside ED record Tests considered The following testing was considered but not selected: Low suspicion for cord compression, cauda equina, epidural abscess, malignancy with normal neuro exam no focal neurological deficits-warranting urgent MRI Prescription Management I considered prescription management with: Pain Medication Discharge Plan Discharge Clinical Impression: Sciatica Patient Disposition: Home, Self-Care Instructions: Sciatica (ED) Additional Instructions: Heat or ice Gentle stretching No heavy lifting or bending Please follow-up with your primary care doctor in regards to her back pain Prescriptions: New naproxen 500 mg tablet 500 mg PO BID PRN (Reason: pain) Qty: 30 0RF methocarbamol 750 mg tablet 750 mg PO Q8H PRN (Reason: muscle spasm) Qty: 15 0RF lidocaine [Lidoderm] 5 % adhesive patch,medicated 1 patch topical DAILY Qty: 15 0RF Rx Instructions: leave on most painful area for up to 12 hrs No Action atorvastatin 80 mg tablet 1 tab PO DAILY clonidine HCl 0.1 mg tablet 1 tab PO BEDTIME PRN (Reason: Anxiety) clonazepam 0.5 mg tablet 1 tab PO BID PRN (Reason: Anxiety) sertraline 100 mg tablet 2 tab PO QAM hydroxyzine pamoate 50 mg capsule 1 - 2 cap PO BEDTIME PRN (Reason: Sleep) omeprazole 40 mg capsule,delayed release(DR/EC) 1 cap PO DAILY aspirin 81 mg tablet,delayed release (DR/EC) 1 tab PO DAILY lamotrigine 25 mg tablet 1 tab PO BEDTIME albuterol sulfate 90 mcg/actuation HFA aerosol inhaler 2 puff PO QID PRN (Reason: wheezing) lamotrigine 100 mg tablet 1 tab PO QAM levetiracetam 1,000 mg tablet 1 tab PO BID methadone 60 mg PO DAILY cefuroxime axetil 500 mg tablet 500 mg PO BID Qty: 10 0RF oxycodone 5 mg tablet 5 mg PO Q8H PRN (Reason: severe pain (scale score 7-10)) Qty: 8 0RF cyclobenzaprine 10 mg tablet 10 mg PO TID PRN (Reason: muscle spasm) Qty: 14 0RF prednisone 20 mg tablet 40 mg PO DAILY Qty: 10 0RF cyclobenzaprine 10 mg tablet 10 mg PO BEDTIME PRN (Reason: muscle spasm) Qty: 7 0RF lidocaine 5 % adhesive patch,medicated 1 patch topical DAILY PRN (Reason: pain) Qty: 15 0RF Rx Instructions: leave on most painful area for up to 12 hrs cefuroxime axetil 250 mg tablet 250 mg PO BID 7 Days Qty: 14 0RF dexamethasone 4 mg tablet 4 mg PO BID Qty: 6 0RF cyclobenzaprine 10 mg tablet 10 mg PO TID PRN (Reason: muscle spasm) Qty: 15 0RF Referrals: Physician,Unknown J [Primary Care Provider] - 1 week Interventions: ED Discharge Assessment Last Done: 10/07/23 23:22 Discharge Date/Time: 10/07/23 23:31
--- NOTE | 2023-10-07 23:21 | PC.NURSE ---
Just assumed care of patient. Went to go take vitals and see patient and patient had left without discharge papers.
[2023-10-07 23:22] VITALS: BP 000/000; PULSE 0; RESP 0; TEMP -17.7; TEMP 0
== END 2023-10-07 23:31 | disposition home or self-care (01) ==
PROVIDERS: Emergency Provider Internal Medicine
DX: M54.30 Sciatica, unspecified side (principal); M54.50 Low back pain, unspecified; E11.9 Type 2 diabetes mellitus without complications; R20.0 Anesthesia of skin
CPT/HCPCS: 99282

== ENCOUNTER 2023-11-02 05:16 | Emergency (ER) | payer OTHER, SELFPAY ==
--- NOTE | ~2023-11-02 | XR_ITS ---
EXAMINATION: XR CHEST CLINICAL INFORMATION: Cough with nausea and vomiting. COMPARISON: 03/22/2023 TECHNIQUE: Frontal view of the chest was obtained. FINDINGS: No significant abnormality is noted involving the heart, lungs, mediastinum, bony thorax or soft tissues. XR/XR chest 1V IMPRESSION: Unremarkable examination.
--- NOTE | ~2023-11-02 | CT_ITS ---
EXAMINATION: CT ABDOMEN AND PELVIS WITHOUT CONTRAST CLINICAL INFORMATION: Abdominal pain, nausea and vomiting. COMPARISON: Abdominal ultrasound 03/22/2023. CT abdomen/pelvis 04/19/2022. TECHNIQUE: Multidetector volumetric imaging was performed from the superior aspect of the liver through the pubic symphysis. Sagittal and coronal reformatted images were obtained on the technologist's workstation. This CT examination was performed using dose optimization techniques as appropriate, variously including the following: *Automated exposure control *Adjustment of mA and/or kV according to patient size (this includes techniques or standardized protocols for targeted exams where dose is matched to indication/reason for exam; i.e. extremities or head) *Use of iterative reconstruction technique DLP: 597 mGy-cm FINDINGS: The lack of intravenous contrast limits evaluation of the solid visceral organs including the liver, spleen, pancreas, and kidneys. LUNG BASES: Mild bronchial wall thickening. No consolidation or pleural effusion. LIVER, GALLBLADDER, AND BILIARY TREE: Decreased attenuation of liver parenchyma suggesting hepatic steatosis. Redemonstration of a 2.7 cm benign-appearing water density cysts in the right hepatic lobe, for which no imaging follow-up is recommended. Distended gallbladder. No evidence of calcified cholelithiasis. No significant pericholecystic inflammatory changes. No biliary ductal dilatation. PANCREAS: Redemonstration of diffuse fatty atrophy. No main ductal dilatation. Questionable minimal haziness adjacent to the root of the small bowel mesentery and proximal pancreas. SPLEEN: Unremarkable. ADRENAL GLANDS: Unchanged 1.4 cm right adrenal nodule measuring less than 10 Hounsfield units most consistent with an adenoma for which no imaging follow-up is recommended. Normal left adrenal gland. KIDNEYS AND URETERS: No nephrolithiasis or hydronephrosis. No significant perinephric fat stranding. BLADDER: Unremarkable. GASTROINTESTINAL TRACT: The stomach and the small bowel are nondilated. Normal appendix. Colonic diverticulosis without significant pericolonic inflammatory changes. No evidence of bowel obstruction. ABDOMINAL WALL: No significant hernia is appreciated. LYMPH NODES: Unchanged periportal lymphadenopathy, for instance measuring 1.4 x 1.6 cm (3:26). VASCULAR: Atherosclerotic disease. Normal caliber abdominal aorta. PELVIC VISCERA: A 3.5 x 3 cm simple fluid attenuating cyst in the left adnexa, most likely left ovary is increased in size from 2.3 x 1.7 cm. There is suggestion of thin internal septations along the medial aspect of the cyst best visualized on coronal planes (image 39 series 7). OSSEOUS STRUCTURES: Degenerative changes of the spine. No acute or aggressive appearing osseous findings. CT/CT abdomen pelvis wo IV con IMPRESSION: 1. Questionable minimal haziness adjacent to the root of the small bowel mesentery and proximal pancreas. Correlate clinically for acute pancreatitis. 2. Hepatic steatosis. 3. Diverticulosis but no evidence of acute diverticulitis. 4. Distended gallbladder without significant pericholecystic inflammatory changes. If there is a clinical concern for acute cholecystitis, consider further correlation with right upper quadrant ultrasound. 5. Increased size of a now 3.5 cm simple fluid attenuating cystic appearing lesion in the left ovary with a few very thin internal septations. Recommend outpatient surgical consultation and outpatient evaluation with pelvic MRI with and without IV contrast.
[2023-11-02 07:55] VITALS: BP 148/88; PULSE 100; RESP 20; O2SAT 92
--- NOTE | 2023-11-02 08:15 | ECG_ITS ---
Test Reason : qtc Blood Pressure : / mmHG Vent. Rate : 071 BPM Atrial Rate : 071 BPM P-R Int : 130 ms QRS Dur : 080 ms QT Int : 452 ms P-R-T Axes : 002 054 024 degrees QTc Int : 491 ms Poor data quality, interpretation may be adversely affected Sinus rhythm with marked sinus arrhythmia Prolonged QT Abnormal ECG When compared with ECG of 22-MAR-2023 08:27, No significant change was found Referred By: Raiza Jonas Electronically Signed By:Lonnie Harris
[2023-11-02 08:16] LABS: MANUAL DIFF FLAG NO
[2023-11-02 08:25] LABS: Basophils Percent Auto 0.2 % (0-2); Eosinophils Percent Auto 0.2 % (0-4); Hemoglobin 13.9 g/dl (12.0-16.0); Imm Gran Abs Auto 0.09 X10*3/uL (0.00-0.03); Imm Gran Pct Auto 0.5 % (0.0-0.4); Lymphocytes Absolute Auto 2.4 X10*3/uL (1.2-4.9); Lymphocytes Percent Auto 14.9 % (20-40); Mean Corpuscular HGB Conc 32.3 g/dl (31.0-35.0); Mean Corpuscular Hemoglobin 26.5 pg (27.0-33.0); Mean Corpuscular Volume 81.9 fL (80.0-98.0); Mean Platelet Volume 9.8 fL (9.4-12.3); Monocytes Absolute Auto 0.6 X10*3/uL (0.1-1.2); Monocytes Percent Auto 3.8 % (2-11); Neutrophils Absolute Auto 13.2 x10*3/uL (2.0-8.3); Neutrophils Percent Auto 80.4 % (45-73); Platelet Count 267 X10*3/uL (160-400); Red Blood Count 5.25 X10*6/uL (4.20-5.50); Red Cell Distribution Width 15.4 % (11.0-16.0); White Blood Count 16.4 X10*3/uL (4.8-10.8)
[2023-11-02 08:45] LABS: Troponin-I High Sensitivity < 2.7 ng/L (<3.5-17.0)
[2023-11-02 08:51] LABS: Alanine Aminotransferase 20 U/L (0-31); Albumin Level 4.3 g/dL (3.5-5.0); Alkaline Phosphatase 90 U/L (39-117); Anion Gap 18 (12-20); Aspartate Amino Transferase 19 U/L (5-31); Bilirubin Direct 0.2 mg/dL (0.0-0.5); Bilirubin Total 0.5 mg/dL (0.0-1.0); Blood Urea Nitrogen 8 mg/dL (9-16); Calcium 9.8 mg/dL (8.4-10.2); Carbon Dioxide 24 mmol/L (22-29); Chloride 103 mmol/L (96-108); Estimated Glomerular Filt Rate > 60; Glucose Random 194 mg/dL (60-115); Lipase 9 U/L (8-78); Magnesium 2.1 mg/dL (1.6-2.6); Potassium 3.4 mmol/L (3.3-5.1); Sodium 142 mmol/L (135-145); Total Protein 8.1 g/dL (6.5-8.0)
[2023-11-02] MEDS: 0.9 % Sodium Chloride 1,000 ML 999 ML IV (09:00)
[2023-11-02 09:04] LABS: Influenza A PCR NEGATIVE (Negative); Influenza B PCR NEGATIVE (Negative); Resp Syncy Virus RNA Qual PCR NEGATIVE (Negative); SARS COV2 PCR INHOUSE NEGATIVE (Negative)
[2023-11-02 09:06] VITALS: BP 141/54; PULSE 69; RESP 20; TEMP 36.9; O2SAT 94
[2023-11-02] MEDS: LORazepam 2 MG/ML VIAL IVPUSH (09:09)
--- NOTE | 2023-11-02 10:04 | PC.NURSE ---
IV established, medicated per the MAR. patient appears more comfortable at this time, appears to be sleeping with even and unlabored respirations. call holliday within reach.
--- NOTE | 2023-11-02 10:23 | ED.NAVMDI ---
HPI - Nausea/Vomiting/Diarrhea General Chief complaint: Nausea/Vomiting/Diarrhea Stated complaint: N/V Time Seen by Provider: 11/02/23 06:59 Source: patient and RN notes reviewed Mode of arrival: ambulatory Limitations: no limitations History of Present Illness HPI Narrative: This is a 58-year-old female, with a history of CVA, diabetes, seizure disorder, hyperlipidemia, anxiety who presents to the emergency department with complaints of nausea and vomiting which started at 2:00 a.m. this morning. Patient states that she would roughly woke up this morning with nausea and vomiting. She states that she has been unable to eat or drink secondary to the nausea and vomiting. She states that she has a history of similar symptoms and responds well to Ativan. Patient states that yesterday she had fried chicken. Denies any recent sick contacts. She states that her partner who also consumed chicken did not get sick. She denies any fevers, chills, dizziness, blurred vision, chest pain, shortness of breath, abdominal pain, diarrhea. Denies taking any medications recurrent symptoms here no other complaints or concerns at this time. MD elicited complaint: nausea and vomiting Pertinent past history: cyclical vomiting Related Data Home Medications ?Medication ?Instructions ?Recorded ?Confirmed albuterol sulfate 90 mcg/actuation 2 puff PO QID PRN wheezing 09/15/20 02/28/21 aerosol inhaler aspirin 81 mg tablet,delayed 1 tab PO DAILY 09/15/20 02/28/21 release atorvastatin 80 mg tablet 1 tab PO DAILY 09/15/20 02/28/21 clonazepam 0.5 mg tablet 1 tab PO BID PRN Anxiety 09/15/20 02/28/21 clonidine HCl 0.1 mg tablet 1 tab PO BEDTIME PRN Anxiety 09/15/20 02/28/21 hydroxyzine pamoate 50 mg capsule 1 - 2 cap PO BEDTIME PRN Sleep 09/15/20 02/28/21 lamotrigine 100 mg tablet 1 tab PO QAM 09/15/20 02/28/21 lamotrigine 25 mg tablet 1 tab PO BEDTIME 09/15/20 02/28/21 omeprazole 40 mg capsule,delayed 1 cap PO DAILY 09/15/20 02/28/21 release sertraline 100 mg tablet 2 tab PO QAM 09/15/20 02/28/21 levetiracetam 1,000 mg tablet 1 tab PO BID 02/28/21 02/28/21 methadone 60 mg PO DAILY 02/28/21 02/28/21 Previous Rx's ?Medication ?Instructions ?Recorded cefuroxime axetil 500 mg tablet 500 mg PO BID #10 tabs 03/01/21 cyclobenzaprine 10 mg tablet 10 mg PO TID PRN muscle spasm #14 12/11/21 tabs oxycodone 5 mg tablet 5 mg PO Q8H PRN severe pain (scale 12/11/21 score 7-10) #8 tabs prednisone 20 mg tablet 40 mg (2 x 20 mg) PO DAILY #10 tabs 12/11/21 cefuroxime axetil 250 mg tablet 250 mg PO BID 7 days #14 tabs 01/18/23 cyclobenzaprine 10 mg tablet 10 mg PO BEDTIME PRN muscle spasm 01/18/23 #7 tabs lidocaine 5 % topical patch 1 patch topical DAILY PRN pain #15 01/18/23 ea cyclobenzaprine 10 mg tablet 10 mg PO TID PRN muscle spasm #15 09/22/23 tabs dexamethasone 4 mg tablet 4 mg PO BID #6 tabs 09/22/23 lidocaine 5 % topical patch 1 patch topical DAILY #15 ea 10/07/23 (Lidoderm) methocarbamol 750 mg tablet 750 mg PO Q8H PRN muscle spasm #15 10/07/23 tabs naproxen 500 mg tablet 500 mg PO BID PRN pain #30 tabs 10/07/23 ondansetron 4 mg disintegrating 4 mg PO Q8H PRN nausea and 11/02/23 tablet vomiting #20 tabs Allergies Allergy/AdvReac Type Severity Reaction Status Date / Time codeine [CODEINE] Allergy Unknown SWELLING Verified 10/07/23 18:46 hornet venom [HORNETS] Allergy Unknown RASH Verified 10/07/23 18:46 trazodone [TRAZODONE] AdvReac Intermediate VERY Verified 10/07/23 18:46 ANXIOUS, RESTLESSNESS From BENADRYL AdvReac Intermediate RESTLESS Uncoded 10/07/23 18:46 From SEROQUEL AdvReac Intermediate ANXIETY Uncoded 10/07/23 18:46 AND RESTLESSNESS Review of Systems Review of Systems: Yes all other systems are reviewed and are negative Constitutional: Constitutional: Reports as per HPI PMFSH Past Medical History Attestation statement: The following information was validated with the patient. Medical History Left knee injury Patent ductus arteriosus Anxiety Hyperlipidemia Seizure Diabetes CVA (cerebral vascular accident) Surgical History Hx of tonsillectomy H/O left knee surgery Social History Social History Household Members: Other Housing: Other Housing Other:: [employer] [address] Do you presently have visiting nurse or other home services: Yes Alcohol intake: never Patient Tobacco Use Status: Current everyday Tobacco user Tobacco use type: Cigarette Substance Use Type: Opiates Advance Directives: No Advance Directives Information Provided: No service: No Current occupational status: unemployed Physical Exam Vital Signs: Vital Signs: Last Vital Signs Temp 98.1 F 11/02/23 20:46 Pulse 81 11/02/23 20:46 Resp 17 11/02/23 20:46 BP 164/79 H 11/02/23 20:46 Pulse Ox 92 11/02/23 20:46 O2 Del Method Room Air 11/02/23 20:46 Const: General: cooperative, comfortable and no acute distress Orientation/consciousness: patient oriented x3 Limitations: no limitations HEENT: Head: Yes normal to inspection, Yes normocephalic and Yes atraumatic Ears: hearing grossly normal bilaterally General nose exam: Normal external nose present Face and sinus: Yes normal facial exam Mouth: Normal oral and palatal mucosa present, oropharynx normal and moist mucous membranes Throat: Yes posterior oropharynx normal Eyes: General: appearance normal, both eyes and all related structures Eyelids: Yes eyelids normal Conjunctivae: conjunctivae normal Sclerae: sclerae normal Pupils: Equal, round and reactive pupils present EOM: EOMs intact bilaterally Neck: Neck: Yes normal visual inspection, Yes full ROM and Yes no lymphadenopathy Lymphatic: no lymphadenopathy noted Chest: Chest palpation & inspection: normal inspection of the chest Resp: Effort & Inspection: normal respiratory effort and able to speak in complete sentences Auscultation: clear to auscultation bilaterally, no crackles, no rales, no rhonchi and no wheezes Cardio: Rate: regular rate Rhythm: regular rhythm Heart sounds: S1 normal heart sound present and S2 normal heart sound present GI: Other: Abdomen is soft, nontender, nondistended Inspection: Yes normal to inspection Skin: General skin exam: no rashes or lesions noted Trauma: no lacerations or abrasions Wounds: no wounds Neuro: General: patient oriented x3 and moves all extremities Cranial nerves: Yes Equal, round and reactive pupils present Extrem: General: Yes normal to inspection Right upper extremity: normal to inspection Left upper extremity: normal to inspection Right lower extremity: normal to inspection Left lower extremity: normal to inspection Course Reevaluation(s) Reevaluation #1: We are limited as to what we can provide to her as she has an allergy to Benadryl therefore Reglan is contraindicated. She also has a prolonged QT QTC therefore Zofran is also contraindicated. Discussed case with my attending physician, recommending Compazine and magnesium. Reevaluation #2: Patient re-evaluated after receiving Compazine and magnesium 2 g, still nauseous however states that her symptoms have improved since her arrival. She is still refusing CT scan. I advised the patient that we need to have this performed given patient has elevated white blood cell count. She has no abdominal pain. Patient states that if her nausea becomes more under control, she will be compliant with obtaining CT scan however refuses at this time. Will obtain EKG to assess QT again now that she has received magneisum to see if improvement is made to administer other medications. Time: 15:56 Reevaluation #3: QT/QTC improve to 364/455. Will medicate with Haldol due to intractable nausea. Sign-out given to my colleague, Sergei garner pending PO trial, +/- CT abd, and re-evalation Time: 20:30 Additional Reevaluation(s): Patient resting comfortably at this time. She has had no further vomiting. I did convince the patient to get a CT scan but she would not consent to the IV contrast. The CT scan has multiple possible abnormalities including a questionable pancreatitis. This is here to be less likely as the patient's lipase is 9. The patient does have fatty liver, diverticulosis without evidence of acute diverticulitis. Patient's gallbladder is distended but without any significant pericholecystic inflammatory changes. The patient has no right upper quadrant tenderness on exam. Less likely to be acute cholecystitis, also the LFTs are within normal limits. Patient does have a P 0.5 cm cyst appearing to be in the left ovary which requires follow-up. Medications Administered Discontinued Medications Generic Name Dose Route Start Last Admin Trade Name Evaristo PRN Reason Stop Dose Admin Haloperidol Lactate 2.5 mg 11/02/23 16:18 11/02/23 17:08 Haloperidol Lactate 5 Mg/Ml Vial IVPUSH 11/02/23 16:19 2.5 mg ONCE ONE Administration Sodium Chloride 1,000 mls @ 999 mls/hr 11/02/23 08:13 11/02/23 10:04 Ns IV 11/02/23 09:13 Infused .Q1H1M ONE Infusion Magnesium Sulfate 2 gm in 50 mls @ 25 mls/hr 11/02/23 14:02 11/02/23 16:00 Magnesium Sulfate/H2o IV 11/02/23 16:01 Infused ONCE ONE Infusion Lorazepam 2 mg 11/02/23 09:03 11/02/23 09:09 Lorazepam 2 Mg/Ml Vial IVPUSH 11/02/23 09:04 2 mg ONCE ONE Administration Lorazepam 1 mg 11/02/23 17:59 11/02/23 18:10 Lorazepam 2 Mg/Ml Vial IVPUSH 11/02/23 18:00 1 mg ONCE ONE Administration Prochlorperazine Edisylate 10 mg 11/02/23 14:02 11/02/23 14:11 Prochlorperazine Edisylate 10 Mg/2 Ml Vial IVPUSH 11/02/23 14:03 10 mg ONCE ONE Administration Medical Decision Making Medical Decision Making [facility] Narrative: This is a 58-year-old female, with a history of CVA, diabetes, seizure disorder, hyperlipidemia, anxiety who presents to the emergency department with complaints of nausea and vomiting which started at 2:00 a.m. this morning. Patient states that she would abruptly woke up this morning with nausea and vomiting. On arrival, blood pressure within normal limits, patient nontoxic appearing, afebrile. Speaking full sentences. She does appear to be nauseated, abdomen is soft nontender. Differential diagnoses include gastritis, gastroenteritis, electrolyte derangement, cyclical vomiting. Plan: Labs, EKG, Viral Swabs, IV fluids Differential Diagnosis Differential Diagnoses: The differential diagnosis associated with the presentation includes see above Lab Data MDM Lab Attestation statement: I reviewed the patient's lab results. Leukocytosis with left shift, chemistry within normal limits, negative troponin. Alk-phos within normal limits. Viral swabs negative. 11/02/23 08:09 11/02/23 08:09 Labs: Lab Results 11/02/23 Range/Units 08:09 WBC 16.4 H (4.8-10.8) X10*3/uL RBC 5.25 (4.20-5.50) X10*6/uL Hgb 13.9 (12.0-16.0) g/dl Hct 43.0 (37.0-47.0) % MCV 81.9 (80.0-98.0) fL MCH 26.5 L (27.0-33.0) pg MCHC 32.3 (31.0-35.0) g/dl RDW 15.4 (11.0-16.0) % Plt Count 267 (160-400) X10*3/uL MPV 9.8 (9.4-12.3) fL Immature Gran % (Auto) 0.5 H (0.0-0.4) % Neut % (Auto) 80.4 H (45-73) % Lymph % (Auto) 14.9 L (20-40) % Elliott % (Auto) 3.8 (2-11) % Eos % (Auto) 0.2 (0-4) % Baso % (Auto) 0.2 (0-2) % Lymph # (Auto) 2.4 (1.2-4.9) X10*3/uL Elliott # (Auto) 0.6 (0.1-1.2) X10*3/uL Eos # (Auto) 0.0 (0.0-0.4) X10*3/uL Baso # (Auto) 0.0 (0.0-0.2) X10*3/uL Abs Immat Gran (auto) 0.09 H (0.00-0.03) X10*3/uL Absolute Neuts (auto) 13.2 H (2.0-8.3) x10*3/uL Absolute Nucleated RBC 0.000 (0.0-0.012) X10*3/uL Nucleated RBC % (auto) 0.0 (0.0-0.2) /100WBC Sodium 142 (135-145) mmol/L Potassium 3.4 (3.3-5.1) mmol/L Chloride 103 (96-108) mmol/L Carbon Dioxide 24 (22-29) mmol/L Anion Gap 18 (12-20) BUN 8 L (9-16) mg/dL Creatinine 0.91 (0.5-1.4) mg/dL Estim Creat Clear Calc TNP Estimated GFR > 60 Random Glucose 194 H (60-115) mg/dL Calcium 9.8 (8.4-10.2) mg/dL Magnesium 2.1 (1.6-2.6) mg/dL Total Bilirubin 0.5 (0.0-1.0) mg/dL Direct Bilirubin 0.2 (0.0-0.5) mg/dL AST 19 (5-31) U/L ALT 20 (0-31) U/L Alkaline Phosphatase 90 (39-117) U/L Troponin I High Sens < 2.7 (<3.5-17.0) ng/L Total Protein 8.1 H (6.5-8.0) g/dL Albumin 4.3 (3.5-5.0) g/dL Lipase 9 (8-78) U/L Influenza Type A (PCR) NEGATIVE (Negative) Influenza Type B (PCR) NEGATIVE (Negative) RSV RNA Qual (PCR) NEGATIVE (Negative) SARS-CoV-2 RNA (RT-PCR) NEGATIVE (Negative) Independent Interpretation I performed an independent interpretation of an: EKG Interpretation: EKG normal sinus rhythm with marked sinus arrhythmia noted at a ventricular rate of 61 beats per minute, MN interval 130, QT QTC 452/491, no ST elevation or depression. Radiology Impression Discussion of test interpretation with radiology: I have reviewed the radiologist's reading. Radiologist Impression: EXAMINATION: XR CHEST CLINICAL INFORMATION: Cough with nausea and vomiting. COMPARISON: 03/22/2023 TECHNIQUE: Frontal view of the chest was obtained. FINDINGS: No significant abnormality is noted involving the heart, lungs, mediastinum, bony thorax or soft tissues. XR/XR chest 1V IMPRESSION: Unremarkable examination. Dictated By: Agustín Judd MD External Record Review External record reviewed: Inpatient record, Office record, Outpatient record, Prior outpatient labs, Prior outpatient radiology, Primary care record and Outside ED record Discharge Plan Discharge Clinical Impression: Cyclical vomiting, intractable, Cyst of left ovary, Fatty liver Patient Disposition: Home, Self-Care Instructions: Acute Nausea and Vomiting (ED), Non-Alcoholic Fatty Liver Disease (ED) Additional Instructions: Your workup in the ER today was reassuring. Your CT scan showed fatty liver, as well as a 3.5 cm left ovarian cyst. This requires follow-up with outpatient OBGYN and possible pelvic MRI to better evaluate You may use Zofran as needed for nausea/vomiting Prescriptions: New ondansetron 4 mg tablet,disintegrating 4 mg PO Q8H PRN (Reason: nausea and vomiting) Qty: 20 0RF No Action atorvastatin 80 mg tablet 1 tab PO DAILY clonidine HCl 0.1 mg tablet 1 tab PO BEDTIME PRN (Reason: Anxiety) clonazepam 0.5 mg tablet 1 tab PO BID PRN (Reason: Anxiety) sertraline 100 mg tablet 2 tab PO QAM hydroxyzine pamoate 50 mg capsule 1 - 2 cap PO BEDTIME PRN (Reason: Sleep) omeprazole 40 mg capsule,delayed release(DR/EC) 1 cap PO DAILY aspirin 81 mg tablet,delayed release (DR/EC) 1 tab PO DAILY lamotrigine 25 mg tablet 1 tab PO BEDTIME albuterol sulfate 90 mcg/actuation HFA aerosol inhaler 2 puff PO QID PRN (Reason: wheezing) lamotrigine 100 mg tablet 1 tab PO QAM levetiracetam 1,000 mg tablet 1 tab PO BID methadone 60 mg PO DAILY cefuroxime axetil 500 mg tablet 500 mg PO BID Qty: 10 0RF oxycodone 5 mg tablet 5 mg PO Q8H PRN (Reason: severe pain (scale score 7-10)) Qty: 8 0RF cyclobenzaprine 10 mg tablet 10 mg PO TID PRN (Reason: muscle spasm) Qty: 14 0RF prednisone 20 mg tablet 40 mg PO DAILY Qty: 10 0RF cyclobenzaprine 10 mg tablet 10 mg PO BEDTIME PRN (Reason: muscle spasm) Qty: 7 0RF lidocaine 5 % adhesive patch,medicated 1 patch topical DAILY PRN (Reason: pain) Qty: 15 0RF Rx Instructions: leave on most painful area for up to 12 hrs cefuroxime axetil 250 mg tablet 250 mg PO BID 7 Days Qty: 14 0RF dexamethasone 4 mg tablet 4 mg PO BID Qty: 6 0RF cyclobenzaprine 10 mg tablet 10 mg PO TID PRN (Reason: muscle spasm) Qty: 15 0RF naproxen 500 mg tablet 500 mg PO BID PRN (Reason: pain) Qty: 30 0RF methocarbamol 750 mg tablet 750 mg PO Q8H PRN (Reason: muscle spasm) Qty: 15 0RF lidocaine [Lidoderm] 5 % adhesive patch,medicated 1 patch topical DAILY Qty: 15 0RF Rx Instructions: leave on most painful area for up to 12 hrs Print Language: Estonian
[2023-11-02 13:25] VITALS: BP 183/77; PULSE 82; RESP 18; TEMP 36.8; O2SAT 97
[2023-11-02] MEDS: Prochlorperazine Edisylate 10 MG/2 ML VIAL IVPUSH (14:11)
[2023-11-02] MEDS: Magnesium Sulfate/H2O 2 GM/50 ML PIGGYBACK IV (14:11)
--- NOTE | 2023-11-02 14:12 | PC.NURSE ---
patient now awake, continues to vomit. medicated per the MAR, call holliday remains in reach
--- NOTE | 2023-11-02 15:59 | PC.NURSE ---
patient states she has not vomited since the last medication, however she still is endorsing nausea. when asked what other medications help she states that she is unsure and that usually this has to run its course.
--- NOTE | 2023-11-02 16:02 | ECG_ITS ---
Test Reason : ASSESS QT Blood Pressure : / mmHG Vent. Rate : 094 BPM Atrial Rate : 094 BPM P-R Int : 136 ms QRS Dur : 082 ms QT Int : 364 ms P-R-T Axes : 054 055 045 degrees QTc Int : 455 ms Normal sinus rhythm Nonspecific ST abnormality Abnormal ECG When compared with ECG of 02-NOV-2023 08:41, No significant change was found Referred By: Raiza Jonas Electronically Signed By:Lonnie Harris
[2023-11-02] MEDS: Haloperidol Lactate 5 MG/ML VIAL 2.5 MG IVPUSH (17:08)
--- NOTE | 2023-11-02 17:14 | PC.NURSE ---
medicated per the MAR for nausea. patient now resting quietly with eyes closed, respirations even and unlabored
[2023-11-02] MEDS: LORazepam 2 MG/ML VIAL 1 MG IVPUSH (18:10)
[2023-11-02 18:11] VITALS: BP 154/78; PULSE 88; RESP 18; TEMP 36.9; O2SAT 94
--- NOTE | 2023-11-02 18:13 | PC.NURSE ---
medicated per the MAR, patient agreeable to ct scan after medication administration. has not thrown up, still reports nausea
--- NOTE | 2023-11-02 20:31 | PC.NURSE ---
Assumed care of pt at 19:00. Pt laying in bed, reports no vomiting since receiving Compazine. Offering no complaints @ this time. Plan of care ongoing.
[2023-11-02 20:46] VITALS: BP 164/79; PULSE 81; RESP 17; TEMP 36.7; O2SAT 92
[2023-11-02 22:03] VITALS: BP 158/78; PULSE 78; RESP 18; TEMP 36.6; O2SAT 94
== END 2023-11-02 22:04 | disposition home or self-care (01) ==
PROVIDERS: Physician Assistant Medical; Emergency Provider Emergency Medicine
DX: N83.202 Unspecified ovarian cyst, left side (principal); K76.0 Fatty (change of) liver, not elsewhere classified; I49.8 Other specified cardiac arrhythmias; R10.2 Pelvic and perineal pain; R11.2 Nausea with vomiting, unspecified; Z03.818 Encounter for observation for suspected exposure to other biological agents ruled out; Z79.899 Other long term (current) drug therapy
CPT/HCPCS: 0241U; 71045; 74176; 80048; 80076; 83690; 83735; 84484; 85025; 93005; 96361; 96365; 96366; 96375; 96376; 99283; 99284; 99285; J0737; J1630; J2060; J3475

== ENCOUNTER → 2023-11-02 08:15 | Outpatient (BNV) | payer OTHER, SELFPAY | PROVIDERS: Emergency Provider Emergency Medicine; Visit Provider Internal Medicine Cardiovascular Disease | DX: I45.81 Long QT syndrome (principal) | CPT/HCPCS: 93010 ==

== ENCOUNTER 2023-11-10 09:31 | Inpatient (IN) | payer OTHER, SELFPAY ==
[2023-11-10] VITALS (7 sets, daily range): BP systolic 101–142; BP diastolic 51–76; PULSE 71–96; RESP 16–20; TEMP 36.3–39.3; O2SAT 94–98; BMI 28.8; BMI 30.9
--- NOTE | ~2023-11-10 | XR_ITS ---
EXAMINATION: XR CHEST CLINICAL INFORMATION: Fever and abdominal pain COMPARISON: 11/02/2023 l TECHNIQUE: Frontal view of the chest was obtained. FINDINGS: Heart, mediastinum and vascularity within normal limits. Bilateral basilar opacities are now seen. No effusions. Bony structures are intact. XR/XR chest 1V IMPRESSION: Suspect right middle and left lower lobe pneumonias. Follow-up to complete resolution recommended.
--- NOTE | ~2023-11-10 | CT_ITS ---
EXAMINATION: CT ABDOMEN AND PELVIS WITH CONTRAST CLINICAL INFORMATION: Abdominal pain and fever COMPARISON: 11/02/2023, 04/19/2022 TECHNIQUE: Multidetector volumetric images were obtained from the superior aspect of the liver through the pubic symphysis following administration 85 mL of Omnipaque 350 intravenous contrast. Sagittal and coronal reformatted images were obtained on the technologist's workstation. Oral contrast: No This CT examination was performed using dose optimization techniques as appropriate, variously including the following: *Automated exposure control *Adjustment of mA and/or kV according to patient size (this includes techniques or standardized protocols for targeted exams where dose is matched to indication/reason for exam; i.e. extremities or head) *Use of iterative reconstruction technique DLP: 584 mGy-cm FINDINGS: [place]: Moderate fecal retention. Mildly prominent air-filled small bowel loops left midabdomen. Degenerative changes and minimal dextroscoliosis. LUNG BASES: Heart size within normal limits. No pericardial effusion. Right middle lobe consolidation/pneumonia. Groundglass opacities right lower lobe. Left lower lobe atelectasis. LIVER, GALLBLADDER, AND BILIARY TREE: Diffuse hypodensity to the liver parenchyma. 2.8 cm right hepatic cyst. No biliary ductal dilatation is present. The gallbladder contains a fold near the fundus but is otherwise unremarkable with no evidence of radiopaque gallstones, gallbladder wall thickening, or obvious pericholecystic inflammatory changes. PANCREAS: Atrophic. Mild haziness adjacent to the root of the small bowel mesentery and inferior to the pancreas again seen and slightly more conspicuous currently, 3:40. This appears to have been present on 04/19/2022 study. SPLEEN: Unremarkable. Tiny splenules. ADRENAL GLANDS: 1.3 cm right adrenal nodule measuring 75 Hounsfield units on contrast enhanced study. This measured less than 10 Hounsfield units on recent nonenhanced CT consistent with adenoma for which no imaging follow-up is recommended. Unremarkable left adrenal gland. KIDNEYS AND URETERS: The kidneys are normal in size, shape, and attenuation. No hydronephrosis, hydroureter, or calculi seen. No perinephric stranding. BLADDER: Under distended but unremarkable. GASTROINTESTINAL TRACT: Decompressed stomach. Nonobstructive bowel pattern. Unremarkable terminal ileum and appendix. Mild fecal retention. Mild diverticulosis without diverticulitis. ABDOMINAL WALL: No significant hernia is appreciated. LYMPH NODES: Unchanged 1.8 cm periportal lymph node, 6 mm short axis lymph node medial to the unremarkable left adrenal gland and 1 cm short axis lymph node adjacent to the hepatic artery. VASCULAR: Nonaneurysmal aorta. Atherosclerotic calcifications bilateral iliac arteries. Unremarkable inferior vena cava and iliac veins. Patent portal system. PELVIC VISCERA: Unchanged 3.4 cm left ovarian cyst versus cyst with thin internal septations. OSSEOUS STRUCTURES: No suspicious osseous findings. CT/CT abdomen pelvis w IV con IMPRESSION: Interval development right middle lobe pneumonia and possible right lower lobe pneumonia. Follow-up to complete resolution recommended. Small bowel mesenteric root/peripancreatic haziness, likely chronic seen back to 04/19/2022. Correlate with laboratory values, findings likely thought to represent pancreatitis. Redemonstration left ovarian cyst with thin internal septations. Following 11/02/2023 study, outpatient surgical consultation and pelvic MRI with and without IV contrast were recommended. Fleischner guidelines were followed.
--- NOTE | 2023-11-10 09:43 | ED.ABDPAIN ---
HPI - Abdominal Pain General Chief Complaint: Abdominal Pain Stated Complaint: ABD PAIN Time Seen by Provider: 11/10/23 09:38 Source: patient and EMS Mode of arrival: EMS Limitations: no limitations History of Present Illness HPI narrative: 58-year-old female, with a history of CVA, diabetes, seizure disorder, hyperlipidemia, anxiety here with complaints of one week of upper abdominal pain, malaise/fatigue 24hrs. Initially had vomiting x 2 days, now resolved but has nausea. Decreased oral intake. Last BM 1 week ago. Seen on 11/01. Had w/u including CT A/P w/o contrast due to patient refusal which showed ?pancreatitis however normal lipase, hepatic steatosis, distended gallbladder without pericholecystic inflammatory changes and a simple fluid like lesion on the left area ovary recommending outpatient follow-up and imaging. Patient overall improved clinically and was discharged home with Levon lee. No abdominal surgical history Related Data Home Medications ?Medication ?Instructions ?Recorded ?Confirmed albuterol sulfate 90 mcg/actuation 2 puff PO QID PRN wheezing 09/15/20 02/28/21 aerosol inhaler aspirin 81 mg tablet,delayed 1 tab PO DAILY 09/15/20 02/28/21 release atorvastatin 80 mg tablet 1 tab PO DAILY 09/15/20 02/28/21 clonazepam 0.5 mg tablet 1 tab PO BID PRN Anxiety 09/15/20 02/28/21 clonidine HCl 0.1 mg tablet 1 tab PO BEDTIME PRN Anxiety 09/15/20 02/28/21 hydroxyzine pamoate 50 mg capsule 1 - 2 cap PO BEDTIME PRN Sleep 09/15/20 02/28/21 lamotrigine 100 mg tablet 1 tab PO QAM 09/15/20 02/28/21 lamotrigine 25 mg tablet 1 tab PO BEDTIME 09/15/20 02/28/21 omeprazole 40 mg capsule,delayed 1 cap PO DAILY 09/15/20 02/28/21 release sertraline 100 mg tablet 2 tab PO QAM 09/15/20 02/28/21 levetiracetam 1,000 mg tablet 1 tab PO BID 02/28/21 02/28/21 methadone 60 mg PO DAILY 02/28/21 02/28/21 Previous Rx's ?Medication ?Instructions ?Recorded cefuroxime axetil 500 mg tablet 500 mg PO BID #10 tabs 03/01/21 cyclobenzaprine 10 mg tablet 10 mg PO TID PRN muscle spasm #14 12/11/21 tabs oxycodone 5 mg tablet 5 mg PO Q8H PRN severe pain (scale 12/11/21 score 7-10) #8 tabs prednisone 20 mg tablet 40 mg (2 x 20 mg) PO DAILY #10 tabs 12/11/21 cefuroxime axetil 250 mg tablet 250 mg PO BID 7 days #14 tabs 01/18/23 cyclobenzaprine 10 mg tablet 10 mg PO BEDTIME PRN muscle spasm 01/18/23 #7 tabs lidocaine 5 % topical patch 1 patch topical DAILY PRN pain #15 01/18/23 ea cyclobenzaprine 10 mg tablet 10 mg PO TID PRN muscle spasm #15 09/22/23 tabs dexamethasone 4 mg tablet 4 mg PO BID #6 tabs 09/22/23 lidocaine 5 % topical patch 1 patch topical DAILY #15 ea 10/07/23 (Lidoderm) methocarbamol 750 mg tablet 750 mg PO Q8H PRN muscle spasm #15 10/07/23 tabs naproxen 500 mg tablet 500 mg PO BID PRN pain #30 tabs 10/07/23 ondansetron 4 mg disintegrating 4 mg PO Q8H PRN nausea and 11/02/23 tablet vomiting #20 tabs Allergies Allergy/AdvReac Type Severity Reaction Status Date / Time codeine [CODEINE] Allergy Unknown SWELLING Verified 11/10/23 09:53 hornet venom [HORNETS] Allergy Unknown RASH Verified 11/10/23 09:53 trazodone [TRAZODONE] AdvReac Intermediate VERY Verified 11/10/23 09:53 ANXIOUS, RESTLESSNESS From BENADRYL AdvReac Intermediate RESTLESS Uncoded 10/07/23 18:46 From SEROQUEL AdvReac Intermediate ANXIETY Uncoded 10/07/23 18:46 AND RESTLESSNESS Review of Systems Review of Systems Yes all other systems are reviewed and are negative Constitutional: Reports no additional constitutional complaints, Denies body ache(s), Denies chills, Denies fever(s), Denies headache(s) and Denies weakness Eyes: Reports no additional eye complaints and Denies change in vision Reports system reviewed and no additional complaints, except as documented, Denies dizziness, Denies headache(s), Denies nasal congestion, Denies nasal discharge and Denies neck pain Cardiovascular: Reports no additional cardiovascular complaints, Denies chest pain, Denies leg edema and Denies dyspnea Respiratory: Reports no additional respiratory complaints, Denies cough and Denies dyspnea Gastrointestinal: Reports no additional gastrointestinal complaints, Reports abdominal pain, Reports constipation, Denies diarrhea, Reports nausea and Denies vomiting Genitourinary: Reports no additional female genitourinary complaints and Denies urinary incontinence Musculoskeletal: Reports no additional musculoskeletal complaints, Denies back pain, Denies arthralgias, Denies joint swelling, Denies neck pain, Denies numbness and Denies tingling Skin/Breast: Reports system reviewed and no additional complaints, except as docu and Denies rash Reports system reviewed and no additional complaints, except as documented, Denies Abnormal speech present, Denies dizziness, Denies headache(s), Denies numbness, Denies tingling and Denies weakness PMFSH Past Medical History Attestation statement: The following information was validated with the patient. Source: old records reviewed and nursing notes reviewed Medical History Left knee injury Patent ductus arteriosus Anxiety Hyperlipidemia Seizure Diabetes CVA (cerebral vascular accident) Surgical History Hx of tonsillectomy H/O left knee surgery Social History Social History Household Members: Other Housing: Other Housing Other:: [employer] [address] Do you presently have visiting nurse or other home services: Yes Alcohol intake: never Patient Tobacco Use Status: Current everyday Tobacco user Tobacco use type: Cigarette Smoked in Last 30 Days: Yes Use of substances other than those prescribed or required for medical reasons: Yes Substance Use Type: Opiates Advance Directives: No Advance Directives Information Provided: Yes service: No Current occupational status: unemployed Physical Exam ED Vital Signs: Vital Signs - 24 hr 11/10/23 09:50 11/10/23 12:00 11/10/23 12:43 Temperature 102.8 F H 99.3 F 98.9 F Pulse Rate 96 90 83 Respiratory Rate 18 18 18 Blood Pressure 107/54 L 110/60 106/51 L Pulse Oximetry 95 94 96 Oxygen Delivery Method Room Air Room Air BMI result Body Mass Index 28.8 Const General: cooperative, healthy appearing, comfortable and no acute distress Orientation/consciousness: patient oriented x3 Limitations: no limitations HENMT Head: Yes normal to inspection Ears: hearing grossly normal bilaterally General nose exam: Normal external nose present Face and sinus: Yes normal facial exam Mouth: Normal oral and palatal mucosa present Throat: Yes posterior oropharynx normal Eyes General: appearance normal, both eyes and all related structures Pupils: Equal, round and reactive pupils present Neck Neck: Yes normal visual inspection Chest Chest palpation & inspection: normal inspection of the chest Resp Effort & Inspection: normal respiratory effort Auscultation: clear to auscultation bilaterally Cardio Rate: regular rate Rhythm: regular rhythm Peripheral pulses: Peripheral pulses 2+ throughout GI Inspection: Yes normal to inspection Palpation (GI): Soft to palpation and Tenderness to palpation present (GI) (diffusely) Auscultation: normal bowel sounds Back/Spine/Pelvis Thoracic/Lumbar Spine: thoracic and lumbar spine normal to inspection Skin General skin exam: no rashes or lesions noted Neuro General: patient oriented x3, no focal motor deficits and normal sensation to monofilament Cranial nerves: Yes Equal, round and reactive pupils present Cognition (Neuro): normal cognition Speech: No Abnormal speech present Gait exam (Neuro): Normal gait present Motor exam (neuro): 5/5 motor strength present throughout Extrem General: Yes normal to inspection Course Course Course Narrative: Chest x-ray and CT confirm right middle and right lower lobe pneumonia. ? Aspiration with patient's history of recent vomiting episode. CT shows possible pancreatitis however lipase is normal. Additional findings seen in report unchanged from previous CT. Patient with leukocytosis and fever meeting SIRS criteria. Patient has received antibiotics. Will discuss with hospitalist for admission. Reevaluation(s) Reevaluation #1: Chest x-ray and CT confirmed a right middle lobe and possible right lower lobe pneumonia. In the setting of recent vomiting consider aspiration pneumonia. CT shows possible haziness around the pancreas which may be consistent with pancreatitis. Patient is complaining of generalized abdominal pain with vomiting. Her lipase normal however due to her clinical exam would consider pancreatitis. There is also redemonstration of a left ovarian cyst seen on previous imaging. Patient has leukocytosis, elevated lactic acid and a fever of 102.8 with a source of infection. Plan for admission for further management with IV antibiotics. Medical Decision Making Medical Decision Making [facility] Narrative: 58-year-old female, with a history of CVA, diabetes, seizure disorder, hyperlipidemia, anxiety here with complaints of one week of upper abdominal pain, malaise/fatigue 24hrs. Initially had vomiting x 2 days, now resolved but has nausea. Decreased oral intake. Last BM 1 week ago. Seen on 11/01. Had w/u including CT A/P w/o contrast due to patient refusal which showed ?pancreatitis however normal lipase, hepatic steatosis, distended gallbladder without pericholecystic inflammatory changes and a simple fluid like lesion on the left area ovary recommending outpatient follow-up and imaging. Patient overall improved clinically and was discharged home with Zofran p.r.n.. No abdominal surgical history Abdomen diffusely tender. Febrile on arrival At this time infection suspected. 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 Garcia who accepted admission of patient Lab Data [facility] Lab Attestation statement: I reviewed the patient's lab results. Leukocytosis, elevated lactic 11/10/23 10:32 11/10/23 10:32 Labs: Lab Results 11/10/23 11/10/23 Range/Units 10:32 12:53 WBC 16.1 H (4.8-10.8) X10*3/uL RBC 4.68 (4.20-5.50) X10*6/uL Hgb 12.5 (12.0-16.0) g/dl Hct 39.0 (37.0-47.0) % MCV 83.3 (80.0-98.0) fL MCH 26.7 L (27.0-33.0) pg MCHC 32.1 (31.0-35.0) g/dl RDW 15.1 (11.0-16.0) % Plt Count 200 D (160-400) X10*3/uL MPV 10.5 (9.4-12.3) fL Immature Gran % (Auto) 0.6 H (0.0-0.4) % Neut % (Auto) 86.3 H (45-73) % Lymph % (Auto) 7.5 L (20-40) % [place] % (Auto) 4.4 (2-11) % Eos % (Auto) 1.0 (0-4) % Baso % (Auto) 0.2 (0-2) % Lymph # (Auto) 1.2 (1.2-4.9) X10*3/uL [place] # (Auto) 0.7 (0.1-1.2) X10*3/uL Eos # (Auto) 0.2 (0.0-0.4) X10*3/uL Baso # (Auto) 0.0 (0.0-0.2) X10*3/uL Abs Immat Gran (auto) 0.09 H (0.00-0.03) X10*3/uL Absolute Neuts (auto) 13.9 H (2.0-8.3) x10*3/uL Absolute Nucleated RBC 0.000 (0.0-0.012) X10*3/uL Nucleated RBC % (auto) 0.0 (0.0-0.2) /100WBC Sodium 140 (135-145) mmol/L Potassium 3.5 (3.3-5.1) mmol/L Chloride 107 (96-108) mmol/L Carbon Dioxide 24 (22-29) mmol/L Anion Gap 13 (12-20) BUN 8 L (9-16) mg/dL Creatinine 1.02 (0.5-1.4) mg/dL Estim Creat Clear Calc 66.7 Estimated GFR 56 Random Glucose 156 H (60-115) mg/dL Lactic Acid 2.2 H* (0.5-2.0) mmol/L Lactic Acid F/U @ 2Hr 1.3 (0.5-2.0) mmol/L Calcium 9.5 (8.4-10.2) mg/dL Magnesium 1.8 (1.6-2.6) mg/dL Total Bilirubin 0.4 (0.0-1.0) mg/dL Direct Bilirubin 0.2 (0.0-0.5) mg/dL AST 22 (5-31) U/L ALT 29 (0-31) U/L Alkaline Phosphatase 85 (39-117) U/L Troponin I High Sens 3.2 (<3.5-17.0) ng/L Total Protein 6.9 (6.5-8.0) g/dL Albumin 3.8 (3.5-5.0) g/dL Lipase 6 L (8-78) U/L Urine Color Yellow Urine Appearance Clear Urine pH 6.0 (5.0-9.0) Ur Specific [place] 1.010 (1.005-1.025) Urine Protein Negative (Neg-Trace) mg/dL Urine Glucose (UA) Negative (Negative) mg/dL Urine Ketones Negative (Negative) mg/dL Urine Blood Negative (Negative) Urine Nitrite Negative (Negative) Ur Leukocyte Esterase Negative (Negative) Urine Opiates Screen POSITIVE H (Not Detect) Ur Buprenorphine Scrn Not Detected (Not Detect) ng/mL Ur Oxycodone Screen Not Detected (Not Detect) ng/mL Urine Methadone Screen Positive (Not Detect) ng/mL Urine Fentanyl Screen POSITIVE H (Not Detect) Ur Barbiturates Screen Not Detected (Not Detect) Ur Phencyclidine Scrn Not Detected (Not Detect) Ur Amphetamines Screen Not Detected (Not Detect) U Benzodiazepines Scrn POSITIVE H (Not Detect) Urine Cocaine Screen Not Detected (Not Detect) U Marijuana (THC) Screen Not Detected (Not Detect) Influenza Type A (PCR) NEGATIVE (Negative) Influenza Type B (PCR) NEGATIVE (Negative) RSV RNA Qual (PCR) NEGATIVE (Negative) SARS-CoV-2 RNA (RT-PCR) NEGATIVE (Negative) Independent Interpretation I performed an independent interpretation of an: EKG, Plain X-Ray and CT Scan Interpretation: I independently reviewed the EKG which shows normal sinus rhythm with a rate of 91, normal LA, normal QRS, normal QT I independently reviewed the CXR/CT A/P and agree with the rad report Radiology Impression Discussion of test interpretation with radiology: I have reviewed the radiologist's reading. Radiologist Impression: [address] [address] XRay Report Signed Patient: Mimi Ricardo MR#: [id number] : 1965 Acct:[id number] Age/Sex: 58 / F ADM Date: 11/10/23 Loc: HO.ED Attending Dr: Ordering Physician: Jennifer Mason NP Date of Service: 11/10/23 Procedure(s): XR chest 1V Accession Number(s): [id number] cc: Physician,Unknown ; Jennifer Mason NP~ EXAMINATION: XR CHEST CLINICAL INFORMATION: Fever and abdominal pain COMPARISON: 11/02/2023 l TECHNIQUE: Frontal view of the chest was obtained. FINDINGS: Heart, mediastinum and vascularity within normal limits. Bilateral basilar opacities are now seen. No effusions. Bony structures are intact. XR/XR chest 1V IMPRESSION: Suspect right middle and left lower lobe pneumonias. Follow-up to complete resolution recommended. [place] [id number] CT Scan Report Signed Patient: Mimi Ricardo MR#: [id number] : 1965 Acct:[id number] Age/Sex: 58 / F ADM Date: 11/10/23 Loc: .ED Attending Dr: Ordering Physician: Jennifer Mason NP Date of Service: 11/10/23 Procedure(s): CT abdomen pelvis w IV con Accession Number(s): [id number] cc: Physician,Unknown ; Jennifer Mason NP~ EXAMINATION: CT ABDOMEN AND PELVIS WITH CONTRAST CLINICAL INFORMATION: Abdominal pain and fever COMPARISON: 11/02/2023, 04/19/2022 TECHNIQUE: Multidetector volumetric images were obtained from the superior aspect of the liver through the pubic symphysis following administration 85 mL of Omnipaque 350 intravenous contrast. Sagittal and coronal reformatted images were obtained on the technologist's workstation. Oral contrast: No This CT examination was performed using dose optimization techniques as appropriate, variously including the following: *Automated exposure control *Adjustment of mA and/or kV according to patient size (this includes techniques or standardized protocols for targeted exams where dose is matched to indication/reason for exam; i.e. 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 Mildly prominent air-filled small bowel loops left midabdomen. Degenerative changes and minimal dextroscoliosis. LUNG BASES: Heart size within normal limits. No pericardial effusion. Right middle lobe consolidation/pneumonia. Groundglass opacities right lower lobe. Left lower lobe atelectasis. LIVER, GALLBLADDER, AND BILIARY TREE: Diffuse hypodensity to the liver parenchyma. 2.8 cm right hepatic cyst. No biliary ductal dilatation is present. The gallbladder contains a fold near the fundus but is otherwise unremarkable with no evidence of radiopaque gallstones, gallbladder wall thickening, or obvious pericholecystic inflammatory changes. PANCREAS: Atrophic. Mild haziness adjacent to the root of the small bowel mesentery and inferior to the pancreas again seen and slightly more conspicuous currently, 3:40. This appears to have been present on 04/19/2022 study. SPLEEN: Unremarkable. Tiny splenules. ADRENAL GLANDS: 1.3 cm right adrenal nodule measuring 75 Hounsfield units on contrast enhanced study. This measured less than 10 Hounsfield units on recent nonenhanced CT consistent with adenoma for which no imaging follow-up is recommended. Unremarkable left adrenal gland. KIDNEYS AND URETERS: The kidneys are normal in size, shape, and attenuation. No hydronephrosis, hydroureter, or calculi seen. No perinephric stranding. BLADDER: Under distended but unremarkable. GASTROINTESTINAL TRACT: Decompressed stomach. Nonobstructive bowel pattern. Unremarkable terminal ileum and appendix. Mild fecal retention. Mild diverticulosis without diverticulitis. ABDOMINAL WALL: No significant hernia is appreciated. LYMPH NODES: Unchanged 1.8 cm periportal lymph node, 6 mm short axis lymph node medial to the unremarkable left adrenal gland and 1 cm short axis lymph node adjacent to the hepatic artery. VASCULAR: Nonaneurysmal aorta. Atherosclerotic calcifications bilateral iliac arteries. Unremarkable inferior vena cava and iliac veins. Patent portal system. PELVIC VISCERA: Unchanged 3.4 cm left ovarian cyst versus cyst with thin internal septations. OSSEOUS STRUCTURES: No suspicious osseous findings. CT/CT abdomen pelvis w IV con IMPRESSION: Interval development right middle lobe pneumonia and possible right lower lobe pneumonia. Follow-up to complete resolution recommended. Small bowel mesenteric root/peripancreatic haziness, likely chronic seen back to 04/19/2022. Correlate with laboratory values, findings likely thought to represent pancreatitis. Redemonstration left ovarian cyst with thin internal septations. Following 11/02/2023 study, outpatient surgical consultation and pelvic MRI with and without IV contrast were recommended. Fleischner guidelines were followed. Independent Historian Clinical information obtained from an independent historian. History obtained from or confirmed by: EMS Prescription Management I considered prescription management with: Antibiotic Medications Administered Discontinued Medications Generic Name Dose Route Start Last Admin Trade Name Freq PRN Reason Stop Dose Admin Acetaminophen 975 mg 11/10/23 10:06 11/10/23 10:42 Acetaminophen 325 Mg Tablet PO 11/10/23 10:07 975 mg ONCE ONE Administration Ceftriaxone Sodium 1 gm/ 50 mls @ 100 mls/hr 11/10/23 10:06 11/10/23 11:19 Sodium Chloride IV 11/10/23 10:35 Infused ONCE ONE Infusion Sodium Chloride 1,000 mls @ 999 mls/hr 11/10/23 10:24 11/10/23 12:00 Ns IV 11/10/23 11:24 Infused .Q1H1M STA Infusion Iohexol 85 ml 11/10/23 11:28 11/10/23 11:29 Iohexol 350 Mg/Ml 100 Ml Infus..Btl IV 11/10/23 11:29 85 ml ONCE ONE Administration Ondansetron HCl 4 mg 11/10/23 10:06 11/10/23 10:42 Ondansetron Hcl 4 Mg/2 Ml Vial IVPUSH 11/10/23 10:07 4 mg ONCE ONE Administration Critical Care Time Critical Care Time Critical Care Time: Yes Total Critical Care Time: 60 Attestation: Patient with pneumonia requiring admission for meeting SIRS criteria Discharge Plan Discharge Clinical Impression: PNA (pneumonia), Leukocytosis, Elevated lactic acid level Patient Disposition: Admitted As Inpatient Print Language: Turkish
--- NOTE | 2023-11-10 09:57 | ECG_ITS ---
Test Reason : abdominal pain Blood Pressure : / mmHG Vent. Rate : 000 BPM Atrial Rate : 000 BPM P-R Int : 000 ms QRS Dur : 000 ms QT Int : 000 ms P-R-T Axes : 000 000 000 degrees QTc Int : 000 ms No QRS complexes found, no ECG analysis possible When compared with ECG of 02-NOV-2023 16:11, Current undetermined rhythm precludes rhythm comparison, needs review Referred By: Jennifer Javed Electronically Signed By:
[2023-11-10] MEDS: 0.9 % Sodium Chloride 1,000 ML 999 ML IV (10:34)
[2023-11-10 10:41] LABS: MANUAL DIFF FLAG NO
[2023-11-10 10:42] LABS: Basophils Percent Auto 0.2 % (0-2); Eosinophils Absolute Auto 0.2 X10*3/uL (0.0-0.4); Hemoglobin 12.5 g/dl (12.0-16.0); Imm Gran Abs Auto 0.09 X10*3/uL (0.00-0.03); Imm Gran Pct Auto 0.6 % (0.0-0.4); Lymphocytes Absolute Auto 1.2 X10*3/uL (1.2-4.9); Lymphocytes Percent Auto 7.5 % (20-40); Mean Corpuscular HGB Conc 32.1 g/dl (31.0-35.0); Mean Corpuscular Hemoglobin 26.7 pg (27.0-33.0); Mean Corpuscular Volume 83.3 fL (80.0-98.0); Mean Platelet Volume 10.5 fL (9.4-12.3); Monocytes Absolute Auto 0.7 X10*3/uL (0.1-1.2); Monocytes Percent Auto 4.4 % (2-11); Neutrophils Absolute Auto 13.9 x10*3/uL (2.0-8.3); Neutrophils Percent Auto 86.3 % (45-73); Platelet Count 200 X10*3/uL (160-400); Red Blood Count 4.68 X10*6/uL (4.20-5.50); Red Cell Distribution Width 15.1 % (11.0-16.0); White Blood Count 16.1 X10*3/uL (4.8-10.8)
[2023-11-10] MEDS: cefTRIAXone sodium 1 GM in 0.9 % Sodium Chloride 50 ML IV (10:42)
[2023-11-10] MEDS: Acetaminophen 325 MG TABLET 975 MG PO (10:42)
[2023-11-10] MEDS: ondansetron HCL 4 MG/2 ML VIAL IVPUSH (10:42)
[2023-11-10 10:50] LABS: Appearance Urine Clear; Color Urine Yellow; Glucose Urine UA Negative (Negative); Leukocyte Esterase Urine Negative (Negative); Nitrite Urine Negative (Negative); Urine Blood Negative (Negative); Urine Ketones Negative (Negative); Urine Protein Negative (Neg-Trace)
--- NOTE | 2023-11-10 11:01 | PC.NURSE ---
pt brought several medications in from home. not-controlled. form filled out, brought to pharmacy
[2023-11-10 11:02] LABS: Amphetamine Screen Urine Not Detected (Not Detect); Barbiturates, Urine Not Detected (Not Detect); Benzodiazepines Screen Urine POSITIVE (Not Detect); Buprenorphine Scr Not Detected (Not Detect); Cannabinoid Screen Urine Not Detected (Not Detect); Cocaine Screen Urine Not Detected (Not Detect); Fentanyl, urine POSITIVE (Not Detect); Methadone Screen, Urine Positive (Not Detect); Opiate Screen Urine POSITIVE (Not Detect); Oxycodone Screen Urine Not Detected (Not Detect); Phencyclidine Screen Urine Not Detected (Not Detect)
[2023-11-10 11:03] LABS: Alanine Aminotransferase 29 U/L (0-31); Albumin Level 3.8 g/dL (3.5-5.0); Alkaline Phosphatase 85 U/L (39-117); Anion Gap 13 (12-20); Aspartate Amino Transferase 22 U/L (5-31); Bilirubin Direct 0.2 mg/dL (0.0-0.5); Bilirubin Total 0.4 mg/dL (0.0-1.0); Blood Urea Nitrogen 8 mg/dL (9-16); Calcium 9.5 mg/dL (8.4-10.2); Carbon Dioxide 24 mmol/L (22-29); Chloride 107 mmol/L (96-108); Creatinine Clr Calc Pharmacy 66.7; Estimated Glomerular Filt Rate 56; Glucose Random 156 mg/dL (60-115); Lipase 6 U/L (8-78); Magnesium 1.8 mg/dL (1.6-2.6); Potassium 3.5 mmol/L (3.3-5.1); Sodium 140 mmol/L (135-145); Total Protein 6.9 g/dL (6.5-8.0)
[2023-11-10 11:06] LABS: Lactic Acid 2.2 mmol/L (0.5-2.0)
--- NOTE | 2023-11-10 11:20 | PC.NURSE ---
delay in ABX admin due to obtaining 2 sets of blood cultures with pt who was reluctant to let us draw blood/insert IV
[2023-11-10] MEDS: iohexoL 350 MG/ML 100 ML INFUS..BTL 85 ML IV (11:29)
[2023-11-10 11:51] LABS: Influenza A PCR NEGATIVE (Negative); Influenza B PCR NEGATIVE (Negative); Resp Syncy Virus RNA Qual PCR NEGATIVE (Negative); SARS COV2 PCR INHOUSE NEGATIVE (Negative)
[2023-11-10 12:40] LABS: Reflex Lactate? Lactic Acid Added
[2023-11-10 13:07] LABS: ~Lactic Acid-LAB USE ONLY 1.3 mmol/L (0.5-2.0)
--- NOTE | 2023-11-10 14:27 | P.HPHOSP_ITS ---
History of Present Illness Date of Service: 11/10/23 Attending physician on admission: Roddy Vital Chief Complaint: Abdominal pain, cough Pt is a 58-year-old female with a PMH significant for?HTN, HLD, seizure disorder, CVA x2, remote hx of opioid use disorder on methadone, and anxiety who presents to the ED with?worsening abdominal pain and productive cough. Pt initially presented to the ED on 11/02/2023 for evaluation of abdominal pain with intractable nausea and vomiting. Workup at the time was significant for CT of abd/pelvis with question of acute pancreatitis. Lipase was WNL at 9 at that time. Abdominal exam was benign and patient was discharged on Zofran once nausea subsided. Patient reports that since discharge from ED has continued to experience intermittent epigastric and left-sided abdominal pain, worse this morning which was what prompted her visit to the ED. States has been eating and drinking ?nothing? for past 7 days. Nausea and vomiting appear much better than before, but continues to report an unspecified ?little? amount of nausea and vomiting. States has been coughing up significant amounts of phlegm for the past several days and been experiencing subjective fever and chills. Denies shortness of breath or [place]. Denies chest pain/pressure, palpitations. In the ED pt was febrile up to 102.8, tachycardic up to 96, with soft BP as low as 106/51, satting at 95% on RA. Labs were significant for leukocytosis of 16.1, lactic acid 2.2 with repeat 1.3. Stable H& H. No significant electrolyte abnormalities. Tested negative for flu, RSV COVID. UA negative for UTI. CXR showed suspected right middle and left lower lobe pneumonia. CT?of abdomen and pelvis found interval development from 11/01 of right middle lobe pneumonia and possible right lower lobe pneumonia. Also showed small bowel mesenteric root/peripancreatic haziness, likely chronic dating back to 04/19/2022. Redemonstrated left ovarian cyst with thin internal septations, outpatient surgical consultation and pelvic MRI recommended. EKG demonstrated normal sinus rhythm with no significant ST elevations or depressions. Pt was treated with IVF, ceftriaxone, acetaminophen, and ondansetron. Pt will be admitted to the hospital for treatment further evaluation of multifocal pneumonia with sepsis. Review of Systems 2 Review of Systems: Abdominal pain Nausea, vomiting Productive cough Fever and chills No chest pain/pressure, palpitations [facility] Medical History (Updated 11/10/23 @ 16:01 by ABBIE Silva) HTN (hypertension) Left knee injury Patent ductus arteriosus Anxiety Hyperlipidemia Seizure Diabetes CVA (cerebral vascular accident) Surgical History Hx of tonsillectomy H/O left knee surgery Social History Household Members: Significant Other Housing: House Housing Other:: HALF WAY HOUSE Do you presently have visiting nurse or other home services: No Alcohol intake: never Patient Tobacco Use Status: Current everyday Tobacco user Tobacco use type: Cigarette Cigarettes Per Day: 5 Smoked in Last 30 Days: Yes Patient Interested in Nicotine Replacement: No Use of substances other than those prescribed or required for medical reasons: No Substance Use Type: Opiates Do you feel safe in your current relationship?: Yes Advance Directives: No Advance Directives Information Provided: Yes Do you have thoughts of harming others: None Do you have a plan to hurt others: No Plan Nutrition Risks: Dental problems Patient : No : No Poor oral hygiene: No service: No Current occupational status: unemployed Meds Allergies Allergy/AdvReac Type Severity Reaction Status Date / Time codeine [CODEINE] Allergy Unknown SWELLING Verified 11/10/23 09:53 hornet venom [HORNETS] Allergy Unknown RASH Verified 11/10/23 09:53 trazodone [TRAZODONE] AdvReac Intermediate VERY Verified 11/10/23 09:53 ANXIOUS, RESTLESSNESS From BENADRYL AdvReac Intermediate RESTLESS Uncoded 10/07/23 18:46 From SEROQUEL AdvReac Intermediate ANXIETY Uncoded 10/07/23 18:46 AND RESTLESSNESS Home Medications ?Medication ?Instructions ?Recorded ?Confirmed ?Last Taken ?Type albuterol sulfate 90 mcg/actuation 2 puff PO QID PRN wheezing 09/15/20 11/10/23 Unknown History aerosol inhaler aspirin 81 mg tablet,delayed 1 tab PO DAILY 09/15/20 11/10/23 Unknown History release atorvastatin 80 mg tablet 1 tab PO DAILY 09/15/20 11/10/23 Unknown History clonazepam 0.5 mg tablet 0.5 mg PO BID@0900,1200 PRN Anxiety 09/15/20 11/10/23 Unknown History omeprazole 40 mg capsule,delayed 1 cap PO DAILY 09/15/20 11/10/23 Unknown History release sertraline 100 mg tablet 2 tab PO QAM 09/15/20 11/10/23 Unknown History levetiracetam 1,000 mg tablet 1 tab PO BID 02/28/21 11/10/23 Unknown History methadone 60 mg PO DAILY 02/28/21 02/28/21 02/27/21 History 60 mg clonazepam 1 mg tablet 1 mg PO BEDTIME 11/10/23 11/10/23 Unknown History clonidine HCl 0.2 mg tablet 0.2 mg PO TID 11/10/23 11/10/23 Unknown History gabapentin 100 mg capsule 200 mg PO BEDTIME 11/10/23 11/10/23 Unknown History hydroxyzine HCl 50 mg tablet 50 - 100 mg PO BEDTIME Insomnia 11/10/23 11/10/23 Unknown History lamotrigine 200 mg tablet 200 mg PO BEDTIME 11/10/23 11/10/23 Unknown History lidocaine 5 % topical patch 1 patch topical DAILY PRN Pain 11/10/23 11/10/23 Unknown History (Lidoderm) Physical Exam 2 Vital Signs and Narrative: Vital Signs: Last Vital Signs Temp 98.9 F 11/10/23 12:43 Pulse 83 11/10/23 12:43 Resp 18 11/10/23 12:43 BP 106/51 L 11/10/23 12:43 Pulse Ox 96 11/10/23 12:43 O2 Del Method Room Air 11/10/23 12:00 BMI result Body Mass Index 28.8 Constitutional: Alert, in no acute distress. Mental Status: Oriented to person, place and time. Eyes: Pupils are equal, round, and reactive to light. Ear, Nose, and Throat: Oropharynx clear, mucous membranes dry. Ears and nose without deformities. Trachea midline. Respiratory: Clear to auscultation bilaterally. No wheezing, rales, or rhonchi. Cardiovascular: S1, S2 regular. No murmurs, rubs, or gallops. Gastrointestinal: Abdomen soft, non-distended, with epigastric and left-sided tenderness. +bowel sounds. Neurologic: Cranial nerves II-XII are grossly intact bilaterally. No focal neurological deficits. Moves all extremities spontaneously. Skin: Warm, dry. Extremities: No edema. Psychiatric: Emotionally labile, agitated at times. Results Labs 11/10/23 10:32 11/10/23 10:32 Labs: Laboratory Results - last 24 hr 11/10/23 11/10/23 10:32 12:53 MCV 83.3 MCH 26.7 L MCHC 32.1 RDW 15.1 Plt Count 200 D MPV 10.5 Immature Gran % (Auto) 0.6 H Neut % (Auto) 86.3 H Lymph % (Auto) 7.5 L [place] % (Auto) 4.4 Eos % (Auto) 1.0 Baso % (Auto) 0.2 Lymph # (Auto) 1.2 [place] # (Auto) 0.7 Eos # (Auto) 0.2 Baso # (Auto) 0.0 Abs Immat Gran (auto) 0.09 H Absolute Neuts (auto) 13.9 H Absolute Nucleated RBC 0.000 Nucleated RBC % (auto) 0.0 Anion Gap 13 Estim Creat Clear Calc 66.7 Estimated GFR 56 Random Glucose 156 H Lactic Acid 2.2 H* Lactic Acid F/U @ 2Hr 1.3 Calcium 9.5 Magnesium 1.8 Total Bilirubin 0.4 Direct Bilirubin 0.2 AST 22 ALT 29 Alkaline Phosphatase 85 Total Protein 6.9 Albumin 3.8 Lipase 6 L Urine Color Yellow Urine Appearance Clear Urine pH 6.0 Ur Specific [place] 1.010 Urine Protein Negative Urine Glucose (UA) Negative Urine Ketones Negative Urine Blood Negative Urine Nitrite Negative Ur Leukocyte Esterase Negative Urine Opiates Screen POSITIVE H Ur Buprenorphine Scrn Not Detected Ur Oxycodone Screen Not Detected Urine Methadone Screen Positive Urine Fentanyl Screen POSITIVE H Ur Barbiturates Screen Not Detected Ur Phencyclidine Scrn Not Detected Ur Amphetamines Screen Not Detected U Benzodiazepines Scrn POSITIVE H Urine Cocaine Screen Not Detected U Marijuana (THC) Screen Not Detected Influenza Type A (PCR) NEGATIVE Influenza Type B (PCR) NEGATIVE RSV RNA Qual (PCR) NEGATIVE SARS-CoV-2 RNA (RT-PCR) NEGATIVE Imaging Radiologist's Impressions: Impressions Chest X-Ray 11/10/23 11:11 IMPRESSION: Suspect right middle and left lower lobe pneumonias. Follow-up to complete resolution recommended. Abdomen/Pelvis CT 11/10/23 11:29 IMPRESSION: Interval development right middle lobe pneumonia and possible right lower lobe pneumonia. Follow-up to complete resolution recommended. Small bowel mesenteric root/peripancreatic haziness, likely chronic seen back to 04/19/2022. Correlate with laboratory values, findings likely thought to represent pancreatitis. Redemonstration left ovarian cyst with thin internal septations. Following 11/02/2023 study, outpatient surgical consultation and pelvic MRI with and without IV contrast were recommended. Fleischner guidelines were followed. Assessment and Plan (1) Multifocal pneumonia: Status: Acute Plan Pt is a 58-year-old female with a PMH significant for?HTN, HLD, seizure disorder, CVA x2, remote hx of opioid use disorder on methadone, and anxiety who presents to the ED with?worsening abdominal pain and productive cough. Pt will be admitted to the hospital for treatment further evaluation of multifocal pneumonia with sepsis. Multifocal pneumonia with sepsis CXR and CT showed right middle and left lower lobe pneumonia Patient with productive cough Patient meets sepsis criteria: Fever, tachycardia, leukocytosis; lactic acid 2.2 with repeat 1 3 after fluids Patient received IVF and started on broad-spectrum antibiotics in the ED Will treat with ceftriaxone and doxycycline, started 11/10/[address] on maintenance fluids Follow cultures Question of pancreatitis Pt with abdominal pain, nausea, vomiting x7 days CT with mesenteric root/peripancreatic haziness, likely chronic dating back to 04/19/2022 Lipase low at 6 and WNL at 9 on 11/02/2023 Patient currently reports feeling hungry, would like to eat solid food Will start on full liquid diet for now, advance as tolerated If patient unable to tolerate diet and/or abd persists will get GI consult Ovarian Cyst CT of abdomen/pelvis redemonstrated left ovarian cyst with thin internal septations Recommendation is for outpatient surgical consultation and pelvic MRI with and without IV contrast Hx of CVA Continue aspirin, statin HTN BP soft, hold antihypertensives Resume as indicated Seizure disorder Continue Keppra Mood disorder Hold clonidine for soft BP Resume other home GERD PPI Full Code Attending:?Dr. Vital DVT Prophylaxis: Lovenox Pt will require a hospitalization of at least two nights for treatment of?multifocal pneumonia with sepsis with IV antibiotics and close labs and respiratory status. Quality Stroke Does the patient have a stroke diagnosis?: No VTE Prior VTE?: No VTE Risk Level:: Medical - moderate - high VTE Device Contraindication: Treatment Not Indicated VTE Drug Contraindication: N/A - Med Ordered
[2023-11-10 14:34] LABS: Troponin-I High Sensitivity 3.2 ng/L (<3.5-17.0)
--- NOTE | 2023-11-10 15:11 | PHA.MEDREC ---
Pharmacy Consult ? Medication Reconciliation Pharmacy has completed the medication reconciliation. Patient stated she does not want her medications. Even thought patient did not want her medications patient still confirmed her medications. Patient reports only sometimes taking the morning and afternoon dose of clonazepam, but always takes the bedtime dose. Patient reports no more of the methocarbamol and she does not like naproxen at all. Patient report she will not take keppra or lamotrigine tonight due to her stomach. Amber Menezes, PharmD
[2023-11-10] MEDS: traMADoL HCL 50 MG TABLET 25 MG PO (16:04)
[2023-11-10] MEDS: Doxycycline Hyclate 100 MG in 0.9 % Sodium Chloride 250 ML 166.67 MG IV (16:05)
[2023-11-10] MEDS: 0.9 % Sodium Chloride 1,000 ML 100 ML IVCONT (17:46)
[2023-11-10] MEDS: Enoxaparin Sodium 40 MG/0.4 ML SYRINGE SUBCUT (17:46)
[2023-11-10] MEDS: Gabapentin 100 MG CAPSULE 200 MG PO (20:46)
[2023-11-10] MEDS: clonazePAM 1 MG TABLET PO (20:46)
[2023-11-11] MEDS: Acetaminophen 325 MG TABLET 650 MG PO ×2 (01:40→21:58)
[2023-11-11] MEDS: ondansetron HCL 4 MG/2 ML VIAL IVPUSH (01:49)
[2023-11-11] MEDS: 0.9 % Sodium Chloride 1,000 ML 100 ML IVCONT ×3 (01:51→16:54)
[2023-11-11 02:57] VITALS: BP 106/74; PULSE 74; RESP 18; TEMP 36.7; O2SAT 94
[2023-11-11] MEDS: HYDROmorphone HCl 0.5 MG/0.5 ML SYRINGE IVPUSH (03:04)
[2023-11-11] MEDS: Doxycycline Hyclate 100 MG in 0.9 % Sodium Chloride 250 ML 250 MG IV (03:06)
[2023-11-11] MEDS: Omeprazole 40 MG CAPSULE.DR PO (05:37)
[2023-11-11 06:04] LABS: Hematocrit 34.3 % (37.0-47.0); Hemoglobin 10.9 g/dl (12.0-16.0); Mean Corpuscular HGB Conc 31.8 g/dl (31.0-35.0); Mean Corpuscular Hemoglobin 27.1 pg (27.0-33.0); Mean Corpuscular Volume 85.3 fL (80.0-98.0); Mean Platelet Volume 10.6 fL (9.4-12.3); Platelet Count 173 X10*3/uL (160-400); Red Blood Count 4.02 X10*6/uL (4.20-5.50); Red Cell Distribution Width 15.5 % (11.0-16.0); White Blood Count 11.9 X10*3/uL (4.8-10.8)
[2023-11-11 06:18] LABS: Anion Gap 7 (12-20); Blood Urea Nitrogen 10 mg/dL (9-16); Calcium 8.5 mg/dL (8.4-10.2); Carbon Dioxide 28 mmol/L (22-29); Chloride 111 mmol/L (96-108); Creatinine Clr Calc Pharmacy 92.7; Estimated Glomerular Filt Rate > 60; Glucose Random 105 mg/dL (60-115); Potassium 3.4 mmol/L (3.3-5.1); Sodium 143 mmol/L (135-145)
--- NOTE | 2023-11-11 07:31 | PC.NURSE ---
Methadone dose verified form in chart and sent to pharmacy .
[2023-11-11 07:40] VITALS: BP 128/65; PULSE 72; RESP 18; TEMP 37; O2SAT 96
[2023-11-11] MEDS: Piperacillin Sodium/Tazobactam 4.5 GM in 0.9 % Sodium Chloride 100 ML IV ×3 (08:03→19:49)
--- NOTE | 2023-11-11 08:24 | HE.PHANOTE ---
RE METHADONE PT RECEIVED 100 MG OF METHADONE [facility]; LAST DOSED 11/09/23 CHRISTEN
[2023-11-11] MEDS: Sertraline HCL 100 MG TABLET 200 MG PO (09:02)
[2023-11-11] MEDS: Atorvastatin Calcium 80 MG TABLET PO (09:02)
[2023-11-11] MEDS: levETIRAcetam 1,000 MG TABLET 1000 MG PO ×2 (09:03→21:48)
[2023-11-11] MEDS: Aspirin Enteric Coated 81 MG TABLET.DR PO (09:03)
[2023-11-11] MEDS: vancomycin/NS 2,000 MG/500 ML PLAST..BAG 250 MG IV (09:15)
--- NOTE | 2023-11-11 09:50 | PHA.PROG ---
Admission Date/Time: November 10, 2023 15:14 Indication: respiratory infection Weight in k.5 kg Adjusted body weight in K.76 [place] body weight in Kg: Obesity Dosing Indication % IBW: BMI 30.9 Serum Creatinine - Last 168 Hours 11/10/23 11/11/23 10:32 05:39 Creatinine 1.02 0.76 Estimated CrCl and GFR - Last 168 Hours 11/10/23 11/11/23 10:32 05:39 Estim Creat Clear Calc 66.7 92.7 Estimated GFR 56 > 60 Vancomycin Loading Dose: 2000 x1 Current Vancomycin Dosing Regimen: 500 Q8H Vancomycin Monitoring using AUC goal of 400 - 600 range with trough as surrogate marker: 429 Date and Time for next Vancomycin Level to be drawn: 11/11 @1500 Pharmacist Comments on Vancomycin Plan: Vancomycin dosing will take advantage of [employer] as a clinical decision support tool that uses Bayesian modeling to calculate individual patient's pharmacokinetic parameters and forecast the patient's drug concentration time course with the target goal AUC 24 range of 400 - 600 mg/L/hr.
[2023-11-11] MEDS: methADONE HCl 20 MG/2 ML ORAL.CONC 100 MG PO (11:24)
--- NOTE | 2023-11-11 14:22 | P.PNIM_ITS ---
Subjective Subjective Date of Service: 11/11/23 Interval History: Notes improvement since admission. No O2 requirement at this time Review of Systems Denies chest pain Admits shortness of breath with movement Admits abdominal pain Admits nausea denies vomiting diarrhea Denies fever chills Physical Exam 2 Vital Signs: Vital Signs: Last Vital Signs Temp 98.6 F 11/11/23 07:40 Pulse 72 11/11/23 07:40 Resp 18 11/11/23 07:40 BP 128/65 11/11/23 07:40 Pulse Ox 96 11/11/23 07:40 O2 Del Method Room Air 11/11/23 07:40 BMI result Body Mass Index 30.9 Const: Other: Awake alert no acute distress Resp: Other: Diminished at bases with scattered expiratory wheezes Cardio: Other: No S4; positive S1-S2; no S3 murmurs rubs or gallops GI: Other: Soft nontender nondistended normoactive bowel sounds Extrem: Other: No edema bilaterally Objective Data Active Medications Acetaminophen (Acetaminophen 325 Mg Tablet) 650 mg PO Q6H PRN PRN Reason: Pain, Mild (Pain Scale 1-3) Last Admin: 11/11/23 01:40 Dose: 650 mg Documented By: REINIER Albuterol Sulfate (Albuterol Sulfate 90 Mcg 8 Gm Inhaler) 2 puff INHALE QID PRN PRN Reason: wheezing Aspirin (Aspirin Enteric Coated 81 Mg Tablet.) 81 mg PO DAILY [facility] Last Admin: 11/11/23 09:03 Dose: 81 mg Documented By: CORNELIUS Atorvastatin Calcium (Atorvastatin Calcium 80 Mg Tablet) 80 mg PO DAILY [facility] Last Admin: 11/11/23 09:02 Dose: 80 mg Documented By: CORNELIUS Benzonatate (Benzonatate 100 Mg Capsule) 100 mg PO TID PRN PRN Reason: Cough Clonazepam (Clonazepam 1 Mg Tablet) 1 mg PO BEDTIME [facility] Last Admin: 11/10/23 20:46 Dose: 1 mg Documented By: DANIELA Clonazepam (Clonazepam 0.5 Mg Tablet) 0.5 mg PO BID@0900,1200 PRN PRN Reason: Anxiety Docusate Sodium (Docusate Sodium 100 Mg Capsule) 100 mg PO DAILY PRN PRN Reason: Constipation Enoxaparin Sodium (Enoxaparin Sodium 40 Mg/0.4 Ml Syringe) 40 mg SUBCUT Q24H [facility] Last Admin: 11/10/23 17:46 Dose: 40 mg Documented By: KATELYN Gabapentin (Gabapentin 100 Mg Capsule) 200 mg PO BEDTIME [facility] Last Admin: 11/10/23 20:46 Dose: 200 mg Documented By: DANIELA Sodium Chloride (Ns) 1,000 mls @ 100 mls/hr IVCONT .Q10H [facility] Last Admin: 11/11/23 11:57 Dose: 100 mls/hr Documented By: CORNELIUS Piperacillin Sod/Tazobactam (Sod 4.5 gm/ Sodium Chloride) 100 mls @ 200 mls/hr IV Q6H [facility] Last Infusion: 11/11/23 08:48 Dose: Infused Documented By: CORNELIUS Vancomycin HCl 500 mg/ Sodium (Chloride) 110 mls @ 110 mls/hr IV Q8H [facility] Lamotrigine (Lamotrigine 100 Mg Tablet) 200 mg PO BEDTIME [facility] Last Admin: 11/10/23 20:48 Dose: Not Given Documented By: DANIELA Non-Admin Reason: Patient Refused Levetiracetam (Levetiracetam 1,000 Mg Tablet) 1,000 mg PO BID [facility] Last Admin: 11/11/23 09:03 Dose: 1,000 mg Documented By: CORNELIUS Melatonin (Melatonin 3 Mg Tablet) 6 mg PO BEDTIME PRN PRN Reason: Insomnia Methadone HCl (Methadone Hcl 20 Mg/2 Ml Oral.Conc) 100 mg PO DAILY [facility] Last Admin: 11/11/23 11:24 Dose: 100 mg Documented By: CORNELIUS Ondansetron HCl (Ondansetron Hcl 4 Mg/2 Ml Vial) 4 mg IVPUSH Q8H PRN PRN Reason: Nausea and Vomiting Last Admin: 11/11/23 01:49 Dose: 4 mg Documented By: REINIER Pantoprazole Sodium (Pantoprazole Sodium 40 Mg/10 Ml Vial) 40 mg IVPUSH BID@0630,1630 [facility] Pharmacy Consult (Consult Rx Vancomycin Dosing) 1 each MISCELLANE DAILY PRN PRN Reason: Consult order Sertraline HCl (Sertraline Hcl 100 Mg Tablet) 200 mg PO DAILY [facility] Last Admin: 11/11/23 09:02 Dose: 200 mg Documented By: CORNELIUS Sodium Chloride (0.9 % Sodium Chloride Flush 3 Ml Syringe) 3 ml IVFLUSH QSHIFT [facility] Last Admin: 11/11/23 08:06 Dose: Not Given Documented By: CORNELIUS Non-Admin Reason: IV Running Labs 11/11/23 05:39 11/11/23 05:39 Labs: Laboratory Results - last 24 hr 11/10/23 11/11/23 10:32 05:39 MCV 85.3 MCH 27.1 MCHC 31.8 RDW 15.5 Plt Count 173 MPV 10.6 Absolute Nucleated RBC 0.000 Nucleated RBC % (auto) 0.0 Anion Gap 7 L Estim Creat Clear Calc 92.7 Estimated GFR > 60 Random Glucose 105 Calcium 8.5 D Troponin I High Sens 3.2 Microbiology Microbiology Results: Microbiology 11/10/23 10:40 Blood Culture - Preliminary Blood - Venous No growth after 24 hours. 11/10/23 10:32 Blood Culture - Preliminary Blood - Venous No growth after 24 hours. Assessment and Plan (1) Multifocal pneumonia: Status: Acute Plan Pt is a 58-year-old female with a PMH significant for?HTN, HLD, seizure disorder, CVA x2, remote hx of opioid use disorder on methadone, and anxiety who presents to the ED with?worsening abdominal pain and productive cough. Pt will be admitted to the hospital for treatment further evaluation of multifocal pneumonia with sepsis. 1.Multifocal pneumonia with sepsis -CT showed right middle and left lower lobe pneumonia -antibiotics switched to Zosyn/vanco (1) -DuoNebs q.4 hours p.r.n. 2. Midepigastric abdominal pain -describes gastritis type symptoms -pantoprazole IV q.12 hours -slowly advance diet as tolerated 3.Hx of CVA -stable, well compensated -continue aspirin, statin 4.HTN -acceptable control off therapies -adjust as clinically relevant 4.Seizure disorder -no recent seizures -continue Keppra Full Code Lovenox Patient will require ongoing hospitalization for IV antibiotics to treat multilobar pneumonia Quality Stroke Does the patient have a stroke diagnosis?: No VTE Prior VTE?: No VTE Risk Level:: Medical - moderate - high VTE Device Contraindication: Treatment Not Indicated VTE Drug Contraindication: N/A - Med Ordered
[2023-11-11 15:35] VITALS: BP 115/61; PULSE 70; RESP 12; TEMP 36.5; O2SAT 94
[2023-11-11] MEDS: Pantoprazole Sodium 40 MG/10 ML VIAL IVPUSH (16:14)
[2023-11-11] MEDS: Enoxaparin Sodium 40 MG/0.4 ML SYRINGE SUBCUT (16:49)
[2023-11-11] MEDS: vancomycin HCL 500 MG in 0.9 % Sodium Chloride 100 ML 110 MG IV (16:49)
[2023-11-11 20:00] VITALS: BP 143/80; PULSE 83; RESP 18; TEMP 36.8; O2SAT 95
[2023-11-11] MEDS: lamoTRIgine 100 MG TABLET 200 MG PO (21:48)
[2023-11-11] MEDS: clonazePAM 1 MG TABLET PO (21:48)
[2023-11-11] MEDS: Gabapentin 100 MG CAPSULE 200 MG PO (21:48)
--- NOTE | 2023-11-11 22:15 | PC.NURSE ---
Camera placed in patients room for safety. At times patient appears very drowsy, states does not have or take anything else than prescribed and given here at the hospital. Patient gets angry and threatens to leave when questioned, states Why is everyone asking me about this ,I don't like to be accused of anything Patient was assured that questions this type were only meant as a concern for patients well being and safety.
[2023-11-12] MEDS: vancomycin HCL 500 MG in 0.9 % Sodium Chloride 100 ML 110 MG IV ×2 (00:19→08:33)
[2023-11-12] MEDS: 0.9 % Sodium Chloride Flush 3 ML SYRINGE IVFLUSH (00:19)
[2023-11-12] MEDS: ondansetron HCL 4 MG/2 ML VIAL IVPUSH (00:32)
[2023-11-12] MEDS: Benzonatate 100 MG CAPSULE PO (00:32)
[2023-11-12 00:33] VITALS: TEMP 36.8
[2023-11-12] MEDS: Piperacillin Sodium/Tazobactam 4.5 GM in 0.9 % Sodium Chloride 100 ML IV ×2 (01:40→07:45)
[2023-11-12] MEDS: Acetaminophen 325 MG TABLET 650 MG PO (02:52)
[2023-11-12 04:00] VITALS: BP 138/76; PULSE 77; RESP 16; TEMP 36.3; O2SAT 94
[2023-11-12] MEDS: 0.9 % Sodium Chloride 1,000 ML 100 ML IVCONT (04:59)
--- NOTE | 2023-11-12 05:43 | PC.NURSE ---
pt c/o about the headache most of night. tylenol given hour early, 2 -3 hours later pt asking again. notified received toradol. try to give her but she said she can't take toradol. she will get restless leg. pt said she doesn't want to take anything. will stay 5/10 headache. she took a snacks. made aware will cont. monitor.
[2023-11-12] MEDS: Pantoprazole Sodium 40 MG/10 ML VIAL IVPUSH (06:08)
[2023-11-12 07:03] VITALS: BP 147/90; PULSE 80; RESP 14; TEMP 36.6; O2SAT 96
[2023-11-12 07:05] LABS: MANUAL DIFF FLAG NO
[2023-11-12 07:13] LABS: Basophils Percent Auto 0.3 % (0-2); Eosinophils Absolute Auto 0.2 X10*3/uL (0.0-0.4); Eosinophils Percent Auto 1.7 % (0-4); Hematocrit 31.5 % (37.0-47.0); Hemoglobin 9.9 g/dl (12.0-16.0); Imm Gran Abs Auto 0.04 X10*3/uL (0.00-0.03); Imm Gran Pct Auto 0.4 % (0.0-0.4); Lymphocytes Percent Auto 33.1 % (20-40); Mean Corpuscular HGB Conc 31.4 g/dl (31.0-35.0); Mean Corpuscular Hemoglobin 26.8 pg (27.0-33.0); Mean Corpuscular Volume 85.4 fL (80.0-98.0); Mean Platelet Volume 11.2 fL (9.4-12.3); Monocytes Absolute Auto 0.5 X10*3/uL (0.1-1.2); Monocytes Percent Auto 5.9 % (2-11); Neutrophils Absolute Auto 5.2 x10*3/uL (2.0-8.3); Neutrophils Percent Auto 58.6 % (45-73); Platelet Count 161 X10*3/uL (160-400); Red Blood Count 3.69 X10*6/uL (4.20-5.50); Red Cell Distribution Width 15.4 % (11.0-16.0); White Blood Count 8.9 X10*3/uL (4.8-10.8)
[2023-11-12 07:31] LABS: Alanine Aminotransferase 17 U/L (0-31); Albumin Level 3.2 g/dL (3.5-5.0); Alkaline Phosphatase 57 U/L (39-117); Anion Gap 9 (12-20); Aspartate Amino Transferase 12 U/L (5-31); Bilirubin Total 0.3 mg/dL (0.0-1.0); Blood Urea Nitrogen 7 mg/dL (9-16); Calcium 8.1 mg/dL (8.4-10.2); Carbon Dioxide 25 mmol/L (22-29); Chloride 112 mmol/L (96-108); Creatinine Clr Calc Pharmacy 74.9; Estimated Glomerular Filt Rate > 60; Glucose Fasting 136 mg/dL (60-99); Potassium 3.4 mmol/L (3.3-5.1); Sodium 143 mmol/L (135-145); Total Protein 5.8 g/dL (6.5-8.0)
[2023-11-12] MEDS: Atorvastatin Calcium 80 MG TABLET PO (08:36)
[2023-11-12] MEDS: Aspirin Enteric Coated 81 MG TABLET.DR PO (08:36)
[2023-11-12] MEDS: Sertraline HCL 100 MG TABLET 200 MG PO (08:36)
[2023-11-12] MEDS: levETIRAcetam 1,000 MG TABLET 1000 MG PO (08:36)
[2023-11-12] MEDS: methADONE HCl 20 MG/2 ML ORAL.CONC 100 MG PO (08:37)
--- NOTE | 2023-11-12 11:49 | P.DS_ITS ---
DS: Providers Provider Date of Service: 11/12/23 Date of admission: 11/10/23 15:14 Date of discharge: 11/12/23 Primary care physician: Unknown Physician DS: Diagnosis Discharge Diagnosis (1) Multifocal pneumonia: Status: Acute DS: Summary Hospital Course Hospital Course: 58-year-old female with a PMH significant for?HTN, HLD, seizure disorder, CVA x2, remote hx of opioid use disorder on methadone, and anxiety who presents to the ED with?worsening abdominal pain and productive cough. Pt initially presented to the ED on 11/02/2023 for evaluation of abdominal pain with intractable nausea and vomiting. Workup at the time was significant for CT of abd/pelvis with question of acute pancreatitis. Lipase was WNL at 9 at that time. Abdominal exam was benign and patient was discharged on Zofran once nausea subsided. Patient reports that since discharge from ED has continued to experience intermittent epigastric and left-sided abdominal pain, worse this morning which was what prompted her visit to the ED. States has been eating and drinking ?nothing? for past 7 days. Nausea and vomiting appear much better than before, but continues to report an unspecified ?little? amount of nausea and vomiting. States has been coughing up significant amounts of phlegm for the past several days and been experiencing subjective fever and chills. Denies shortness of breath or [place]. Denies chest pain/pressure, palpitations. In the ED pt was febrile up to 102.8, tachycardic up to 96, with soft BP as low as 106/51, satting at 95% on RA. Labs were significant for leukocytosis of 16.1, lactic acid 2.2 with repeat 1.3. Stable H& H. No significant electrolyte abnormalities. Tested negative for flu, RSV COVID. UA negative for UTI. CXR showed suspected right middle and left lower lobe pneumonia. CT?of abdomen and pelvis found interval development from 11/01 of right middle lobe pneumonia and possible right lower lobe pneumonia. Also showed small bowel mesenteric root/peripancreatic haziness, likely chronic dating back to 04/19/2022. Redemo nstrated left ovarian cyst with thin internal septations, outpatient surgical consultation and pelvic MRI recommended. EKG demonstrated normal sinus rhythm with no significant ST elevations or depressions. Pt was treated with IVF, ceftriaxone, acetaminophen, and ondansetron. Pt will be admitted to the hospital for treatment further evaluation of multifocal pneumonia with sepsis. Hospital course Patient admitted to the general medical floor maintained on vancomycin and Zosyn. Over the next 48 hours she markedly improved and on the day of discharge was ambulating without O2. At this point in time she will be discharged to complete an oral course of doxycycline and Ceftin. All cultures have been negative. She will follow up with the PCP next available Time Attestation Discharge Coordination Time (in mins): 35 Quality: Safe Use of Opioids Does Pt have an Active Cancer Diagnosis on the Problem List?: No Quality: Stroke Does the patient have a stroke diagnosis?: No Physical Exam Vital Signs: Vital Signs: Last Vital Signs Temp 97.8 F 11/12/23 07:03 Pulse 80 11/12/23 07:03 Resp 14 11/12/23 07:03 BP 147/90 H 11/12/23 07:03 Pulse Ox 96 11/12/23 07:03 O2 Del Method Room Air 11/12/23 07:03 BMI result Body Mass Index 30.9 Const: Other: Awake alert no acute distress Resp: Other: Diminished at bases with scattered expiratory wheezes Cardio: Other: No S4; positive S1-S2; no S3 murmurs rubs or gallops GI: Other: Soft nontender nondistended normoactive bowel sounds Extrem: Other: No edema bilaterally DS: Data Data Completed and Pending Labs on day of discharge: Laboratory Results - last 24 hr 11/12/23 06:12 WBC 8.9 RBC 3.69 L Hgb 9.9 L Hct 31.5 L MCV 85.4 MCH 26.8 L MCHC 31.4 RDW 15.4 Plt Count 161 MPV 11.2 Immature Gran % (Auto) 0.4 Neut % (Auto) 58.6 Lymph % (Auto) 33.1 [place] % (Auto) 5.9 Eos % (Auto) 1.7 Baso % (Auto) 0.3 Lymph # (Auto) 3.0 [place] # (Auto) 0.5 Eos # (Auto) 0.2 Baso # (Auto) 0.0 Abs Immat Gran (auto) 0.04 H Absolute Neuts (auto) 5.2 Absolute Nucleated RBC 0.000 Nucleated RBC % (auto) 0.0 Sodium 143 Potassium 3.4 Chloride 112 H Carbon Dioxide 25 Anion Gap 9 L BUN 7 L Creatinine 0.94 Estim Creat Clear Calc 74.9 Estimated GFR > 60 Fasting Glucose 136 H Calcium 8.1 L Total Bilirubin 0.3 AST 12 ALT 17 Alkaline Phosphatase 57 Total Protein 5.8 L Albumin 3.2 L Preliminary micro results at discharge 11/10/23 10:40 Blood Culture - Preliminary Blood - Venous No growth after 24 hours. 11/10/23 10:32 Blood Culture - Preliminary Blood - Venous No growth after 24 hours. Discharge Plan Discharge Anticipated Discharge Date/Time: 11/12/23 11:45 Patient Disposition: Home, Self-Care Discharge Diagnosis: Multifocal pneumonia Referrals: Physician,Unknown J [Primary Care Provider] - 1 Week Discharge Medications: New amoxicillin-pot clavulanate 875-125 mg tablet 1 tab PO BID Qty: 20 0RF doxycycline hyclate 100 mg tablet 100 mg PO BID 10 Days Qty: 20 0RF Continued atorvastatin 80 mg tablet 1 tab PO DAILY clonazepam 0.5 mg tablet 0.5 mg PO BID@0900,1200 PRN (Reason: Anxiety) sertraline 100 mg tablet 2 tab PO QAM omeprazole 40 mg capsule,delayed release(DR/EC) 1 cap PO DAILY aspirin 81 mg tablet,delayed release (DR/EC) 1 tab PO DAILY albuterol sulfate 90 mcg/actuation HFA aerosol inhaler 2 puff PO QID PRN (Reason: wheezing) levetiracetam 1,000 mg tablet 1 tab PO BID ondansetron 4 mg tablet,disintegrating 4 mg PO Q8H PRN (Reason: nausea and vomiting) Qty: 20 0RF lamotrigine 200 mg tablet 200 mg PO BEDTIME clonazepam 1 mg tablet 1 mg PO BEDTIME hydroxyzine HCl 50 mg tablet 50 - 100 mg PO BEDTIME clonidine HCl 0.2 mg tablet 0.2 mg PO TID gabapentin 100 mg capsule 200 mg PO BEDTIME methadone 10 mg/mL Concentrate 100 mg PO DAILY Discontinued lidocaine [Lidoderm] 5 % adhesive patch,medicated 1 patch topical DAILY PRN (Reason: Pain) Rx Instructions: leave on most painful area for up to 12 hrs Discharge Orders: Discharge Order (Routine); Ordered 11/12/23 Ordered By: Lucien Ruffin Diet: Advance to usual diet Activity on Discharge: As tolerated Stand Alone Forms: Patient Portal Discharge page Print Language: Georgian Care Plan Goals: Resume all medicines as taken prior to the hospital Health Concerns: Complete course of doxycycline 100 mg twice daily and Ceftin 500 mg twice daily Plan of Treatment: Follow-up with your PCP next available Assessment: See discharge summary
--- NOTE | 2023-11-12 11:55 | MHC.CM.PN ---
PATIENT REPORTS THAT HER PCP IS AT [facility] AND BELIEVES THE PROVIDER NAME IS DR MOURA. [phone] OFFICE UPDATED.
== END 2023-11-12 13:15 | disposition home or self-care (01) | DRG 194 ==
LOC: HO.ED 13:09 → HO.EDOVER 15:28 → HO.S3 15:55
PROVIDERS: Nurse Practitioner Family; Admitting Provider Student in an Organized Health Care Education/Training Program; Emergency Provider Emergency Medicine; PCP Internal Medicine; Visit Provider Hospitalist
DX: J18.9 Pneumonia, unspecified organism (principal); F11.20 Opioid dependence, uncomplicated; F17.210 Nicotine dependence, cigarettes, uncomplicated; N83.202 Unspecified ovarian cyst, left side; I10 Essential (primary) hypertension; F39 Unspecified mood [affective] disorder; K21.9 Gastro-esophageal reflux disease without esophagitis; G40.909 Epilepsy, unspecified, not intractable, without status epilepticus; Z20.822 Contact with and (suspected) exposure to COVID-19; Z71.6 Tobacco abuse counseling; Z86.73 Personal history of transient ischemic attack (TIA), and cerebral infarction without residual deficits; Z79.82 Long term (current) use of aspirin; Z79.899 Other long term (current) drug therapy
CPT/HCPCS: 0241U; 36415; 71045; 74177; 80048; 80053; 80076; 80307; 81003; 83605; 83690; 83735; 84484; 85025; 85027; 87040; 93005; 99285; C9113; J0696; J1170; J1650; J1885; J2405; J2543; J3370; Q9967

== ENCOUNTER → 2023-11-10 15:14 | Outpatient (BNV) | payer OTHER, SELFPAY | PROVIDERS: Admitting Provider Student in an Organized Health Care Education/Training Program; Emergency Provider Emergency Medicine; Visit Provider Hospitalist | DX: J18.9 Pneumonia, unspecified organism (principal) | CPT/HCPCS: 99223; 99232; 99239 ==

== ENCOUNTER 2024-02-08 13:07 | Emergency (ER) | payer OTHER, SELFPAY ==
--- NOTE | ~2024-02-08 | XR_ITS ---
EXAMINATION: XR FOOT, RIGHT CLINICAL INFORMATION: Pain of fifth metatarsal COMPARISON: None available. TECHNIQUE: 3 views of the right foot. FINDINGS: Bones have normal alignment. No fracture, subluxation or overt soft tissue swelling. No erosions or periostitis. There is a bipartite configuration of the medial sesamoid of the great toe. There appear to be small enthesophytes of the medial cuneiform, dorsal talar head and plantar surface of the calcaneus. No suspicious osseous lesions. No radiopaque foreign body. XR/XR foot RT min 3V IMPRESSION: * No specific source of pain is identified. No metatarsal stress fracture. * No evidence of any significant degenerative or inflammatory arthropathy.
[2024-02-08 13:42] VITALS: BP 109/71; BP 138/88; PULSE 67; PULSE 72; RESP 16; TEMP 36.5; O2SAT 96; BMI 28.9
[2024-02-08 13:50] VITALS: BP 109/71; PULSE 67; RESP 16; TEMP 36.5; O2SAT 96
[2024-02-08] MEDS: Acetaminophen 325 MG TABLET 975 MG PO (14:37)
[2024-02-08] MEDS: Ibuprofen 400 MG TABLET PO (14:37)
[2024-02-08] MEDS: Bacitracin Oint 0.9 GM PACKET 1 APPL TOPICAL (14:37)
[2024-02-08 14:41] VITALS: BP 118/71; PULSE 58; RESP 18; O2SAT 97
--- NOTE | 2024-02-08 14:41 | ED_ITS ---
HPI - Fall General Chief Complaint: Fall Stated Complaint: FALL DOWN FLIGHT OF STAIRS, -LOC-HEADSTR Time Seen by Provider: 02/08/24 13:37 Source: patient Mode of arrival: ambulatory History of Present Illness ED Provider: Dr Edouard HPI Narrative: 58-year-old female states that she fell going down the stairs and landed on her bottom and denies any head strike or use of chronic anticoagulation, denies any loss of consciousness or neck pain and denies any bilateral lower or upper extremity injury. Related Data Home Medications ?Medication ?Instructions ?Recorded ?Confirmed albuterol sulfate 90 mcg/actuation 2 puff PO QID PRN wheezing 09/15/20 11/10/23 aerosol inhaler aspirin 81 mg tablet,delayed 1 tab PO DAILY 09/15/20 11/10/23 release atorvastatin 80 mg tablet 1 tab PO DAILY 09/15/20 11/10/23 clonazepam 0.5 mg tablet 0.5 mg PO BID@0900,1200 PRN Anxiety 09/15/20 11/10/23 omeprazole 40 mg capsule,delayed 1 cap PO DAILY 09/15/20 11/10/23 release sertraline 100 mg tablet 2 tab PO QAM 09/15/20 11/10/23 levetiracetam 1,000 mg tablet 1 tab PO BID 02/28/21 11/10/23 clonazepam 1 mg tablet 1 mg PO BEDTIME 11/10/23 11/10/23 clonidine HCl 0.2 mg tablet 0.2 mg PO TID 11/10/23 11/10/23 gabapentin 100 mg capsule 200 mg PO BEDTIME 11/10/23 11/10/23 hydroxyzine HCl 50 mg tablet 50 - 100 mg PO BEDTIME Insomnia 11/10/23 11/10/23 lamotrigine 200 mg tablet 200 mg PO BEDTIME 11/10/23 11/10/23 methadone 10 mg/mL oral concentrate 100 mg PO DAILY 11/11/23 11/11/23 Previous Rx's ?Medication ?Instructions ?Recorded ondansetron 4 mg disintegrating 4 mg PO Q8H PRN nausea and 11/02/23 tablet vomiting #20 tabs amoxicillin 875 mg-potassium 1 tab PO BID #20 tabs 11/12/23 clavulanate 125 mg tablet doxycycline hyclate 100 mg tablet 100 mg PO BID 10 days #20 tabs 11/12/23 Allergies Allergy/AdvReac Type Severity Reaction Status Date / Time codeine [CODEINE] Allergy Unknown SWELLING Verified 02/08/24 13:48 hornet venom [HORNETS] Allergy Unknown RASH Verified 02/08/24 13:48 trazodone [TRAZODONE] AdvReac Intermediate VERY Verified 02/08/24 13:48 ANXIOUS, RESTLESSNESS From BENADRYL AdvReac Intermediate RESTLESS Uncoded 02/08/24 13:48 From SEROQUEL AdvReac Intermediate ANXIETY Uncoded 02/08/24 13:48 AND RESTLESSNESS Review of Systems Review of Systems: Pertinent positives and negatives as stated in the [facility] Past Medical History Source: nursing notes reviewed Medical History PNA (pneumonia) HTN (hypertension) Left knee injury Patent ductus arteriosus Anxiety Hyperlipidemia Seizure Diabetes CVA (cerebral vascular accident) Surgical History Hx of tonsillectomy H/O left knee surgery Social History Social History Household Members: Significant Other Housing: House Housing Other:: [address]F [address] HOUSE Do you presently have visiting nurse or other home services: No Alcohol intake: never Patient Tobacco Use Status: Current everyday Tobacco user Tobacco use type: Cigarette Cigarettes Per Day: 5 Smoked in Last 30 Days: Yes Use of substances other than those prescribed or required for medical reasons: No Substance Use Type: Opiates Advance Directives: No Advance Directives Information Provided: Yes Do you have a plan to hurt others: No Plan Patient : No service: No Current occupational status: unemployed Physical Exam Vital Signs: Vital Signs: Last Vital Signs Temp 97.7 F 02/08/24 13:50 Pulse 58 02/08/24 14:41 Resp 18 02/08/24 14:41 BP 118/71 02/08/24 14:41 Pulse Ox 97 02/08/24 14:41 O2 Del Method Room Air 02/08/24 14:41 BMI result Body Mass Index 28.9 VITAL SIGNS: Reviewed. GENERAL: Well developed, well nourished, in no acute distress. HEAD: Normocephalic/atraumatic EYES: PERRLA, EOMI EARS: Ext canals without abnormality NOSE: Nares patent bilateral OROPHARYNX: no oral lesions noted, posterior pharynx clear NECK: Supple, no adenopathy, no mid cervical spine tenderness to palpation or step-offs noted. LUNGS: Normal breath sounds. No adventitious sounds or accessory muscle use. SpO2<97> CARDIOVASCULAR: Regular rate and rhythm without noted murmurs ABDOMEN: Soft, non-tender, non-distended with bowel sounds. PELVIS: Stable, nontender MUSCULOSKELETAL: No tenderness, deformities, or effusions noted on gross inspection. EXTREMITIES: No cyanosis, clubbing or edema. LUE: Superficial abrasion which will have bacitracin applied RIGHT FOOT: Pain to 5th tarsal without obvious deformity, otherwise neurovascularly intact SKIN: Inspection of the skin reveals no rashes NEUROLOGIC: Alert and oriented x 4. Strength and sensation to light touch were grossly intact x 4. Medications Administered Discontinued Medications Generic Name Dose Route Start Last Admin Trade Name Freq PRN Reason Stop Dose Admin Acetaminophen 975 mg 02/08/24 13:56 02/08/24 14:37 Acetaminophen 325 Mg Tablet PO 02/08/24 13:57 975 mg ONCE ONE Administration Bacitracin 1 appl 02/08/24 13:57 02/08/24 14:37 Bacitracin Oint 0.9 Gm Packet TOPICAL 02/08/24 13:58 1 appl ONCE ONE Administration Protocol Ibuprofen 400 mg 02/08/24 13:56 02/08/24 14:37 Ibuprofen 400 Mg Tablet PO 02/08/24 13:57 400 mg ONCE ONE Administration Medical Decision Making Medical Decision Making MDM Narrative: 58-year-old female with minor fall onto her backside, no pelvic injury suspected, possibility of a right 5th tarsometatarsal injury, otherwise will apply bacitracin to superficial abrasion of left upper extremity, otherwise full range of motion at all other joints, no head strike or loss of consciousness an d no neck pain. I reviewed imaging studies which do not demonstrate any fracture or dislocations of the right foot and patient is otherwise stable for discharge. Differential Diagnosis Differential Diagnoses: The differential diagnosis associated with the presentation includes Please see the discussion above Admission/Observation Consideration of admission/observation: Escalation of care including admission/observation considered Please see the discussion above Radiology Impression Discussion of test interpretation with radiology: I have reviewed the radiologist's reading. Radiologist Impression: Please see the discussion above External Record Review External record reviewed: Outpatient record and Prior outpatient labs Critical Care Time Critical Care Time Critical Care Time: Yes Total Critical Care Time: 30 Attestation: I personally attest to this time spent taking care of the patient. Discharge Plan Discharge Clinical Impression: Fall, Superficial abrasion, Foot pain, right Patient Disposition: Xfer Other Instructions: Fall Prevention for Older Adults (ED), Abrasion (ED), Arthralgia (ED) Additional Instructions: 1. Resume all home medications as prescribed. 2. Recommend [id number] Tylenol/ibuprofen as needed for pain control. 3. Recommend antibiotic ointment to the superficial abrasion but otherwise may clean with soap and water. Return to the ER for any worsening symptoms. Prescriptions: No Action atorvastatin 80 mg tablet 1 tab PO DAILY clonazepam 0.5 mg tablet 0.5 mg PO BID@0900,1200 PRN (Reason: Anxiety) sertraline 100 mg tablet 2 tab PO QAM omeprazole 40 mg capsule,delayed release(DR/EC) 1 cap PO DAILY aspirin 81 mg tablet,delayed release (DR/EC) 1 tab PO DAILY albuterol sulfate 90 mcg/actuation HFA aerosol inhaler 2 puff PO QID PRN (Reason: wheezing) levetiracetam 1,000 mg tablet 1 tab PO BID ondansetron 4 mg tablet,disintegrating 4 mg PO Q8H PRN (Reason: nausea and vomiting) Qty: 20 0RF lamotrigine 200 mg tablet 200 mg PO BEDTIME clonazepam 1 mg tablet 1 mg PO BEDTIME hydroxyzine HCl 50 mg tablet 50 - 100 mg PO BEDTIME clonidine HCl 0.2 mg tablet 0.2 mg PO TID gabapentin 100 mg capsule 200 mg PO BEDTIME methadone 10 mg/mL Concentrate 100 mg PO DAILY amoxicillin-pot clavulanate 875-125 mg tablet 1 tab PO BID Qty: 20 0RF doxycycline hyclate 100 mg tablet 100 mg PO BID 10 Days Qty: 20 0RF Referrals: Garret Austin MD [Primary Care Provider] - Print Language: Gabonese
[2024-02-08 16:35] VITALS: BP 118/71; PULSE 58; RESP 18; TEMP -17.7; TEMP 0; O2SAT 97
== END 2024-02-08 16:40 | disposition other institution (70) ==
PROVIDERS: Emergency Provider Student in an Organized Health Care Education/Training Program; PCP Internal Medicine
DX: M79.671 Pain in right foot (principal); S40.811A Abrasion of right upper arm, initial encounter; W10.9XXA Fall (on) (from) unspecified stairs and steps, initial encounter; Y93.9 Activity, unspecified; Y92.9 Unspecified place or not applicable; Y99.9 Unspecified external cause status; I10 Essential (primary) hypertension; E11.9 Type 2 diabetes mellitus without complications
CPT/HCPCS: 73630; 99283; 99284

== ENCOUNTER 2024-06-01 12:30 | Emergency (ER) | payer OTHER, SELFPAY ==
--- NOTE | ~2024-06-01 | XR_ITS ---
EXAMINATION: XR CHEST CLINICAL INFORMATION: Shortness of breath, positive Covid COMPARISON: None available. TECHNIQUE: 2 views of the chest were obtained. FINDINGS: No significant abnormality is noted involving the heart, lungs, mediastinum, bony thorax or soft tissues. XR/XR chest 2V IMPRESSION: Unremarkable examination. Electronically signed by: Dinesh Vital DO 06/01/2024 03:38 PM [facility]
[2024-06-01 13:04] VITALS: BP 131/69; PULSE 74; RESP 16; TEMP 36.8; O2SAT 98; BMI 28.4
--- NOTE | 2024-06-01 13:07 | ED_ITS ---
HPI - URI/Sore Throat General Chief Complaint: Upper Respiratory Symptoms Stated Complaint: ?pneumonia Time Seen by Provider: 06/01/24 14:57 Source: patient Mode of arrival: ambulatory Limitations: no limitations History of Present Illness ED Provider: Jennifer Fox APRN HPI Narrative: 58-year-old female, with a history of CVA, diabetes, seizure disorder, hyperlipidemia, anxiety here with complaints of cough, wheezing and congestion. Did outpatient COVID test yesterday which was positive. Has albuterol inhaler at home but its not helping. No chest pain, shortness of breath, vomiting, diarrhea, fevers, neck pain, neck stiffness, leg swelling or leg pain. Related Data Home Medications ?Medication ?Instructions ?Recorded ?Confirmed albuterol sulfate 90 mcg/actuation 2 puff PO QID PRN wheezing 09/15/20 11/10/23 aerosol inhaler aspirin 81 mg tablet,delayed 1 tab PO DAILY 09/15/20 11/10/23 release atorvastatin 80 mg tablet 1 tab PO DAILY 09/15/20 11/10/23 clonazepam 0.5 mg tablet 0.5 mg PO BID@0900,1200 PRN Anxiety 09/15/20 11/10/23 omeprazole 40 mg capsule,delayed 1 cap PO DAILY 09/15/20 11/10/23 release sertraline 100 mg tablet 2 tab PO QAM 09/15/20 11/10/23 levetiracetam 1,000 mg tablet 1 tab PO BID 02/28/21 11/10/23 clonazepam 1 mg tablet 1 mg PO BEDTIME 11/10/23 11/10/23 clonidine HCl 0.2 mg tablet 0.2 mg PO TID 11/10/23 11/10/23 gabapentin 100 mg capsule 200 mg PO BEDTIME 11/10/23 11/10/23 hydroxyzine HCl 50 mg tablet 50 - 100 mg PO BEDTIME Insomnia 11/10/23 11/10/23 lamotrigine 200 mg tablet 200 mg PO BEDTIME 11/10/23 11/10/23 methadone 10 mg/mL oral concentrate 100 mg PO DAILY 11/11/23 11/11/23 Previous Rx's ?Medication ?Instructions ?Recorded ondansetron 4 mg disintegrating 4 mg PO Q8H PRN nausea and 11/02/23 tablet vomiting #20 tabs amoxicillin 875 mg-potassium 1 tab PO BID #20 tabs 11/12/23 clavulanate 125 mg tablet doxycycline hyclate 100 mg tablet 100 mg PO BID 10 days #20 tabs 11/12/23 benzonatate 200 mg capsule 200 mg PO TID PRN cough #12 caps 06/01/24 prednisone 20 mg tablet 40 mg (2 x 20 mg) PO DAILY #10 tabs 06/01/24 Allergies Allergy/AdvReac Type Severity Reaction Status Date / Time codeine [CODEINE] Allergy Unknown SWELLING Verified 06/01/24 13:06 hornet venom [HORNETS] Allergy Unknown RASH Verified 06/01/24 13:06 trazodone [TRAZODONE] AdvReac Intermediate VERY Verified 06/01/24 13:06 ANXIOUS, RESTLESSNESS From BENADRYL AdvReac Intermediate RESTLESS Uncoded 06/01/24 13:06 From SEROQUEL AdvReac Intermediate ANXIETY Uncoded 06/01/24 13:06 AND RESTLESSNESS Review of Systems Review of Systems: Yes all other systems are reviewed and are negative Constitutional: Constitutional: Reports no additional constitutional complaints, Denies body ache(s), Denies chills, Denies fever(s), Denies headache(s) and Denies weakness Eyes: Eyes: Reports no additional eye complaints and Denies change in vision ENT: Reports system reviewed and no additional complaints, except as documented, Denies dizziness, Denies headache(s), Reports nasal congestion, Denies nasal discharge and Denies neck pain Cardiovascular: Cardiovascular: Reports no additional cardiovascular co mplaints, Denies chest pain, Denies leg edema and Denies dyspnea Respiratory: Respiratory: Reports no additional respiratory complaints, Reports cough, Denies dyspnea and Reports wheezing Gastrointestinal: Gastrointestinal: Reports no additional gastrointestinal complaints, Denies abdominal pain, Denies diarrhea, Denies nausea and Denies vomiting Genitourinary: Genitourinary: Reports no additional female genitourinary complaints and Denies urinary incontinence Musculoskeletal: Musculoskeletal: Reports no additional musculoskeletal complaints, Denies back pain, Denies arthralgias, Denies joint swelling, Denies neck pain, Denies numbness and Denies tingling Integumentary/Breasts: Skin/Breast: Reports system reviewed and no additional complaints, except as docu and Denies rash Neurologic: Reports system reviewed and no additional complaints, except as documented, Denies Abnormal speech present, Denies dizziness, Denies headache(s), Denies numbness, Denies tingling and Denies weakness Allergic/Immunologic: Allergic/Immunologic: Reports wheezing PMFSH Past Medical History Attestation statement: The following information was validated with the patient. Source: old records reviewed and nursing notes reviewed Medical History PNA (pneumonia) HTN (hypertension) Left knee injury Patent ductus arteriosus Anxiety Hyperlipidemia Seizure Diabetes CVA (cerebral vascular accident) Surgical History Hx of tonsillectomy H/O left knee surgery Social History Social History Household Members: Significant Other Housing: House Housing Other:: [address] [address] Do you presently have visiting nurse or other home services: No Alcohol intake: never Patient Tobacco Use Status: Current everyday Tobacco user Tobacco use type: Cigarette Cigarettes Per Day: 5 Substance Use Type: Opiates Advance Directives: No Advance Directives Information Provided: Yes service: No Current occupational status: unemployed Physical Exam Vital Signs: Vital Signs: Last Vital Signs Temp 98.3 F 06/01/24 13:04 Pulse 74 06/01/24 13:04 Resp 16 06/01/24 13:04 BP 131/69 06/01/24 13:04 Pulse Ox 98 06/01/24 13:04 O2 Del Method Room Air 06/01/24 13:04 BMI result Body Mass Index 28.4 Const: General: cooperative, healthy appearing, comfortable and no acute distress Orientation/consciousness: patient oriented x3 Limitations: no limitations HEENT: Head: Yes normal to inspection Ears: hearing grossly normal bilaterally General nose exam: Normal external nose present Face and sinus: Yes normal facial exam Mouth: Normal oral and palatal mucosa present Throat: Yes posterior oropharynx normal Eyes: General: appearance normal, both eyes and all related structures Pupils: Equal, round and reactive pupils present Neck: Neck: Yes normal visual inspection Chest: Chest palpation & inspection: normal inspection of the chest Resp: Other: slight wheezing Effort & Inspection: normal respiratory effort Cardio: Rate: regular rate Rhythm: regular rhythm Peripheral pulses: Peripheral pulses 2+ throughout GI: Inspection: Yes normal to inspection Palpation (GI): Soft to palpation and nontender Auscultation: normal bowel sounds Back/Spine/Pelvis: Thoracic/Lumbar Spine: thoracic and lumbar spine normal to inspection Skin: General skin exam: no rashes or lesions noted Neuro: General: patient oriented x3, no focal motor deficits and normal sensation to monofilament Cranial nerves: Yes Equal, round and reactive pupils present Cognition (Neuro): normal cognition Speech: No Abnormal speech present Gait exam (Neuro): Normal gait present Motor exam (neuro): 5/5 motor strength present throughout Extrem: General: Yes normal to inspection, Yes no pedal edema and Yes no calf tenderness Course Course Course Narrative: This is an RME performed by Theresa Chavira CNP: Additional HPI, ROS, PE not included below will be deferred to primary provider. Patient is a 58-year-old female who presents emergency department for evaluation of a productive cough, wheezing, shortness of breath, symptoms are worse at night. Reports that she took a home COVID-19 test yesterday which was positive. Plan: CXR Reevaluation(s) Reevaluation #1: Per patient she is COVID positive her chest x-ray shows no signs of pneumonia. She does have some slight wheezing which improved with using her inhaler. I will send her home with a prednisone course and Tessalon. No hypoxia or tachypnea requiring supplemental oxygen and or admission. Based on her current prescriptions she would have multiple interactions with prescribing Paxlovid and so I will not prescribe this. I did recommend supportive care at home. Reviewed worrisome signs and symptoms of when to return to the emergency room. Comfortable plan for discharge home. Medical Decision Making Medical Decision Making [facility] Narrative: 58-year-old female, with a history of CVA, diabetes, seizure disorder, hyperlipidemia, anxiety here with complaints of cough, wheezing and congestion. Did outpatient COVID test yesterday which was positive. Has albuterol inhaler at home but its not helping. No chest pain, shortness of breath, vomiting, diarrhea, fevers, neck pain, neck stiffness, leg swelling or leg pain. Mild wheezing on exam. Exam otherwise is benign. VSS Will obtain x-ray, patient used her inhaler here 2 puffs with spacer with improvement Differential Diagnosis Differential Diagnoses: The differential diagnosis associated with the presentation includes COVID, Pneumonia Low suspicion for PE Admission/Observation Consideration of admission/observation: Escalation of care including admission/observation considered See course of care Independent Interpretation I performed an independent interpretation of an: Plain X-Ray Interpretation: I independently viewed the x-ray and agree with the radiology report Radiology Impression Discussion of test interpretation with radiology: I have reviewed the radiologist's reading. Radiologist Impression: [address] [address] XRay Report Signed Patient: Mimi Ricardo MR#: [id number] : 1965 Acct:[id number] Age/Sex: 58 / F ADM Date: 06/01/24 Loc: .ED Attending Dr: Ordering Physician: Joanie Chavira CNP Date of Service: 06/01/24 Procedure(s): XR chest 2V Accession Number(s): [id number] cc: Joanie Chavira CNP; KOFI RIVAS MD~ EXAMINATION: XR CHEST CLINICAL INFORMATION: Shortness of breath, positive Covid COMPARISON: None available. TECHNIQUE: 2 views of the chest were obtained. FINDINGS: No significant abnormality is noted involving the heart, lungs, mediastinum, bony thorax or soft tissues. XR/XR chest 2V IMPRESSION: Unremarkable examination. Electronically signed by: Dinesh Vital DO 06/01/2024 03:38 PM [facility] [place] Clinical information obtained from an independent historian. History obtained from or confirmed by: Spouse Prescription Management I considered prescription management with: Antiviral and Antibiotic Discharge Plan Discharge Clinical Impression: COVID-19 Patient Disposition: Home, Self-Care Instructions: COVID-19 (Coronavirus Disease 2019) (ED) Additional Instructions: Use your inhaler 2 puffs every 4 hours as needed for cough or wheezing. Use it with a spacer Take the prescribed medications as prescribed Increase fluids at home Take Motrin or Tylenol if able as needed for any pain or fever Quarantine for the next 5 days Return for any worsening symptoms Prescriptions: New prednisone 20 mg tablet 40 mg PO DAILY Qty: 10 0RF benzonatate 200 mg capsule 200 mg PO TID PRN (Reason: cough) Qty: 12 0RF No Action atorvastatin 80 mg tablet 1 tab PO DAILY clonazepam 0.5 mg tablet 0.5 mg PO BID@0900,1200 PRN (Reason: Anxiety) sertraline 100 mg tablet 2 tab PO QAM omeprazole 40 mg capsule,delayed release(DR/EC) 1 cap PO DAILY aspirin 81 mg tablet,delayed release (DR/EC) 1 tab PO DAILY albuterol sulfate 90 mcg/actuation HFA aerosol inhaler 2 puff PO QID PRN (Reason: wheezing) levetiracetam 1,000 mg tablet 1 tab PO BID ondansetron 4 mg tablet,disintegrating 4 mg PO Q8H PRN (Reason: nausea and vomiting) Qty: 20 0RF lamotrigine 200 mg tablet 200 mg PO BEDTIME clonazepam 1 mg tablet 1 mg PO BEDTIME hydroxyzine HCl 50 mg tablet 50 - 100 mg PO BEDTIME clonidine HCl 0.2 mg tablet 0.2 mg PO TID gabapentin 100 mg capsule 200 mg PO BEDTIME methadone 10 mg/mL Concentrate 100 mg PO DAILY amoxicillin-pot clavulanate 875-125 mg tablet 1 tab PO BID Qty: 20 0RF doxycycline hyclate 100 mg tablet 100 mg PO BID 10 Days Qty: 20 0RF Print Language: Omani
[2024-06-01 17:10] VITALS: BP 131/69; PULSE 74; RESP 16; TEMP 36.8; O2SAT 98
== END 2024-06-01 17:11 | disposition home or self-care (01) ==
PROVIDERS: Emergency Provider Emergency Medicine; PCP Internal Medicine
DX: U07.1 COVID-19 (principal); E11.9 Type 2 diabetes mellitus without complications; E78.5 Hyperlipidemia, unspecified; F17.210 Nicotine dependence, cigarettes, uncomplicated
CPT/HCPCS: 71046; 99282; 99283

== ENCOUNTER 2024-08-13 23:17 | Emergency (ER) | payer OTHER, SELFPAY ==
[2024-08-13 23:38] VITALS: BP 116/71; PULSE 74; RESP 16; TEMP 36.7; O2SAT 95
[2024-08-13 23:48] VITALS: BP 116/91; BP 132/78; PULSE 74; RESP 16; TEMP 36.7; O2SAT 95; O2SAT 96; BMI 29.8
--- NOTE | 2024-08-14 00:08 | ED_ITS ---
HPI - Female Genitourinary General Chief complaint: Urogenital-Female Stated complaint: GI Bleed possible Kidney stones Time Seen by Provider: 08/14/24 00:07 History of Present Illness ED Provider: Ilya JIM Narrative: The patient is a 59-year-old woman who says that this evening she developed acute suprapubic discomfort associated with dysuria, urgency, and urinary frequency. Says she also felt generally unwell had bilateral lower back pain. She says that she has had kidney stones in the past. She has not had a problem with the kidney stone for a couple of years. Because she felt so uncomfortable she called an ambulance and was brought to the hospital. No definite fevers. No nausea or vomiting. Related Data Home Medications ?Medication ?Instructions ?Recorded ?Confirmed albuterol sulfate 90 mcg/actuation 2 puff PO QID PRN wheezing 09/15/20 11/10/23 aerosol inhaler aspirin 81 mg tablet,delayed 1 tab PO DAILY 09/15/20 11/10/23 release atorvastatin 80 mg tablet 1 tab PO DAILY 09/15/20 11/10/23 clonazepam 0.5 mg tablet 0.5 mg PO BID@0900,1200 PRN Anxiety 09/15/20 11/10/23 omeprazole 40 mg capsule,delayed 1 cap PO DAILY 09/15/20 11/10/23 release sertraline 100 mg tablet 2 tab PO QAM 09/15/20 11/10/23 levetiracetam 1,000 mg tablet 1 tab PO BID 02/28/21 11/10/23 clonazepam 1 mg tablet 1 mg PO BEDTIME 11/10/23 11/10/23 clonidine HCl 0.2 mg tablet 0.2 mg PO TID 11/10/23 11/10/23 gabapentin 100 mg capsule 200 mg PO BEDTIME 11/10/23 11/10/23 hydroxyzine HCl 50 mg tablet 50 - 100 mg PO BEDTIME Insomnia 11/10/23 11/10/23 lamotrigine 200 mg tablet 200 mg PO BEDTIME 11/10/23 11/10/23 methadone 10 mg/mL oral concentrate 100 mg PO DAILY 11/11/23 11/11/23 Previous Rx's ?Medication ?Instructions ?Recorded ondansetron 4 mg disintegrating 4 mg PO Q8H PRN nausea and 11/02/23 tablet vomiting #20 tabs amoxicillin 875 mg-potassium 1 tab PO BID #20 tabs 11/12/23 clavulanate 125 mg tablet doxycycline hyclate 100 mg tablet 100 mg PO BID 10 days #20 tabs 11/12/23 benzonatate 200 mg capsule 200 mg PO TID PRN cough #12 caps 06/01/24 prednisone 20 mg tablet 40 mg (2 x 20 mg) PO DAILY #10 tabs 06/01/24 cefuroxime axetil 250 mg tablet 250 mg PO BID #10 tabs 08/14/24 phenazopyridine 99.5 mg tablet 99.5 mg PO TID PRN pain 6 doses #6 08/14/24 (Azo Urinary Pain Relief) tabs Allergies Allergy/AdvReac Type Severity Reaction Status Date / Time codeine [CODEINE] Allergy Unknown SWELLING Verified 08/13/24 23:51 hornet venom [HORNETS] Allergy Unknown RASH Verified 08/13/24 23:51 trazodone [TRAZODONE] AdvReac Intermediate VERY Verified 08/13/24 23:51 ANXIOUS, RESTLESSNESS From BENADRYL AdvReac Intermediate RESTLESS Uncoded 08/13/24 23:51 From SEROQUEL AdvReac Intermediate ANXIETY Uncoded 08/13/24 23:51 AND RESTLESSNESS Review of Systems 2 Review of Systems: Yes all other systems are reviewed and are negative [facility] Past Medical History Medical History PNA (pneumonia) HTN (hypertension) Left knee injury Patent ductus arteriosus Anxiety Hyperlipidemia Seizure Diabetes CVA (cerebral vascular accident) Surgical History Hx of tonsillectomy H/O left knee surgery Social History Social History Household Members: Significant Other Housing: House Housing Other:: [address] [address] Do you presently have visiting nurse or other home services: No Alcohol intake: never Patient Tobacco Use Status: Current everyday Tobacco user Tobacco use type: Cigarette Cigarettes Per Day: 5 Substance Use Type: Opiates Advance Directives: No Advance Directives Information Provided: Yes service: No Current occupational status: unemployed Physical Exam 2 Vital Signs: Vital Signs: Last Vital Signs Temp 98.1 F 08/13/24 23:48 Pulse 74 08/13/24 23:48 Resp 16 08/13/24 23:48 BP 116/91 H 08/13/24 23:48 Pulse Ox 95 08/13/24 23:48 O2 Del Method Room Air 08/13/24 23:48 BMI result Body Mass Index 29.8 Const: Other: The patient is a somewhat chronically ill-appearing 59-year-old. She is awake and alert. She does not appear acutely toxic. HEENT: Other: The patient is edentulous. The face is symmetrical. Mucous membranes moist. Eyes: General: appearance normal, both eyes and all related structures Neck: Neck: Yes full ROM Resp: Effort & Inspection: normal respiratory effort Auscultation: clear to auscultation bilaterally Cardio: Rate: regular rate Rhythm: regular rhythm Heart sounds: S1 normal heart sound present and S2 normal heart sound present GI: Other: The abdomen is soft. There is suprapubic tenderness without rebound or guarding. Back/Spine/Pelvis: Other: No CVA percussion tenderness on either flank. Skin: Other: Skin is pale and dry Neuro: Other: The patient is awake and alert. Face is symmetrical. She moves her extremities symmetrically. She walks steadily. Extrem: Other: No peripheral edema Medications Administered Discontinued Medications Generic Name Dose Route Start Last Admin Trade Name Freq PRN Reason Stop Dose Admin Cefuroxime Axetil 500 mg 08/14/24 00:23 08/14/24 00:39 Cefuroxime Axetil 500 Mg Tablet PO 08/14/24 00:24 500 mg ONCE ONE Administration Medical Decision Making Medical Decision Making [facility] Narrative: The patient is a 59-year-old woman who presents with the acute onset dysuria that started this evening. She also reports bloody looking urine. Her urinalysis is consistent with a UTI. I think she likely has hemorrhagic cystitis. I think it is unlikely that she has a kidney stone or pyelonephritis. She was started on cefuroxime and phenazopyridine. Lab Data 08/14/24 00:06 08/14/24 00:06 Labs: Lab Results 08/13/24 08/14/24 Range/Units 23:58 00:06 WBC 11.6 H (4.8-10.8) X10*3/uL RBC 4.64 D (4.20-5.50) X10*6/uL Hgb 12.2 D (12.0-16.0) g/dl Hct 37.8 (37.0-47.0) % MCV 81.5 (80.0-98.0) fL MCH 26.3 L (27.0-33.0) pg MCHC 32.3 (31.0-35.0) g/dl RDW 15.1 (11.0-16.0) % Plt Count 200 (160-400) X10*3/uL MPV 9.0 L (9.4-12.3) fL Absolute Nucleated RBC 0.000 (0.0-0.012) X10*3/uL Nucleated RBC % (auto) 0.0 (0.0-0.2) /100WBC Sodium 141 (135-145) mmol/L Potassium 4.1 D (3.3-5.1) mmol/L Chloride 107 (96-108) mmol/L Carbon Dioxide 25 (22-29) mmol/L Anion Gap 13 (12-20) BUN 6 L (9-16) mg/dL Creatinine 0.89 (0.5-1.4) mg/dL Estim Creat Clear Calc 76.7 Estimated GFR > 60 Random Glucose 119 H (60-115) mg/dL Calcium 9.0 D (8.4-10.2) mg/dL Total Bilirubin 0.3 (0.0-1.0) mg/dL AST 22 (5-31) U/L ALT 26 (0-31) U/L Alkaline Phosphatase 82 (39-117) U/L Total Protein 7.4 (6.5-8.0) g/dL Albumin 3.8 (3.5-5.0) g/dL Urine Color RED Urine Appearance Turbid Urine pH 6.0 (5.0-9.0) Ur Specific [place] >= 1.030 H (1.005-1.025) Urine Protein 100 (2+) H (Neg-Trace) mg/dL Urine Glucose (UA) Negative (Negative) mg/dL Urine Ketones Negative (Negative) mg/dL Urine Blood Large (3+) H (Negative) Urine Nitrite Negative (Negative) Ur Leukocyte Esterase Trace H (Negative) Urine RBC >20 H (0-2) /HPF Urine WBC 21-50 H (0-5) /HPF Ur Squamous Epith Cells 3-5 (0-2) /HPF Urine Bacteria 2+ (None Seen) Hyaline Casts 0-2 (0-2) /LPF Urine Opiates Screen Not Detected (Not Detect) Ur Buprenorphine Scrn Not Detected (Not Detect) ng/mL Ur Oxycodone Screen Not Detected (Not Detect) ng/mL Urine Methadone Screen Positive H (Not Detect) ng/mL Urine Fentanyl Screen Not Detected (Not Detect) Ur Barbiturates Screen Not Detected (Not Detect) Ur Phencyclidine Scrn Not Detected (Not Detect) Ur Amphetamines Screen Not Detected (Not Detect) U Benzodiazepines Scrn POSITIVE H (Not Detect) Urine Cocaine Screen Not Detected (Not Detect) U Marijuana (THC) Screen Not Detected (Not Detect) Discharge Plan Discharge Clinical Impression: Acute hemorrhagic cystitis Patient Disposition: Home, Self-Care Instructions: Urinary Tract Infection in Women (ED) Additional Instructions: Your urine is testing positive for urine infection. Urine infections can sometimes cause bloody urine. This can be called ?hemorrhagic cystitis. ? The treatment for this condition is the same as for a urine infection without significant bleeding. You has been started on an antibiotic called cefuroxime. You received your 1st dose here in the emergency room tonight. I have sent additional tablets to the [facility] pharmacy. Please mushroom picker the prescription in the morning and take your next dose later this morning. You were also given a dose of a medication called phenazopyridine. This medication helps with the discomfort of urinary tract infections. This can turn your urine orange. You may take this up to 3 times a day as needed. Please stay in touch with your regular doctor for additional advice as needed. Follow up with your regular doctor. Return to the emergency room if you feel significantly worse. Prescriptions: New cefuroxime axetil 250 mg tablet 250 mg PO BID Qty: 10 0RF Azo Urinary Pain Relief 99.5 mg tablet 99.5 mg PO TID PRN (Reason: pain) Qty: 6 0RF No Action atorvastatin 80 mg tablet 1 tab PO DAILY clonazepam 0.5 mg tablet 0.5 mg PO BID@0900,1200 PRN (Reason: Anxiety) sertraline 100 mg tablet 2 tab PO QAM omeprazole 40 mg capsule,delayed release(DR/EC) 1 cap PO DAILY aspirin 81 mg tablet,delayed release (DR/EC) 1 tab PO DAILY albuterol sulfate 90 mcg/actuation HFA aerosol inhaler 2 puff PO QID PRN (Reason: wheezing) levetiracetam 1,000 mg tablet 1 tab PO BID ondansetron 4 mg tablet,disintegrating 4 mg PO Q8H PRN (Reason: nausea and vomiting) Qty: 20 0RF lamotrigine 200 mg tablet 200 mg PO BEDTIME clonazepam 1 mg tablet 1 mg PO BEDTIME hydroxyzine HCl 50 mg tablet 50 - 100 mg PO BEDTIME clonidine HCl 0.2 mg tablet 0.2 mg PO TID gabapentin 100 mg capsule 200 mg PO BEDTIME methadone 10 mg/mL Concentrate 100 mg PO DAILY amoxicillin-pot clavulanate 875-125 mg tablet 1 tab PO BID Qty: 20 0RF doxycycline hyclate 100 mg tablet 100 mg PO BID 10 Days Qty: 20 0RF prednisone 20 mg tablet 40 mg PO DAILY Qty: 10 0RF benzonatate 200 mg capsule 200 mg PO TID PRN (Reason: cough) Qty: 12 0RF Referrals: [facility] [Provider Group] ([facility]) Print Language: Albanian
[2024-08-14 00:12] LABS: Appearance Urine Turbid; Color Urine RED; Glucose Urine UA Negative (Negative); Leukocyte Esterase Urine Trace (Negative); Nitrite Urine Negative (Negative); Specific Gravity - Urine >= 1.030 (1.005-1.025); UMIC TRIGGER UACC YES; Urine Blood Large (3+) (Negative); Urine Ketones Negative (Negative); Urine Protein 100 (2+) mg/dL (Neg-Trace)
[2024-08-14 00:14] LABS: Bacteria Urine 2+ (None Seen); Hyaline Casts Urine 0-2 /LPF (0-2); RBC Urine >20 /HPF (0-2); UACC Culture Trigger YES; WBC Urine 21-50 /HPF (0-5)
[2024-08-14 00:16] LABS: Hematocrit 37.8 % (37.0-47.0); Hemoglobin 12.2 g/dl (12.0-16.0); Mean Corpuscular HGB Conc 32.3 g/dl (31.0-35.0); Mean Corpuscular Hemoglobin 26.3 pg (27.0-33.0); Mean Corpuscular Volume 81.5 fL (80.0-98.0); Platelet Count 200 X10*3/uL (160-400); Red Blood Count 4.64 X10*6/uL (4.20-5.50); Red Cell Distribution Width 15.1 % (11.0-16.0); White Blood Count 11.6 X10*3/uL (4.8-10.8)
[2024-08-14 00:19] LABS: Amphetamine Screen Urine Not Detected (Not Detect); Barbiturates, Urine Not Detected (Not Detect); Benzodiazepines Screen Urine POSITIVE (Not Detect); Buprenorphine Scr Not Detected (Not Detect); Cannabinoid Screen Urine Not Detected (Not Detect); Cocaine Screen Urine Not Detected (Not Detect); Fentanyl, urine Not Detected (Not Detect); Methadone Screen, Urine Positive (Not Detect); Opiate Screen Urine Not Detected (Not Detect); Oxycodone Screen Urine Not Detected (Not Detect); Phencyclidine Screen Urine Not Detected (Not Detect)
[2024-08-14 00:39] LABS: Alanine Aminotransferase 26 U/L (0-31); Albumin Level 3.8 g/dL (3.5-5.0); Alkaline Phosphatase 82 U/L (39-117); Anion Gap 13 (12-20); Aspartate Amino Transferase 22 U/L (5-31); Bilirubin Total 0.3 mg/dL (0.0-1.0); Blood Urea Nitrogen 6 mg/dL (9-16); Carbon Dioxide 25 mmol/L (22-29); Chloride 107 mmol/L (96-108); Creatinine Clr Calc Pharmacy 76.7; Estimated Glomerular Filt Rate > 60; Glucose Random 119 mg/dL (60-115); Potassium 4.1 mmol/L (3.3-5.1); Sodium 141 mmol/L (135-145); Total Protein 7.4 g/dL (6.5-8.0)
[2024-08-14] MEDS: cefuroxime axetiL 500 MG TABLET PO (00:39)
[2024-08-14] MEDS: Phenazopyridine HCL 200 MG TABLET PO (01:29)
== END 2024-08-14 02:30 | disposition home or self-care (01) ==
PROVIDERS: Emergency Provider Emergency Medicine
DX: N30.91 Cystitis, unspecified with hematuria (principal); R30.0 Dysuria; N39.41 Urge incontinence; R35.0 Frequency of micturition; F17.210 Nicotine dependence, cigarettes, uncomplicated; Z79.899 Other long term (current) drug therapy; Z51.81 Encounter for therapeutic drug level monitoring
CPT/HCPCS: 36415; 80053; 80307; 81001; 85027; 87086; 87088; 87186; 99283

== ENCOUNTER 2024-08-31 10:12 | Outpatient (REF) | payer OTHER, SELFPAY | END 2024-08-31 10:13 | disposition home or self-care (01) | LOC: HO.MRI 10:12 | PROVIDERS: Visit Provider Registered Nurse | DX: G40.909 Epilepsy, unspecified, not intractable, without status epilepticus (principal); I67.9 Cerebrovascular disease, unspecified | CPT/HCPCS: 70551 ==

== ENCOUNTER → 2024-08-31 10:26 | Outpatient (BNV) | payer OTHER, SELFPAY | PROVIDERS: Visit Provider Radiology Diagnostic Radiology | DX: R90.82 White matter disease, unspecified (principal) | CPT/HCPCS: 70551 ==

== ENCOUNTER 2024-10-14 19:58 | Emergency (ER) | payer OTHER, SELFPAY ==
--- NOTE | ~2024-10-14 | CT_ITS ---
CLINICAL HISTORY: right flank pain CT abdomen and pelvis without contrast Comparison: CT/PA/SR - CT ABDOMEN PELVIS W IV CON - 11/10/23 11:19 EDT Findings: The lung bases are clear. Within the right lobe of the liver there is a 2.4 cm cyst. The spleen, left adrenal gland and kidneys are unremarkable. There is a 1.3 cm right adrenal nodule consistent with adrenal adenoma, unchanged from prior. No bowel obstruction, pneumoperitoneum, or pneumatosis. There are scattered colonic diverticula, however no evidence of diverticulitis. Normal appendix. There is a 1.4 cm dominant follicle in the left ovary. Right ovary and uterus are unremarkable No acute fracture. IMPRESSION: No acute findings. This document has been electronically signed by: Priyank Linda MD on 10/14/2024 22:11:00
[2024-10-14 20:18] VITALS: BP 136/59; BP 136/82; PULSE 63; PULSE 76; RESP 18; TEMP 36.5; O2SAT 93; O2SAT 98; BMI 29.7
--- NOTE | 2024-10-14 20:20 | ED.GENADULT ---
HPI - General Adult General Chief complaint: Abdominal Pain Stated complaint: r sided back pain Time Seen by Provider: 10/15/24 00:42 Source: patient and old records reviewed Mode of arrival: ambulatory Limitations: no limitations History of Present Illness ED Provider: CHANTE JIM narrative: 59 yo female with PMH of prior opiate use disorder, seizures, pneumonia, back pain not on blood thinners, no IVDA (used oxycodone) she comes in with 4 days of R sided hip pain to groin and down R posterior leg - no numbness, weakness, hurts to move and walk. No urinary incontinence, no saddle anesthesia, no bowel incontinence. States she cannot get comfortable. No recent trauma. No fevers, no n/v/d. MD complaint: sciatica Onset (ago): day(s) (4) Location: right and lower extremity Radiation: non-radiation Severity: moderate Quality: aching Pain Consistency: intermittent Relieving factors: none Exacerbating factors: movement Associated symptoms: other (dysuria) Treatments prior to arrival: none Related Data Home Medications ?Medication ?Instructions ?Recorded ?Confirmed albuterol sulfate 90 mcg/actuation 2 puff PO QID PRN wheezing 09/15/20 11/10/23 aerosol inhaler aspirin 81 mg tablet,delayed 1 tab PO DAILY 09/15/20 11/10/23 release atorvastatin 80 mg tablet 1 tab PO DAILY 09/15/20 11/10/23 clonazepam 0.5 mg tablet 0.5 mg PO BID@0900,1200 PRN Anxiety 09/15/20 11/10/23 omeprazole 40 mg capsule,delayed 1 cap PO DAILY 09/15/20 11/10/23 release sertraline 100 mg tablet 2 tab PO QAM 09/15/20 11/10/23 levetiracetam 1,000 mg tablet 1 tab PO BID 02/28/21 11/10/23 clonazepam 1 mg tablet 1 mg PO BEDTIME 11/10/23 11/10/23 clonidine HCl 0.2 mg tablet 0.2 mg PO TID 11/10/23 11/10/23 gabapentin 100 mg capsule 200 mg PO BEDTIME 11/10/23 11/10/23 hydroxyzine HCl 50 mg tablet 50 - 100 mg PO BEDTIME Insomnia 11/10/23 11/10/23 lamotrigine 200 mg tablet 200 mg PO BEDTIME 11/10/23 11/10/23 methadone 10 mg/mL oral concentrate 100 mg PO DAILY 11/11/23 11/11/23 Previous Rx's ?Medication ?Instructions ?Recorded ondansetron 4 mg disintegrating 4 mg PO Q8H PRN nausea and 11/02/23 tablet vomiting #20 tabs amoxicillin 875 mg-potassium 1 tab PO BID #20 tabs 11/12/23 clavulanate 125 mg tablet doxycycline hyclate 100 mg tablet 100 mg PO BID 10 days #20 tabs 11/12/23 benzonatate 200 mg capsule 200 mg PO TID PRN cough #12 caps 06/01/24 prednisone 20 mg tablet 40 mg (2 x 20 mg) PO DAILY #10 tabs 06/01/24 cefuroxime axetil 250 mg tablet 250 mg PO BID #10 tabs 08/14/24 phenazopyridine 99.5 mg tablet 99.5 mg PO TID PRN pain 6 doses #6 08/14/24 (Azo Urinary Pain Relief) tabs cefuroxime axetil 250 mg tablet 250 mg PO BID 7 days #14 tabs 10/15/24 Allergies Allergy/AdvReac Type Severity Reaction Status Date / Time codeine [CODEINE] Allergy Unknown SWELLING Verified 10/14/24 20:20 hornet venom [HORNETS] Allergy Unknown RASH Verified 10/14/24 20:20 trazodone [TRAZODONE] AdvReac Intermediate VERY Verified 10/14/24 20:20 ANXIOUS, RESTLESSNESS From BENADRYL AdvReac Intermediate RESTLESS Uncoded 10/14/24 20:20 From SEROQUEL AdvReac Intermediate ANXIETY Uncoded 10/14/24 20:20 AND RESTLESSNESS Review of Systems Review of Systems: Constitutional : No Weight loss, No Fever, No Chills, ENT/Mouth : No Hearing loss, No Ear Pain, No Nasal Congestion, No Sinus Pain, No Hoarseness, No sore throat, No Rhinorrhea, No Swallowing Difficulty Cardiovascular : No Chest Pain, No SOB Respiratory : No Cough, No Dyspnea Gastrointestinal : No Nausea, No Vomiting, No Diarrhea, No abdominal Pain, No Hematochezia, No Melena Genitourinary : No Dysuria, No Urinary Frequency, No Hematuria, No Urinary Incontinence, Musculoskeletal : positive back pain Skin : No Skin Lesions, No rash Neuro : No Weakness, No Numbness, No Paresthesias, no loss of bowel or bladder incontinence, no saddle anesthesia all other systems reviewed and are negative FOR[facility]LY [facility] Past Medical History Attestation statement: The following information was validated with the patient. Source: old records reviewed Medical History PNA (pneumonia) HTN (hypertension) Left knee injury Patent ductus arteriosus Anxiety Hyperlipidemia Seizure Diabetes CVA (cerebral vascular accident) Surgical History Hx of tonsillectomy H/O left knee surgery Social History Social History Household Members: Significant Other Housing: House Housing Other:: [address] [address] Do you presently have visiting nurse or other home services: No Alcohol intake: never Patient Tobacco Use Status: Current everyday Tobacco user Tobacco use type: Cigarette Cigarettes Per Day: 5 Smoked in Last 30 Days: No Use of substances other than those prescribed or required for medical reasons: No Substance Use Type: Opiates Advance Directives: No Advance Directives Information Provided: Yes service: No Current occupational status: unemployed Physical Exam ED Vital Signs: Vital Signs - 24 hr 10/14/24 20:18 Temperature 97.7 F Pulse Rate 63 Respiratory Rate 18 Blood Pressure 136/59 L Pulse Oximetry 93 Oxygen Delivery Method Room Air BMI result Body Mass Index 29.7 Appearance: Alert. Oriented X3. No acute distress. Eyes: Pupils equal, round and reactive to light. ENT: Pharynx normal. Neck: Normal inspection. Neck supple. CVS: Normal heart rate and rhythm. Pulses normal. Respiratory: No respiratory distress. Breath sounds normal. Abdomen: Soft and nontender. Skin: Skin warm and dry. Normal skin color. Normal skin turgor. Extremities: No lower extremity edema. No calf ttp Back: ttp along R posterior lumbar spine - distal NV intact Neuro: Oriented X 3. No motor deficit. No sensory deficit. CN2-12 intact Course Course Course Narrative: This is a rapid medical exam performed by Violetta Jerry PA-C. The patient is a 59-year-old female with a history of seizure disorder, kidney stones, who presents with right flank pain x5 days. Pain radiates to right lower quadrant and right groin. Associated foul smelling urine. Denies fever or nausea vomiting. On exam there was no CVA tenderness, she does have palpable pain right lower quadrant and suprapubic region. We will be screening basic labs urinalysis, and obtaining a CT scan. The patient was stable and can return to the waiting room pending her full medical assessment. Medications Administered Discontinued Medications Generic Name Dose Route Start Last Admin Trade Name Evaristo PRN Reason Stop Dose Admin Dexamethasone Sodium Phosphate 8 mg 10/15/24 01:08 10/15/24 01:36 Dexamethasone Sod Phosphate 4 Mg/Ml Vial IM 10/15/24 01:09 8 mg ONCE ONE Administration Diazepam 5 mg 10/15/24 01:08 10/15/24 01:38 Diazepam 5 Mg Tablet PO 10/15/24 01:09 Not Given ONCE ONE Medical Decision Making Medical Decision Making [facility] Narrative: 59 yo female with PMH of prior opiate use disorder, seizures, pneumonia, back pain here with c/o R sided back pain - she is distal NV intact, no IVDA, no fevers. At this time will obtain imaging for renal colic, start on IM dexamethasone, PO muscle relaxers and start her on precautions to return. I suspect sciatica at this time Differential Diagnosis Differential Diagnoses: The differential diagnosis associated with the presentation includes flank pain, UTI, sciatica, renal colic Admission/Observation Consideration of admission/observation: Escalation of care including admission/observation considered can ambulate and no signs of cauda equina Lab Data [facility] Lab Attestation statement: I reviewed the patient's lab results. 10/14/24 20:34 10/14/24 20:34 Labs: Lab Results 10/14/24 10/15/24 Range/Units 20:34 01:10 WBC 12.5 H (4.8-10.8) X10*3/uL RBC 4.66 (4.20-5.50) X10*6/uL Hgb 12.2 (12.0-16.0) g/dl Hct 37.9 (37.0-47.0) % MCV 81.3 (80.0-98.0) fL MCH 26.2 L (27.0-33.0) pg MCHC 32.2 (31.0-35.0) g/dl RDW 15.4 (11.0-16.0) % Plt Count 184 (160-400) X10*3/uL MPV 9.8 (9.4-12.3) fL Immature Gran % (Auto) 0.3 (0.0-0.4) % Neut % (Auto) 60.4 (45-73) % Lymph % (Auto) 32.1 (20-40) % Coke % (Auto) 4.9 (2-11) % Eos % (Auto) 2.0 (0-4) % Baso % (Auto) 0.3 (0-2) % Lymph # (Auto) 4.0 (1.2-4.9) X10*3/uL Coke # (Auto) 0.6 (0.1-1.2) X10*3/uL Eos # (Auto) 0.3 (0.0-0.4) X10*3/uL Baso # (Auto) 0.0 (0.0-0.2) X10*3/uL Abs Immat Gran (auto) 0.04 H (0.00-0.03) X10*3/uL Absolute Neuts (auto) 7.5 (2.0-8.3) x10*3/uL Absolute Nucleated RBC 0.000 (0.0-0.012) X10*3/uL Nucleated RBC % (auto) 0.0 (0.0-0.2) /100WBC Sodium 144 (135-145) mmol/L Potassium 4.0 (3.3-5.1) mmol/L Chloride 109 H (96-108) mmol/L Carbon Dioxide 26 (22-29) mmol/L Anion Gap 13 (12-20) BUN 17 H (9-16) mg/dL Creatinine 1.07 (0.5-1.4) mg/dL Estim Creat Clear Calc 61.6 Estimated GFR 52 Random Glucose 99 (60-115) mg/dL Calcium 9.2 (8.4-10.2) mg/dL Magnesium 1.9 (1.6-2.6) mg/dL Total Bilirubin 0.4 (0.0-1.0) mg/dL AST 31 (5-31) U/L ALT 27 (0-31) U/L Alkaline Phosphatase 83 (39-117) U/L Total Protein 7.3 (6.5-8.0) g/dL Albumin 4.1 (3.5-5.0) g/dL Urine Color Yellow Urine Appearance Cloudy Urine pH 5.5 (5.0-9.0) Ur Specific Vance 1.015 (1.005-1.025) Urine Protein Negative (Neg-Trace) mg/dL Urine Glucose (UA) Negative (Negative) mg/dL Urine Ketones Negative (Negative) mg/dL Urine Blood Negative (Negative) Urine Nitrite Positive H (Negative) Ur Leukocyte Esterase Moderate (2+) H (Negative) Independent Interpretation I performed an independent interpretation of an: CT Scan (no cause of pain) Radiology Impression Discussion of test interpretation with radiology: I have reviewed the radiologist's reading. Prescription Management I considered prescription management with: Pain Medication, Antibiotic and Other Discharge Plan Discharge Clinical Impression: Acute UTI Sciatica Qualifiers: Laterality: right Qualified Code(s): M54.31 - Sciatica, right side Patient Disposition: Home, Self-Care Instructions: Urinary Tract Infection in Women (ED), Sciatica (ED) Additional Instructions: labs reassuring other than a UTI we checked your last urine culture this dose should work please follow up with your doctor return for fevers, vomiting, worsening pain, numbness weakness or any other concerns On a cephalosporin?antibiotic, softer bowel movements are to be expected. Call your provider if you move your bowels more than 4 times a day, your bowel movements are almost all liquid, or you get a rash.?? Prescriptions: New cefuroxime axetil 250 mg tablet 250 mg PO BID 7 Days Qty: 14 0RF No Action atorvastatin 80 mg tablet 1 tab PO DAILY clonazepam 0.5 mg tablet 0.5 mg PO BID@0900,1200 PRN (Reason: Anxiety) sertraline 100 mg tablet 2 tab PO QAM omeprazole 40 mg capsule,delayed release(DR/EC) 1 cap PO DAILY aspirin 81 mg tablet,delayed release (DR/EC) 1 tab PO DAILY albuterol sulfate 90 mcg/actuation HFA aerosol inhaler 2 puff PO QID PRN (Reason: wheezing) levetiracetam 1,000 mg tablet 1 tab PO BID ondansetron 4 mg tablet,disintegrating 4 mg PO Q8H PRN (Reason: nausea and vomiting) Qty: 20 0RF lamotrigine 200 mg tablet 200 mg PO BEDTIME clonazepam 1 mg tablet 1 mg PO BEDTIME hydroxyzine HCl 50 mg tablet 50 - 100 mg PO BEDTIME clonidine HCl 0.2 mg tablet 0.2 mg PO TID gabapentin 100 mg capsule 200 mg PO BEDTIME methadone 10 mg/mL Concentrate 100 mg PO DAILY amoxicillin-pot clavulanate 875-125 mg tablet 1 tab PO BID Qty: 20 0RF doxycycline hyclate 100 mg tablet 100 mg PO BID 10 Days Qty: 20 0RF cefuroxime axetil 250 mg tablet 250 mg PO BID Qty: 10 0RF Azo Urinary Pain Relief 99.5 mg tablet 99.5 mg PO TID PRN (Reason: pain) Qty: 6 0RF prednisone 20 mg tablet 40 mg PO DAILY Qty: 10 0RF benzonatate 200 mg capsule 200 mg PO TID PRN (Reason: cough) Qty: 12 0RF Print Language: Mozambican
[2024-10-14 20:50] LABS: Basophils Percent Auto 0.3 % (0-2); Eosinophils Absolute Auto 0.3 X10*3/uL (0.0-0.4); Hematocrit 37.9 % (37.0-47.0); Hemoglobin 12.2 g/dl (12.0-16.0); Imm Gran Abs Auto 0.04 X10*3/uL (0.00-0.03); Imm Gran Pct Auto 0.3 % (0.0-0.4); Lymphocytes Percent Auto 32.1 % (20-40); MANUAL DIFF FLAG NO; Mean Corpuscular HGB Conc 32.2 g/dl (31.0-35.0); Mean Corpuscular Hemoglobin 26.2 pg (27.0-33.0); Mean Corpuscular Volume 81.3 fL (80.0-98.0); Mean Platelet Volume 9.8 fL (9.4-12.3); Monocytes Absolute Auto 0.6 X10*3/uL (0.1-1.2); Monocytes Percent Auto 4.9 % (2-11); Neutrophils Absolute Auto 7.5 x10*3/uL (2.0-8.3); Neutrophils Percent Auto 60.4 % (45-73); Platelet Count 184 X10*3/uL (160-400); Red Blood Count 4.66 X10*6/uL (4.20-5.50); Red Cell Distribution Width 15.4 % (11.0-16.0); White Blood Count 12.5 X10*3/uL (4.8-10.8)
[2024-10-14 21:06] LABS: Alanine Aminotransferase 27 U/L (0-31); Albumin Level 4.1 g/dL (3.5-5.0); Alkaline Phosphatase 83 U/L (39-117); Anion Gap 13 (12-20); Aspartate Amino Transferase 31 U/L (5-31); Bilirubin Total 0.4 mg/dL (0.0-1.0); Blood Urea Nitrogen 17 mg/dL (9-16); Calcium 9.2 mg/dL (8.4-10.2); Carbon Dioxide 26 mmol/L (22-29); Chloride 109 mmol/L (96-108); Creatinine Clr Calc Pharmacy 61.6; Estimated Glomerular Filt Rate 52; Glucose Random 99 mg/dL (60-115); Magnesium 1.9 mg/dL (1.6-2.6); Sodium 144 mmol/L (135-145); Total Protein 7.3 g/dL (6.5-8.0)
[2024-10-15 01:35] LABS: Appearance Urine Cloudy; Color Urine Yellow; Glucose Urine UA Negative (Negative); Leukocyte Esterase Urine Moderate (2+) (Negative); Nitrite Urine Positive (Negative); PH 5.5 (5.0-9.0); Specific Gravity - Urine 1.015 (1.005-1.025); UMIC TRIGGER UACC YES; Urine Blood Negative (Negative); Urine Ketones Negative (Negative); Urine Protein Negative (Neg-Trace)
[2024-10-15] MEDS: dexAMETHasone sod phosphate 4 MG/ML VIAL 8 MG IM (01:36)
[2024-10-15] MEDS: cefuroxime axetiL 250 MG TABLET PO (01:43)
[2024-10-15 01:49] LABS: Bacteria Urine 4+ (None Seen); Calcium Oxalate Crystals Urine Present; Hyaline Casts Urine 0-2 /LPF (0-2); RBC Urine 0-2 /HPF (0-2); UACC Culture Trigger YES; WBC Urine >50 /HPF (0-5)
[2024-10-15 01:54] VITALS: BP 133/66; PULSE 77; RESP 20; TEMP 37; O2SAT 95
== END 2024-10-15 01:55 | disposition home or self-care (01) ==
PROVIDERS: Physician Assistant Medical; Emergency Provider Emergency Medicine; PCP Internal Medicine
DX: N39.0 Urinary tract infection, site not specified (principal); M54.31 Sciatica, right side; R10.2 Pelvic and perineal pain; Z79.899 Other long term (current) drug therapy
CPT/HCPCS: 36415; 74176; 80053; 81001; 83735; 85025; 87086; 87088; 87186; 96372; 99284; J1100

== ENCOUNTER → 2024-10-14 20:20 | Outpatient (BNV) | payer OTHER, SELFPAY | PROVIDERS: PCP Internal Medicine; Visit Provider Radiology Diagnostic Radiology | DX: R10.9 Unspecified abdominal pain (principal) | CPT/HCPCS: 74176 ==

== ENCOUNTER 2024-11-17 14:14 | Emergency (ER) | payer OTHER, SELFPAY ==
[2024-11-17] VITALS (8 sets, daily range): BP systolic 86–115; BP diastolic 53–70; PULSE 70–90; RESP 12–18; TEMP 36.3–37.2; O2SAT 88–100; BMI 32.0
--- NOTE | ~2024-11-17 | XR_ITS ---
CLINICAL HISTORY: hypoxia 1 view chest x-ray Comparison: CR/SR - XR CHEST 1V - 11/10/23 11:02 EDT Findings: There is enlargement of the cardiopericardial silhouette. There is increase of interstitial lung markings. No acute fracture. IMPRESSION: Cardiomegaly with pulmonary vascular congestion. This document has been electronically signed by: Clyde Cleveland MD on 11/17/2024 17:17:59
[2024-11-17 14:32] LABS: Glucose, Whole Blood 96 mg/dL (60-115)
[2024-11-17 14:47] LABS: MANUAL DIFF FLAG NO
[2024-11-17 14:49] LABS: Basophils Percent Auto 0.3 % (0-2); Eosinophils Absolute Auto 0.2 X10*3/uL (0.0-0.4); Eosinophils Percent Auto 2.4 % (0-4); Hematocrit 37.7 % (37.0-47.0); Hemoglobin 12.2 g/dl (12.0-16.0); Imm Gran Abs Auto 0.03 X10*3/uL (0.00-0.03); Imm Gran Pct Auto 0.3 % (0.0-0.4); Lymphocytes Absolute Auto 2.8 X10*3/uL (1.2-4.9); Lymphocytes Percent Auto 32.8 % (20-40); Mean Corpuscular HGB Conc 32.4 g/dl (31.0-35.0); Mean Corpuscular Hemoglobin 26.5 pg (27.0-33.0); Mean Platelet Volume 9.6 fL (9.4-12.3); Monocytes Absolute Auto 0.5 X10*3/uL (0.1-1.2); Monocytes Percent Auto 5.5 % (2-11); Neutrophils Percent Auto 58.7 % (45-73); Platelet Count 238 X10*3/uL (160-400); Red Cell Distribution Width 14.7 % (11.0-16.0); White Blood Count 8.6 X10*3/uL (4.8-10.8)
[2024-11-17 15:04] LABS: Appearance Urine Turbid; Color Urine Yellow; Glucose Urine UA Negative (Negative); Leukocyte Esterase Urine Moderate (2+) (Negative); Nitrite Urine Positive (Negative); UMIC TRIGGER UACC YES; Urine Blood Negative (Negative); Urine Ketones Trace mg/dL (Negative); Urine Protein Trace mg/dL (Neg-Trace)
[2024-11-17 15:16] LABS: Bacteria Urine 4+ (None Seen); Calcium Oxalate Crystals Urine Present; Hyaline Casts Urine 0-2 /LPF (0-2); RBC Urine 0-2 /HPF (0-2); Squamous Epithelial Cell Urine >20 /HPF (0-2); UACC Culture Trigger YES
[2024-11-17 15:18] LABS: Amphetamine Screen Urine Not Detected (Not Detect); Barbiturates, Urine Not Detected (Not Detect); Benzodiazepines Screen Urine POSITIVE (Not Detect); Buprenorphine Scr Not Detected (Not Detect); Cannabinoid Screen Urine Not Detected (Not Detect); Cocaine Screen Urine Not Detected (Not Detect); Fentanyl, urine Not Detected (Not Detect); Methadone Screen, Urine Positive (Not Detect); Opiate Screen Urine Not Detected (Not Detect); Oxycodone Screen Urine Not Detected (Not Detect); Phencyclidine Screen Urine Not Detected (Not Detect)
[2024-11-17 15:19] LABS: Ammonia 33 umol/L (13-55)
[2024-11-17 15:28] LABS: Alanine Aminotransferase 29 U/L (0-31); Albumin Level 3.9 g/dL (3.5-5.0); Alkaline Phosphatase 88 U/L (39-117); Anion Gap 18 (12-20); Aspartate Amino Transferase 28 U/L (5-31); Bilirubin Direct < 0.2 mg/dL (0.0-0.5); Bilirubin Total 0.2 mg/dL (0.0-1.0); Blood Urea Nitrogen 9 mg/dL (9-16); Calcium 9.4 mg/dL (8.4-10.2); Carbon Dioxide 24 mmol/L (22-29); Chloride 106 mmol/L (96-108); Estimated Glomerular Filt Rate 58; Glucose Random 97 mg/dL (60-115); Magnesium 2.2 mg/dL (1.6-2.6); Potassium 3.7 mmol/L (3.3-5.1); Sodium 144 mmol/L (135-145); Total Protein 7.2 g/dL (6.5-8.0)
[2024-11-17] MEDS: 0.9 % Sodium Chloride 1,000 ML 999 ML IV (15:38)
--- NOTE | 2024-11-17 15:54 | PC.NURSE ---
coleman from home pt c/o difficulty ambulating/increased lethargy/weakness/body aches x 1 week. chronic UTI - currently being tx w/ abx but unable to state which one. unknown med compliance. upon ED arrival - pt alert and oriented but unaware on what year it is. pt states that the year is 2004. pt seemingly lethargic as she falls asleep during conversation. arousable to verbal stimuli. difficult to engage in conversation. pt noted to be hypotensive and hypoxic @ 88% on RA - pt placed on 2L via NC w/ good effect. SPO2 @ 94%. 20gIV placed in the right forearm - labs obtained/sent to lab. pt assisted on bed morelos. IVF administered per provider order. urine specimen obtained/sent to lab. pt turned/repositioned to comfort. pt seems to be in no respiratory distress at this time. no sob/wob noted. respirations even/unlabored. pending CXR. plan of care ongoing. call holliday placed within reach.
--- NOTE | 2024-11-17 16:07 | PC.NURSE ---
CXR being completed at this time.
--- NOTE | 2024-11-17 16:20 | PC.NURSE ---
BP improving s/p IVF bolus. otherwise vss and up to date. nsr on the secured entrance monitor. pt remains somnolent at this time but arousable to verbal stimuli. pending CXR results. pt remains on 2L via NC. respirations even/unlabored. plan of care ongoing. call holliday placed within reach.
--- NOTE | 2024-11-17 16:40 | ED.GENADULT ---
HPI - General Adult General Chief complaint: Weakness Stated complaint: WORSENING GROIN PAIN PER EMS Time Seen by Provider: 11/17/24 15:14 Source: patient, RN notes reviewed and old records reviewed Mode of arrival: EMS Limitations: no limitations History of Present Illness ED Provider: Juanita JIM narrative: 59-year-old female with a past medical history significant for COPD, not on chronic oxygen, chronic UTI hypertension, hyperlipidemia, seizure disorder, previous CVA, history of opioid use disorder on methadone, anxiety presents for evaluation of weakness. Patient reports that she was on antibiotics for a UTI but does not know the name. Per her outpatient, external med rec, she was not filled antibiotics since October 29 when she was given a 1 week supply of cephalexin She reports increased weakness and lethargy. She reports generalized body aches She reports chronic right hip pain and she was seen about a month ago for right hip pain. Denies any history of IV drug abuse, denies any fevers or chills No other complaints or concerns at this time Related Data Home Medications ?Medication ?Instructions ?Recorded ?Confirmed albuterol sulfate 90 mcg/actuation 2 puff PO QID PRN wheezing 09/15/20 11/10/23 aerosol inhaler aspirin 81 mg tablet,delayed 1 tab PO DAILY 09/15/20 11/10/23 release atorvastatin 80 mg tablet 1 tab PO DAILY 09/15/20 11/10/23 clonazepam 0.5 mg tablet 0.5 mg PO BID@0900,1200 PRN Anxiety 09/15/20 11/10/23 omeprazole 40 mg capsule,delayed 1 cap PO DAILY 09/15/20 11/10/23 release sertraline 100 mg tablet 2 tab PO QAM 09/15/20 11/10/23 levetiracetam 1,000 mg tablet 1 tab PO BID 02/28/21 11/10/23 clonazepam 1 mg tablet 1 mg PO BEDTIME 11/10/23 11/10/23 clonidine HCl 0.2 mg tablet 0.2 mg PO TID 11/10/23 11/10/23 gabapentin 100 mg capsule 200 mg PO BEDTIME 11/10/23 11/10/23 hydroxyzine HCl 50 mg tablet 50 - 100 mg PO BEDTIME Insomnia 11/10/23 11/10/23 lamotrigine 200 mg tablet 200 mg PO BEDTIME 11/10/23 11/10/23 methadone 10 mg/mL oral concentrate 100 mg PO DAILY 11/11/23 11/11/23 Previous Rx's ?Medication ?Instructions ?Recorded ondansetron 4 mg disintegrating 4 mg PO Q8H PRN nausea and 11/02/23 tablet vomiting #20 tabs amoxicillin 875 mg-potassium 1 tab PO BID #20 tabs 11/12/23 clavulanate 125 mg tablet doxycycline hyclate 100 mg tablet 100 mg PO BID 10 days #20 tabs 11/12/23 benzonatate 200 mg capsule 200 mg PO TID PRN cough #12 caps 06/01/24 prednisone 20 mg tablet 40 mg (2 x 20 mg) PO DAILY #10 tabs 06/01/24 cefuroxime axetil 250 mg tablet 250 mg PO BID #10 tabs 08/14/24 phenazopyridine 99.5 mg tablet 99.5 mg PO TID PRN pain 6 doses #6 08/14/24 (Azo Urinary Pain Relief) tabs cefuroxime axetil 250 mg tablet 250 mg PO BID 7 days #14 tabs 10/15/24 Allergies Allergy/AdvReac Type Severity Reaction Status Date / Time codeine [CODEINE] Allergy Unknown SWELLING Verified 11/17/24 14:22 hornet venom [HORNETS] Allergy Unknown RASH Verified 11/17/24 14:22 trazodone [TRAZODONE] AdvReac Intermediate VERY Verified 11/17/24 14:22 ANXIOUS, RESTLESSNESS From BENADRYL AdvReac Intermediate RESTLESS Uncoded 11/17/24 14:22 From SEROQUEL AdvReac Intermediate ANXIETY Uncoded 11/17/24 14:22 AND RESTLESSNESS Review of Systems Constitutional: Constitutional: Reports body ache(s), Denies chills, Denies fever(s), Reports lethargy, Reports malaise and Reports weakness Eyes: Eyes: Denies exophthalmos ENT: Denies vertigo and Denies dizziness Cardiovascular: Cardiovascular: Denies chest pain and Denies dyspnea Respiratory: Respiratory: Denies cough and Denies dyspnea Gastrointestinal: Gastrointestinal: Denies abdominal pain, Denies nausea and Denies vomiting Musculoskeletal: Musculoskeletal: Denies back pain, Reports arthralgias, Reports joint swelling, Reports limited range of motion and Reports radiating pain into limb Integumentary/Breasts: Skin/Breast: Denies rash Neurologic: Denies vertigo, Denies dizziness and Reports weakness PMFSH Past Medical History Medical History PNA (pneumonia) HTN (hypertension) Left knee injury Patent ductus arteriosus Anxiety Hyperlipidemia Seizure Diabetes CVA (cerebral vascular accident) Surgical History Hx of tonsillectomy H/O left knee surgery Social History Social History Household Members: Significant Other Housing: House Housing Other:: HALF WAY HOUSE Do you presently have visiting nurse or other home services: No Alcohol intake: never Patient Tobacco Use Status: Current everyday Tobacco user Tobacco use type: Cigarette Cigarettes Per Day: 5 Smoked in Last 30 Days: No Use of substances other than those prescribed or required for medical reasons: No Substance Use Type: Opiates Advance Directives: No Advance Directives Information Provided: No Do you have a plan to hurt others: No Plan Patient : No service: No Current occupational status: unemployed Physical Exam ED Vital Signs: Vital Signs - 24 hr 11/17/24 14:20 11/17/24 14:57 11/17/24 14:57 Temperature 98.2 F 98.9 F Pulse Rate 89 80 Respiratory Rate 18 18 Blood Pressure 90/53 L 95/63 Pulse Oximetry 94 88 L 93 Oxygen Delivery Method Room Air Room Air Nasal Cannula Oxygen Flow Rate 2 11/17/24 15:29 11/17/24 16:12 11/17/24 16:28 Temperature Pulse Rate 74 71 70 Respiratory Rate 12 12 14 Blood Pressure 86/54 L 115/66 100/61 Pulse Oximetry 94 100 98 Oxygen Delivery Method Nasal Cannula Nasal Cannula Nasal Cannula Oxygen Flow Rate 2 2 2 11/17/24 17:19 11/17/24 18:27 Temperature 97.3 F Pulse Rate 76 73 Respiratory Rate 13 16 Blood Pressure 88/58 L 102/61 Pulse Oximetry 97 99 Oxygen Delivery Method Room Air Nasal Cannula Oxygen Flow Rate 2 BMI result Body Mass Index 32.0 Const General: cooperative, comfortable, no acute distress, alert and lethargic (The patient is somewhat lethargic but arouses to verbal stimuli) Nutritional Appearance: well nourished Orientation/consciousness: patient oriented x3 and lethargic (The patient is somewhat lethargic but arouses to verbal stimuli) HENMT Head: Yes normocephalic and Yes atraumatic Eyes Eyelids: Yes eyelids normal Conjunctivae: conjunctivae normal Sclerae: sclerae normal Corneas: corneas normal Pupils: Equal, round and reactive pupils present EOM: EOMs intact bilaterally Neck Neck: Yes full ROM Resp Effort & Inspection: normal respiratory effort, able to speak in complete sentences, no audible wheezes and not labored Auscultation: clear to auscultation bilaterally Cardio Rate: regular rate Rhythm: regular rhythm GI Inspection: No distended Palpation (GI): Soft to palpation, not firm, nontender, no guarding and not rigid Skin General skin exam: elasticity normal Neuro General: patient oriented x3 Cranial nerves: Yes Equal, round and reactive pupils present and Yes Bilaterally intact EOM present Cognition (Neuro): normal cognition Extrem Other: Moving all extremities well without any obvious deformities Course Reevaluation(s) Reevaluation #1: Patient's workup largely unremarkable, her BNP is within normal limits, she has no history of heart failure. The patient may have some mild volume overload and I discussed this with the patient, she should follow up with Cardiology discussed fluid restrictions. She does have a UTI that is likely chronic she has no leukocytosis and she was afebrile. Lactic acid within normal limits, there was no evidence of sepsis. I did discuss possible antibiotics with the patient and she would prefer to be referred to Urology for chronic dysuria. The patient had a transient episode of hypotension was likely due to when she was sleeping. When she was awake, her blood pressure was 115/62. I did discuss possible rehab placement with the patient and she has no interest in this. It seems that she has multiple chronic issues but no acute issues warranting admission tonight. Time: 18:36 Medications Administered Discontinued Medications Generic Name Dose Route Start Last Admin Trade Name Freq PRN Reason Stop Dose Admin Sodium Chloride 1,000 mls @ 999 mls/hr 11/17/24 15:45 11/17/24 16:45 Ns IV 11/17/24 16:45 Infused .Q1H1M [facility]LEY Infusion Medical Decision Making Medical Decision Making MDM Narrative: 59-year-old female with a past medical history as above presents for evaluation of generalized weakness. She was somewhat lethargic, she was afebrile. She reports chronic UTIs in the urine we will be obtained for urinalysis. A chest x-ray will be ordered given her history of multifocal pneumonia. She also carries a diagnosis of COPD but is not O2 dependent. At the time of arrival there was no current source of infection. She has no abdominal pain, nausea vomiting. She was complain of chronic right hip pain but is unchanged and she denies any recent falls. She does take several potentially sedating medications including clonazepam, gabapentin but reports she only takes her sedating meds at night and is not taking them today. Differential Diagnosis Differential Diagnoses: The differential diagnosis associated with the presentation includes Weakness Polypharmacy UTI COPD Bronchitis Pneumonia Lab Data MDM Lab Attestation statement: I reviewed the patient's lab results. No leukocytosis or anemia. Normal platelet count. No significant electrolyte abnormalities. 11/17/24 14:39 11/17/24 14:39 Labs: Lab Results 11/17/24 11/17/24 11/17/24 Range/Units 14:28 14:39 14:58 WBC 8.6 (4.8-10.8) X10*3/uL RBC 4.60 (4.20-5.50) X10*6/uL Hgb 12.2 (12.0-16.0) g/dl Hct 37.7 (37.0-47.0) % MCV 82.0 (80.0-98.0) fL MCH 26.5 L (27.0-33.0) pg MCHC 32.4 (31.0-35.0) g/dl RDW 14.7 (11.0-16.0) % Plt Count 238 D (160-400) X10*3/uL MPV 9.6 (9.4-12.3) fL Immature Gran % (Auto) 0.3 (0.0-0.4) % Neut % (Auto) 58.7 (45-73) % Lymph % (Auto) 32.8 (20-40) % [place] % (Auto) 5.5 (2-11) % Eos % (Auto) 2.4 (0-4) % Baso % (Auto) 0.3 (0-2) % Lymph # (Auto) 2.8 (1.2-4.9) X10*3/uL [place] # (Auto) 0.5 (0.1-1.2) X10*3/uL Eos # (Auto) 0.2 (0.0-0.4) X10*3/uL Baso # (Auto) 0.0 (0.0-0.2) X10*3/uL Abs Immat Gran (auto) 0.03 (0.00-0.03) X10*3/uL Absolute Neuts (auto) 5.0 (2.0-8.3) x10*3/uL Absolute Nucleated RBC 0.000 (0.0-0.012) X10*3/uL Nucleated RBC % (auto) 0.0 (0.0-0.2) /100WBC Sodium 144 (135-145) mmol/L Potassium 3.7 (3.3-5.1) mmol/L Chloride 106 (96-108) mmol/L Carbon Dioxide 24 (22-29) mmol/L Anion Gap 18 (12-20) BUN 9 (9-16) mg/dL Creatinine 0.98 (0.5-1.4) mg/dL Estim Creat Clear Calc 65.0 Estimated GFR 58 POC Glucose 96 (60-115) mg/dL Random Glucose 97 (60-115) mg/dL Calcium 9.4 (8.4-10.2) mg/dL Magnesium 2.2 (1.6-2.6) mg/dL Total Bilirubin 0.2 (0.0-1.0) mg/dL Direct Bilirubin < 0.2 (0.0-0.5) mg/dL AST 28 (5-31) U/L ALT 29 (0-31) U/L Alkaline Phosphatase 88 (39-117) U/L Ammonia 33 (13-55) umol/L B-Natriuretic Peptide 31 (<100) pg/mL Total Protein 7.2 (6.5-8.0) g/dL Albumin 3.9 (3.5-5.0) g/dL Urine Color Yellow Urine Appearance Turbid Urine pH 6.0 (5.0-9.0) Ur Specific [place] 1.020 (1.005-1.025) Urine Protein Trace (Neg-Trace) mg/dL Urine Glucose (UA) Negative (Negative) mg/dL Urine Ketones Trace (Negative) mg/dL Urine Blood Negative (Negative) Urine Nitrite Positive H (Negative) Ur Leukocyte Esterase Moderate (2+) H (Negative) Urine RBC 0-2 (0-2) /HPF Urine WBC 6-10 (0-5) /HPF Ur Squamous Epith Cells >20 (0-2) /HPF Calcium Oxalate Crystal Present Urine Bacteria 4+ (None Seen) Hyaline Casts 0-2 (0-2) /LPF Urine Opiates Screen Not Detected (Not Detect) Ur Buprenorphine Scrn Not Detected (Not Detect) ng/mL Ur Oxycodone Screen Not Detected (Not Detect) ng/mL Urine Methadone Screen Positive H (Not Detect) ng/mL Urine Fentanyl Screen Not Detected (Not Detect) Ur Barbiturates Screen Not Detected (Not Detect) Ur Phencyclidine Scrn Not Detected (Not Detect) Ur Amphetamines Screen Not Detected (Not Detect) U Benzodiazepines Scrn POSITIVE H (Not Detect) Urine Cocaine Screen Not Detected (Not Detect) U Marijuana (THC) Screen Not Detected (Not Detect) Discharge Plan Discharge Clinical Impression: Weakness Patient Disposition: Home, Self-Care Instructions: Weakness (ED) Additional Instructions: You should follow-up with cardiology for your shortness of breath on exertion. You should follow up with Urology for the chronic UTI symptoms. Take all of your medications as prescribed Return for new or worsening symptoms Prescriptions: No Action atorvastatin 80 mg tablet 1 tab PO DAILY clonazepam 0.5 mg tablet 0.5 mg PO BID@0900,1200 PRN (Reason: Anxiety) sertraline 100 mg tablet 2 tab PO QAM omeprazole 40 mg capsule,delayed release(DR/EC) 1 cap PO DAILY aspirin 81 mg tablet,delayed release (DR/EC) 1 tab PO DAILY albuterol sulfate 90 mcg/actuation HFA aerosol inhaler 2 puff PO QID PRN (Reason: wheezing) levetiracetam 1,000 mg tablet 1 tab PO BID ondansetron 4 mg tablet,disintegrating 4 mg PO Q8H PRN (Reason: nausea and vomiting) Qty: 20 0RF lamotrigine 200 mg tablet 200 mg PO BEDTIME clonazepam 1 mg tablet 1 mg PO BEDTIME hydroxyzine HCl 50 mg tablet 50 - 100 mg PO BEDTIME clonidine HCl 0.2 mg tablet 0.2 mg PO TID gabapentin 100 mg capsule 200 mg PO BEDTIME methadone 10 mg/mL Concentrate 100 mg PO DAILY amoxicillin-pot clavulanate 875-125 mg tablet 1 tab PO BID Qty: 20 0RF doxycycline hyclate 100 mg tablet 100 mg PO BID 10 Days Qty: 20 0RF cefuroxime axetil 250 mg tablet 250 mg PO BID Qty: 10 0RF Azo Urinary Pain Relief 99.5 mg tablet 99.5 mg PO TID PRN (Reason: pain) Qty: 6 0RF cefuroxime axetil 250 mg tablet 250 mg PO BID 7 Days Qty: 14 0RF prednisone 20 mg tablet 40 mg PO DAILY Qty: 10 0RF benzonatate 200 mg capsule 200 mg PO TID PRN (Reason: cough) Qty: 12 0RF Referrals: Peter Caruso MD [Physician] - (dyspnea on exertion) Derek Mooney MD [Physician] - (chronic UTI symptoms) Print Language: Luxembourgish
[2024-11-17 18:10] LABS: B Type Natriuretic Peptide 31 pg/mL (<100)
== END 2024-11-17 18:57 | disposition home or self-care (01) ==
PROVIDERS: Physician Assistant; Emergency Provider Emergency Medicine
DX: R53.1 Weakness (principal); J44.9 Chronic obstructive pulmonary disease, unspecified; I10 Essential (primary) hypertension; G40.909 Epilepsy, unspecified, not intractable, without status epilepticus; E78.5 Hyperlipidemia, unspecified; E11.9 Type 2 diabetes mellitus without complications; Z87.440 Personal history of urinary (tract) infections; Z79.899 Other long term (current) drug therapy
CPT/HCPCS: 36415; 71045; 80053; 80307; 81001; 82140; 82248; 82947; 83735; 83880; 85025; 87086; 87088; 87186; 96360; 99284; 99285

== ENCOUNTER → 2024-11-17 15:45 | Outpatient (BNV) | payer OTHER, SELFPAY | PROVIDERS: Emergency Provider Emergency Medicine; Visit Provider Nuclear Medicine | DX: J81.1 Chronic pulmonary edema (principal); I51.7 Cardiomegaly | CPT/HCPCS: 71045 ==

== ENCOUNTER 2024-11-26 18:16 | Emergency (ER) | payer OTHER, SELFPAY ==
--- NOTE | ~2024-11-26 | XR_ITS ---
CLINICAL HISTORY: Pnuemonia? 1 view chest x-ray Comparison: CR - XR CHEST 1V - 11/17/24 16:04 EDT Findings: No consolidation or effusion. Heart size is normal. No acute fracture. IMPRESSION: 1. No acute findings. This document has been electronically signed by: Salas Pritchett MD on 11/26/2024 19:21:51
[2024-11-26 18:25] VITALS: BP 150/79; PULSE 89; RESP 20; TEMP 37; O2SAT 97; BMI 32.6
--- NOTE | 2024-11-26 18:30 | ED.GENADULT ---
HPI - General Adult General Chief complaint: General Medical Stated complaint: ? Pneumonia Time Seen by Provider: 11/26/24 21:46 History of Present Illness ED Provider: Ilya JIM narrative: The patient is a 59-year-old female who was a smoker who still smokes. She smokes about 7-10 cigarettes per day. She says that she has been having some increased cough and sputum production over the last few days. She thinks she might have had a fever but she is not certain. She has also been having urinary discomfort. No nausea or vomiting. The patient says that she has been having problems with a recurrent UTIs over the last few months. Her last positive urine culture at this hospital was from proximally 10 days ago on November 17. Her urine culture at that time was greater than 100,000 colonies of E coli. It was resistant to cefazolin, ampicillin, gentamicin, and trimethoprim/sulfamethoxazole. This pattern of resistance is similar to to previous urine cultures, 1 from July of this year and another from September of this year. The most recent culture however includes resistance to cefazolin which is new. Related Data Home Medications ?Medication ?Instructions ?Recorded ?Confirmed albuterol sulfate 90 mcg/actuation 2 puff PO QID PRN wheezing 09/15/20 11/10/23 aerosol inhaler aspirin 81 mg tablet,delayed 1 tab PO DAILY 09/15/20 11/10/23 release atorvastatin 80 mg tablet 1 tab PO DAILY 09/15/20 11/10/23 clonazepam 0.5 mg tablet 0.5 mg PO BID@0900,1200 PRN Anxiety 09/15/20 11/10/23 omeprazole 40 mg capsule,delayed 1 cap PO DAILY 09/15/20 11/10/23 release sertraline 100 mg tablet 2 tab PO QAM 09/15/20 11/10/23 levetiracetam 1,000 mg tablet 1 tab PO BID 02/28/21 11/10/23 clonazepam 1 mg tablet 1 mg PO BEDTIME 11/10/23 11/10/23 clonidine HCl 0.2 mg tablet 0.2 mg PO TID 11/10/23 11/10/23 gabapentin 100 mg capsule 200 mg PO BEDTIME 11/10/23 11/10/23 hydroxyzine HCl 50 mg tablet 50 - 100 mg PO BEDTIME Insomnia 11/10/23 11/10/23 lamotrigine 200 mg tablet 200 mg PO BEDTIME 11/10/23 11/10/23 methadone 10 mg/mL oral concentrate 100 mg PO DAILY 11/11/23 11/11/23 Previous Rx's ?Medication ?Instructions ?Recorded ondansetron 4 mg disintegrating 4 mg PO Q8H PRN nausea and 11/02/23 tablet vomiting #20 tabs amoxicillin 875 mg-potassium 1 tab PO BID #20 tabs 11/12/23 clavulanate 125 mg tablet doxycycline hyclate 100 mg tablet 100 mg PO BID 10 days #20 tabs 11/12/23 benzonatate 200 mg capsule 200 mg PO TID PRN cough #12 caps 06/01/24 prednisone 20 mg tablet 40 mg (2 x 20 mg) PO DAILY #10 tabs 06/01/24 cefuroxime axetil 250 mg tablet 250 mg PO BID #10 tabs 08/14/24 phenazopyridine 99.5 mg tablet 99.5 mg PO TID PRN pain 6 doses #6 08/14/24 (Azo Urinary Pain Relief) tabs cefuroxime axetil 250 mg tablet 250 mg PO BID 7 days #14 tabs 10/15/24 budesonide-formoterol HFA 160 2 puff inhalation BID #10.2 grams 11/26/24 mcg-4.5 mcg/actuation aerosol inhaler nitrofurantoin 100 mg PO BID 8 days #16 caps 11/26/24 monohydrate/macrocrystals 100 mg capsule (Macrobid) Allergies Allergy/AdvReac Type Severity Reaction Status Date / Time codeine [CODEINE] Allergy Unknown SWELLING Verified 11/26/24 18:25 hornet venom [HORNETS] Allergy Unknown RASH Verified 11/26/24 18:25 trazodone [TRAZODONE] AdvReac Intermediate VERY Verified 11/26/24 18:25 ANXIOUS, RESTLESSNESS From BENADRYL AdvReac Intermediate RESTLESS Uncoded 11/26/24 18:25 From SEROQUEL AdvReac Intermediate ANXIETY Uncoded 11/26/24 18:25 AND RESTLESSNESS Review of Systems Review of Systems: Yes all other systems are reviewed and are negative PMFSH Past Medical History Medical History PNA (pneumonia) HTN (hypertension) Left knee injury Patent ductus arteriosus Anxiety Hyperlipidemia Seizure Diabetes CVA (cerebral vascular accident) Surgical History Hx of tonsillectomy H/O left knee surgery Social History Social History Household Members: Significant Other Housing: House Housing Other:: HALF WAY HOUSE Do you presently have visiting nurse or other home services: No Alcohol intake: never Patient Tobacco Use Status: Current everyday Tobacco user Tobacco use type: Cigarette Cigarettes Per Day: 5 Substance Use Type: Opiates Advance Directives: No Advance Directives Information Provided: No service: No Current occupational status: unemployed Physical Exam ED Vital Signs: Vital Signs - 24 hr 11/26/24 18:25 11/26/24 22:21 Temperature 98.6 F 98.6 F Pulse Rate 89 89 Respiratory Rate 20 20 Blood Pressure 150/79 H 140/80 H Pulse Oximetry 97 97 Oxygen Delivery Method Room Air Room Air BMI result Body Mass Index 32.6 Const Other: The patient is a 59-year-old woman who looks chronically ill but not obviously acutely ill. She does not seem in any respiratory difficulty. She is not short of breath. She was not coughing frequently. She does not look toxic. HENMT Other: Face is symmetrical. Mucous membranes moist. Eyes General: appearance normal, both eyes and all related structures Neck Neck: Yes normal visual inspection and Yes full ROM Resp Other: No increased work of breathing. Possibly some mild coarseness to her air entry but no chicho wheezes or crackles. Cardio Rate: regular rate Rhythm: regular rhythm Heart sounds: S1 normal heart sound present and S2 normal heart sound present GI Other: The abdomen is flat and soft. No significant tenderness. Skin Other: Skin is pale and dry Neuro Other: The patient is awake and alert with a normal mental status. Cranial nerves are grossly intact. She moves her extremities symmetrically and appropriately. Extrem Other: No peripheral edema. No calf swelling or tenderness. Course Course Course Narrative: RME; 59 yold female states not feeling good and sweating. slight coughing and presently being treated for UTI. patient states when she had similiar presentations in the past and was pnuemonia. patient concerned for pnuemonia. patient states no abdominal pain. labs ordered Medications Administered Discontinued Medications Generic Name Dose Route Start Last Admin Trade Name Evaristo PRN Reason Stop Dose Admin Nitrofurantoin Macrocrystals 100 mg 11/26/24 22:12 11/26/24 22:24 Nitrofurantoin Monohyd/M-Cryst 100 Mg Capsule PO 11/26/24 22:13 100 mg ONCE ONE Administration Medical Decision Making Medical Decision Making [facility] Narrative: The patient is a 59-year-old woman. She is a long-term smoker who still smokes. She presents with several complaints. One complaint is that she is worried that she might have pneumonia. She describes having a lot of coughing although she denies shortness of breath. She is also complaining of ongoing urinary symptoms. She says that she has had several UTIs recently. The patient's chest x-ray is negative. She has a white count of 10.1 with a an unremarkable differential. C-reactive protein is minimally elevated at 0.70. The patient's urinalysis shows positive nitrites, 1+ leukocyte esterase, and 21-50 white cells. Also 4+ bacteria. This would be concerning for a possible UTI. I reviewed the patient's previous urine cultures. The patient has had positive urine cultures on 08/14/2024, 10/15/2024, and 11/17/2024. Each of these cultures is positive for E coli. The 1st 2 of these cultures showed a resistance pattern that was the same. Both were resistant to ampicillin, gentamicin, and trimethoprim/sulfamethoxazole. The urine culture from 11/17/2024 also grows E coli greater than 100,000 colonies. The resistance pattern for this culture also demonstrated resistance to cefazolin as well as ampicillin, gentamicin, and trimethoprim/sulfamethoxazole. I do not see any antibiotic prescribed for the urine culture from 11/17/2024. I will start the patient on nitrofurantoin as the most recent urine culture showed E coli with sensitivity to nitrofurantoin. The patient was prescribed 8 days of Macrobid. I told the patient that she should probably see a urologist since she seems to be having recurrent UTIs. She says that she has a an appointment with the [facility] urologist in 2 days. With regard to her respiratory complaints I do not think she requires an additional antibiotic. However I will prescribe budesonide formoterol as an inhaler. She should also follow up with her PCP to discuss her lung issues. Lab Data 11/26/24 19:03 11/26/24 19:03 Labs: Lab Results 11/26/24 Range/Units 19:03 WBC 10.1 (4.8-10.8) X10*3/uL RBC 4.90 (4.20-5.50) X10*6/uL Hgb 12.9 (12.0-16.0) g/dl Hct 39.4 (37.0-47.0) % MCV 80.4 (80.0-98.0) fL MCH 26.3 L (27.0-33.0) pg MCHC 32.7 (31.0-35.0) g/dl RDW 14.6 (11.0-16.0) % Plt Count 220 (160-400) X10*3/uL MPV 9.2 L (9.4-12.3) fL Immature Gran % (Auto) 0.3 (0.0-0.4) % Neut % (Auto) 63.1 (45-73) % Lymph % (Auto) 28.5 (20-40) % [place] % (Auto) 6.2 (2-11) % Eos % (Auto) 1.6 (0-4) % Baso % (Auto) 0.3 (0-2) % Lymph # (Auto) 2.9 (1.2-4.9) X10*3/uL [place] # (Auto) 0.6 (0.1-1.2) X10*3/uL Eos # (Auto) 0.2 (0.0-0.4) X10*3/uL Baso # (Auto) 0.0 (0.0-0.2) X10*3/uL Abs Immat Gran (auto) 0.03 (0.00-0.03) X10*3/uL Absolute Neuts (auto) 6.4 (2.0-8.3) x10*3/uL Absolute Nucleated RBC 0.000 (0.0-0.012) X10*3/uL Nucleated RBC % (auto) 0.0 (0.0-0.2) /100WBC Sodium 144 (135-145) mmol/L Potassium 3.7 (3.3-5.1) mmol/L Chloride 110 H (96-108) mmol/L Carbon Dioxide 25 (22-29) mmol/L Anion Gap 13 (12-20) BUN 12 (9-16) mg/dL Creatinine 0.90 (0.5-1.4) mg/dL Estim Creat Clear Calc 68.9 Estimated GFR > 60 Random Glucose 113 (60-115) mg/dL Calcium 9.2 (8.4-10.2) mg/dL Total Bilirubin 0.3 (0.0-1.0) mg/dL AST 26 (5-31) U/L ALT 23 (0-31) U/L Alkaline Phosphatase 78 (39-117) U/L Troponin I High Sens < 2.7 (<3.5-17.0) ng/L C-Reactive Protein 0.70 H (< or = 0.50) mg/dL Total Protein 7.2 (6.5-8.0) g/dL Albumin 4.0 (3.5-5.0) g/dL Beta HCG, Quant < 2 mIU/mL Urine Color Yellow Urine Appearance Cloudy Urine pH 6.5 (5.0-9.0) Ur Specific [place] 1.010 (1.005-1.025) Urine Protein Negative (Neg-Trace) mg/dL Urine Glucose (UA) Negative (Negative) mg/dL Urine Ketones Negative (Negative) mg/dL Urine Blood Negative (Negative) Urine Nitrite Positive H (Negative) Ur Leukocyte Esterase Small (1+) H (Negative) Urine RBC 0-2 (0-2) /HPF Urine WBC 21-50 H (0-5) /HPF Ur Squamous Epith Cells 6-10 (0-2) /HPF Urine Bacteria 4+ (None Seen) Hyaline Casts 0-2 (0-2) /LPF Urine Opiates Screen Not Detected (Not Detect) Ur Buprenorphine Scrn Not Detected (Not Detect) ng/mL Ur Oxycodone Screen Not Detected (Not Detect) ng/mL Urine Methadone Screen Positive H (Not Detect) ng/mL Urine Fentanyl Screen POSITIVE H (Not Detect) Ur Barbiturates Screen Not Detected (Not Detect) Ur Phencyclidine Scrn Not Detected (Not Detect) Ur Amphetamines Screen Not Detected (Not Detect) U Benzodiazepines Scrn Not Detected (Not Detect) Urine Cocaine Screen Not Detected (Not Detect) U Marijuana (THC) Screen Not Detected (Not Detect) Influenza Type A (PCR) NEGATIVE (Negative) Influenza Type B (PCR) NEGATIVE (Negative) RSV RNA Qual (PCR) NEGATIVE (Negative) SARS-CoV-2 RNA (RT-PCR) NEGATIVE (Negative) Discharge Plan Discharge Clinical Impression: Urinary tract infection, Bronchitis, Smoking history Patient Disposition: Home, Self-Care Instructions: Urinary Tract Infection in Women (ED), Chronic Bronchitis (ED) Additional Instructions: Your urine testing is concerning for a possible recurrent urinary tract infection. Please take the new antibiotic, nitrofurantoin, 2 times a day as prescribed. Please complete the entire course. Please follow up with your urology appointment in 2 days as scheduled. I think you might also have some degree of a smoker's bronchitis. Your chest x-ray shows no pneumonia and your oxygen level is very good. I have sent a prescription for a inhaler medication which is a combination of a bronchodilator and a steroid. Please use this inhaler 2 puffs 2 times a day on a regular basis. You may increase use if you feel more short of breath or have increased coughing. Please follow up soon with your primary care doctor as well as the urologist to discuss all of your health issues. Please try to reduce your smoking. Return to the emergency room if you feel significantly worse. Prescriptions: New nitrofurantoin monohyd/m-cryst [Macrobid] 100 mg capsule 100 mg PO BID 8 Days Qty: 16 0RF Rx Instructions: must administer with a meal/food budesonide-formoterol 160-4.5 mcg/actuation HFA aerosol inhaler 2 puff inhalation BID Qty: 10.2 0RF No Action atorvastatin 80 mg tablet 1 tab PO DAILY clonazepam 0.5 mg tablet 0.5 mg PO BID@0900,1200 PRN (Reason: Anxiety) sertraline 100 mg tablet 2 tab PO QAM omeprazole 40 mg capsule,delayed release(DR/EC) 1 cap PO DAILY aspirin 81 mg tablet,delayed release (DR/EC) 1 tab PO DAILY albuterol sulfate 90 mcg/actuation HFA aerosol inhaler 2 puff PO QID PRN (Reason: wheezing) levetiracetam 1,000 mg tablet 1 tab PO BID ondansetron 4 mg tablet,disintegrating 4 mg PO Q8H PRN (Reason: nausea and vomiting) Qty: 20 0RF lamotrigine 200 mg tablet 200 mg PO BEDTIME clonazepam 1 mg tablet 1 mg PO BEDTIME hydroxyzine HCl 50 mg tablet 50 - 100 mg PO BEDTIME clonidine HCl 0.2 mg tablet 0.2 mg PO TID gabapentin 100 mg capsule 200 mg PO BEDTIME methadone 10 mg/mL Concentrate 100 mg PO DAILY amoxicillin-pot clavulanate 875-125 mg tablet 1 tab PO BID Qty: 20 0RF doxycycline hyclate 100 mg tablet 100 mg PO BID 10 Days Qty: 20 0RF cefuroxime axetil 250 mg tablet 250 mg PO BID Qty: 10 0RF Azo Urinary Pain Relief 99.5 mg tablet 99.5 mg PO TID PRN (Reason: pain) Qty: 6 0RF cefuroxime axetil 250 mg tablet 250 mg PO BID 7 Days Qty: 14 0RF prednisone 20 mg tablet 40 mg PO DAILY Qty: 10 0RF benzonatate 200 mg capsule 200 mg PO TID PRN (Reason: cough) Qty: 12 0RF Referrals: [facility] [Provider Group] (Recurrent UTIs, smoker's bronchitis) Interventions: ED Discharge Assessment Last Done: 11/26/24 22:21 Discharge Date/Time: 11/26/24 22:26 Print Language: Congolese
--- NOTE | 2024-11-26 18:40 | ECG_ITS ---
Test Reason : SOB Blood Pressure : */* mmHG Vent. Rate : 83 BPM Atrial Rate : 83 BPM P-R Int : 132 ms QRS Dur : 74 ms QT Int : 386 ms P-R-T Axes : 62 68 27 degrees QTcB Int : 453 ms Normal sinus rhythm Nonspecific ST abnormality Abnormal ECG When compared with ECG of 10-Nov-2023 10:18, No significant change was found Referred By: Jason Kearney Electronically Signed By: WIL DUTTON
--- OUTSIDE RECORDS SUMMARY | 2024-11-26 19:06 | XMS_ITS | Clinical Summary ---
Author Organization [facility] Address [address] [place] [address] Care Team Providers Care Supervisor International Reservations Name Role Phone Unavailable Primary Care Provider Unavailabl e Surgical History Surgery Date Site/Laterality Comments KNEE SURGERY PROCEDURE: HISTORICAL KNEE SURGERY CARDIAC SURGERY PROCEDURE: HISTORICAL HEART SURGERY(ASD,VSD,VALVES) Family History Medical History Relation Name Comments Other: , alcohol Father Hyperlipidemia Mother Other cancer Mother Relation Name Status Comments Father Mother Social History Tobacco Use Types Packs/Day Years Used Date Smoking Tobacco: Every Day Cigarettes Alcohol Use Standard Drinks/Week Comments No 0 (1 standard drink = 0.6 oz pur e alcohol) Comments Unknown Sex and Gender Information Value Date Recorded Sex Assigned at Not on file Legal Sex Female 2:38 PM EST Gender Identity Not on file Sexual Orientation Not on file Obstetrics History Plan of Treatment Health Maintenance Due Date Last Done Comments Breast Cancer Screening 1965 DTaP,Tdap,and Td Vaccines (1 - Tdap) 1984 Hepatitis B Vaccines (1 of 3 - 19+ 3-dose series) 1984 Cervical Cancer Screening: P ap Smear 1986 Pneumococcal Vaccine: 50+ Ye ars (1 of 1 - PCV) 2015 Zoster Vaccines (1 of 2) 2015 COVID-19 Vaccine ( - 2023-2 5 season) 2024 Influenza Vaccine (Season Ended) 2025 RSV Immunization Adult Patie nts (1 - 1-dose 75+ series) 2040 HIB Vaccines Aged Out No longer eligi ble based on patient's age to complete this topic HPV Vaccines Aged Out No longer eligi ble based on patient's age to complete this topic Hepatitis A Vaccines Aged Out No long er eligible based on patient's age to complete this topic IPV Vaccines Aged Out No longer eligi ble based on patient's age to complete this topic MMR Vaccines Aged Out No longer eligi ble based on patient's age to complete this topic Meningococcal ACWY Vaccine Aged Out N o longer eligible based on patient's age to complete this topic Meningococcal B Vaccine Aged Out No l onger eligible based on patient's age to complete this topic Pneumococcal Vaccine: Pediat rics (0 to 5 Years) and At-Risk Patients (6 to 64 Years) Aged Out No longer eligible b ased on patient's age to complete this topic RSV Immunization Patients Un saurabh 20 months Aged Out No longer eligible b ased on patient's age to complete this topic Varicella Vaccines Aged Out No longer eligible based on patient's age to complete this topic Advance Directives Documents on File Type Date Recorded Patient Molder Floor Expl anation Health Care Decision (hx) 02/04/2014 AD FIELDS DIRECTIVE Health Care Decision (hx) 05/07/2013 AD FIELDS DIRECTIVE
[2024-11-26 19:09] LABS: MANUAL DIFF FLAG NO
[2024-11-26 19:10] LABS: Basophils Percent Auto 0.3 % (0-2); Eosinophils Absolute Auto 0.2 X10*3/uL (0.0-0.4); Eosinophils Percent Auto 1.6 % (0-4); Hematocrit 39.4 % (37.0-47.0); Hemoglobin 12.9 g/dl (12.0-16.0); Imm Gran Abs Auto 0.03 X10*3/uL (0.00-0.03); Imm Gran Pct Auto 0.3 % (0.0-0.4); Lymphocytes Absolute Auto 2.9 X10*3/uL (1.2-4.9); Lymphocytes Percent Auto 28.5 % (20-40); Mean Corpuscular HGB Conc 32.7 g/dl (31.0-35.0); Mean Corpuscular Hemoglobin 26.3 pg (27.0-33.0); Mean Corpuscular Volume 80.4 fL (80.0-98.0); Mean Platelet Volume 9.2 fL (9.4-12.3); Monocytes Absolute Auto 0.6 X10*3/uL (0.1-1.2); Monocytes Percent Auto 6.2 % (2-11); Neutrophils Absolute Auto 6.4 x10*3/uL (2.0-8.3); Neutrophils Percent Auto 63.1 % (45-73); Platelet Count 220 X10*3/uL (160-400); Red Cell Distribution Width 14.6 % (11.0-16.0); White Blood Count 10.1 X10*3/uL (4.8-10.8)
[2024-11-26 19:11] LABS: Appearance Urine Cloudy; Color Urine Yellow; Glucose Urine UA Negative (Negative); Leukocyte Esterase Urine Small (1+) (Negative); Nitrite Urine Positive (Negative); PH 6.5 (5.0-9.0); UMIC TRIGGER UACC YES; Urine Blood Negative (Negative); Urine Ketones Negative (Negative); Urine Protein Negative (Neg-Trace)
[2024-11-26 19:20] LABS: Amphetamine Screen Urine Not Detected (Not Detect); Bacteria Urine 4+ (None Seen); Barbiturates, Urine Not Detected (Not Detect); Benzodiazepines Screen Urine Not Detected (Not Detect); Buprenorphine Scr Not Detected (Not Detect); Cannabinoid Screen Urine Not Detected (Not Detect); Cocaine Screen Urine Not Detected (Not Detect); Fentanyl, urine POSITIVE (Not Detect); Hyaline Casts Urine 0-2 /LPF (0-2); Methadone Screen, Urine Positive (Not Detect); Opiate Screen Urine Not Detected (Not Detect); Oxycodone Screen Urine Not Detected (Not Detect); Phencyclidine Screen Urine Not Detected (Not Detect); RBC Urine 0-2 /HPF (0-2); UACC Culture Trigger YES; WBC Urine 21-50 /HPF (0-5)
[2024-11-26 19:34] LABS: Alanine Aminotransferase 23 U/L (0-31); Alkaline Phosphatase 78 U/L (39-117); Anion Gap 13 (12-20); Aspartate Amino Transferase 26 U/L (5-31); Bilirubin Total 0.3 mg/dL (0.0-1.0); Blood Urea Nitrogen 12 mg/dL (9-16); Calcium 9.2 mg/dL (8.4-10.2); Carbon Dioxide 25 mmol/L (22-29); Chloride 110 mmol/L (96-108); Creatinine Clr Calc Pharmacy 68.9; Estimated Glomerular Filt Rate > 60; Glucose Random 113 mg/dL (60-115); Potassium 3.7 mmol/L (3.3-5.1); Sodium 144 mmol/L (135-145); Total Protein 7.2 g/dL (6.5-8.0)
[2024-11-26 19:44] LABS: HCG Quantitative < 2 mIU/mL; Troponin-I High Sensitivity < 2.7 ng/L (<3.5-17.0)
[2024-11-26 19:47] LABS: Influenza A PCR NEGATIVE (Negative); Influenza B PCR NEGATIVE (Negative); Resp Syncy Virus RNA Qual PCR NEGATIVE (Negative); SARS COV2 PCR INHOUSE NEGATIVE (Negative)
[2024-11-26 22:21] VITALS: BP 140/80; PULSE 89; RESP 20; TEMP 37; O2SAT 97
[2024-11-26] MEDS: Nitrofurantoin Monohyd/M-Cryst 100 MG CAPSULE PO (22:24)
== END 2024-11-26 22:26 | disposition home or self-care (01) ==
PROVIDERS: Physician Assistant; Emergency Provider Emergency Medicine
DX: J40 Bronchitis, not specified as acute or chronic (principal); N39.0 Urinary tract infection, site not specified; R05.9 Cough, unspecified; F17.210 Nicotine dependence, cigarettes, uncomplicated; E11.9 Type 2 diabetes mellitus without complications; I10 Essential (primary) hypertension; E78.5 Hyperlipidemia, unspecified; F11.20 Opioid dependence, uncomplicated; Z87.440 Personal history of urinary (tract) infections; Z86.73 Personal history of transient ischemic attack (TIA), and cerebral infarction without residual deficits; Z79.02 Long term (current) use of antithrombotics/antiplatelets; Z79.899 Other long term (current) drug therapy; Z79.82 Long term (current) use of aspirin
CPT/HCPCS: 0241U; 36415; 71045; 80053; 80307; 81001; 84484; 84702; 85025; 86140; 87086; 87088; 87186; 93005; 99283; 99284

== ENCOUNTER → 2024-11-26 18:32 | Outpatient (BNV) | payer OTHER, SELFPAY | PROVIDERS: Visit Provider Student in an Organized Health Care Education/Training Program | DX: J20.9 Acute bronchitis, unspecified (principal) | CPT/HCPCS: 71045 ==

== ENCOUNTER → 2024-11-26 18:40 | Outpatient (BNV) | payer OTHER, SELFPAY | PROVIDERS: Emergency Provider Emergency Medicine; Visit Provider Internal Medicine | DX: R94.31 Abnormal electrocardiogram [ECG] [EKG] (principal); R06.02 Shortness of breath | CPT/HCPCS: 93010 ==

== ENCOUNTER 2024-12-26 22:47 | Emergency (ER) | payer OTHER, SELFPAY ==
[2024-12-26 22:55] VITALS: BP 130/64; PULSE 127; RESP 20; TEMP 36.7; O2SAT 98; BMI 28.3
[2024-12-26 23:19] LABS: MANUAL DIFF FLAG NO
[2024-12-26 23:20] LABS: Basophils Percent Auto 0.4 % (0-2); Eosinophils Absolute Auto 0.1 X10*3/uL (0.0-0.4); Eosinophils Percent Auto 0.9 % (0-4); Hematocrit 42.4 % (37.0-47.0); Imm Gran Abs Auto 0.03 X10*3/uL (0.00-0.03); Imm Gran Pct Auto 0.3 % (0.0-0.4); Lymphocytes Absolute Auto 3.5 X10*3/uL (1.2-4.9); Lymphocytes Percent Auto 31.6 % (20-40); Mean Corpuscular Hemoglobin 26.1 pg (27.0-33.0); Mean Corpuscular Volume 79.1 fL (80.0-98.0); Mean Platelet Volume 9.6 fL (9.4-12.3); Monocytes Absolute Auto 0.6 X10*3/uL (0.1-1.2); Monocytes Percent Auto 5.4 % (2-11); Neutrophils Absolute Auto 6.8 x10*3/uL (2.0-8.3); Neutrophils Percent Auto 61.4 % (45-73); Platelet Count 256 X10*3/uL (160-400); Red Blood Count 5.36 X10*6/uL (4.20-5.50); Red Cell Distribution Width 14.7 % (11.0-16.0); White Blood Count 11.1 X10*3/uL (4.8-10.8)
[2024-12-26 23:34] LABS: Alanine Aminotransferase 28 U/L (0-31); Alkaline Phosphatase 87 U/L (39-117); Anion Gap 15 (12-20); Aspartate Amino Transferase 29 U/L (5-31); Bilirubin Total 0.6 mg/dL (0.0-1.0); Blood Urea Nitrogen 13 mg/dL (9-16); Calcium 10.9 mg/dL (8.4-10.2); Carbon Dioxide 23 mmol/L (22-29); Chloride 111 mmol/L (96-108); Creatinine Clr Calc Pharmacy 46.3; Estimated Glomerular Filt Rate 37; Glucose Random 152 mg/dL (60-115); Lipase 5 U/L (8-78); Potassium 3.5 mmol/L (3.3-5.1); Sodium 145 mmol/L (135-145); Total Protein 8.5 g/dL (6.5-8.0)
[2024-12-27 00:51] LABS: Amphetamine Screen Urine Not Detected (Not Detect); Barbiturates, Urine Not Detected (Not Detect); Benzodiazepines Screen Urine POSITIVE (Not Detect); Buprenorphine Scr Not Detected (Not Detect); Cannabinoid Screen Urine Not Detected (Not Detect); Cocaine Screen Urine Not Detected (Not Detect); Fentanyl, urine POSITIVE (Not Detect); Methadone Screen, Urine Positive (Not Detect); Opiate Screen Urine POSITIVE (Not Detect); Oxycodone Screen Urine Not Detected (Not Detect); Phencyclidine Screen Urine Not Detected (Not Detect)
[2024-12-27 01:00] VITALS: BP 132/62; PULSE 100; RESP 20; TEMP 36.8; O2SAT 96
--- NOTE | 2024-12-27 01:29 | ED.ABDPAIN ---
HPI - Abdominal Pain General Chief Complaint: Abdominal Pain Stated Complaint: abd pain Time Seen by Provider: 12/27/24 00:28 Source: patient Mode of arrival: ambulatory Limitations: no limitations History of Present Illness ED Provider: Dr. Shereen Luna HPI narrative: Patient comes to the emergency room complaining of suprapubic abdominal pain, history of UTIs. Patient denies fever or chills. patient reports nausea, states that earlier today she vomited, no diarrhea. Patient states that overall she does not feel well Related Data Home Medications ?Medication ?Instructions ?Recorded ?Confirmed albuterol sulfate 90 mcg/actuation 2 puff PO QID PRN wheezing 09/15/20 11/10/23 aerosol inhaler aspirin 81 mg tablet,delayed 1 tab PO DAILY 09/15/20 11/10/23 release atorvastatin 80 mg tablet 1 tab PO DAILY 09/15/20 11/10/23 clonazepam 0.5 mg tablet 0.5 mg PO BID@0900,1200 PRN Anxiety 09/15/20 11/10/23 omeprazole 40 mg capsule,delayed 1 cap PO DAILY 09/15/20 11/10/23 release sertraline 100 mg tablet 2 tab PO QAM 09/15/20 11/10/23 levetiracetam 1,000 mg tablet 1 tab PO BID 02/28/21 11/10/23 clonazepam 1 mg tablet 1 mg PO BEDTIME 11/10/23 11/10/23 clonidine HCl 0.2 mg tablet 0.2 mg PO TID 11/10/23 11/10/23 gabapentin 100 mg capsule 200 mg PO BEDTIME 11/10/23 11/10/23 hydroxyzine HCl 50 mg tablet 50 - 100 mg PO BEDTIME Insomnia 11/10/23 11/10/23 lamotrigine 200 mg tablet 200 mg PO BEDTIME 11/10/23 11/10/23 methadone 10 mg/mL oral concentrate 100 mg PO DAILY 11/11/23 11/11/23 Previous Rx's ?Medication ?Instructions ?Recorded ondansetron 4 mg disintegrating 4 mg PO Q8H PRN nausea and 11/02/23 tablet vomiting #20 tabs amoxicillin 875 mg-potassium 1 tab PO BID #20 tabs 11/12/23 clavulanate 125 mg tablet doxycycline hyclate 100 mg tablet 100 mg PO BID 10 days #20 tabs 11/12/23 benzonatate 200 mg capsule 200 mg PO TID PRN cough #12 caps 06/01/24 prednisone 20 mg tablet 40 mg (2 x 20 mg) PO DAILY #10 tabs 06/01/24 cefuroxime axetil 250 mg tablet 250 mg PO BID #10 tabs 08/14/24 phenazopyridine 99.5 mg tablet 99.5 mg PO TID PRN pain 6 doses #6 08/14/24 (Azo Urinary Pain Relief) tabs cefuroxime axetil 250 mg tablet 250 mg PO BID 7 days #14 tabs 10/15/24 budesonide-formoterol HFA 160 2 puff inhalation BID #10.2 grams 11/26/24 mcg-4.5 mcg/actuation aerosol inhaler nitrofurantoin 100 mg PO BID 8 days #16 caps 11/26/24 monohydrate/macrocrystals 100 mg capsule (Macrobid) cefuroxime axetil 250 mg tablet 250 mg PO BID #14 tabs 12/27/24 phenazopyridine 100 mg tablet 100 mg PO TID 6 doses #6 tabs 12/27/24 Allergies Allergy/AdvReac Type Severity Reaction Status Date / Time codeine [CODEINE] Allergy Unknown SWELLING Verified 12/26/24 22:56 hornet venom [HORNETS] Allergy Unknown RASH Verified 12/26/24 22:56 trazodone [TRAZODONE] AdvReac Intermediate VERY Verified 12/26/24 22:56 ANXIOUS, RESTLESSNESS From BENADRYL AdvReac Intermediate RESTLESS Uncoded 11/26/24 18:25 From SEROQUEL AdvReac Intermediate ANXIETY Uncoded 11/26/24 18:25 AND RESTLESSNESS Review of Systems Review of Systems Constitutional : No Weight loss, No Fever, No Chills, No Night Sweats, No Fatigue, No Malaise ENT/Mouth : No Hearing loss, No Ear Pain, No Nasal Congestion, No Sinus Pain, No Hoarseness, No sore throat, No Rhinorrhea, No Swallowing Difficulty Eyes: No Eye Pain, No Swelling, No Redness, No Foreign Body, No Discharge, No Vision Changes Cardiovascular : No Chest Pain, No SOB, No Dyspnea on Exertion, No Orthopnea, No Edema, No Palpitations Respiratory : No Cough, No Sputum, No Wheezing, No Smoke Exposure, No Dyspnea Gastrointestinal : complaining of Nausea, No Vomiting, No Diarrhea, No Constipation, No abdominal Pain, No Hematochezia, No Melena Genitourinary : patient states that she has not urinated in Over a day. Patient states that she was recently treated for a UTI. No Urinary Incontinence, No Urgency, No Flank Pain, No Urinary Flow Changes, No Hesitancy Musculoskeletal : No joint pain, No Myalgias, No Joint Swelling Skin : No Skin Lesions, No rash Neuro : No Weakness, No Numbness, No Paresthesias, No Loss of Consciousness, No Dizziness, No Headache Psych : No Anxiety/Panic, No Depression, No SI/HI/AH/VH, No Social Issues, Heme/Lymph: No Bruising, No Bleeding,No Lymphadenopathy Endocrine : No Polyuria, No Polydipsia, No Temperature Intolerance PMFSH Past Medical History Medical History PNA (pneumonia) HTN (hypertension) Left knee injury Patent ductus arteriosus Anxiety Hyperlipidemia Seizure Diabetes CVA (cerebral vascular accident) Surgical History Hx of tonsillectomy H/O left knee surgery Social History Social History Household Members: Significant Other Housing: House Housing Other:: [address] Do you presently have visiting nurse or other home services: No Alcohol intake: never Patient Tobacco Use Status: Current everyday Tobacco user Tobacco use type: Cigarette Cigarettes Per Day: 5 Substance Use Type: Opiates Advance Directives: No Advance Directives Information Provided: No Do you have a plan to hurt others: No Plan service: No Current occupational status: unemployed Physical Exam ED Vital Signs: Vital Signs - 24 hr 12/26/24 22:55 12/27/24 01:00 Temperature 98.0 F 98.3 F Pulse Rate 127 H 100 Respiratory Rate 20 20 Blood Pressure 130/64 132/62 Pulse Oximetry 98 96 Oxygen Delivery Method Room Air Room Air BMI result Body Mass Index 28.3 Const Other: Appearance: Alert. Oriented X3. No acute distress. Eyes: Pupils equal, round and reactive to light. ENT: Pharynx normal. Neck: Normal inspection. Neck supple. No lymph nodes noted. No crepitus CVS: Normal heart rate and rhythm. Pulses normal. Normal S1 and S2 Respiratory: No respiratory distress. Breath sounds normal. No Wheezing. No rales Abdomen: Soft , slightly distended, no rebound, no guarding, no flank pain. bedside bladder scan shows less than 100 mL of urine. Skin: Skin warm and dry. Normal skin color. Normal skin turgor. Extremities: No lower extremity edema. No Lacerations. No Rash Neuro: Oriented X 3. No motor deficit. No sensory deficit. Moving all extremities. No slurred speech. CN 2 through 12 grossly intact Psych: calm, anxious Course Course Course Narrative: Patient complaining of suprapubic discomfort. all of patient's labs and imaging pending. Medical Decision Making Medical Decision Making [facility] Narrative: My interpretation of labs: Patient's labs show a white blood cell count of 11.1, no new changes in patient's hematology from previous labs. Chemistry, patient has an increased bumped creatinine, 1.44. Patient has a urinary tract infection, patient was given cefuroxime, phenazopyridine, a small dose of Toradol. urine toxicology positive for methadone, fentanyl, benzodiazepines Patient wants a CAT scan. However, at this time there is no indication to do CT scan of the abdomen. Patient has no abdominal pain distention or flank pain. as mentioned above, patient received ketorolac, phenazopyridine, cefuroxime. It patient's microbiology reports, patient's urine bacterial growth is susceptible to cephalosporins. Patient's vitals are stable, no fever, no chills, normal blood pressure, no tachycardia, current heart rate in the 90s. Patient is upset because I am not giving her narcotics. I discussed with the patient that narcotics are not indicated for UTI treatment. of note, patient keeps yelling that I never saw the patient. However, I was multiple times in the room with the patient, discussed her labs, patient angry because she has had so many UTIs. I discussed with her that her urine sensitivities indicate that she will respond well to this current antibiotic. Also, I had a discussion with her that narcotics are not Indicated for a urinary tract infection. Also, when patient was about to receive Toradol, the 2 nurses were in the room, told her that she was getting Toradol. After was injected, patient started yelling and screaming saying that nobody told her it was Toradol And that it makes her feel crazy. Overall, patient making false accusations About the staff. Differential Diagnosis Differential Diagnoses: The differential diagnosis associated with the presentation includes ( UTI, pyelonephritis) Admission/Observation Consideration of admission/observation: Escalation of care including admission/observation considered Lab Data MDM Lab Attestation statement: I reviewed the patient's lab results. 12/26/24 23:12 12/26/24 23:12 Labs: Lab Results 12/26/24 12/27/24 12/27/24 Range/Units 23:12 00:23 02:01 WBC 11.1 H (4.8-10.8) X10*3/uL RBC 5.36 (4.20-5.50) X10*6/uL Hgb 14.0 (12.0-16.0) g/dl Hct 42.4 (37.0-47.0) % MCV 79.1 L (80.0-98.0) fL MCH 26.1 L (27.0-33.0) pg MCHC 33.0 (31.0-35.0) g/dl RDW 14.7 (11.0-16.0) % Plt Count 256 (160-400) X10*3/uL MPV 9.6 (9.4-12.3) fL Immature Gran % (Auto) 0.3 (0.0-0.4) % Neut % (Auto) 61.4 (45-73) % Lymph % (Auto) 31.6 (20-40) % [place] % (Auto) 5.4 (2-11) % Eos % (Auto) 0.9 (0-4) % Baso % (Auto) 0.4 (0-2) % Lymph # (Auto) 3.5 (1.2-4.9) X10*3/uL [place] # (Auto) 0.6 (0.1-1.2) X10*3/uL Eos # (Auto) 0.1 (0.0-0.4) X10*3/uL Baso # (Auto) 0.0 (0.0-0.2) X10*3/uL Abs Immat Gran (auto) 0.03 (0.00-0.03) X10*3/uL Absolute Neuts (auto) 6.8 (2.0-8.3) x10*3/uL Absolute Nucleated RBC 0.000 (0.0-0.012) X10*3/uL Nucleated RBC % (auto) 0.0 (0.0-0.2) /100WBC Sodium 145 (135-145) mmol/L Potassium 3.5 (3.3-5.1) mmol/L Chloride 111 H (96-108) mmol/L Carbon Dioxide 23 (22-29) mmol/L Anion Gap 15 (12-20) BUN 13 (9-16) mg/dL Creatinine 1.44 H (0.5-1.4) mg/dL Estim Creat Clear Calc 46.3 Estimated GFR 37 Random Glucose 152 H (60-115) mg/dL Calcium 10.9 H D (8.4-10.2) mg/dL Total Bilirubin 0.6 (0.0-1.0) mg/dL AST 29 (5-31) U/L ALT 28 (0-31) U/L Alkaline Phosphatase 87 (39-117) U/L Total Protein 8.5 H (6.5-8.0) g/dL Albumin 5.0 (3.5-5.0) g/dL Lipase 5 L (8-78) U/L Urine Color Dark Yellow Urine Appearance Turbid Urine pH 5.5 (5.0-9.0) Ur Specific [place] 1.025 (1.005-1.025) Urine Protein 100 (2+) H (Neg-Trace) mg/dL Urine Glucose (UA) Negative (Negative) mg/dL Urine Ketones Trace (Negative) mg/dL Urine Blood Trace H (Negative) Urine Nitrite Positive H (Negative) Ur Leukocyte Esterase Moderate (2+) H (Negative) Urine RBC 3-5 H (0-2) /HPF Urine WBC 11-20 (0-5) /HPF Ur Squamous Epith Cells 3-5 (0-2) /HPF Calcium Oxalate Crystal Present Urine Bacteria 4+ (None Seen) Hyaline Casts 3-5 (0-2) /LPF Urine Opiates Screen POSITIVE H (Not Detect) Ur Buprenorphine Scrn Not Detected (Not Detect) ng/mL Ur Oxycodone Screen Not Detected (Not Detect) ng/mL Urine Methadone Screen Positive H (Not Detect) ng/mL Urine Fentanyl Screen POSITIVE H (Not Detect) Ur Barbiturates Screen Not Detected (Not Detect) Ur Phencyclidine Scrn Not Detected (Not Detect) Ur Amphetamines Screen Not Detected (Not Detect) U Benzodiazepines Scrn POSITIVE H (Not Detect) Urine Cocaine Screen Not Detected (Not Detect) U Marijuana (THC) Screen Not Detected (Not Detect) Medications Administered Discontinued Medications Generic Name Dose Route Start Last Admin Trade Name Freq PRN Reason Stop Dose Admin Cefuroxime Axetil 500 mg 12/27/24 02:35 12/27/24 02:40 Cefuroxime Axetil 500 Mg Tablet PO 12/27/24 02:36 500 mg ONCE ONE Administration Ketorolac Tromethamine 60 mg 12/27/24 02:36 12/27/24 02:40 Ketorolac Tromethamine 60 Mg/2 Ml Vial IM 12/27/24 02:37 60 mg ONCE ONE Administration Phenazopyridine HCl 100 mg 12/27/24 02:39 12/27/24 02:43 Phenazopyridine Hcl 100 Mg Tablet PO 12/27/24 02:40 100 mg ONCE ONE Administration Critical Care Time Critical Care Time Critical Care Time: Yes Total Critical Care Time: 35 Attestation: I have personally provided critical care time. Time includes review of lab data, radiology results, discussion with consultants, and monitoring for potential decompensation. Intervention performed as documented. Discharge Plan Discharge Clinical Impression: UTI (urinary tract infection) Patient Disposition: Home, Self-Care Instructions: Urinary Tract Infection in Women (ED) Additional Instructions: Please follow-up with your primary care physician tomorrow. If you have any worsening or new symptoms, please return to the emergency room or call 911 Prescriptions: New cefuroxime axetil 250 mg tablet 250 mg PO BID Qty: 14 0RF phenazopyridine 100 mg tablet 100 mg PO TID Qty: 6 0RF No Action atorvastatin 80 mg tablet 1 tab PO DAILY clonazepam 0.5 mg tablet 0.5 mg PO BID@0900,1200 PRN (Reason: Anxiety) sertraline 100 mg tablet 2 tab PO QAM omeprazole 40 mg capsule,delayed release(DR/EC) 1 cap PO DAILY aspirin 81 mg tablet,delayed release (DR/EC) 1 tab PO DAILY albuterol sulfate 90 mcg/actuation HFA aerosol inhaler 2 puff PO QID PRN (Reason: wheezing) levetiracetam 1,000 mg tablet 1 tab PO BID ondansetron 4 mg tablet,disintegrating 4 mg PO Q8H PRN (Reason: nausea and vomiting) Qty: 20 0RF lamotrigine 200 mg tablet 200 mg PO BEDTIME clonazepam 1 mg tablet 1 mg PO BEDTIME hydroxyzine HCl 50 mg tablet 50 - 100 mg PO BEDTIME clonidine HCl 0.2 mg tablet 0.2 mg PO TID gabapentin 100 mg capsule 200 mg PO BEDTIME methadone 10 mg/mL Concentrate 100 mg PO DAILY amoxicillin-pot clavulanate 875-125 mg tablet 1 tab PO BID Qty: 20 0RF doxycycline hyclate 100 mg tablet 100 mg PO BID 10 Days Qty: 20 0RF cefuroxime axetil 250 mg tablet 250 mg PO BID Qty: 10 0RF Azo Urinary Pain Relief 99.5 mg tablet 99.5 mg PO TID PRN (Reason: pain) Qty: 6 0RF cefuroxime axetil 250 mg tablet 250 mg PO BID 7 Days Qty: 14 0RF prednisone 20 mg tablet 40 mg PO DAILY Qty: 10 0RF benzonatate 200 mg capsule 200 mg PO TID PRN (Reason: cough) Qty: 12 0RF nitrofurantoin monohyd/m-cryst [Macrobid] 100 mg capsule 100 mg PO BID 8 Days Qty: 16 0RF Rx Instructions: must administer with a meal/food budesonide-formoterol 160-4.5 mcg/actuation HFA aerosol inhaler 2 puff inhalation BID Qty: 10.2 0RF Print Language: Telugu
[2024-12-27 02:06] LABS: Appearance Urine Turbid; Color Urine Dark Yellow; Glucose Urine UA Negative (Negative); Leukocyte Esterase Urine Moderate (2+) (Negative); Nitrite Urine Positive (Negative); PH 5.5 (5.0-9.0); Specific Gravity - Urine 1.025 (1.005-1.025); UMIC TRIGGER UACC YES; Urine Blood Trace (Negative); Urine Ketones Trace mg/dL (Negative); Urine Protein 100 (2+) mg/dL (Neg-Trace)
[2024-12-27 02:22] LABS: Bacteria Urine 4+ (None Seen); Calcium Oxalate Crystals Urine Present; UACC Culture Trigger YES
[2024-12-27] MEDS: Ketorolac Tromethamine 60 MG/2 ML VIAL IM (02:40)
[2024-12-27] MEDS: cefuroxime axetiL 500 MG TABLET PO (02:40)
[2024-12-27] MEDS: Phenazopyridine HCL 100 MG TABLET PO (02:43)
[2024-12-27 03:37] VITALS: BP 118/65; PULSE 112; RESP 16; TEMP 36.9; O2SAT 95
--- NOTE | 2024-12-27 03:48 | PC.NURSE ---
Late entry: Verbalized medications to be administered per MAR. Pt upset reported after medications were given that she cannot have Torodol it makes me go crazy . Pt reassured. Reports effectiveness at reassessment. Dr. Luna aware.
[2024-12-27 03:54] VITALS: BP 118/65; PULSE 112; RESP 16; TEMP 36.9; O2SAT 95
== END 2024-12-27 03:55 | disposition home or self-care (01) ==
PROVIDERS: Emergency Provider Emergency Medicine
DX: N39.0 Urinary tract infection, site not specified (principal); R10.2 Pelvic and perineal pain; R11.2 Nausea with vomiting, unspecified; F17.210 Nicotine dependence, cigarettes, uncomplicated; Z79.899 Other long term (current) drug therapy; Z87.440 Personal history of urinary (tract) infections; Z51.81 Encounter for therapeutic drug level monitoring
CPT/HCPCS: 36415; 80053; 80307; 81001; 83690; 85025; 87086; 87088; 87186; 96372; 99284; J1885